=== PATIENT | female | born 1955 | race Caucasian/White ===

== ENCOUNTER 2018-01-08 16:45 | Inpatient (IN) | payer OTHER ==
[2018-01-08] MEDS ORDERED: DIGOXIN 0.25 MG/ML AMP ONE (17:22)
[2018-01-08] MEDS ORDERED: METHYLPREDNISOLONE 125 MG INJ ONE (17:22)
[2018-01-08] MEDS ORDERED: METOPROLOL TAR 50 MG TAB ONE (17:22)
[2018-01-08] MEDS ORDERED: AZITHROMYCIN 500 MG/250 ML BAG ONE (17:23)
[2018-01-08] MEDS ORDERED: TETANUS & DIPHTHERIA TOX,ADULT 0.5 ML VIAL ONE (17:23)
[2018-01-08] MEDS ORDERED: METOPROLOL TARTRATE 5 MG/5 ML INJ IV ONE (17:23)
[2018-01-08] MEDS ORDERED: NA CHLORIDE 0.9% 1,000 ML ONE ×2 (17:23→19:17)
[2018-01-08] MEDS ORDERED: CEFTRIAXONE/SWI 1gm 1 GM/10 ML SYR ONE (17:23)
[2018-01-08 17:28] LABS: Absolute Lymphocytes (CBC) 0.7 K/uL (0.7-4.9); Absolute Monocytes 0.8 K/uL (0.1-1.3); Absolute Neutrophil 5.7 K/uL (1.8-8.0); Basophils % 1.4 % (0-1.3); Eosinophils % 2.4 % (0-4.4); Hematocrit 42.6 % (36.0-45.0); Lymphocytes % 8.8 % (15.3-44.8); MCH 26.5 pg (27.0-35.0); MCV 80.1 fL (80-100); MPV 10.1 fL (7.6-11.3); Monocytes % 11.2 % (3.3-12.3); RBC Red Blood Cell Count 5.32 M/uL (3.86-4.86)
[2018-01-08 17:30] LABS: Protime INR 3.19
[2018-01-08 17:53] LABS: Albumin 3.6 g/dL (3.4-5.0); Bilirubin Direct 0.8 mg/dL (0-0.2); Bilirubin Total 1.9 mg/dL (0.2-1.0); CKMB Creatine Kinase MB 3.4 ng/mL (0.3-3.6); Magnesium 2.3 mg/dL (1.8-2.4); Potassium 4.1 mmol/L (3.5-5.1); Protein, Total 6.6 g/dL (6.4-8.2)
--- NOTE | 2018-01-08 18:06 | RAD REPORT ---
EXAM DESCRIPTION: CT - Head Brain Wo Cont - 01/08/2018 5:54 pm CLINICAL HISTORY: Dizziness. Head injury COMPARISON: 2016 TECHNIQUE: Computed axial tomography of the head was obtained. IV contrast was not requested. All CT scans are performed using dose optimization technique as appropriate and may include automated exposure control or mA/KV adjustment according to patient size. FINDINGS: An intracranial bleed is not seen . The ventricles are normal in caliber. No extra-axial fluid collection is noted. Bilateral low-density areas within the cerebral hemispheres are unchanged probably indicating old infarcts. Fluid within the sinuses/ mastoids is not seen. IMPRESSION: No acute intracranial abnormality is seen. If patient's symptoms persist MRI of the bra in would be recommended.
--- NOTE | 2018-01-08 18:11 | RAD REPORT ---
EXAM DESCRIPTION: [place] Single View01/08/2018 5:25 pm CLINICAL HISTORY: Chest pain COMPARISON: June 2017 FINDINGS: The lungs appear clear of acute infiltrate. The heart is markedly enlarged An old right rib fracture is present. IMPRESSION: No acute abnormalities displayed
[2018-01-08] MEDS ORDERED: LEVALBUTEROL 1.25 MG/3 ML NEB ONE (18:25)
[2018-01-08] MEDS ORDERED: IPRATROPIUM BROM 0.5MG/2.5ML ONE (18:25)
[2018-01-08 18:44] LABS: Urine Blood TRACE (NEG); Urine Glucose NEGATIVE (NEG); Urine Protein 1+ (NEG); Urine Specific Gravity 1.025 (1.005-1.030); Urine pH 5.5 (5.0-7.0)
--- NOTE | 2018-01-08 19:01 | EDPHYS ---
Physician Documentation [facility] Name: Richa Lozano Age: 62 yrs Sex: Female : 1955 Arrival Date: 01/08/2018 Time: 16:46 Bed 4 Private MD: Yared Chao R ED Physician Raul Wei HPI: 01/08 17:15 This 62 yrs old Female presents to ER via Wheelchair with complaints of zackery Slurred Speech, Dizziness, Fall Injury. Historical: - Allergies: 17:02 Levaquin; ss - Home Meds: 19:46 Klor-Con 10 10 mEq Oral TbER 1 tab once daily [Active]; Lasix 40 mg Oral tab 1 tab once ak1 daily [Active]; metoprolol tartrate 25 mg Oral tab 1 tab 2 times per day [Active]; sertraline 50 mg Oral tab 1 tab once daily [Active]; Xarelto 15 mg Oral tab daily [Active]; - PMHx: 17:02 AFIB; Aneurysm; COPD; CVA; Depression; Hypertensin; ss - PSHx: 17:02 aortic aneurysm; bilateral feet; ss - Immunization history:: Adult Immunizations up to date. - Social history:: Smoking status: Patient uses tobacco products, 2 cigarettes/ day. - Ebola Screening: : Patient denies exposure to infectious person Patient denies travel to an Ebola-affected area in the 21 days before illness onset. ROS: 17:16 Constitutional: Negative for fever, chills, and weight loss, Eyes: Negative for injury, zackery pain, redness, and discharge, ENT: Negative for injury, pain, and discharge, Neck: Negative for injury, pain, and swelling, Abdomen/GI: Negative for abdominal pain, nausea, vomiting, diarrhea, and constipation, Back: Negative for injury and pain, : Negative for injury, bleeding, discharge, and swelling, MS/Extremity: Negative for injury and deformity, Skin: Negative for injury, rash, and discoloration, Neuro: Negative for headache, weakness, numbness, tingling, and seizure, Psych: Negative for depression, anxiety, suicide ideation, homicidal ideation, and hallucinations, Allergy/Immunology: Negative for hives, rash, and allergies, Endocrine: Negative for neck swelling, polydipsia, polyuria, polyphagia, and marked weight changes. 17:16 Cardiovascular: Positive for chest pain, palpitations. 17:16 Respiratory: Positive for cough, shortness of breath, wheezing, inspiratory, expiratory. Exam: 17:16 Constitutional: This is a well developed, well nourished patient who is awake, alert, zackery and in no acute distress. Head/Face: Normocephalic, atraumatic. Eyes: Pupils equal round and reactive to light, extra-ocular motions intact. Lids and lashes normal. Conjunctiva and sclera are non-icteric and not injected. Cornea within normal limits. Periorbital areas with no swelling, redness, or edema. ENT: Nares patent. No nasal discharge, no septal abnormalities noted. Tympanic membranes are normal and external auditory canals are clear. Oropharynx with no redness, swelling, or masses, exudates, or evidence of obstruction, uvula midline. Mucous membranes moist. Neck: Trachea midline, no thyromegaly or masses palpated, and no cervical lymphadenopathy. Supple, full range of motion without nuchal rigidity, or vertebral point tenderness. No Meningismus. Chest/axilla: Normal chest wall appearance and motion. Nontender with no deformity. No lesions are appreciated. Abdomen/GI: Soft, non-tender, with normal bowel sounds. No distension or tympany. No guarding or rebound. No evidence of tenderness throughout. Back: No spinal tenderness. No costovertebral tenderness. Full range of motion. Female : Normal external genitalia. Skin: Warm, dry with normal turgor. Normal color with no rashes, no lesions, and no evidence of cellulitis. MS/ Extremity: Pulses equal, no cyanosis. Neurovascular intact. Full, normal range of motion. Neuro: Awake and alert, GCS 15, oriented to person, place, time, and situation. Cranial nerves II-XII grossly intact. Motor strength 5/5 in all extremities. Sensory grossly intact. Cerebellar exam normal. Normal gait. Psych: Awake, alert, with orientation to person, place and time. Behavior, mood, and affect are within normal limits. 17:16 Cardiovascular: Rate: tachycardic, Rhythm: regular, Pulses: Pulses are 4+ in bilateral radial, brachial, femoral, popliteal, posterior tibial and and dorsalis pedis arteries.. Heart sounds: Edema: 1+ edema to level of left ankle and right ankle, JVD: is not appreciated. Vital Signs: 17:02 BP 117 / 85; Pulse 123; Resp 22; Temp 98.2(O); Pulse Ox 86% on R/A; Weight 72.57 kg; ss Height 5 ft. 7 in. (170.18 cm); Pain 0/10; 17:38 BP 118 / 96; Pulse 106; Resp 22; Pulse Ox 95% on 2 lpm NC; sv 18:04 BP 119 / 88; Pulse 94; Resp 20; Pulse Ox 95% on 2 lpm NC; sv 19:30 BP 106 / 86; Pulse 96; Resp 16; Pulse Ox 97% on R/A; Pain 0/10; ao 19:30 BP 115 / 99; Pulse 96; Resp 18; Pulse Ox 94% ; ao 17:02 Body Mass Index 25.06 (72.57 kg, 170.18 cm) ss MDM: 16:51 Patient medically screened. [facility] 17:18 Data reviewed: vital signs, nurses notes, lab test result(s), EKG, radiologic studies. zackery 01/08 17:05 Order name: Basic Metabolic Panel; Complete Time: 18:32 sv 01/08 17:05 Order name: CBC with Diff; Complete Time: 18:32 sv 01/08 17:05 Order name: Ckmb; Complete Time: 18:32 sv 01/08 17:05 Order name: CPK; Complete Time: 18:32 sv 01/08 17:05 Order name: LFT's; Complete Time: 18:32 sv 01/08 17:05 Order name: Magnesium; Complete Time: 18:32 sv 01/08 17:05 Order name: NT PRO-BNP; Complete Time: 18:32 sv 01/08 17:05 Order name: PT-INR; Complete Time: 18:32 sv 01/08 17:05 Order name: Ptt, Activated; Complete Time: 18:32 sv 01/08 17:05 Order name: Troponin (emerg Dept Use Only); Complete Time: 18:32 sv 01/08 17:06 Order name: Glucose, Ancillary Testing; Complete Time: 18:32 EDMS 01/08 17:15 Order name: Blood Culture Adult (2) [facility] 01/08 18:20 Order name: Digoxin; Complete Time: 18:56 zackery 01/08 18:40 Order name: Urine Dipstick--Ancillary (enter results); Complete Time: 18:56 eb 01/08 17:05 Order name: XRAY Chest (1 view); Complete Time: 18:32 sv 01/08 17:15 Order name: CT Head Brain wo Cont; Complete Time: 18:32 zackery 01/08 19:18 Order name: Basic Metabolic Panel EDMS 01/08 19:18 Order name: Basic Metabolic Panel EDMS 01/08 19:18 Order name: NT PRO-BNP EDMS 01/08 19:18 Order name: NT PRO-BNP EDMS 01/08 19:18 Order name: Troponin I EDMS 01/08 19:18 Order name: Troponin I EDMS 01/08 19:18 Order name: Troponin I EDMS 01/08 19:19 Order name: Echo with Doppler EDMS 01/08 19:19 Order name: CBC with Automated Diff EDMS 01/08 19:19 Order name: CBC with Automated Diff EDMS 01/08 17:05 Order name: EKG; Complete Time: 17:05 sv 01/08 17:05 Order name: Cardiac monitoring; Complete Time: 17:15 sv 01/08 17:05 Order name: EKG - Nurse/Tech; Complete Time: 17:14 sv 01/08 17:05 Order name: IV Saline Lock; Complete Time: 17:14 sv 01/08 17:05 Order name: Labs collected and sent; Complete Time: 17:14 sv 01/08 17:05 Order name: O2 Per Protocol; Complete Time: 17:15 sv 01/08 17:05 Order name: O2 Sat Monitoring; Complete Time: 17:15 sv 01/08 17:05 Order name: Urine Dipstick-Ancillary (obtain specimen); Complete Time: 19:16 sv 01/08 19:19 Order name: Low Sodium EDMS Administered Medications: Discontinued: NS 0.9% 1000 ml IV at 125 ml/hr continuous 17:27 Drug: NS 0.9% 1000 ml Route: IV; Rate: 125 ml/hr; Site: right forearm; sv 17:27 Drug: Lopressor 2.5 mg Route: IVP; Site: right forearm; sv 20:44 Follow up: Urine output 2.5 ml; Response: No adverse reaction ao 20:51 Follow up: only 2.5mg given IV on day shift. pt BP and Heartrate WNL no need per ERP ak1 for second 17:29 Drug: Digoxin 0.5 mg Route: IVP; Site: right forearm; sv 17:58 Follow up: Response: No adverse reaction sv 17:31 Drug: SOLU-Medrol 125 mg Route: IVP; Site: right forearm; sv 17:58 Follow up: Response: No adverse reaction sv 17:33 Drug: Rocephin - (cefTRIAXone) 1 grams Route: IVPB; Infused Over: 30 mins; Site: right sv forearm; 17:37 Follow up: Response: No adverse reaction; IV Status: Completed infusion; IV Intake: 10mlsv 17:38 Drug: Zithromax 500 mg Route: IVPB; Infused Over: 1 hrs; Site: right forearm; sv 19:18 Follow up: IV Status: Completed infusion ak1 17:44 Drug: Tetanus-Diphtheria Toxoid Adult 0.5 ml {Elastic Attacher Coverstitch: [employer]. Exp: sv 02/27/2020. Lot #: [id number]. } Route: IM; Site: left deltoid; 17:59 Follow up: Response: No adverse reaction sv 17:47 Drug: Lopressor (metoprolol TARTRATE) 50 mg Route: PO; sv 17:59 Follow up: Response: No adverse reaction sv 18:25 Drug: Xopenex 3.75 mg Route: Inhalation; sv 18:25 Drug: AtroVENT Aerosol 0.5 mg Route: Inhalation; sv 19:18 Drug: NS 0.9% 1000 ml Route: IV; Rate: 75 ml/hr; Site: right hand; ak1 19:20 Follow up: IV Status: Infusion continued upon admission ak1 19:18 Drug: Lasix 20 mg Route: IVP; Site: right hand; ak1 19:19 Follow up: Response: No adverse reaction ak1 20:41 Drug: Lasix 20 mg Route: IVP; Site: right forearm; ao 20:42 Drug: Potassium Effervescent Tablet 25 mEq Route: PO; ao 20:58 Drug: Lopressor 5 mg {Note: no medication administered.2.5mg given IV on day shift, the ak1 second 2.5mg was not warrented..} Route: IVP; Site: Other; 20:59 Follow up: Response: Blood pressure is lowered ak1 Point of Care Testing: Blood Glucose: 17:00 Blood Glucose: 111 mg/dL; sv Ranges: Critical Glucose Levels:Adult <50 mg/dl or >400 mg/dl <40 mg/dl or >180 mg/dl Disposition: 01/08/18 19:01 Hospitalization ordered by Yared Chao for Inpatient Admission. Preliminary diagnosis are Dyspnea, Cardiomegaly, Atrial fibrillation and flutter, Chronic obstructive pulmonary disease with (acute) exacerbation. - Bed requested for Telemetry/MedSurg (Inpatient). - Status is Inpatient Admission. ak1 - Condition is Fair. - Problem is new. - Symptoms have improved. UTI on Admission? No Signatures: Dispatcher [employer] EDHI Rashad Fabian rg2 Garima Ying, RN RN Raul Reed MD MD cha Smirch, Shelby, RN RN ss Krenek, Amber, RN RN ak1 Clovis Aguirre RN RN ao Corrections: (The following items were deleted from the chart) 19:29 19:18 CONS Physician Consult ordered. EDHI EDHI 20:30 19:01 Hospitalization Ordered by Yared Chao MD for Inpatient Admission. Preliminary rg2 diagnosis is Dyspnea; Cardiomegaly; Atrial fibrillation and flutter; Chronic obstructive pulmonary disease with (acute) exacerbation. Bed requested for Telemetry/MedSurg (Inpatient). Status is Inpatient Admission. Condition is Fair. Problem is new. Symptoms have improved. UTI on Admission? No. zackery 21:21 20:30 01/08/2018 19:01 Hospitalization Ordered by Yared Chao MD for Inpatient ak1 Admission. Preliminary diagnosis is Dyspnea; Cardiomegaly; Atrial fibrillation and flutter; Chronic obstructive pulmonary disease with (acute) exacerbation. Bed requested for Telemetry/MedSurg (Inpatient). Status is Inpatient Admission. Condition is Fair. Problem is new. Symptoms have improved. UTI on Admission? No. rg2
--- NOTE | 2018-01-08 19:01 | ER ---
Nurse's Notes [facility] Name: Richa Lozano Age: 62 yrs Sex: Female : 1955 Arrival Date: 01/08/2018 Time: 16:46 Bed 4 Private MD: Yared Chao R Diagnosis: Dyspnea;Cardiomegaly;Atrial fibrillation and flutter;Chronic obstructive pulmonary disease with (acute) exacerbation Presentation: 01/08 16:58 Presenting complaint: daughter reports that patient fell a few hours ago at unknown ss time, took her 2.5-3 hours to get to a phone. Daughter reports that patient's speech sounds a little more slurred than usual, and is complaining of dizziness. Transition of care: patient was not received from another setting of care. Onset of symptoms was January 08, 2018. Risk Assessment: Do you want to hurt yourself or someone else? Patient reports no desire to harm self or others. Initial Sepsis Screen: Does the patient meet any 2 criteria? RR > 20 per min. HR > 90 bpm. Does the patient have a suspected source of infection? No. Patient's initial sepsis screen is negative. Care prior to arrival: None. 16:58 Method Of Arrival: Wheelchair ss 16:58 Acuity: TINO 2 ss Historical: - Allergies: 17:02 Levaquin; ss - Home Meds: 19:46 Klor-Con 10 10 mEq Oral TbER 1 tab once daily [Active]; Lasix 40 mg Oral tab 1 tab once ak1 daily [Active]; metoprolol tartrate 25 mg Oral tab 1 tab 2 times per day [Active]; sertraline 50 mg Oral tab 1 tab once daily [Active]; Xarelto 15 mg Oral tab daily [Active]; - PMHx: 17:02 AFIB; Aneurysm; COPD; CVA; Depression; Hypertensin; ss - PSHx: 17:02 aortic aneurysm; bilateral feet; ss - Immunization history:: Adult Immunizations up to date. - Social history:: Smoking status: Patient uses tobacco products, 2 cigarettes/ day. - Ebola Screening: : Patient denies exposure to infectious person Patient denies travel to an Ebola-affected area in the 21 days before illness onset. Screenin:14 Abuse screen: Denies threats or abuse. Denies injuries from another. Nutritional sv screening: No deficits noted. Tuberculosis screening: No symptoms or risk factors identified. Fall Risk No fall in past 12 months (0 pts). No secondary diagnosis (0 pts). IV access (20 points). Ambulatory Aid- None/Bed Rest/Nurse Assist (0 pts). Gait- Weak (10 pts.). Mental Status- Oriented to own ability (0 pts). Total Calero Fall Scale indicates Low Risk Score (25-44 pts). Fall prevention measures have been instituted. Side Rails Up X 2 Placed close to Nursing Station Frequent Obs/Assesments occuring Family Present and informed to notify staff if they need to leave bedside As available Patient and Family Educated on Fall Prevention Program and strategies. Assessment: 17:00 General: Appears in no apparent distress. uncomfortable, Behavior is cooperative, sv restless. Pain: Complains of pain in left ankle Pain currently is 3 out of 10 on a pain scale. Pain began 4 hours ago. Is intermittent. Neuro: Level of Consciousness is awake, alert, obeys commands, Oriented to person, place, time, situation, Moves all extremities. Speech is slurred, Facial symmetry appears normal, Reports dizziness. Cardiovascular: Patient's skin is warm and dry. Pulses are 3+ in right radial artery and left radial artery. Respiratory: Respiratory pattern is symmetrical, tachypnea Breath sounds with wheezes bilaterally. Derm: Skin is normal. Musculoskeletal: Range of motion: intact in all extremities. Injury Description: Abrasion sustained to right knee and left knee is scabbed, was sustained 4-6 hours ago. 17:30 Reassessment: Patient appears in no apparent distress at this time. No changes from sv previously documented assessment. Patient and/or family updated on plan of care and expected duration. Pain level reassessed. Patient is alert, oriented x 3, equal unlabored respirations, skin warm/dry/pink. 18:25 Reassessment: Patient appears in no apparent distress at this time. No changes from sv previously documented assessment. Patient and/or family updated on plan of care and expected duration. Pain level reassessed. Patient is alert, oriented x 3, equal unlabored respirations, skin warm/dry/pink. 19:20 General: Appears in no apparent distress. comfortable, Behavior is calm, cooperative. ao Pain: Complains of pain in left leg. Neuro: Level of Consciousness is awake, alert, obeys commands, Oriented to person, place, time, situation, Moves all extremities. Speech is slurred, Facial symmetry appears normal, Reports dizziness. Cardiovascular: Capillary refill < 3 seconds Patient's skin is warm and dry. Pulses are all present. Respiratory: Airway is patent Respiratory effort is even, unlabored, Respiratory pattern is regular, symmetrical. GI: Abdomen is non-distended. : No signs and/or symptoms were reported regarding the genitourinary system. EENT: No signs and/or symptoms were reported regarding the EENT system. Derm: No signs and/or symptoms reported regarding the dermatologic system. Skin is pink, warm \T\ dry. normal. Musculoskeletal: Range of motion: intact in all extremities. 20:43 Reassessment: Patient appears in no apparent distress at this time. Patient and/or ao family updated on plan of care and expected duration. Pain level reassessed. Patient is alert, oriented x 3, equal unlabored respirations, skin warm/dry/pink. Report called to [facility] and nurse was not available. Nurse will call back to get report. Vital Signs: 17:02 BP 117 / 85; Pulse 123; Resp 22; Temp 98.2(O); Pulse Ox 86% on R/A; Weight 72.57 kg; ss Height 5 ft. 7 in. (170.18 cm); Pain 0/10; 17:38 BP 118 / 96; Pulse 106; Resp 22; Pulse Ox 95% on 2 lpm NC; sv 18:04 BP 119 / 88; Pulse 94; Resp 20; Pulse Ox 95% on 2 lpm NC; sv 19:30 BP 106 / 86; Pulse 96; Resp 16; Pulse Ox 97% on R/A; Pain 0/10; ao 19:30 BP 115 / 99; Pulse 96; Resp 18; Pulse Ox 94% ; ao 17:02 Body Mass Index 25.06 (72.57 kg, 170.18 cm) Vitals: 17:05 Cardiac Rhythm Assessment Atrial fibrillation W/PVC's. sv ED Course: 16:46 Patient arrived in ED. sb2 16:46 Yared Chao MD is Private Physician. sb2 16:50 Raul Wei MD is Attending Physician. zackery 17:00 Patient has correct armband on for positive identification. Placed in gown. Bed in low sv position. Side rails up X2. Adult w/ patient. quality assurance monitor final on. Pulse ox on. NIBP on. Door closed. Head of bed elevated. 17:02 Triage completed. ss 17:02 Arm band placed on right wrist. ss 17:04 Garima Ying, RN is Primary Nurse. sv 17:05 Initial lab(s) drawn, by me, sent to lab. Inserted saline lock: 20 gauge in right sv forearm, using aseptic technique. Blood collected. Flushed right forearm with 5 ml normal saline. 17:06 EKG done, by correctional maintenance technician. reviewed by Raul Wei MD. sm3 17:24 XRAY Chest (1 view) In Process Unspecified. EDMS 17:28 Radiology exam delayed due to PT unable to come down for CT, Nurse Garima will call nj when ready. 17:[address] via stretcher. sv 17:53 CT Head Brain wo Cont In Process Unspecified. EDMS 18:10 First set of blood cultures drawn by nc. em1 18:58 Yared Chao MD is Hospitalizing Provider. zackery 19:10 Report given to Inez CHOPRA and Clovis CHOPRA. sv 19:32 Primary Nurse role handed off by Garima Ying, RN sv 19:44 No provider procedures requiring assistance completed. Patient admitted, IV remains in ak1 place. Administered Medications: Discontinued: NS 0.9% 1000 ml IV at 125 ml/hr continuous 17:27 Drug: NS 0.9% 1000 ml Route: IV; Rate: 125 ml/hr; Site: right forearm; sv 17:27 Drug: Lopressor 2.5 mg Route: IVP; Site: right forearm; sv 20:44 Follow up: Urine output 2.5 ml; Response: No adverse reaction ao 20:51 Follow up: only 2.5mg given IV on day shift. pt BP and Heartrate WNL no need per ERP ak1 for second 17:29 Drug: Digoxin 0.5 mg Route: IVP; Site: right forearm; sv 17:58 Follow up: Response: No adverse reaction sv 17:31 Drug: SOLU-Medrol 125 mg Route: IVP; Site: right forearm; sv 17:58 Follow up: Response: No adverse reaction sv 17:33 Drug: Rocephin - (cefTRIAXone) 1 grams Route: IVPB; Infused Over: 30 mins; Site: right sv forearm; 17:37 Follow up: Response: No adverse reaction; IV Status: Completed infusion; IV Intake: 10mlsv 17:38 Drug: Zithromax 500 mg Route: IVPB; Infused Over: 1 hrs; Site: right forearm; sv 19:18 Follow up: IV Status: Completed infusion ak1 17:44 Drug: Tetanus-Diphtheria Toxoid Adult 0.5 ml {Crystal Lapper: [employer]. Exp: sv 02/27/2020. Lot #: [id number]. } Route: IM; Site: left deltoid; 17:59 Follow up: Response: No adverse reaction sv 17:47 Drug: Lopressor (metoprolol TARTRATE) 50 mg Route: PO; sv 17:59 Follow up: Response: No adverse reaction sv 18:25 Drug: Xopenex 3.75 mg Route: Inhalation; sv 18:25 Drug: AtroVENT Aerosol 0.5 mg Route: Inhalation; sv 19:18 Drug: NS 0.9% 1000 ml Route: IV; Rate: 75 ml/hr; Site: right hand; ak1 19:20 Follow up: IV Status: Infusion continued upon admission ak1 19:18 Drug: Lasix 20 mg Route: IVP; Site: right hand; ak1 19:19 Follow up: Response: No adverse reaction ak1 20:41 Drug: Lasix 20 mg Route: IVP; Site: right forearm; ao 20:42 Drug: Potassium Effervescent Tablet 25 mEq Route: PO; ao 20:58 Drug: Lopressor 5 mg {Note: no medication administered.2.5mg given IV on day shift, the ak1 second 2.5mg was not warrented..} Route: IVP; Site: Other; 20:59 Follow up: Response: Blood pressure is lowered ak1 Point of Care Testing: Blood Glucose: 17:00 Blood Glucose: 111 mg/dL; sv Ranges: Intake: 17:37 IV: 10ml; Total: 10ml. sv Output: 20:44 Urine: 3ml; Total: 3ml. ao Outcome: 19:01 Decision to Hospitalize by Provider. [facility] 19:44 Condition: stable ak1 19:44 Instructed on the need for admit. 21:21 Patient left the ED. ak1 Signatures: Dispatcher [employer] Garima Lopez RN RN sv Anderson, Corey, MD MD cha Martinez, Eric em1 Viviana Martinez RN RN ss Inez Martin RN RN ak1 Clovis Aguirre, RN RN Juan Rachel Sheri 2 Chanel Deal sm3 Corrections: (The following items were deleted from the chart) 17:46 17:17 Digoxin 0.5 mg IVP in right forearm sv sv
[2018-01-08] MEDS ORDERED: IPRATROPIUM BROM 0.5MG/2.5ML NEB PRN (19:07)
[2018-01-08] MEDS ORDERED: ALBUTEROL 2.5 MG/3 ML NEB SOL NEB PRN (19:07)
[2018-01-08] MEDS ORDERED: ACETAMINOPHEN 500 MG TAB PO PRN (19:07)
[2018-01-08] MEDS ORDERED: FUROSEMIDE 20 MG/ 2ML VIAL ONE ×2 (19:17→20:37)
[2018-01-08] MEDS: DIGOXIN 0.25 MG/ML AMP IV SCH (20:00)
[2018-01-08] MEDS: POTASSIUM 25 MEQ EFFERV TAB PO SCH (21:00)
[2018-01-08] MEDS: FUROSEMIDE 20 MG/ 2ML VIAL IV SCH (21:00)
--- NOTE | 2018-01-08 21:51 | EKG ---
Test Date: 2018-01-08 Test Time: 16:59:51 [employer] Product Fabricator: KOBI MEASUREMENT RESULTS: Intervals: Rate: 110 CA: QRSD: 86 QT: 352 QTc: 476 [place]: P: CA: QRS: 79 T: 243 INTERPRETIVE STATEMENTS: Atrial fibrillation with rapid ventricular response with frequent and consecutive premature ventricular complexes Low voltage QRS Septal infarct, age undetermined ST & T wave abnormality, consider inferolateral ischemia Abnormal ECG Compared to ECG 06/18/2017 01:42:44 Ventricular premature complex(es) now present Low QRS voltage now present Left-axis deviation no longer present Electronically Signed On 01-08-18 21:50:58 CDT by Bryce Nichols
[2018-01-08] MEDS: FAMOTIDINE 20 MG/2 ML VIAL IV SCH (22:15)
[2018-01-08 22:52] VITALS: BMI 25.0
[2018-01-08] MEDS: METHYLPREDNISOLONE 40 MG INJ IV SCH (23:07)
[2018-01-09] MEDS: DIGOXIN 0.25 MG/ML AMP IV SCH (01:03)
[2018-01-09 04:18] LABS: Absolute Lymphocytes (CBC) 0.3 K/uL (0.7-4.9); Absolute Monocytes 0.1 K/uL (0.1-1.3); Absolute Neutrophil 4.6 K/uL (1.8-8.0); Basophils % 0.4 % (0-1.3); Hematocrit 41.5 % (36.0-45.0); Lymphocytes % 6.2 % (15.3-44.8); MCH 25.9 pg (27.0-35.0); MPV 10.5 fL (7.6-11.3); Monocytes % 2.9 % (3.3-12.3); RBC Red Blood Cell Count 5.18 M/uL (3.86-4.86)
[2018-01-09 04:27] LABS: Potassium 3.7 mmol/L (3.5-5.1)
[2018-01-09 05:30] LABS: Anisocytosis 2+; Blood Morphology Comment NOTED (NOT SEEN); Ovalocytes 3+; Platelet Estimate ADEQ
[2018-01-09] MEDS: METOPROLOL TAR 25 MG TAB PO SCH ×2 (06:54→18:03)
[2018-01-09] MEDS: METHYLPREDNISOLONE 40 MG INJ IV SCH ×3 (06:54→18:04)
[2018-01-09] MEDS: POTASSIUM 25 MEQ EFFERV TAB PO SCH ×2 (08:43→20:05)
[2018-01-09] MEDS: FAMOTIDINE 20 MG/2 ML VIAL IV SCH ×2 (08:43→20:05)
[2018-01-09] MEDS: FUROSEMIDE 20 MG/ 2ML VIAL IV SCH ×3 (08:43→20:06)
[2018-01-09] MEDS ORDERED: AZITHROMYCIN IV 250 MG in NA CHLORIDE 0.9% 250 ML IVPB SCH (09:00)
[2018-01-09] MEDS ORDERED: CEFTRIAXONE 1 GM/NS 50 ML 1 GM/50 ML BAG IV SCH (09:00)
[2018-01-09] MEDS ORDERED: CEFTRIAXONE/SWI 1gm 1 GM/10 ML SYR IV SCH (09:00)
--- NOTE | 2018-01-09 10:50 | CON ---
History Of Present Illness: Mrs. Lozano is a woman who has had a few syncopal spells, a few spells wh ere she has been found more confused than usual, and a few spells where she has awakened on the floor , not known where she was. On telemetry, she has had some pauses up to 4 seconds long. Mrs. Lozano h as had atrial fibrillation for decades. She has not had any coronary intervention. She is normally a patient of Dr. Prieto Bella. She takes rivaroxaban, potassium, saline, metoprolol 25 b.i.d. She has underlying COPD and underlying severe bipolar disorder. She is getting azithromycin and ceftria xone for what Dr. Wei believe might have been a pneumonia. The radiologist's report on her ches t x-ray would not indicate that they thought there was pneumonia. One of her pauses was about 4 seco nds long on telemetry. When she first came in, her heart rate was in the 120s. She had been on digo antonella in the past, but stopped it. We are not sure if Dr. Bella had stopped it or if she stopped. Allergies: SHE REPORTS AN ALLERGY TO LEVOFLOXACIN. Physical Examination: Vital Signs: 5 feet 7, 160 pounds. She has a deep voice, sounds like chronic smoker. She coughs th roughout the exam. Lungs: Do not reveal crackles or wheezes. Heart: Irregularly irregular and presently it is going about 88 beats per minute, blood pressure 119 /80. Extremities: Diminished distal pulses, but palpable. Warm and well perfused. Impression: The patient probably needs a pacemaker. She received Xarelto last night, so we do not w ant to do it now. She is a patient of Dr. Bella. Dr. Chao will call Dr. Bella and see if he wishes to have her transferred into up there. In any event, we need to withhold rivaroxaban presently so s he can have a pacemaker tomorrow whether it is done here or elsewhere. Thank you very much for your kind referral of Mrs. Lozano. I will follow her with you. DAMON/MIMI Voice ID: [id number] Report ID: [id number]
--- NOTE | 2018-01-09 12:07 | HP ---
Date of Admission: 01/08/2018 Chief Complaint: Dizziness, unresponsive, wheezing. History Of Present Illness: A 62-year-old female, who is known to have chronic atrial fibrillation a s well as COPD, was brought to the emergency room with symptoms of dizziness, slurred speech, and dif ficulty to ambulate. She had extensive workup in the emergency room including CT scan of the head. She is admitted with a diagnosis of atrial fibrillation with rapid ventricular response and COPD exac erbation. The patient cannot give a reliable history on account of her mental status, which is relat ed to her chronic bipolar state. She continues to smoke. According to the chart, she is on Lasix, p otassium, metoprolol, Zoloft, Xarelto currently. Past Medical History: Positive for stroke, hypertension, aneurysm surgery, and COPD. Review of Systems: The patient denied any history of fever, chills, rigors. Physical Examination: General: Revealed a 62-year-old female with mild wheezing. HEENT: Otherwise negative. Neck: No JVD. Carotids, good upstroke. Chest: Scattered wheezes. Heart: Irregularity noted. Abdomen: Soft. Extremities: No edema. Laboratory Data: White count normal. Chem profile; BUN 25, otherwise negative. Troponin normal. B HOT [employer]ER 2247. EKG; atrial fibrillation with rapid ventricular response. Monitor strips; long pauses of a systole. Chest x-ray; COPD changes. Assessment: 1.Chronic obstructive pulmonary disease exacerbation. 2.Atrial fibrillation with rapid ventricular response with episodes of sinus pauses. 3.Status post aortic aneurysm surgery. 4.Congestive heart failure. 5.Bipolar disorder. Plan: The patient has seen by Cardiology Service; however, the patient has been following with Dr. Lucio vaughan. I will talk to Dr. Bella whether she would be a candidate for a pacemaker and giving large dos e of beta-rocky to control the ventricular rate. Meanwhile, the patient is already on steroids and breathing treatments and antibiotic, which will be continued for COPD exacerbation. NEIL/MIMI Voice ID: [id number]
--- NOTE | 2018-01-09 12:39 | ECHO ---
HEIGHT: 5 ft 7 in WEIGHT: 160 lb 0 oz DATE OF STUDY: 01/09/[address]: Raul Wei MD 2-DIMENSIONAL: YES M.MODE: YES DOPPLER: YES COLOR FLOW: YES TDS: NO PORTABLE: NO DEFINITY: NO BUBBLE STUDY: NO DIAGNOSIS: CONGESTIVE HEART FAILURE/ATRIAL FIBRILLATION CARDIAC HISTORY: CATHERIZATION: NO SURGERY: NO PROSTHETIC VALVE: NO PACEMAKER: NO MEASUREMENTS (cm) DIASTOLIC (NORMALS) SYSTOLIC (NORMALS) IVSd 1.1 (0.6-1.2) LA Diam 6.7 (1.9-4.0) LVEF 30-35% LVIDd 5.5 (3.5-5.7) LVIDs 4.6 (2.0-3.5) %FS 16% LVPWd 1.1 (0.6-1.2) Ao Diam 2.9 (2.0-3.7) 2 DIMENSIONAL ASSESSMENT: RIGHT ATRIUM: DILATED LEFT ATRIUM: MARKEDLY DILATED RIGHT VENTRICLE: DILATED LEFT VENTRICLE: NORMAL TRICUSPID VALVE: NORMAL MITRAL VALVE: MITRAL ANNULAR CALCIFICATION PULMONIC VALVE: NORMAL AORTIC VALVE: SCLEROSIS PERICARDIAL EFFUSION: SMALL AORTIC ROOT: NORMAL LEFT VENTRICULAR WALL MOTION: GLOBAL HYPOKINESIS. DOPPLER/COLOR FLOW: MODERATE MITRAL REGURGITATION, MILD TRICUSPID REGURGITATION. MODERATE PULMONARY HYPERTENSION, ESTIMATED RIGHT VENTRICULAR SYSTOLIC PRESSURE 55mmHg. NO AORTIC STENOSIS. MILD AORTIC REGURGITATION. COMMENTS: DEPRESSED LEFT VENTRICULAR EJECTION FRACTION. DILATED RIGHT VENTRICULAR, RIGHT ATRIUM, LEFT ATRIUM. MITRAL ANNULAR CALCIFICATION. AORTIC SCLEROSIS WITH NO AORTIC STENOSIS. MODERATE MITRAL REGURGITATION. MILD AORTIC AND TRICUSPID REGURGITATION. MODERATE PULMONARY HYPERTENSION. ATRIAL FIBRILLATION 63 BEATS PER MINUTE. TECHNOLOGIST: ED COELHO
[2018-01-09] MEDS ORDERED: RIVAROXABAN 15 MG TABLET PO SCH (17:00)
[2018-01-09 20:07] VITALS: BP 101/61
[2018-01-09 20:14] VITALS: TEMP 97.6
[2018-01-09 22:05] VITALS: O2SAT 97
== END 2018-01-09 21:00 | disposition short-term general hospital (02) | DRG 191 ==
LOC: ER 16:45 → ERHOLD 19:34 → 4TH 20:33
PROVIDERS: ADMIT Internal Medicine; ATTEND Internal Medicine
DX: J44.1 Chronic obstructive pulmonary disease with (acute) exacerbation (principal); I48.92 Unspecified atrial flutter; I48.2 Chronic atrial fibrillation; I49.5 Sick sinus syndrome; I11.0 Hypertensive heart disease with heart failure; I50.9 Heart failure, unspecified; F31.9 Bipolar disorder, unspecified; Z23 Encounter for immunization; F17.210 Nicotine dependence, cigarettes, uncomplicated; Z79.01 Long term (current) use of anticoagulants; Z88.1 Allergy status to other antibiotic agents; Z79.02 Long term (current) use of antithrombotics/antiplatelets
CPT/HCPCS: 36415; 70450; 71045; 80048; 80076; 80162; 81003; 82550; 82553; 82962; 83735; 83880; 84484; 85025; 85610; 85730; 87040; 90714; 93005; 93306; 99285; J0456; J0696; J1160; J1940; J2920; J2930; J7030

== ENCOUNTER 2018-01-21 18:16 | Emergency (ER) | payer OTHER ==
--- OUTSIDE RECORDS SUMMARY | 2018-01-21 18:18 | XMS REPORT | Clinical Summary ---
:1955 Author Organization [facility] Address [address] [place] [address] Care Team Providers Name Role Phone Yared Castillo MD Primary Care Provider Allergies Active Allergy Reactions Severity Noted Date Comments Levofloxacin Itching 01/10/2018 Current Medications Prescription Sig. Disp. Refills Start Date End Date Status potassium chloride Take 10 mEq by Active (K-DUR,KLOR-CON) mouth daily. 10 MEQ CR tablet sertraline Take 50 mg by Active (ZOLOFT) 50 MG mouth daily. tablet metoprolol Take 50 mg by Active tartrate mouth 2 (two) (LOPRESSOR) 50 mg times a day. tablet predniSONE Take 10 mg by Active (DELTASONE) 10 mg mouth 2 (two) tablet times a day. lisinopril Take 5 mg by Active (PRINIVIL,ZESTRIL) mouth daily. 5 mg tablet ipratropium Take 2.5 mL (0.5 300 mL 0 01/16/2018 02/16/20 Active (ATROVENT) 0.02 % mg total) by 18 nebulizer solution nebulization every 6 (six) hours for 30 days. digOXIN (LANOXIN) Take 1 tablet 30 tablet 0 01/17/2018 02/17/20 Active 125 mcg tablet (125 mcg total) 18 by mouth daily for 30 days. rivaroxaban Take 1 tablet (15 30 tablet 0 01/16/2018 02/16/20 Active (XARELTO) 15 mg mg total) by 18 tablet mouth daily for 30 days. docusate sodium Take 1 capsule 60 capsule 0 01/16/2018 02/16/20 Active (COLACE) 100 MG (100 mg total) by 18 capsule mouth 2 (two) times a day for 30 days. polyethylene Take 17 g by 30 packet 0 01/17/2018 02/17/20 Active glycol (MIRALAX) mouth daily for 18 17 gram packet 30 days. furosemide (LASIX) Infuse 4 mL (40 240 mL 0 01/16/2018 02/16/20 Active 10 mg/mL injection mg total) into a 18 venous catheter 2 (two) times a day for 30 days. nicotine (NICODERM Place 1 patch on 30 patch 0 01/17/2018 02/17/20 Active CQ) 21 mg/24 hr the skin daily 18 for 30 days. chlorhexidine Apply topically 01/16/2018 02/16/20 Active (HIBICLENS) 4 % daily as needed 18 external liquid for wound care for up to 30 days. furosemide (LASIX) Take 40 mg by 01/17/20 Discontinued 40 mg tablet mouth daily. 18 rivaroxaban Take 10 mg by 01/17/20 Discontinued (XARELTO) 10 mg mouth daily. 18 tablet Active Problems Problem Noted Date Essential hypertension 01/13/2018 CVA (cerebral vascular accident) 01/13/2018 Depression 01/13/2018 Confusion 01/10/2018 Encounters Date Type Specialty Care Team Description 01/11/2018 Telephone Cardiology Leonila Palomo 01/11/2018 Anesthesia Event Procedural Amilcar Rosado Cardiology ANITA Ortiz 01/11/2018 Procedure Pass Procedural Cardiology 01/11/2018 Procedure Pass Procedural Cardiology 01/11/2018 Surgery Procedural Jovani Pagan Ep aicd implant Cardiology MD aKrma dual bi vent [86920 (CPT)] 01/10/2018 Procedure Pass Procedural Cardiology 01/10/2018 Surgery Procedural Attar, Pacemaker insertion Cardiology MD Prieto new or replacement [79973 (CPT)] 01/09/2018 - Hospital Encounter Cardiology Rhina Lee Sick sinus syndrome (Primary Dx); 01/16/2018 MD Umer Confusion; Rogerio, Essential hypertension; Markus O. Sr., Mild single current episode of major depressive disorder 01/09/2018 Intake Access N/A after 01/20/2017 Social History Tobacco Use Types Packs/Day Years Used Date Never Assessed Sex Assigned at Date Recorded Not on file Last Filed Vital Signs Vital Sign Reading Time Taken Blood Pressure 106/60 01/16/2018 3:51 PM CDT Pulse 62 01/16/2018 3:51 PM CDT Temperature 36.1 C (96.9 F) 01/16/2018 3:51 PM CDT Respiratory Rate 16 01/16/2018 3:51 PM CDT Oxygen Saturation 100% 01/16/2018 3:51 PM CDT Inhaled Oxygen Concentration - - Weight 85.7 kg (189 lb) 01/16/2018 6:01 AM CDT Height 170.2 cm (5' 7") 01/11/2018 2:10 PM CDT Body Mass Index 29.6 01/16/2018 6:01 AM CDT Plan of Treatment Health Maintenance Due Date Last Done Comments CERVICAL CANCER SCREENING 1977 BREAST CANCER SCREENING 2006 COLON CANCER SCREENING 2006 SHINGRIX VACCINE (#1) 2006 ZOSTER VACCINE 2016 INFLUENZA VACCINE 01/08/2018 Implants Implanted Type Area Layer Out Plate Glass Device Expiration Model / Identifier Date Serial / Lot Geraldine Df4 - Active Tbp Single Shock, Icd Leads, Model 7120q-58 - [id number] - [id number] Cardiac Pacing N/A: 11/07/2018 [id number] 58 / Implanted: Qty: 1 on 01/11/2018 by Jovani Pagan Jr., MD Leads or N/A [id number] / Electrodes or [id number] Accessories Quartet, Lv Leads, Model 1458q-86 - [id number] - [id number] Cardiac Pacing N/ A: 08/08/2019 [id number] 86 / Implanted: Qty: 1 on 01/11/2018 by Jovani Pagan Jr., MD Leads or N/A [id number] / Electrodes or [id number] Accessories Defibrillator Quadra Assura Mp - [id number] - [id number] Defibrillator N/A: [facility] 12/08/2019 [id number] / Implanted: Qty: 1 on 01/11/2018 by Jovani Pagan Jr., MD ICD Devices N/A MEDICAL CRM [id number] / [id number] Procedures Procedure Name Priority Date/Time Associated Comments Diagnosis DIGOXIN LEVEL Routine 01/15/2018 4:00 Results for this AM CDT procedure are in the results section. ESTIMATED GFR Routine 01/14/2018 10:20 Results for this AM CDT procedure are in the results section. BASIC METABOLIC PANEL Routine 01/14/2018 10:20 Results for this AM CDT procedure are in the results section. HC COMPLETE BLD COUNT Routine 01/14/2018 10:20 Results for this W/AUTO DIFF AM CDT procedure are in the results section. POC GLUCOSE Routine 01/13/2018 9:01 Results for this PM CDT procedure are in the results section. POC GLUCOSE Routine 01/13/2018 4:37 Results for this PM CDT procedure are in the results section. POC GLUCOSE Routine 01/13/2018 1:22 Results for this PM CDT procedure are in the results section. XR CHEST 1 VW PORTABLE STAT 01/13/2018 10:21 Results for this AM CDT procedure are in the results section. ESTIMATED GFR Routine 01/13/2018 2:00 Results for this AM CDT procedure are in the results section. PHOSPHORUS LEVEL Routine 01/13/2018 2:00 Results for this AM CDT procedure are in the results section. IONIZED CALCIUM Routine 01/13/2018 2:00 Results for this AM CDT procedure are in the results section. MAGNESIUM LEVEL Routine 01/13/2018 2:00 Results for this AM CDT procedure are in the results section. BASIC METABOLIC PANEL Routine 01/13/2018 2:00 Results for this AM CDT procedure are in the results section. HC COMPLETE BLD COUNT Routine 01/13/2018 2:00 Results for this W/AUTO DIFF AM CDT procedure are in the results section. DIGOXIN LEVEL Routine 01/13/2018 2:00 Results for this AM CDT procedure are in the results section. DIGOXIN LEVEL Routine 01/12/2018 10:58 Results for this AM CDT procedure are in the results section. ECG PRE/POST OP Routine 01/12/2018 10:57 Results for this AM CDT procedure are in the results section. CBC WITH PLATELET AND Routine 01/12/2018 4:10 Results for this DIFFERENTIAL AM CDT procedure are in the results section. B NATRIURETIC PEPTIDE Routine 01/12/2018 4:10 Results for this AM CDT procedure are in the results section. IONIZED CALCIUM Routine 01/12/2018 4:00 Results for this AM CDT procedure are in the results section. PHOSPHORUS LEVEL Routine 01/12/2018 4:00 Results for this AM CDT procedure are in the results section. ESTIMATED GFR Routine 01/12/2018 4:00 Results for this AM CDT procedure are in the results section. MAGNESIUM LEVEL Routine 01/12/2018 4:00 Results for this AM CDT procedure are in the results section. BASIC METABOLIC PANEL Routine 01/12/2018 4:00 Results for this AM CDT procedure are in the results section. AMMONIA LEVEL Routine 01/11/2018 4:55 Results for this PM CDT procedure are in the results section. BLOOD CULTURE, AEROBIC Routine 01/11/2018 4:55 Results for this & ANAEROBIC PM CDT procedure are in the results section. BLOOD CULTURE, AEROBIC Routine 01/11/2018 4:55 Results for this & ANAEROBIC PM CDT procedure are in the results section. ESTIMATED GFR STAT 01/11/2018 2:45 Results for this PM CDT procedure are in the results section. ESTIMATED GFR STAT 01/11/2018 2:45 Results for this PM CDT procedure are in the results section. COMPREHENSIVE METABOLIC STAT 01/11/2018 2:45 Results for this PANEL PM CDT procedure are in the results section. MAGNESIUM LEVEL STAT 01/11/2018 2:45 Results for this PM CDT procedure are in the results section. BASIC METABOLIC PANEL STAT 01/11/2018 2:45 Results for this PM CDT procedure are in the results section. HC COMPLETE BLD COUNT STAT 01/11/2018 2:45 Results for this W/AUTO DIFF PM CDT procedure are in the results section. ECG PRE/POST OP Routine 01/11/2018 2:13 Results for this PM CDT procedure are in the results section. POC GLUCOSE Routine 01/11/2018 2:12 Results for this PM CDT procedure are in the results section. XR CHEST 1 VW PORTABLE Routine 01/11/2018 1:08 Results for this PM CDT procedure are in the results section. EP AICD IMPLANT SINGLE Routine 01/11/2018 10:36 Results for this DUAL BI VENT AM CDT procedure are in the results section. TYPE AND SCREEN STAT 01/11/2018 8:50 Results for this AM CDT procedure are in the results section. ESTIMATED GFR Routine 01/11/2018 3:43 Results for this AM CDT procedure are in the results section. MAGNESIUM LEVEL Routine 01/11/2018 3:43 Results for this AM CDT procedure are in the results section. BASIC METABOLIC PANEL Routine 01/11/2018 3:43 Results for this AM CDT procedure are in the results section. URINALYSIS SCREEN AND Routine 01/10/2018 11:00 Results for this MICROSCOPY, WITH REFLEX PM CDT procedure are in TO CULTURE the results section. URINE CULTURE Routine 01/10/2018 11:00 Results for this PM CDT procedure are in the results section. EP PACEMAKER INSERTION Routine 01/10/2018 5:00 Results for this NEW OR REPLACEMENT PM CDT procedure are in the results section. ECHOCARDIOGRAM 2D Routine 01/10/2018 7:30 Results for this COMPLETE W MMODE AM CDT procedure are in SPECTRAL COLOR DOPPLER the results (57484) section. XR CHEST 1 VW PORTABLE Routine 01/10/2018 6:49 Results for this AM CDT procedure are in the results section. URINALYSIS SCREEN AND Routine 01/10/2018 1:20 Results for this MICROSCOPY, WITH REFLEX AM CDT procedure are in TO CULTURE the results section. URINE CULTURE Routine 01/10/2018 1:20 Results for this AM CDT procedure are in the results section. PARTIAL THROMBOPLASTIN Routine 01/09/2018 11:40 Results for this TIME (PTT) PM CDT procedure are in the results section. PROTHROMBIN TIME WITH Routine 01/09/2018 11:40 Results for this INR PM CDT procedure are in the results section. HC COMPLETE BLD COUNT Routine 01/09/2018 11:40 Results for this W/AUTO DIFF PM CDT procedure are in the results section. ESTIMATED GFR Routine 01/09/2018 11:05 Results for this PM CDT procedure are in the results section. COMPREHENSIVE METABOLIC Routine 01/09/2018 11:05 Results for this PANEL PM CDT procedure are in the results section. THYROID STIMULATING Routine 01/09/2018 11:05 Results for this HORMONE PM CDT procedure are in the results section. T4, FREE Routine 01/09/2018 11:05 Results for this PM CDT procedure are in the results section. ECG 12-LEAD STAT 01/09/2018 10:52 Results for this PM CDT procedure are in the results section. after 01/20/2017 Results Digoxin level (01/15/2018 4:00 AM)Only the most recent of3 resultswithin the time period is included. Digoxin 1.2 0.8 - 2.0 ng/mL [facility] DEPARTMENT OF PATHOLOGY Comment: AND GENOMIC MEDICINE For valid Digoxin results, at least 6 hours should elapse between time of last dose and collection of blood. Otherwise, result may be false high. Therapeutic Range: 0.8 - 2.0 ng/mL Specimen Plasma specimen Performing Organization Address City/[facility]ode Phone Number [facility] DEPARTMENT OF PATHOLOGY AND [address] [place] [phone] [employer] [facility] Estimated GFR (01/14/2018 10:20 AM)Only the most recent of7 resultswithin the time period is included. GFR Non Af Amer 73 mL/min/1.73 m2 [facility] DEPARTMENT OF PATHOLOGY AND GENOMIC MEDICINE GFR Af Amer 88 mL/min/1.73 m2 [facility] DEPARTMENT OF Comment: PATHOLOGY AND GENOMIC Chronic kidney disease: <60 mL/min/1.73m2 MEDICINE Kidney failure: <15 mL/min/1.73m2 The estimated GFR is calculated from the IDMS-traceable Modification of Diet in Renal Disease Equation. The accuracy of the calculation is poor when the creatinine is normal. Calculated values >90 mL/min/1.73m2 are not reported. This equation has not been validated in children (<18 years), women, the elderly (>70 years), or ethnic groups other than Caucasians and Americans. Specimen Plasma specimen Performing Organization Address City/[facility] Cent[facility]ode Phone Number [facility] DEPARTMENT OF PATHOLOGY AND [address] [place] [phone] [facility] CBC with platelet and differential (01/14/2018 10:20 AM)Only the most recent of5 resultswithin the time period is included. WBC 12.91 (H) 4.50 - 11.00 k/uL [facility] DEPARTMENT OF PATHOLOGY AND GENOMIC MEDICINE RBC 5.24 4.20 - 5.50 m/uL [facility] DEPARTMENT OF PATHOLOGY AND GENOMIC MEDICINE HGB 13.3 12.0 - 16.0 g/dL [facility] DEPARTMENT OF PATHOLOGY AND GENOMIC MEDICINE HCT 43.7 37.0 - 47.0 % [facility] DEPARTMENT OF PATHOLOGY AND GENOMIC MEDICINE MCV 83.4 82.0 - 100.0 fL [facility] DEPARTMENT OF PATHOLOGY AND GENOMIC MEDICINE MCH 25.4 (L) 27.0 - 34.0 pg [facility] DEPARTMENT OF PATHOLOGY AND GENOMIC MEDICINE MCHC 30.4 (L) 31.0 - 37.0 g/dL [facility] DEPARTMENT OF PATHOLOGY AND GENOMIC MEDICINE RDW - SD 52.6 37.0 - 55.0 fL [facility] DEPARTMENT OF PATHOLOGY AND GENOMIC MEDICINE MPV SEE COMMENTComment: 8.8 - 13.2 fL [facility] DEPARTMENT OF No report PATHOLOGY AND GENOMIC MEDICINE Platelet count 95 (L) 150 - 400 k/uL [facility] DEPARTMENT OF PATHOLOGY AND GENOMIC MEDICINE Nucleated RBC 0.00 /100 WBC [facility] DEPARTMENT OF PATHOLOGY AND GENOMIC MEDICINE Neutrophils 79.6 (H) 39.0 - 69.0 % [facility] DEPARTMENT OF PATHOLOGY AND GENOMIC MEDICINE Lymphocytes 8.8 (L) 25.0 - 45.0 % [facility] DEPARTMENT OF PATHOLOGY AND GENOMIC MEDICINE Monocytes 9.1 0.0 - 10.0 % [facility] DEPARTMENT OF PATHOLOGY AND GENOMIC MEDICINE Eosinophils 1.8 0.0 - 5.0 % [facility] DEPARTMENT OF PATHOLOGY AND GENOMIC MEDICINE Basophils 0.2 0.0 - 1.0 % [facility] DEPARTMENT OF PATHOLOGY AND GENOMIC MEDICINE Immature granulocytes 0.5Comment: "Immature 0.0 - 1.0 % [facility] DEPARTMENT OF granulocytes" PATHOLOGY AND GENOMIC (promyelocytes, MEDICINE myelocytes, metamyelocytes) Specimen Blood Performing Organization Address City/[facility]ercodc Phone Number [facility] DEPARTMENT OF PATHOLOGY AND [address] [place] [phone] [facility] MEDICINE Basic metabolic panel (01/14/2018 10:20 AM)Only the most recent of5 resultswithin the time period is included. Sodium 140 135 - 148 mEq/L [facility] DEPARTMENT OF PATHOLOGY AND GENOMIC MEDICINE Potassium 4.8 3.5 - 5.0 mEq/L [facility] DEPARTMENT OF PATHOLOGY AND GENOMIC MEDICINE Chloride 89 (L) 98 - 112 mEq/L [facility] DEPARTMENT OF PATHOLOGY AND GENOMIC MEDICINE CO2 41 (HH) 24 - 31 mEq/L [facility] DEPARTMENT OF PATHOLOGY AND GENOMIC MEDICINE Anion gap 10@ANIO 7 - 15 mEq/L [facility] DEPARTMENT OF PATHOLOGY AND GENOMIC MEDICINE BUN 29 (H) 8 - 23 mg/dL [facility] DEPARTMENT OF PATHOLOGY AND GENOMIC MEDICINE Creatinine 0.8 0.5 - 0.9 mg/dL [facility] DEPARTMENT OF PATHOLOGY AND GENOMIC MEDICINE Glucose 167 (H) 65 - 99 mg/dL [facility] DEPARTMENT OF PATHOLOGY AND GENOMIC MEDICINE Calcium 9.3 8.8 - 10.2 mg/dL [facility] DEPARTMENT OF PATHOLOGY AND GENOMIC MEDICINE Specimen Plasma specimen Performing Organization Address City/[facility]ercode Phone Number [facility] DEPARTMENT OF PATHOLOGY AND [address] [place] [phone] [employer] MEDICINE POC glucose (01/13/2018 9:01 PM)Only the most recent of4 resultswithin the time period is included. POC glucose 226 (H) 65 - 99 mg/dL [facility] DEPARTMENT OF PATHOLOGY AND Comment: GENOMIC MEDICINE [facility] Notified RN Meter ID: [id number] [employer] Machine Operator: Ozzie Burgos Performing Organization Address City/[facility]/Zipcode Phone Number [facility] DEPARTMENT OF PATHOLOGY AND [address] [place] [address] GENOMIC MEDICINE XR Chest 1 Vw Portable (01/13/2018 10:21 AM)Only the most recent of3 resultswithin the time period is included. Narrative Performed At EXAMINATION:XR CHEST 1 VW PORTABLE [facility] CLINICAL HISTORY:ICU ptunstable or clinical worsening COMPARISON:January 11, 2018 IMPRESSION: Cardiomegaly persists similar to the preceding exam.Pulmonary vascular congestion and early infiltrate is somewhat receded.There is still opacification at the left lung base due to pleural effusion. [facility]-[id number] Procedure Note Hm Interface, Radiology Results Incoming - 01/13/2018 10:27 AM CDT EXAMINATION: XR CHEST 1 VW PORTABLE CLINICAL HISTORY: ICU pt unstable or clinical worsening COMPARISON: January 11, 2018 IMPRESSION: Cardiomegaly persists similar to the preceding exam. Pulmonary vascular congestion and early infiltrate is somewhat receded. There is still opacification at the left lung base due to pleural effusion. [facility]-[id number] Performing Organization Address [facility]/Zipcode Phone Number [facility] [address] [place] [phone] Phosphorus level (01/13/2018 2:00 AM)Only the most recent of2 resultswithin the time period is included. Phosphorus 2.9 2.4 - 4.5 mg/dL [facility] DEPARTMENT OF PATHOLOGY AND GENOMIC MEDICINE Specimen Plasma specimen Performing Organization Address [facility]/Zipcode Phone Number [facility] DEPARTMENT OF PATHOLOGY AND [address] [place] [phone] GENOMIC MEDICINE Magnesium level (01/13/2018 2:00 AM)Only the most recent of4 resultswithin the time period is included. Magnesium 2.3 1.6 - 2.4 mg/dL [facility] DEPARTMENT OF PATHOLOGY AND GENOMIC MEDICINE Specimen Plasma specimen Performing Organization Address City/[facility]/Zipcode Phone Number [facility] DEPARTMENT OF PATHOLOGY AND [address] [place] [address] Ionized calcium (01/13/2018 2:00 AM)Only the most recent of2 resultswithin the time period is included. pH 7.73 [facility] DEPARTMENT OF PATHOLOGY AND GENOMIC MEDICINE Ionized calcium 0.93 (L) 1.11 - 1.32 mmol/L [facility] DEPARTMENT OF PATHOLOGY AND GENOMIC MEDICINE Specimen Plasma specimen Performing Organization Address City/[facility] Centercode Phone Number [facility] DEPARTMENT OF PATHOLOGY AND [address] [place] [address] [facility] ECG Pre/Post Op-Tomorrow (01/12/2018 10:57 AM)Only the most recent of2 resultswithin the time period is included. Ventricular rate 99 [facility] MUSE Atrial rate 163 [facility] QRSD interval 142 [facility] QT interval 340 [facility] QTC interval 436 [facility] QRS axis 1 268 [facility] M[facility] T wave axis 38 [facility] EKG impression Demand pacemaker, interpretation is based on intrinsic rhythm- Atrial fibrillation with premature ventricular or aberrantly conducted complexes ventricular-paced complexes-Right bundle branch block-Possible Lateral infarct , age undetermined-Inferior [facility] MUSE infarct , age undetermined-Abnormal ECG-In automated comparison with ECG of 11-JAN-2018 14:13,-Atrial fibrillation has replaced Junctional rhythm-Right bundle branch block is now present-Borderline crit eria for Lateral infarct are now present-Inferior infarct is now present-Electronically Signed By Sergio Robison MD ([id number]) on 2017 11:40:56 PM Performing Organization Address [facility]ercodc Phone Number [facility] [address] [place] [address] B natriuretic peptide (01/12/2018 4:10 AM) BNP 847 (H) 0 - 100 pg/mL [facility] DEPARTMENT OF PATHOLOGY AND GENOMIC MEDICINE Specimen Blood Performing Organization Address City/[facility]ode Phone Number [facility] DEPARTMENT OF PATHOLOGY AND [address] [place] [address] [facility] Blood culture, aerobic & anaerobic (01/11/2018 4:55 PM)Only the most recent of2 resultswithin the time period is included. Blood culture isolate No growth after 5 days of incubation. [facility] DEPARTMENT OF Comment: PATHOLOGY AND GENOMIC Specimen Information MEDICINE Specimen Source: Blood Specimen Site: Hand, left Specimen Blood - Hand, left Performing Organization Address City/[facility] Centercode Phone Number [facility] DEPARTMENT OF PATHOLOGY AND [address] [place] [address] [facility] Ammonia level (01/11/2018 4:55 PM) Ammonia 70 (H) 11 - 51 umol/L [facility] DEPARTMENT OF PATHOLOGY AND GENOMIC MEDICINE Specimen Blood Performing Organization Address City/State/Zipcode Phone Number [facility] DEPARTMENT OF PATHOLOGY AND [address] [place] [address] [facility] Comprehensive metabolic panel (01/11/2018 2:45 PM)Only the most recent of2 resultswithin the time period is included. Sodium 142 135 - 148 mEq/L [facility] DEPARTMENT OF PATHOLOGY AND GENOMIC MEDICINE Potassium 4.3 3.5 - 5.0 mEq/L [facility] DEPARTMENT OF PATHOLOGY AND GENOMIC MEDICINE Chloride 97 (L) 98 - 112 mEq/L [facility] DEPARTMENT OF PATHOLOGY AND GENOMIC MEDICINE CO2 33 (H) 24 - 31 mEq/L [facility] DEPARTMENT OF PATHOLOGY AND GENOMIC MEDICINE Anion gap 12@ANIO 7 - 15 mEq/L [facility] DEPARTMENT OF PATHOLOGY AND GENOMIC MEDICINE BUN 28 (H) 8 - 23 mg/dL [facility] DEPARTMENT OF PATHOLOGY AND GENOMIC MEDICINE Creatinine 0.8 0.5 - 0.9 mg/dL [facility] DEPARTMENT OF PATHOLOGY AND GENOMIC MEDICINE Glucose 166 (H) 65 - 99 mg/dL [facility] DEPARTMENT OF PATHOLOGY AND GENOMIC MEDICINE Calcium 8.7 (L) 8.8 - 10.2 mg/dL [facility] DEPARTMENT OF PATHOLOGY AND GENOMIC MEDICINE Protein 6.2 (L) 6.3 - 8.3 g/dL [facility] DEPARTMENT OF Comment: PATHOLOGY AND GENOMIC [place] 4.6-7.0 g/dL MEDICINE 1 week 4.4-7.6 g/dL 7 months-1year5.1-7.3 g/dL 1-2 years5.6-7.5 g/dL >3 years6.0-8.0 g/dL 18-150 6.3-8.3 g/dL Albumin 3.7 3.5 - 5.0 g/dL [facility] DEPARTMENT OF PATHOLOGY AND GENOMIC MEDICINE A/G ratio 1.5 0.7 - 3.8 [facility] DEPARTMENT OF PATHOLOGY AND GENOMIC MEDICINE Alkaline phosphatase 59 35 - 104 U/L [facility] DEPARTMENT OF PATHOLOGY AND GENOMIC MEDICINE AST 15 10 - 35 U/L [facility] DEPARTMENT OF PATHOLOGY AND GENOMIC MEDICINE ALT 15 5 - 50 U/L [facility] DEPARTMENT OF PATHOLOGY AND GENOMIC MEDICINE Total bilirubin 1.2 0.0 - 1.2 mg/dL [facility] DEPARTMENT OF PATHOLOGY AND GENOMIC MEDICINE Specimen Plasma specimen Performing Organization Address City/State/Zipcode Phone Number [facility] DEPARTMENT OF PATHOLOGY AND [address] [place] [address] GENOMIC MEDICINE Cv electrophysiology procedure (01/11/2018 10:36 AM) Narrative Performed At TITLE OF PROCEDURE: CUPID Biventricular ICD. PREOPERATIVE DIAGNOSES: 1.Dilated cardiomyopathy. 2.Atrial fibrillation with rapid ventricular response. 3.Left bundle branch block. 4.Syncope due to >5-second pause. 5.Mitral regurgitation. 6.Mitral stenosis. BRIEF HISTORY AND CLINICAL BACKGROUND: This is a 62-year-old woman with the aforementioned medical problems.She had episode of syncope associated with 5- or 6-second pause.Dr. Luque had planned the pacemaker, but echocardiography revealed a severely depressed ejection fraction.Consequently, he asked me to place a defibrillator in her.She has a left bundle-branch block and elevated rates and she may come to require AV node ablation, so I will place a biventricular defibrillator in the event her atrial fibrillation requires electrical modification. PROCEDURE IN DETAIL: The patient was taken to the EP laboratory in the fasting, nonsedated, drug-free state.Informed consent was obtained and reconfirmed.Moderate anesthesia care was provided.She was prepped and draped in the usual sterile fashion. During the left upper extremity venogram, access to the left subclavian vein was achieved x2 and utilizing standard [id number]-ertm sheath technique, the RVA defibrillation lead was placed, deployed, tested, and secured. The coronary sinus was cannulated.It was quite large.There were no identifiable lateral branch despite extensive evaluation with venography and sub-selective catheter venography.Hence the LV lead was placed down the anterior cardiac vein.It was tested, deployed, and secured. The pocket was washed with copious amounts of antibiotic-impregnated saline, and the defibrillator was connected to the RV and LV leads and a plug was placed in the atrial port.Defibrillation safety threshold testing was deferred. COMPLICATIONS: None. FINDINGS: 1.Estimated blood loss 50 mL. 2.The RV lead is a [employer] model 7120Q, 58 cm, serial #[id number], measured R-wave 7.5 mV, pacing threshold 0.5 volt, impedance 630 ohms. The LV lead is a [employer] model 1458Q-86, serial #[id number], measured R-wave 21 mV, pacing threshold 0.75 volt, Lv1 to Lv2 configuration, impedance 940 ohms. 3.The defibrillator is a [employer] model IL1159-95U, serial #[id number]. 4.Final program parameters, VVI 60.Nominal outputs. RECOMMENDATIONS: The patient has elevated venous pressures.We will place a Tang catheter and administer IV diuretics over the next 24 hours. Performing Organization Address City/[facility]/Zipcode Phone Number [facility] [address] [place] [address] Type and screen (01/11/2018 8:50 AM) ABO grouping A [facility] DEPARTMENT OF PATHOLOGY AND GENOMIC MEDICINE Rh type POS [facility] DEPARTMENT OF PATHOLOGY AND GENOMIC MEDICINE Antibody screen (gel) NEG [facility] DEPARTMENT OF PATHOLOGY AND GENOMIC MEDICINE Specimen Blood Performing Organization Address [facility] Phone Number [facility] DEPARTMENT OF PATHOLOGY AND [address] [place] [phone] GEN[facility]IC MEDICINE Urinalysis screen and microscopy, with reflex to culture (01/10/2018 11:00 PM) Only the most recent of2 resultswithin the time period is included. Specimen site Clean catch [facility] DEPARTMENT OF PATHOLOGY AND GENOMIC MEDICINE Color, UA Yellow [facility] DEPARTMENT OF PATHOLOGY AND GENOMIC MEDICINE Appearance, UA Clear [facility] DEPARTMENT OF PATHOLOGY AND GENOMIC MEDICINE Specific gravity, UA 1.020 1.001 - 1.035 [facility] DEPARTMENT OF PATHOLOGY AND GENOMIC MEDICINE pH, UA 6.0 5.0 - 8.5 [facility] DEPARTMENT OF PATHOLOGY AND GENOMIC MEDICINE Protein, UA Negative Negative [facility] DEPARTMENT OF PATHOLOGY AND GENOMIC MEDICINE Glucose, UA Negative Negative [facility] DEPARTMENT OF PATHOLOGY AND GENOMIC MEDICINE Ketones, UA Negative Negative [facility] DEPARTMENT OF PATHOLOGY AND GENOMIC MEDICINE Bilirubin, UA Negative Negative [facility] DEPARTMENT OF PATHOLOGY AND GENOMIC MEDICINE Blood, UA Large (A) Negative [facility] DEPARTMENT OF PATHOLOGY AND GENOMIC MEDICINE Nitrite, UA Negative Negative [facility] DEPARTMENT OF PATHOLOGY AND GENOMIC MEDICINE Urobilinogen, UA <2.0 <2.0 [facility] DEPARTMENT OF PATHOLOGY AND GENOMIC MEDICINE Leukocyte esterase, UA Negative Negative [facility] DEPARTMENT OF PATHOLOGY AND GENOMIC MEDICINE Epithelial cells, UA 1 /HPF [facility] DEPARTMENT OF PATHOLOGY AND GENOMIC MEDICINE WBC, UA <1 0 - 4 /HPF [facility] DEPARTMENT OF PATHOLOGY AND GENOMIC MEDICINE RBC, UA 1 0 - 5 /HPF [facility] DEPARTMENT OF PATHOLOGY AND GENOMIC MEDICINE Bacteria, UA None seen None seen [facility] DEPARTMENT OF PATHOLOGY AND GENOMIC MEDICINE Yeast, UA None seen [facility] DEPARTMENT OF PATHOLOGY AND GENOMIC MEDICINE Yeast with pseudohyphae, UA None seen [facility] DEPARTMENT OF PATHOLOGY AND GENOMIC MEDICINE Hyaline casts, UA 3 /LPF [facility] DEPARTMENT OF PATHOLOGY AND GENOMIC MEDICINE Specimen Urine Performing Organization Address City/[facility] Phone Number [facility] DEPARTMENT OF PATHOLOGY AND [address] [place] [address] Urine culture (01/10/2018 11:00 PM)Only the most recent of2 resultswithin the time period is included. Urine culture SEE COMMENTComment: Bacteriuria [facility] DEPARTMENT OF PATHOLOGY screen negative. AND GENOMIC MEDICINE Performing Organization Address [facility] Phone Number [facility] DEPARTMENT OF PATHOLOGY AND [address] [place] [address] Cv electrophysiology procedure (01/10/2018 5:00 PM) Narrative Performed At Pacemaker insertion procedure was cancelled as patient required more CUPID sedation than anticipated and also new findings of echocardiogram with LV EF 20s. To have AICD implanted. Performing Organization Address [facility] Phone Number [facility] [address] [place] [address] Echocardiogram complete w contrast and 3D if needed (01/10/2018 7:30 AM) Narrative Performed At [facility] Echocardiography Report [address] [place] [address] Pat.Name:RICHA LOZANO.ID:[id number] .Date: 01/10/2018Refer.MD:PRIETO LUQUE MD Exam Time: 7:46:00 AMStudy Type:Routine Echo Height:67.99in Weight:173.8lb BSA: 1.93 m2 DOBAge:1955,62Y Sex: FEMALEBP:140/70 HR:52 bpmSonogrphr: LAQUITA Mcgill Pat. Stat.:Inpatient Room:[facility] Study Status:Final Echo Event ID:[id number] Order ID:[id number] Reason for Study:Arrhythmias History / Clinical:Atrial Fibrillation, Congestive Heart Failure, Coronary Artery Disease, Diabetes, Hyperlipidemia, Shortness of Breath Procedures:2D Echo, Colorflow Doppler Race:C SUMMARY: Severe LV and RV dysfunction. Severe biatrial enlargement Severe mitral stenosis. Estimated mean mitral valve gradient 11 mmHg at a heart rate of 91 b/min ([id number]-rl-[id number] variability in gradient noted in A.fib). Mitral regurgitation present but unable to assess severity. If clinically indicated, JASEN imaging may be helpful. Estimated PA systolic pressure is 71 mmHg, assuming a mean RAP of 20 mmHg. Small posterior pericardial effusion. FINDINGS: LV: LV size is normal. There is severe concentric LV hypertrophy.LV EF is severely depressed. Unable to assess regionalwall motion. Estimated EF is 20-24%. RV: RV size is enlarged. RV systolic function is severely depressed. LA: LA volume is severely enlarged. RA: RA volume is severely enlarged. AO: Aortic root diameter is normal. TAMMY: Small posterior pericardial effusion. AV: No structural AV abnormalities noted. MV: Severe thickening and calcification of mitral leaflets. Etiologyof MR is primary leaflet degeneration. Mitral regurgitationpresent but unable to assess severity. If clinicallyindicated, JASEN imaging may be helpful. Severe mitralstenosis. Estimated mean mitral valve gradient 11 mmHgat a heart rate of 91 b/min. PV: Pulmonic valve not well seen. Mild pulmonic regurgitation. TV: No structural TV abnormalities noted. Mild tricuspid regurgitation Craig: Unable to assess diastolic function. Other:Estimated PA systolic pressure is 71 mmHg, assuming a mean RAPof 20 mmHg. MEASUREMENTS: 2D Parasternal [place] LVIDd4.8 cmIndex2.5 cm/m Ao An1.9 cm LVIDs3.9 cmAo Rtd 3.2 cm Index1.7 cm/m LV%fs 18.9 % LV Voeg338.6 g(87-129) IVSd 1.4 cmLVM Bfcew444.5 g/m2 LVPWd1.3 cmRWT0.5 LA Ds5.5 cmLVOT 2.1 cm LA Sng Plane LA Area 49.9 cm2(8.8-23.4) LA Vol 221.8 ml Ehrgz623.9 ml/m LA LngAx 9.1 cm RA Sng Plane RA Area 35.6 cm2(8.3-19.5) RA Vol 142.6 ml Index73.9 ml/m RA LngAx 7.4 cm DOPPLER MV For Flow/Valve Assess MV pkVel 250.8 cm/sMV Mean G 10.5 mmHg MV pkPG 25.2 mmHgMV TVI37.9 cm Signed 01/10/2018 07:51 AM Prieto Sherman MD Procedure Note Interface, Radiology Results In - 01/10/2018 1:37 PM CDT Echocardiography Report [address] [place] [address] Pat.Name: RICHA LOZANO Pat.ID: [id number] .Date: 01/10/2018 Refer.MD: PRIETO LUQUE MD Exam Time: 7:46:00 AM Study Type:Routine Echo Height: 67.99in Weight: 173.8lb BSA: 1.93 m2 Age: 6 1955,62Y Sex: FEMALE BP: 140/70 HR: 52 bpm Sonogrphr: LAQUITA Mcgill Pat. Stat.:Inpatient Room: [facility] Study Status:Final Echo Event ID:[id number] Order ID: [id number] Reason for Study:Arrhythmias History / Clinical:Atrial Fibrillation, Congestive Heart Failure, Coronary Artery Disease, Diabetes, Hyperlipidemia, Shortness of Breath Procedures:2D Echo, Colorflow Doppler Race: C SUMMARY: Severe LV and RV dysfunction. Severe biatrial enlargement Severe mitral stenosis. Estimated mean mitral valve gradient 11 mmHg at a heart rate of 91 b/min (lqbk-qm-[id number] variability in gradient noted in María Elena). Mitral regurgitation present but unable to assess severity. If clinically indicated, JASEN imaging may be helpful. Estimated PA systolic pressure is 71 mmHg, assuming a mean RAP of 20 mmHg. Small posterior pericardial effusion. FINDINGS: LV: LV size is normal. There is severe concentric LV hypertrophy. LV EF is severely depressed. Unable to assess regional wall motion. Estimated EF is 20-24%. RV: RV size is enlarged. RV systolic function is severely depressed. LA: LA volume is severely enlarged. RA: RA volume is severely enlarged. AO: Aortic root diameter is normal. TAMMY: Small posterior pericardial effusion. AV: No structural AV abnormalities noted. MV: Severe thickening and calcification of mitral leaflets. Etiology of MR is primary leaflet degeneration. Mitral regurgitation present but unable to assess severity. If clinically indicated, JASEN imaging may be helpful. Severe mitral stenosis. Estimated mean mitral valve gradient 11 mmHg at a heart rate of 91 b/min. PV: Pulmonic valve not well seen. Mild pulmonic regurgitation. TV: No structural TV abnormalities noted. Mild tricuspid regurgitation Craig: Unable to assess diastolic function. Other: Estimated PA systolic pressure is 71 mmHg, assuming a mean RAP of 20 mmHg. MEASUREMENTS: 2D Parasternal [place] LVIDd 4.8 cm Index 2.5 cm/m Ao An 1.9 cm LVIDs 3.9 cm Ao Rtd 3.2 cm Index 1.7 cm/m LV%fs 18.9 % LV Mass 259.6 g (87-129) IVSd 1.4 cm LVM Index 134.5 g/m2 LVPWd 1.3 cm RWT 0.5 LA Ds 5.5 cm LVOT 2.1 cm LA Sng Plane LA Area 49.9 cm2 (8.8-23.4) LA Vol 221.8 ml Index 114.9 ml/m LA LngAx 9.1 cm RA Sng Plane RA Area 35.6 cm2 (8.3-19.5) RA Vol 142.6 ml Index 73.9 ml/m RA LngAx 7.4 cm DOPPLER MV For Flow/Valve Assess MV pkVel 250.8 cm/s MV Mean G 10.5 mmHg MV pkPG 25.2 mmHg MV TVI 37.9 cm Signed 01/10/2018 07:51 AM Prieto Sherman MD Performing Organization Address [facility] Phone Number [facility] [address] [place] [address] Partial thromboplastin time, activated (01/09/2018 11:40 PM) PTT 30.8 23.0 - 36.0 sec [facility] DEPARTMENT OF PATHOLOGY Comment: AND GENOMIC MEDICINE PTT therapeutic range for unfractionated heparin is 61.0-112.0 seconds which corresponds to Anti-Xa 0.3-0.7 U/ml. Specimen Blood Performing Organization Address [facility] Phone Number [facility] DEPARTMENT OF PATHOLOGY AND [address] [place] [address] [employer] [facility] Prothrombin time with INR (01/09/2018 11:40 PM) Prothrombin time 19.6 (H) 12.0 - 15.0 sec [facility] DEPARTMENT OF PATHOLOGY AND GENOMIC MEDICINE INR 1.6 [facility] DEPARTMENT OF Comment: PATHOLOGY AND GENOMIC The International Normalized Ratio (INR) is a therapeutic MEDICINE monitoring tool for patients who are stable on oral anticoagulant therapy. An INR of 2.0-3.0 is suggested for deep vein thrombosis/pulmonary embolism. Specimen Blood Performing Organization Address [facility]/State/Zipcode Phone Number [facility] DEPARTMENT OF PATHOLOGY AND [address] [place] [address] [facility] Thyroid stimulating hormone (01/09/2018 11:05 PM) TSH 1.34 0.27 - 4.20 uIU/mL [facility] DEPARTMENT OF PATHOLOGY AND GENOMIC [facility] Specimen Plasma specimen Performing Organization Address [facility] Phone Number [facility] DEPARTMENT OF PATHOLOGY AND [address] [place] [phone] [facility] T4, free (01/09/2018 11:05 PM) T4, free 1.0 0.9 - 1.7 ng/dL [facility] DEPARTMENT OF PATHOLOGY AND [facility] Specimen Plasma specimen Performing Organization Address [facility] Phone Number [facility] DEPARTMENT OF PATHOLOGY AND [address] [place] [phone] [facility] ECG 12 lead (01/09/2018 10:52 PM) Ventricular rate 80 [facility] MUSE Atrial rate 47 [facility] MUSE QRSD interval 88 [facility] MUSE QT interval 392 [facility] MUSE QTC interval 452 [facility] MUSE QRS axis 1 76 [facility] MUSE T wave axis 241 [facility] MUSE EKG impression Atrial fibrillation with premature ventricular or aberrantly conducted complexes-Low voltage QRS-Septal infarct , age undetermined-ST & T wave abnormality, consider inferolateral ischemia or digital [facility] MUSE is effect-Abnormal ECG-In automated comparison with ECG of 15-OCT-2011 04:30,-Septal infarct is now present-T wave inversion more evident in Inferior leads-T wave inversion more evident in Lateral leads- Performing Organization Address [facility] Phone Number [facility] [address] [place] [address] after 01/20/2017 Insurance Payer Benefit Plan / Group Subscriber ID Type Phone Address MEDICARE RAILROAD MEDICARE RAILROAD xxxxxxxxxxx Medicare Home: [id number] [phone] [place], [place] [phone]
[2018-01-21 19:04] LABS: Protime INR 1.01
[2018-01-21 19:06] LABS: Absolute Lymphocytes (CBC) 0.5 K/uL (0.7-4.9); Absolute Monocytes 0.8 K/uL (0.1-1.3); Absolute Neutrophil 12.1 K/uL (1.8-8.0); Basophils % 0.7 % (0-1.3); Eosinophils % 1.9 % (0-4.4); Hematocrit 38.9 % (36.0-45.0); Lymphocytes % 3.7 % (15.3-44.8); MCH 25.9 pg (27.0-35.0); MCV 80.4 fL (80-100); MPV 10.2 fL (7.6-11.3); Monocytes % 5.8 % (3.3-12.3); RBC Red Blood Cell Count 4.84 M/uL (3.86-4.86)
[2018-01-21 19:22] LABS: Albumin 3.3 g/dL (3.4-5.0); Bilirubin Direct 0.5 mg/dL (0-0.2); Bilirubin Total 1.2 mg/dL (0.2-1.0); CKMB Creatine Kinase MB 3.3 ng/mL (0.3-3.6); Magnesium 2.1 mg/dL (1.8-2.4); Potassium 4.5 mmol/L (3.5-5.1); Protein, Total 6.3 g/dL (6.4-8.2)
--- NOTE | 2018-01-21 20:05 | RAD REPORT ---
EXAM DESCRIPTION: CT - Thorax W/ Con - 01/21/2018 7:48 pm CLINICAL HISTORY: Chest pain COMPARISON: November 2017 TECHNIQUE: Computed axial tomography of the chest was obtained. 100 cc Isovue 300 was administered i ntravenously. All CT scans are performed using dose optimization technique as appropriate and may include automated exposure control or mA/KV adjustment according to patient size. FINDINGS: Pacemaker leads have been inserted. Within the subcutaneous tissues superior to the batter y within the left upper anterior chest is a 4 x 2 centimeter hematoma. A saccular aneurysm arises off of the left lateral aspect of the aortic arch measuring 3.7 centimeter s. It is unchanged from the prior exam. The heart is markedly enlarged. Inferior vena cava and hepatic veins are distended. The most inferior slice demonstrates an aneurysm of the upper abdominal aorta with an AP diameter 3.5 centimeters. It is incompletely evaluated on this exam A minimal left pleural effusion is present. A pericardial effusion is not noted The lungs are clear . IMPRESSION: Placement of a pacemaker. 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
--- NOTE | 2018-01-21 20:06 | RAD REPORT ---
EXAM DESCRIPTION: [place] Single View01/21/2018 7:02 pm CLINICAL HISTORY: Chest pain COMPARISON: January 08, 2018 FINDINGS: The lungs appear clear of acute infiltrate. The heart is markedly enlarged. Pacemaker lj ds are in place. IMPRESSION: No acute abnormalities displayed
[2018-01-21 20:30] LABS: Blood Morphology Comment NOT SEEN (NOT SEEN); Platelet Estimate DECR; Urine White Blood Cell Casts OK
--- NOTE | 2018-01-21 20:42 | ER ---
Nurse's Notes [facility] Name: Richa Lozano Age: 62 yrs Sex: Female : 1955 Arrival Date: 01/21/2018 Time: 18:15 Bed 19 Private MD: Diagnosis: Hematoma of chest wall Presentation: 01/21 18:16 Presenting complaint: EMS states: pt had a pace maker placed in hoahaoism 5 days ago, ch pt now has dark brusing/ blood under skin around pace maker, arm, L arm, and abdomen. pt is from [facility]. bleeding started today. Transition of care: patient was not received from another setting of care. Onset of symptoms was January 21, 2018. Risk Assessment: Do you want to hurt yourself or someone else? Patient reports no desire to harm self or others. Initial Sepsis Screen: Does the patient meet any 2 criteria? No. Patient's initial sepsis screen is negative. Does the patient have a suspected source of infection? No. Patient's initial sepsis screen is negative. Care prior to arrival: None. 18:16 Method Of Arrival: EMS: [facility] 18:16 Acuity: TINO 2 Triage Assessment: 18:23 General: Appears in no apparent distress. comfortable, Behavior is calm, cooperative, ch appropriate for age. Pain: Denies pain. Historical: - Allergies: 18:23 Levaquin; ch - Home Meds: 18:23 rivaroxaban oral 15 mg oral 1 tab once daily [Active]; nicotine 21 mg/24 hr TD pt24 1 ch patch once daily [Active]; Klor-Con 10 10 mEq Oral TbER 1 tab once daily [Active]; Lasix 40 mg Oral tab 1 tab once daily [Active]; glycolax powder [Active]; prednisone 10 mg Oral tab 1 tab 2 times per day [Active]; digoxin 125 mcg Oral tab 1 tab once daily [Active]; metoprolol tartrate 50 mg Oral tab 1 tab 2 times per day [Active]; sertraline 50 mg oral tab 1 tab once daily [Active]; lisinopril 5 mg Oral tab 1 tab once daily [Active]; ipratropium bromide 0.02 % inhalation soln 2.5 mL every 6-8 hours [Active]; tylenol prn pain [Active]; - PMHx: 18:23 AFIB; Aneurysm; COPD; Depression; Hypertensin; CVA; pace maker; atelectasis; ch cardiomegaly; CHF; edema; Hypertension; pleural effusion; rheumatic mitral stenosis; - PSHx: 18:23 pace maker; ch - Immunization history:: Adult Immunizations up to date. - Social history:: Smoking status: Patient/guardian denies using tobacco. - Ebola Screening: : Patient negative for fever greater than or equal to 101.5 degrees Fahrenheit, and additional compatible Ebola Virus Disease symptoms Patient denies exposure to infectious person Patient denies travel to an Ebola-affected area in the 21 days before illness onset No symptoms or risks identified at this time. Screenin:29 Abuse screen: Denies threats or abuse. Denies injuries from another. Nutritional ch screening: No deficits noted. Tuberculosis screening: No symptoms or risk factors identified. Fall Risk None identified. Assessment: 18:31 General: Appears in no apparent distress. comfortable, Behavior is calm, cooperative, ch appropriate for age. Neuro: Level of Consciousness is awake, alert, obeys commands, Oriented to person, place. 18:31 Cardiovascular: Denies chest pain, Heart tones S1 S2 present. Respiratory: Airway is ch patent Respiratory effort is even, unlabored, Breath sounds are coarse Breath sounds with wheezes bilaterally. Denies shortness of breath. GI: No signs and/or symptoms were reported involving the gastrointestinal system. Abdomen is round Bowel sounds present X 4 quads. Abd is soft and non tender X 4 quads. Derm: Skin is pink, warm \T\ dry. Skin temperature is warm Bruising that is bright red, dark purple, brown, green, yellow, on left clavicle, anterior aspect of left upper chest, left breast, posterior aspect of left lateral abdomen, anterior aspect of left lateral abdomen and left arm pt has swelling to area where pace maker was inserted. Musculoskeletal: Circulation, motion, and sensation intact. Capillary refill < 3 seconds, in bilateral fingers. toes. 19:15 General: Appears in no apparent distress. comfortable, Behavior is calm, cooperative, ea appropriate for age. Pain: Denies pain. Neuro: Level of Consciousness is awake, alert, obeys commands, Oriented to person, place, situation. Cardiovascular: Denies chest pain, Heart tones S1 S2 present. Respiratory: Airway is patent Respiratory effort is even, unlabored, Respiratory pattern is regular, symmetrical, Breath sounds are coarse bilaterally. Denies shortness of breath. GI: Abdomen is round Bowel sounds present X 4 quads. Abd is soft and non tender. Derm: Bruising that is bright red, dark purple, on left arm and anterior aspect of left lateral abdomen and posterior aspect of left lateral abdomen and left breast and anterior aspect of left upper chest and left clavicle. Musculoskeletal: Circulation, motion, and sensation intact. 20:31 Reassessment: Patient and/or family updated on plan of care and expected duration. Pain ea level reassessed. Patient is alert, oriented x 3, equal unlabored respirations, skin warm/dry/pink. 20:48 Reassessment: Report called to nurse Mic at [facility] , Mic reported he ea would call [facility] [place] for transport. 21:37 Reassessment: Patient and/or family updated on plan of care and expected duration. Pain ea level reassessed. Patient is alert, oriented x 3, equal unlabored respirations, skin warm/dry/pink. awaiting on transportation. 22:33 Reassessment: Patient and/or family updated on plan of care and expected duration. Pain ea level reassessed. Patient is alert, oriented x 3, equal unlabored respirations, skin warm/dry/pink. Awaiting for transportation. 22:59 Reassessment: Patient and/or family updated on plan of care and expected duration. Pain ea level reassessed. Patient is alert, oriented x 3, equal unlabored respirations, skin warm/dry/pink. [facility] at facility for transport to [facility]. Vital Signs: 18:23 BP 129 / 71; Pulse 72; Resp 18; Temp 98.2; Pulse Ox 92% on R/A; Weight 72.57 kg; Height ch 5 ft. 7 in. (170.18 cm); Pain 0/10; 19:17 BP 137 / 79; Pulse 83; Resp 18; Pulse Ox 91% on R/A; mt 20:50 BP 128 / 70; Pulse 78; Resp 18; Pulse Ox 96% ; Pain 0/10; ea 21:38 BP 130 / 68; Pulse 76; Resp 18; Pulse Ox 98% on R/A; ea 22:45 BP 128 / 60; Pulse 72; Resp 18; Temp 97.6; Pulse Ox 96% ; Pain 0/10; ea 18:23 Body Mass Index 25.06 (72.57 kg, 170.18 cm) ED Course: 18:15 Patient arrived in ED. ch 18:18 Triage completed. ch 18:23 Arm band placed on left wrist. Patient placed in an exam room, on a stretcher, on nurse technician, on pulse oximetry. 18:34 Jennifer Jacob, RN is Primary Nurse. ch 18:40 No provider procedures requiring assistance completed. Inserted saline lock: 20 gauge in left forearm, using aseptic technique. Blood collected. 18:47 Radiology exam delayed due to lab results not completed at this time. (BUN/Creatinine). vr 18:58 X-ray completed. Portable x-ray completed in exam room. Patient tolerated procedure bb2 well. 19:02 XRAY Chest (1 view) In Process Unspecified. EDMS 19:04 EKG done, by ED staff, reviewed by Raul Wei MD. 5 19:05 Patient has correct armband on for positive identification. Bed in low position. Call mh5 light in reach. Side rails up X2. Warm blanket given. shucker on. Pulse ox on. NIBP on. 19:07 Tyler Zazueta MD is Attending Physician. tw4 19:09 Radiology exam delayed due to lab results not completed at this time. (BUN/Creatinine). vr 19:[address] vr 19:47 CT completed. Patient tolerated procedure well. Patient moved back from CT. nj 19:48 CT Chest W/ Con In Process Unspecified. EDMS 20:12 Chary Ray, NAV is Primary Nurse. ea 20:40 Yared Chao MD is Referral Physician. tw4 22:59 IV discontinued, intact, bleeding controlled, No redness/swelling at site. Pressure ea dressing applied. Administered Medications: No medications were administered Outcome: 20:41 Discharge ordered by . tw4 20:50 Discharge instructions given to patient, detention, Instructed on discharge ea instructions, follow up and referral plans. Demonstrated understanding of instructions, follow-up care. 22:58 Discharged to detention. Report called to Mic CHOPRA at [facility] pt ea transferred via [facility]'s EMS 22:58 Condition: improved 23:02 Patient left the ED. ea Signatures: Dispatcher [employer] EDNM Jennifer Jacob, RN Staci Brennan ch, Shanta Russell [address] [place], [place] [address] RN RN ea [place], Aleksandra 2 Tyler Zazueta MD MD tw4 Corrections: (The following items were deleted from the chart) 22:47 22:46 Discharge instructions given to patient, detention, Instructed on discharge ea instructions, follow up and referral plans. Demonstrated understanding of instructions, follow-up care, ea
--- NOTE | 2018-01-21 20:42 | EDPHYS ---
Physician Documentation [facility] Name: Richa Lozano Age: 62 yrs Sex: Female : 1955 Arrival Date: 01/21/2018 Time: 18:15 Bed 19 Private MD: ED Physician Tyler Zazueta HPI: 01/21 20:24 This 62 yrs old Female presents to ER via EMS with complaints of Skin Problem.tw4 20:24 PT sent to the ED from care home because of bleeding from pacemaker site. [place] staff tw4 also reports that pt has bruising that extends down left arm. Pt states she has no complaints at this time.. Onset: The symptoms/episode began/occurred today. Severity of symptoms: At their worst the symptoms were moderate in the emergency department the symptoms are unchanged. The patient has not experienced similar symptoms in the past. Historical: - Allergies: 18:23 Levaquin; ch - Home Meds: 18:23 rivaroxaban oral 15 mg oral 1 tab once daily [Active]; nicotine 21 mg/24 hr TD pt24 1 ch patch once daily [Active]; Klor-Con 10 10 mEq Oral TbER 1 tab once daily [Active]; Lasix 40 mg Oral tab 1 tab once daily [Active]; glycolax powder [Active]; prednisone 10 mg Oral tab 1 tab 2 times per day [Active]; digoxin 125 mcg Oral tab 1 tab once daily [Active]; metoprolol tartrate 50 mg Oral tab 1 tab 2 times per day [Active]; sertraline 50 mg oral tab 1 tab once daily [Active]; lisinopril 5 mg Oral tab 1 tab once daily [Active]; ipratropium bromide 0.02 % inhalation soln 2.5 mL every 6-8 hours [Active]; tylenol prn pain [Active]; - PMHx: 18:23 AFIB; Aneurysm; COPD; Depression; Hypertensin; CVA; pace maker; atelectasis; ch cardiomegaly; CHF; edema; Hypertension; pleural effusion; rheumatic mitral stenosis; - PSHx: 18:23 pace maker; ch - Immunization history:: Adult Immunizations up to date. - Social history:: Smoking status: Patient/guardian denies using tobacco. - Ebola Screening: : Patient negative for fever greater than or equal to 101.5 degrees Fahrenheit, and additional compatible Ebola Virus Disease symptoms Patient denies exposure to infectious person Patient denies travel to an Ebola-affected area in the 21 days before illness onset No symptoms or risks identified at this time. ROS: 20:24 Constitutional: Negative for fever, chills, and weight loss, Cardiovascular: Negative tw4 for chest pain, palpitations, and edema, Respiratory: Negative for shortness of breath, cough, wheezing, and pleuritic chest pain, Abdomen/GI: Negative for abdominal pain, nausea, vomiting, diarrhea, and constipation, MS/Extremity: Negative for injury and deformity. 20:24 Skin: Positive for ecchymosis, hematoma. Exam: 20:24 Constitutional: This is a well developed, well nourished patient who is awake, alert, tw4 and in no acute distress. Cardiovascular: Regular rate and rhythm with a normal S1 and S2. No gallops, murmurs, or rubs. Normal PMI, no JVD. No pulse deficits. Respiratory: Lungs have equal breath sounds bilaterally, clear to auscultation and percussion. No rales, rhonchi or wheezes noted. No increased work of breathing, no retractions or nasal flaring. 20:24 Abdomen/GI: Soft, non-tender, with normal bowel sounds. No distension or tympany. No guarding or rebound. No evidence of tenderness throughout. MS/ Extremity: Pulses equal, no cyanosis. Neurovascular intact. Full, normal range of motion. Neuro: Awake and alert, GCS 15, oriented to person, place, time, and situation. Cranial nerves II-XII grossly intact. Motor strength 5/5 in all extremities. Sensory grossly intact. Cerebellar exam normal. Normal gait. 20:24 Chest/axilla: Inspection: ecchymosis, that is moderate, of the left clavicle and anterior aspect of left upper chest Palpation: is normal, no crepitus, no tenderness. 20:24 Skin: Appearance: ecchymosis, noted on the, left clavicle and anterior aspect of left upper chest, that are moderate, of the . Vital Signs: 18:23 BP 129 / 71; Pulse 72; Resp 18; Temp 98.2; Pulse Ox 92% on R/A; Weight 72.57 kg; Height ch 5 ft. 7 in. (170.18 cm); Pain 0/10; 19:17 BP 137 / 79; Pulse 83; Resp 18; Pulse Ox 91% on R/A; mt 20:50 BP 128 / 70; Pulse 78; Resp 18; Pulse Ox 96% ; Pain 0/10; ea 21:38 BP 130 / 68; Pulse 76; Resp 18; Pulse Ox 98% on R/A; ea 22:45 BP 128 / 60; Pulse 72; Resp 18; Temp 97.6; Pulse Ox 96% ; Pain 0/10; ea 18:23 Body Mass Index 25.06 (72.57 kg, 170.18 cm) MDM: 19:07 Patient medically screened. [facility] 20:24 Data reviewed: vital signs, nurses notes. Counseling: I had a detailed discussion with [facility] the patient and/or guardian regarding: the historical points, exam findings, and any diagnostic results supporting the discharge/admit diagnosis. Special discussion: I discussed with the patient/guardian in detail that at this point there is no indication for admission to the hospital. It is understood, however, that if the symptoms persist or worsen the patient needs to return immediately for re-evaluation. 01/21 18:43 Order name: Basic Metabolic Panel; Complete Time: 20:21 01/21 20:21 Interpretation: Normal except: NA 133; CL 94; GLUC 277; BUN 28; GFR 50. [facility] 01/21 18:43 Order name: CBC with Diff 01/21 20:22 Interpretation: WBC 13.8; MCH 25.9; PLT 124; RDW 18.6; LYM% 3.7; HOSEA% 87.9; NEUT A tw4 12.1; LYMA 0.5. 01/21 18:43 Order name: Ckmb; Complete Time: 20:21 01/21 20:22 Interpretation: Within normal limits: CKMB 3.3. [facility] 01/21 18:43 Order name: CPK; Complete Time: 20:21 01/21 20:23 Interpretation: Within normal limits: CPK 33. [facility] 01/21 18:43 Order name: LFT's; Complete Time: 20:21 01/21 20:22 Interpretation: Normal except: BILIT 1.2; BILID 0.5; TP 6.3; ALB 3.3. [facility] 01/21 18:43 Order name: Magnesium; Complete Time: 20:21 01/21 20:23 Interpretation: Within normal limits: MG 2.1. [facility] 01/21 18:43 Order name: CT Chest W/ Con; Complete Time: 20:21 01/21 20:22 Interpretation: No acute disease except. [facility] 01/21 18:43 Order name: NT PRO-BNP; Complete Time: 20:21 01/21 18:43 Order name: PT-INR; Complete Time: 20:21 01/21 20:23 Interpretation: Within normal limits: PT 11.9. [facility] 01/21 18:43 Order name: Ptt, Activated; Complete Time: 20:21 01/21 20:23 Interpretation: Within normal limits: PTT 25.9. [facility] 01/21 18:43 Order name: Troponin (emerg Dept Use Only); Complete Time: 20:21 01/21 18:43 Order name: XRAY Chest (1 view); Complete Time: 20:21 01/21 20:24 Order name: Urine Dipstick--Ancillary (enter results) [facility] 01/21 20:30 Order name: CBC Smear Scan EDMS 01/21 18:43 Order name: EKG; Complete Time: 18:43 01/21 18:43 Order name: Cardiac monitoring; Complete Time: 19:00 01/21 18:43 Order name: EKG - Nurse/Tech; Complete Time: 19:00 01/21 18:43 Order name: IV Saline Lock; Complete Time: 19:00 01/21 18:43 Order name: Labs collected and sent; Complete Time: 19:00 01/21 18:43 Order name: O2 Per Protocol; Complete Time: 19:00 01/21 18:43 Order name: O2 Sat Monitoring; Complete Time: 19:00 01/21 18:43 Order name: Urine Dipstick-Ancillary (obtain specimen); Complete Time: 20:42 ch Administered Medications: No medications were administered Disposition: 01/21/18 20:41 Discharged to Home. Impression: Hematoma of chest wall. - Condition is Stable. - Discharge Instructions: Hematoma. - SBAR form, Medication Reconciliation Form, Thank You Letter, Antibiotic Education, Prescription Opioid Use form. - Follow up: Private Physician; When: As needed; Reason: Further diagnostic work-up, Recheck today's complaints, Re-evaluation by your physician. Follow up: Yared Chao MD; When: As needed; Reason: Further diagnostic work-up, Recheck today's complaints, Re-evaluation by your physician. - Problem is new. - Symptoms have improved. Signatures: Dispatcher [employer] EDMS Jennifer Jacob, RN RN Chary Ragsdale RN Tyler Andersen ea, MD MD tw4 Corrections: (The following items were deleted from the chart) 23:02 20:41 01/21/2018 20:41 Discharged to Home. Impression: Hematoma of chest wall. ea Condition is Stable. Forms are SBAR form, Medication Reconciliation Form, Thank You Letter, Antibiotic Education, Prescription Opioid Use. Follow up: Private Physician; When: As needed; Reason: Further diagnostic work-up, Recheck today's complaints, Re-evaluation by your physician. Follow up: Yared Chao; When: As needed; Reason: Further diagnostic work-up, Recheck today's complaints, Re-evaluation by your physician. Problem is new. Symptoms have improved. tw4
--- NOTE | 2018-01-21 21:10 | EKG ---
Test Date: 2018-01-21 Test Time: 18:49:05 Electric Meter Inspector: RANJEET MEASUREMENT RESULTS: Intervals: Rate: 70 ND: QRSD: 88 QT: 366 QTc: 395 [place]: P: ND: QRS: 74 T: 169 INTERPRETIVE STATEMENTS: Atrial fibrillation with frequent ventricular-paced complexes ST & T wave abnormality, consider lateral ischemia Abnormal ECG Compared to ECG 01/08/2018 16:59:51 Ventricular premature complex(es) no longer present ST (T wave) deviation still present Electronically Signed On 01-21-18 21:09:43 CDT by Bryce Nichols
[2018-01-21 21:26] LABS: Urine Blood TRACE (NEG); Urine Glucose NEGATIVE (NEG); Urine Protein NEGATIVE (NEG)
[2018-01-21 23:11] VITALS: BP 128/60; TEMP 97.6; O2SAT 96
== END 2018-01-21 23:02 | disposition home or self-care (01) ==
LOC: ER 18:16
DX: S20.212A Contusion of left front wall of thorax, initial encounter (principal); I10 Essential (primary) hypertension; I48.91 Unspecified atrial fibrillation; I50.9 Heart failure, unspecified; F32.9 Major depressive disorder, single episode, unspecified; Z95.0 Presence of cardiac pacemaker; Z88.1 Allergy status to other antibiotic agents; Z86.73 Personal history of transient ischemic attack (TIA), and cerebral infarction without residual deficits
CPT/HCPCS: 36415; 71045; 71260; 80048; 80076; 81003; 82550; 82553; 83735; 83880; 84484; 85025; 85610; 85730; 93005; Q9967; 99285

== ENCOUNTER 2018-04-03 15:37 | Inpatient (IN) | payer OTHER ==
--- OUTSIDE RECORDS SUMMARY | 2018-04-03 15:40 | XMS REPORT | Clinical Summary ---
:1955 Author Organization [facility] Address [address] [place] [address] Care Team Providers Name Role Phone Yared [...] Active (PRINIVIL,ZESTRIL) mouth daily. 5 mg tablet furosemide (LASIX) Take 40 mg by 01/17/20 Discontinued 40 mg tablet mouth daily. 18 rivaroxaban Take 10 mg by 01/17/20 Discontinued (XARELTO) 10 mg mouth daily. 18 tablet ipratropium Take 2.5 mL (0.5 300 mL 0 01/16/2018 02/16/20 (ATROVENT) 0.02 % mg total) by 18 nebulizer solution nebulization every 6 (six) hours for 30 days. digOXIN (LANOXIN) Take 1 tablet 30 tablet 0 01/17/2018 02/17/20 125 mcg tablet (125 mcg total) 18 by mouth daily for 30 days. rivaroxaban Take 1 tablet (15 30 tablet 0 01/16/2018 02/16/20 (XARELTO) 15 mg mg total) by 18 tablet mouth daily for 30 days. docusate sodium Take 1 capsule 60 capsule 0 01/16/2018 02/16/20 (COLACE) 100 MG (100 mg total) by 18 capsule mouth 2 (two) times a day for 30 days. polyethylene Take 17 g by 30 packet 0 01/17/2018 02/17/20 glycol (MIRALAX) mouth daily for 18 17 gram packet 30 days. furosemide (LASIX) Infuse 4 mL (40 240 mL 0 01/16/2018 02/16/20 10 mg/mL injection mg total) into a 18 venous catheter 2 (two) times a day for 30 days. nicotine (NICODERM Place 1 patch on 30 patch 0 01/17/2018 02/17/20 CQ) 21 mg/24 hr the skin daily 18 for 30 days. chlorhexidine Apply topically 01/16/2018 02/16/20 (HIBICLENS) 4 % daily as needed 18 external liquid for wound care for up to 30 days. Active Problems Problem Noted Date Essential hypertension 01/13/2018 CVA (cerebral vascular accident) (HCC) 01/13/2018 Depression 01/13/2018 Confusion 01/10/2018 Encounters Date Type Specialty Care Team Description 01/11/2018 Telephone Cardiology Leonila Palomo 01/11/2018 Anesthesia Event Procedural Amilcar Rosado Cardiology ANITA Ortiz 01/11/2018 Procedure Pass Procedural Cardiology 01/11/2018 Procedure Pass Procedural Cardiology 01/11/2018 Surgery Procedural Jovani Pagan aicd implant Cardiology MD Karma dual bi vent [48281 (CPT)] 01/10/2018 Procedure Pass Procedural Cardiology 01/10/2018 Surgery Procedural Attar, Pacemaker insertion Cardiology MD Pireto new or replacement [43990 (CPT)] 01/09/2018 - Hospital Encounter Cardiology Rhina Lee Sick sinus syndrome (Primary Dx); 01/16/2018 MD Umer Confusion; Rogerio, Essential hypertension; Markus O. Sr., Mild single current episode of major depressive disorder 01/09/2018 Intake Access N/A after 04/02/2017 Social History Tobacco Use Types Packs/Day Years [...] INFLUENZA VACCINE 01/08/2018 Implants Implanted Type Area [employer] Assistant Device Expiration Model / Identifier Date Serial / Lot Durata Df4 - Active Tbp Single Shock, Icd Leads, Model 7120q-58 - [id number] - [id number] Cardiac Pacing N/A: 11/07/2018 [id number] 58 / Implanted: Qty: 1 on 01/11/2018 by Jovani Pagan Jr., MD Leads or N/A [id number] / Electrodes or [id number] Accessories Quartet, Lv Leads, Model 1458q-86 - [id number] - [id number] Cardiac Pacing N/ A: 08/08/2019 [id number] 86 / Implanted: Qty: 1 on 01/11/2018 by Jovani Pagan Jr., MD Leads or N/A [id number] / Electrodes or [id number] Accessories Defibrillator Quadra Assura Mp - [id number] - [id number] Defibrillator N/A: [facility] 12/08/2019 [id number] / Implanted: Qty: 1 on 01/11/2018 by Jovani Pagan Jr., MD ICD Devices N/A MEDICAL CRM [id number] / [id number] Procedures Procedure Name Priority Date/Time Associated Comments Diagnosis DIGOXIN LEVEL Routine 01/15/2018 4:00 Results for this AM CDT procedure are in the results section. ZZESTIMATED GFR Routine 01/14/2018 10:20 Results for this [...] CDT procedure are in the results section. ZZESTIMATED GFR Routine 01/13/2018 2:00 Results for this [...] CDT procedure are in the results section. ZZESTIMATED GFR Routine 01/12/2018 4:00 Results for this [...] CDT procedure are in the results section. ZZESTIMATED GFR STAT 01/11/2018 2:45 Results for this PM CDT procedure are in the results section. ZZESTIMATED GFR STAT 01/11/2018 2:45 Results for this [...] CDT procedure are in the results section. ZZESTIMATED GFR Routine 01/11/2018 3:43 Results for this [...] are in SPECTRAL COLOR DOPPLER the results (33222) section. XR CHEST 1 VW PORTABLE Routine [...] CDT procedure are in the results section. ZZESTIMATED GFR Routine 01/09/2018 11:05 Results for this [...] procedure are in the results section. after 04/02/2017 Results Digoxin level (01/15/2018 4:00 AM)Only the most recent of3 resultswithin the time period is included. Digoxin 1.2 0.8 - 2.0 ng/mL [facility] DEPARTMENT OF PATHOLOGY Comment: AND GENOMIC MEDICINE For valid Digoxin results, at least 6 hours should elapse between time of last dose and collection of blood. Otherwise, result may be false high. Therapeutic Range: 0.8 - 2.0 ng/mL Specimen Plasma specimen Performing Organization Address City/[facility] Phone Number [facility] DEPARTMENT OF PATHOLOGY AND [address] [place] [address] [facility] Estimated GFR (01/14/2018 10:20 AM)Only the most recent of7 resultswithin the time period is included. GFR Non Af Amer 73 mL/min/1.73 m2 [facility] DEPARTMENT OF PATHOLOGY AND GENOMIC MEDICINE GFR Af Amer 88 mL/min/1.73 m2 [facility] DEPARTMENT OF Comment: PATHOLOGY AND GENOMIC [...] Americans. Specimen Plasma specimen Performing Organization Address [facility] Cent[facility]ode Phone Number [facility] DEPARTMENT OF PATHOLOGY AND [address] [place] [address] CBC with platelet and differential (01/14/2018 10:20 AM)Only the most recent of5 resultswithin the time period is included. WBC 12.91 (H) 4.50 - 11.00 k/uL [facility] DEPARTMENT OF PATHOLOGY AND GENOMIC MEDICINE RBC 5.24 4.20 - 5.50 m/uL [facility] DEPARTMENT OF PATHOLOGY AND GENOMIC MEDICINE HGB 13.3 12.0 - 16.0 g/dL [facility] DEPARTMENT OF PATHOLOGY AND GENOMIC MEDICINE HCT 43.7 37.0 - 47.0 % [facility] DEPARTMENT OF PATHOLOGY AND GENOMIC MEDICINE MCV 83.4 82.0 - 100.0 fL [facility] DEPARTMENT OF PATHOLOGY AND GENOMIC MEDICINE MCH 25.4 (L) 27.0 - 34.0 pg [facility] DEPARTMENT OF PATHOLOGY AND GENOMIC MEDICINE MCHC 30.4 (L) 31.0 - 37.0 g/dL [facility] DEPARTMENT OF PATHOLOGY AND GENOMIC MEDICINE RDW - SD 52.6 37.0 - 55.0 fL [facility] DEPARTMENT OF PATHOLOGY AND GENOMIC MEDICINE MPV SEE COMMENTComment: 8.8 - 13.2 fL [facility] DEPARTMENT OF No report PATHOLOGY AND GENOMIC MEDICINE Platelet count 95 (L) 150 - 400 k/uL [facility] DEPARTMENT OF PATHOLOGY AND GENOMIC MEDICINE Nucleated RBC 0.00 /100 WBC [facility] DEPARTMENT OF PATHOLOGY AND GENOMIC MEDICINE Neutrophils 79.6 (H) 39.0 - 69.0 % [facility] DEPARTMENT OF PATHOLOGY AND GENOMIC MEDICINE Lymphocytes 8.8 (L) 25.0 - 45.0 % [facility] DEPARTMENT OF PATHOLOGY AND GENOMIC MEDICINE Monocytes 9.1 0.0 - 10.0 % [facility] DEPARTMENT OF PATHOLOGY AND GENOMIC MEDICINE Eosinophils 1.8 0.0 - 5.0 % [facility] DEPARTMENT OF PATHOLOGY AND GENOMIC MEDICINE Basophils 0.2 0.0 - 1.0 % [facility] DEPARTMENT OF PATHOLOGY AND GENOMIC MEDICINE Immature granulocytes 0.5Comment: "Immature 0.0 - 1.0 % [facility] DEPARTMENT OF granulocytes" PATHOLOGY AND GENOMIC (promyelocytes, MEDICINE myelocytes, metamyelocytes) Specimen Blood Performing Organization Address City/[facility] Centercode Phone Number [facility] DEPARTMENT OF PATHOLOGY AND [address] [place] [phone] [facility]ICINE Basic metabolic panel (01/14/2018 10:20 AM)Only the most recent of5 resultswithin the time period is included. Sodium 140 135 - 148 mEq/L [facility] DEPARTMENT OF PATHOLOGY AND GENOMIC MEDICINE Potassium 4.8 3.5 - 5.0 mEq/L [facility] DEPARTMENT OF PATHOLOGY AND GENOMIC MEDICINE Chloride 89 (L) 98 - 112 mEq/L [facility] DEPARTMENT OF PATHOLOGY AND GENOMIC MEDICINE CO2 41 (HH) 24 - 31 mEq/L [facility] DEPARTMENT OF PATHOLOGY AND GENOMIC MEDICINE Anion gap 10@ANIO 7 - 15 mEq/L [facility] DEPARTMENT OF PATHOLOGY AND GENOMIC MEDICINE BUN 29 (H) 8 - 23 mg/dL [facility] DEPARTMENT OF PATHOLOGY AND GENOMIC MEDICINE Creatinine 0.8 0.5 - 0.9 mg/dL [facility] DEPARTMENT OF PATHOLOGY AND GENOMIC MEDICINE Glucose 167 (H) 65 - 99 mg/dL [facility] DEPARTMENT OF PATHOLOGY AND GENOMIC MEDICINE Calcium 9.3 8.8 - 10.2 mg/dL [facility] DEPARTMENT OF PATHOLOGY AND GENOMIC MEDICINE Specimen Plasma specimen Performing Organization Address City/[facility] Centercode Phone Number [facility] DEPARTMENT OF PATHOLOGY AND [facility] [address] GENOMIC MEDICINE POC glucose (01/13/2018 9:01 PM)Only the most recent of4 resultswithin the time period is included. POC glucose 226 (H) 65 - 99 mg/dL [facility] DEPARTMENT OF PATHOLOGY AND Comment: GENOMIC MEDICINE [facility] Notified RN Meter ID: [id number] [employer] Teacher: Ozzie Burgos Performing Organization Address City/[facility] Centercode Phone Number [facility] DEPARTMENT OF PATHOLOGY AND [address] [place] [address] GENOMIC MEDICINE XR Chest 1 Vw Portable [...] left lung base due to pleural effusion. [facility]-[id number] Procedure Note Hm Interface, Radiology Results Incoming - 01/13/2018 10:27 AM CDT EXAMINATION: XR CHEST 1 VW PORTABLE CLINICAL HISTORY: ICU pt unstable or clinical worsening COMPARISON: January 11, 2018 IMPRESSION: Cardiomegaly persists similar to the preceding exam. Pulmonary vascular congestion and early infiltrate is somewhat receded. There is still opacification at the left lung base due to pleural effusion. [facility]-[id number] Performing Organization Address [facility] Centercode Phone Number [facility] [address] [place] [phone] Phosphorus level (01/13/2018 2:00 AM)Only the most recent of2 resultswithin the time period is included. Phosphorus 2.9 2.4 - 4.5 mg/dL [facility] DEPARTMENT OF PATHOLOGY AND GENOMIC MEDICINE Specimen Plasma specimen Performing Organization Address City/[facility]/Zipcode Phone Number [facility] DEPARTMENT OF PATHOLOGY AND [address] [place] [address] MEDICINE Magnesium level (01/13/2018 2:00 AM)Only the most recent of4 resultswithin the time period is included. Magnesium 2.3 1.6 - 2.4 mg/dL [facility] DEPARTMENT OF PATHOLOGY AND GENOMIC MEDICINE Specimen Plasma specimen Performing Organization Address City/[facility]/Zipcode Phone Number [facility] DEPARTMENT OF PATHOLOGY AND [address] [place] [address] [facility] Ionized calcium (01/13/2018 2:00 AM)Only the most recent of2 resultswithin the time period is included. pH 7.73 [facility] DEPARTMENT OF PATHOLOGY AND GENOMIC MEDICINE Ionized calcium 0.93 (L) 1.11 - 1.32 mmol/L [facility] DEPARTMENT OF PATHOLOGY AND GENOMIC MEDICINE Specimen Plasma specimen Performing Organization Address City/[facility]ercode Phone Number [facility] DEPARTMENT OF PATHOLOGY AND [address] [place] [address] [facility] MED[facility] ECG Pre/Post Op-Tomorrow (01/12/2018 10:57 AM)Only the most recent of2 resultswithin the time period is included. Ventricular rate 99 [facility] Atrial rate 163 [facility] QRSD interval 142 [facility] QT interval 340 [facility] QTC interval 436 [facility] QRS axis 1 268 [facility] T wave axis 38 [facility] EKG impression Demand pacemaker, interpretation is based on intrinsic rhythm- Atrial fibrillation with premature ventricular or aberrantly conducted complexes ventricular-paced complexes-Right bundle branch block-Possible Lateral infarct , age undetermined-Inferior [facility] infarct , age undetermined-Abnormal ECG-In automated comparison with ECG of 11-JAN-2018 14:13,-Atrial fibrillation has replaced Junctional rhythm-Right bundle branch block is now present-Borderline crit eria for Lateral infarct are now present-Inferior infarct is now present-Electronically Signed By Sergio Robison MD ([id number]) on 2017 11:40:56 PM Performing Organization Address City/[facility] Centercode Phone Number [facility] [address] [place] [address] B natriuretic peptide (01/12/2018 4:10 AM) BNP 847 (H) 0 - 100 pg/mL [facility] DEPARTMENT OF PATHOLOGY AND GENOMIC MEDICINE Specimen Blood Performing Organization Address City/[facility] Centercode Phone Number [facility] DEPARTMENT OF PATHOLOGY AND [address] [place] [address] [facility] Blood culture, aerobic & anaerobic (01/11/2018 4:55 PM)Only the most recent of2 resultswithin the time period is included. Blood culture isolate No growth after 5 days of incubation. [facility] DEPARTMENT OF Comment: PATHOLOGY AND GENOMIC Specimen Information MEDICINE Specimen Source: Blood Specimen Site: Hand, left Specimen Blood - Hand, left Performing Organization Address [facility]/Zipcode Phone Number [facility] DEPARTMENT OF PATHOLOGY AND [address] [place] [phone] [facility] Ammonia level (01/11/2018 4:55 PM) Ammonia 70 (H) 11 - 51 umol/L [facility] DEPARTMENT OF PATHOLOGY AND GENOMIC MEDICINE Specimen Blood Performing Organization Address City/[facility]ercode Phone Number [facility] DEPARTMENT OF PATHOLOGY AND [address] [place] [phone] [facility] Comprehensive metabolic panel (01/11/2018 2:45 PM)Only the most recent of2 resultswithin the time period is included. Sodium 142 135 - 148 mEq/L [facility] DEPARTMENT OF PATHOLOGY AND GENOMIC MEDICINE Potassium 4.3 3.5 - 5.0 mEq/L [facility] DEPARTMENT OF PATHOLOGY AND GENOMIC MEDICINE Chloride 97 (L) 98 - 112 mEq/L [facility] DEPARTMENT OF PATHOLOGY AND GENOMIC MEDICINE CO2 33 (H) 24 - 31 mEq/L [facility] DEPARTMENT OF PATHOLOGY AND GENOMIC MEDICINE Anion gap 12@ANIO 7 - 15 mEq/L [facility] DEPARTMENT OF PATHOLOGY AND GENOMIC MEDICINE BUN 28 (H) 8 - 23 mg/dL [facility] DEPARTMENT OF PATHOLOGY AND GENOMIC MEDICINE Creatinine 0.8 0.5 - 0.9 mg/dL [facility] DEPARTMENT OF PATHOLOGY AND GENOMIC MEDICINE Glucose 166 (H) 65 - 99 mg/dL [facility] DEPARTMENT OF PATHOLOGY AND GENOMIC MEDICINE Calcium 8.7 (L) 8.8 - 10.2 mg/dL [facility] DEPARTMENT OF PATHOLOGY AND GENOMIC MEDICINE Protein 6.2 (L) 6.3 - 8.3 g/dL [facility] DEPARTMENT OF Comment: PATHOLOGY AND GENOMIC 4.6-7.0 g/dL MEDICINE 1 week 4.4-7.6 g/dL 7 months-1year5.1-7.3 g/dL 1-2 years5.6-7.5 g/dL >3 years6.0-8.0 g/dL 18-150 6.3-8.3 g/dL Albumin 3.7 3.5 - 5.0 g/dL [facility] DEPARTMENT OF PATHOLOGY AND GENOMIC MEDICINE A/G ratio 1.5 0.7 - 3.8 [facility] DEPARTMENT OF PATHOLOGY AND GENOMIC MEDICINE Alkaline phosphatase 59 35 - 104 U/L [facility] DEPARTMENT OF PATHOLOGY AND GENOMIC MEDICINE AST 15 10 - 35 U/L [facility] DEPARTMENT OF PATHOLOGY AND GENOMIC MEDICINE ALT 15 5 - 50 U/L [facility] DEPARTMENT OF PATHOLOGY AND GENOMIC MEDICINE Total bilirubin 1.2 0.0 - 1.2 mg/dL [facility] DEPARTMENT OF PATHOLOGY AND GENOMIC MEDICINE Specimen Plasma specimen Performing Organization Address City/State/Zipcode Phone Number [facility] DEPARTMENT OF PATHOLOGY AND [address] [place] [address] [facility] Cv electrophysiology procedure (01/11/2018 10:36 AM) Narrative [...] vein was achieved x2 and utilizing standard dbdk-xdb-owdi sheath technique, the RVA defibrillation lead was [...] Joseph medical model 7120Q, 58 cm, serial #[id number], measured R-wave 7.5 mV, pacing threshold 0.5 volt, impedance 630 ohms. The LV lead is a [employer] model 1458Q-86, serial #[id number], measured R-wave 21 mV, pacing threshold 0.75 volt, Lv1 to Lv2 configuration, impedance 940 ohms. 3.The defibrillator is a [employer] model [id number], serial #[id number]. 4.Final program parameters, VVI 60.Nominal outputs. RECOMMENDATIONS: The patient has elevated venous pressures.We will place a Tang catheter and administer IV diuretics over the next 24 hours. Performing Organization Address City/[facility]/Zipcode Phone Number [facility] [address] [place] [address] Type and screen (01/11/2018 8:50 AM) ABO grouping A [facility] DEPARTMENT OF PATHOLOGY AND GENOMIC MEDICINE Rh type POS [facility] DEPARTMENT OF PATHOLOGY AND GENOMIC MEDICINE Antibody screen (gel) NEG [facility] DEPARTMENT OF PATHOLOGY AND GENOMIC MEDICINE Specimen Blood Performing Organization Address City/[facility] Centercode Phone Number [facility] DEPARTMENT OF PATHOLOGY AND [address] [place] [phone] GENOMIC MEDICINE Urinalysis screen and microscopy, with reflex to culture (01/10/2018 11:00 PM) Only the most recent of2 resultswithin the time period is included. Specimen site Clean catch [facility] DEPARTMENT OF PATHOLOGY AND GENOMIC MEDICINE Color, UA Yellow [facility] DEPARTMENT OF PATHOLOGY AND GENOMIC MEDICINE Appearance, UA Clear [facility] DEPARTMENT OF PATHOLOGY AND GENOMIC MEDICINE Specific gravity, UA 1.020 1.001 - 1.035 [facility] DEPARTMENT OF PATHOLOGY AND GENOMIC MEDICINE pH, UA 6.0 5.0 - 8.5 [facility] DEPARTMENT OF PATHOLOGY AND GENOMIC MEDICINE Protein, UA Negative Negative [facility] DEPARTMENT OF PATHOLOGY AND GENOMIC MEDICINE Glucose, UA Negative Negative [facility] DEPARTMENT OF PATHOLOGY AND GENOMIC MEDICINE Ketones, UA Negative Negative [facility] DEPARTMENT OF PATHOLOGY AND GENOMIC MEDICINE Bilirubin, UA Negative Negative [facility] DEPARTMENT OF PATHOLOGY AND GENOMIC MEDICINE Blood, UA Large (A) Negative [facility] DEPARTMENT OF PATHOLOGY AND GENOMIC MEDICINE Nitrite, UA Negative Negative [facility] DEPARTMENT OF PATHOLOGY AND GENOMIC MEDICINE Urobilinogen, UA <2.0 <2.0 [facility] DEPARTMENT OF PATHOLOGY AND GENOMIC MEDICINE Leukocyte esterase, UA Negative Negative [facility] DEPARTMENT OF PATHOLOGY AND GENOMIC MEDICINE Epithelial cells, UA 1 /HPF [facility] DEPARTMENT OF PATHOLOGY AND GENOMIC MEDICINE WBC, UA <1 0 - 4 /HPF [facility] DEPARTMENT OF PATHOLOGY AND GENOMIC MEDICINE RBC, UA 1 0 - 5 /HPF [facility] DEPARTMENT OF PATHOLOGY AND GENOMIC MEDICINE Bacteria, UA None seen None seen [facility] DEPARTMENT OF PATHOLOGY AND GENOMIC MEDICINE Yeast, UA None seen [facility] DEPARTMENT OF PATHOLOGY AND GENOMIC MEDICINE Yeast with pseudohyphae, UA None seen [facility] DEPARTMENT OF PATHOLOGY AND GENOMIC MEDICINE Hyaline casts, UA 3 /LPF [facility] DEPARTMENT OF PATHOLOGY AND GENOMIC MEDICINE Specimen Urine Performing Organization Address [facility] Phone Number [facility] DEPARTMENT OF PATHOLOGY AND [address] [place] [address] Urine culture (01/10/2018 11:00 PM)Only the most recent of2 resultswithin the time period is included. Urine culture SEE COMMENTComment: Bacteriuria [facility] DEPARTMENT OF PATHOLOGY screen negative. AND GENOMIC MEDICINE Performing Organization Address [facility] Phone Number [facility] DEPARTMENT OF PATHOLOGY AND [address] [place] [address] Cv electrophysiology procedure (01/10/2018 5:00 PM) Narrative Performed At Pacemaker insertion procedure was cancelled as patient required more [facility] sedation than anticipated and also new findings of echocardiogram with LV EF 20s. To have AICD implanted. Performing Organization Address [facility] [place] [facility] Phone Number [facility] [address] [place] [address] Echocardiogram complete w contrast and 3D if needed (01/10/2018 7:30 AM) Narrative Performed At [facility] Echocardiography Report [address] [place] [address] Pat.Name:RICHA LOZANO.ID:[id number] .Date: 01/10/2018Refer.MD:PRIETO LUQUE MD Exam Time: 7:46:00 AMStudy Type:Routine Echo Height:67.99in Weight:173.8lb BSA: 1.93 m2 DOBAge:1955,62Y Sex: FEMALEBP:140/70 HR:52 bpmSonogrphr: LAQUITA Mcgill Pat. Stat.:Inpatient Room:A 746 Study Status:Final Echo Event ID:[id number] Order ID:[id number] Reason for Study:Arrhythmias History / Clinical:Atrial Fibrillation, Congestive Heart Failure, Coronary Artery Disease, Diabetes, Hyperlipidemia, Shortness of Breath Procedures:2D Echo, Colorflow Doppler Race:C SUMMARY: Severe LV and RV dysfunction. Severe biatrial enlargement Severe mitral stenosis. Estimated mean mitral valve gradient 11 mmHg at a heart rate of 91 b/min (ilix-kk-gquc variability in gradient noted in Lucio.fib). Mitral regurgitation present but unable to assess [...] RAPof 20 mmHg. MEASUREMENTS: 2D Parasternal [place] LVIDd4.8 cmIndex2.5 cm/m Ao An1.9 cm LVIDs3.9 cmAo Rtd 3.2 cm Index1.7 cm/m LV%fs 18.9 % LV Ykqm147.6 g(87-129) IVSd 1.4 cmLVM Oedfs810.5 g/m2 LVPWd1.3 cmRWT0.5 LA Ds5.5 cmLVOT 2.1 cm LA Sng Plane LA Area 49.9 cm2(8.8-23.4) LA Vol 221.8 ml Jylhx798.9 ml/m LA LngAx 9.1 cm RA Sng Plane RA Area 35.6 cm2(8.3-19.5) RA Vol 142.6 ml Index73.9 ml/m RA LngAx 7.4 cm DOPPLER MV For Flow/Valve Assess MV pkVel 250.8 cm/sMV Mean G 10.5 mmHg MV pkPG 25.2 mmHgMV TVI37.9 cm Signed 01/10/2018 07:51 AM Prieto Sherman MD Procedure Note Interface, Radiology Results In - 01/10/2018 1:37 PM CDT Echocardiography Report [address] [place] [address] Pat.Name: RICHA LOZANO Pat.ID: [id number] .Date: 01/10/2018 Refer.MD: PRIETO LUQUE MD Exam Time: 7:46:00 AM Study Type:Routine Echo Height: 67.99in Weight: 173.8lb BSA: 1.93 m2 Age: 6 1955,62Y Sex: FEMALE BP: 140/70 HR: 52 bpm Sonogrphr: LAQUITA Mcgill Pat. Stat.:Inpatient Room: [facility] Study Status:Final Echo Event ID:[id number] Order ID: [id number] Reason for Study:Arrhythmias History / Clinical:Atrial Fibrillation, Congestive Heart Failure, Coronary Artery Disease, Diabetes, Hyperlipidemia, Shortness of Breath Procedures:2D Echo, Colorflow Doppler Race: C SUMMARY: Severe LV and RV dysfunction. Severe biatrial enlargement Severe mitral stenosis. Estimated mean mitral valve gradient 11 mmHg at a heart rate of 91 b/min (rydf-wy-mqht variability in gradient noted in A.fib). Mitral [...] of 20 mmHg. MEASUREMENTS: 2D Parasternal [place] LVIDd 4.8 cm Index 2.5 cm/m Ao [...] AM Prieto Sherman MD Performing Organization Address [facility] Cent[facility]ode Phone Number [facility] [address] [place] [address] Partial thromboplastin time, activated (01/09/2018 11:40 PM) PTT 30.8 23.0 - 36.0 sec [facility] DEPARTMENT OF PATHOLOGY Comment: AND [employer] MEDICINE PTT therapeutic range for unfractionated heparin is 61.0-112.0 seconds which corresponds to Anti-Xa 0.3-0.7 U/ml. Specimen Blood Performing Organization Address [facility]/Zipcode Phone Number [facility] DEPARTMENT OF PATHOLOGY AND [address] [place] [address] [facility] Prothrombin time with INR (01/09/2018 11:40 PM) Prothrombin time 19.6 (H) 12.0 - 15.0 sec [facility] DEPARTMENT OF PATHOLOGY AND GENOMIC MEDICINE INR 1.6 [facility] DEPARTMENT OF Comment: PATHOLOGY AND GENOMIC The International Normalized Ratio (INR) is a therapeutic MEDICINE monitoring tool for patients who are stable on oral anticoagulant therapy. An INR of 2.0-3.0 is suggested for deep vein thrombosis/pulmonary embolism. Specimen Blood Performing Organization Address City/[facility] Cent[facility]ode Phone Number [facility] DEPARTMENT OF PATHOLOGY AND [address] [place] [phone] [facility] Thyroid stimulating hormone (01/09/2018 11:05 PM) TSH 1.34 0.27 - 4.20 uIU/mL [facility] DEPARTMENT OF PATHOLOGY AND [facility] Specimen Plasma specimen Performing Organization Address [facility] Centercode Phone Number [facility] DEPARTMENT OF PATHOLOGY AND [address] [place] [phone] [facility] T4, free (01/09/2018 11:05 PM) T4, free 1.0 0.9 - 1.7 ng/dL [facility] DEPARTMENT OF PATHOLOGY AND [facility] Specimen Plasma specimen Performing Organization Address [facility] Centerconm Phone Number [facility] DEPARTMENT OF PATHOLOGY AND [address] [place] [phone] [facility] ECG 12 lead (01/09/2018 10:52 PM) Ventricular rate 80 [facility] Atrial rate 47 [facility] QRSD interval 88 [facility] QT interval 392 [facility] QTC interval 452 [facility] QRS axis 1 76 [facility] T wave axis 241 [facility] EKG impression Atrial fibrillation with premature ventricular or aberrantly conducted complexes-Low voltage QRS-Septal infarct , age undetermined-ST & T wave abnormality, consider inferolateral ischemia or digital [facility] is effect-Abnormal ECG-In automated comparison with ECG of 15-OCT-2011 04:30,-Septal infarct is now present-T wave inversion more evident in Inferior leads-T wave inversion more evident in Lateral leads- Performing Organization Address [facility]m Phone Number [facility] [address] [place] [address] after 04/02/2017 Insurance Payer Benefit Plan / Group Subscriber ID Type Phone Address MEDICARE [employer] [facility] xxxxxxxxxxx Medicare Home: [address] [place], [place] [phone] [place], [place] [id number]
[2018-04-03] MEDS ORDERED: ALBUTEROL 2.5 MG/3 ML NEB SOL ONE ×2 (15:48→17:11)
[2018-04-03] MEDS ORDERED: IPRATROPIUM BROM 0.5MG/2.5ML ONE (15:48)
[2018-04-03] MEDS ORDERED: predniSONE 20 MG TAB ONE (16:04)
[2018-04-03 16:13] LABS: Absolute Lymphocytes (CBC) 0.7 K/uL (0.7-4.9); Absolute Monocytes 0.9 K/uL (0.1-1.3); Absolute Neutrophil 8.5 K/uL (1.8-8.0); Basophils % 0.7 % (0-1.3); Eosinophils % 0.6 % (0-4.4); Hematocrit 44.8 % (36.0-45.0); Lymphocytes % 6.6 % (15.3-44.8); MCH 28.6 pg (27.0-35.0); MCV 86.3 fL (80-100); MPV 9.8 fL (7.6-11.3); RBC Red Blood Cell Count 5.19 M/uL (3.86-4.86)
[2018-04-03 16:17] LABS: Protime INR 1.78
--- NOTE | 2018-04-03 16:23 | RAD REPORT ---
EXAM DESCRIPTION: RAD - Chest Single View - 04/03/2018 4:17 pm CLINICAL HISTORY: DYSPNEA Chest pain. COMPARISON: Chest Single View dated 01/21/2018; Chest Single View dated 01/08/2018; Chest Single View d ated 06/17/2017; Chest Pa And Lat (2 Views) dated 06/14/2017; Thorax W/ Con dated 01/21/2018 FINDINGS: Portable technique limits examination quality. The lungs are grossly clear. Pacer pack obscures a portion of the left inferior lung parenchyma. Tort uous thoracic aorta is again noted, unchanged. The heart is mildly enlarged with a pacer/ defibrillat or device present. No displaced fractures. IMPRESSION: No acute intrathoracic process suspected.
[2018-04-03 16:25] LABS: Albumin 3.7 g/dL (3.4-5.0); Bilirubin Direct 0.8 mg/dL (0-0.2); Bilirubin Total 1.8 mg/dL (0.2-1.0); Magnesium 2.2 mg/dL (1.8-2.4); Potassium 4.2 mmol/L (3.5-5.1); Protein, Total 7.1 g/dL (6.4-8.2); Troponin (Emerg Dept Use Only) 0.03 ng/mL (0.0-0.045)
--- NOTE | 2018-04-03 16:44 | ER ---
Nurse's Notes [facility] Name: Richa Lozano Age: 62 yrs Sex: Female : 1955 Arrival Date: 04/03/2018 Time: 15:42 Bed 7 Private MD: Yared Chao R Diagnosis: Acute systolic (congestive) heart failure;Chronic obstructive pulmonary disease with (acute) exacerbation;Acute respiratory failure with hypoxia Presentation: 04/03 15:34 Presenting complaint: Presenting complaint: EMS states: SOB and CP x 3 days. Pt was 69% sv RA with labored breathing, Pt placed on 100% NRB and O2 sat up to 90% and then took it off. EMS attempted to placed on CPAP and she refused to keep it on. 15:34 Transition of care: patient was not received from another setting of care. Onset of sv symptoms was March 31, 2018. Risk Assessment: Do you want to hurt yourself or someone else? Patient reports no desire to harm self or others. Initial Sepsis Screen: Does the patient meet any 2 criteria? RR > 20 per min. No. Patient's initial sepsis screen is negative. Does the patient have a suspected source of infection? No. Patient's initial sepsis screen is negative. Care prior to arrival: Oxygen administered. via nasal cannula. 15:34 Method Of Arrival: EMS: [facility] sv 15:34 Acuity: TINO 2 sv Triage Assessment: 15:34 General: Appears distressed, uncomfortable, Behavior is calm, cooperative, appropriate sv for age. Pain: Denies pain. EENT: No signs and/or symptoms were reported regarding the EENT system. Neuro: Level of Consciousness is awake, alert, obeys commands, Oriented to person, place, time, situation, Moves all extremities. Full function. Cardiovascular: Patient's skin is warm and dry. Rhythm is atrial fibrillation. Respiratory: Reports shortness of breath at rest on exertion labored breathing Respiratory effort is labored, Respiratory pattern is tachypnea Breath sounds with rales bilaterally. Breath sounds with wheezes bilaterally. Onset: The symptoms/episode began/occurred 3 days ago, the patient has severe shortness of breath. Derm: Skin is normal. Musculoskeletal: Range of motion: intact in all extremities. Historical: - Allergies: 15:44 Levaquin; sv - PMHx: 15:44 AFIB; Aneurysm; atelectasis; cardiomegaly; CHF; COPD; CVA; Depression; EDEMA; sv Hypertensin; Pace maker; pleural effusion; rheumatic mitral stenosis; - PSHx: 15:44 pace maker; sv - Immunization history:: Adult Immunizations unknown. - Social history:: Smoking status: Patient uses tobacco products, unknown amount. - Ebola Screening: : Patient negative for fever greater than or equal to 101.5 degrees Fahrenheit, and additional compatible Ebola Virus Disease symptoms Patient denies exposure to infectious person Patient denies travel to an Ebola-affected area in the 21 days before illness onset No symptoms or risks identified at this time. Screenin:02 Abuse screen: Denies threats or abuse. Denies injuries from another. Nutritional sv screening: No deficits noted. Tuberculosis screening: No symptoms or risk factors identified. Fall Risk None identified. Assessment: 16:09 Reassessment: Patient appears in no apparent distress at this time. Patient and/or sv family updated on plan of care and expected duration. Pain level reassessed. Patient is alert, oriented x 3, equal unlabored respirations, skin warm/dry/pink. Cardiovascular: Heart tones S1 S2 present Rhythm is atrial fibrillation With PVC's. Respiratory: Airway is patent Respiratory effort is even, labored, Respiratory pattern is tachypnea Breath sounds with rales bilaterally. the patient has moderate shortness of breath. 16:09 Derm: Skin is normal. sv 17:09 Reassessment: Patient appears in no apparent distress at this time. Patient and/or sv family updated on plan of care and expected duration. Pain level reassessed. Patient is alert, oriented x 3, equal unlabored respirations, skin warm/dry/pink. Patient states symptoms have improved. Respiratory: Respiratory effort is even, unlabored, Respiratory pattern is tachypnea. 17:50 Reassessment: Patient appears in no apparent distress at this time. Patient and/or sv family updated on plan of care and expected duration. Pain level reassessed. Patient is alert, oriented x 3, equal unlabored respirations, skin warm/dry/pink. Pt given a food tray. Patient states symptoms have improved. Vital Signs: 15:34 BP 104 / 70; Pulse 86 MON; Resp 32; Pulse Ox 85% on R/A; sv 16:05 BP 112 / 68; Pulse 105; Resp 28; Temp 98.7(O); Pulse Ox 100% on 3 lpm NC; sv 17:48 BP 122 / 76; Pulse 100; Resp 26; Pulse Ox 100% on 3 lpm NC; sv 15:34 Paced sv ED Course: 15:34 monitor and storage bin tender on. Pulse ox on. NIBP on. Head of bed elevated. sv 15:42 Patient arrived in ED. sv 15:42 Yared Chao MD is Private Physician. sv 15:45 Arm band placed on. sv 15:45 Initial lab(s) drawn, by ms, sent to lab. Inserted saline lock: 20 gauge in right sv forearm, using aseptic technique. Blood collected. Flushed right forearm with 5 ml normal saline. 15:46 Joshua Wise PA is PHCP. jr8 15:46 Jamey Lindsay MD is Attending Physician. jr8 15:55 Garima Ying RN is Primary Nurse. sv 15:56 EKG done, by echocardiograph tech. reviewed by Joshua KURTZ. sm3 16:01 Triage completed. sv 16:02 Patient has correct armband on for positive identification. Bed in low position. Side sv rails up X2. 16:11 X-ray(s) taken. sv 16:16 X-ray completed. Portable x-ray completed in exam room. Patient tolerated procedure ls3 well. 16:17 XRAY Chest (1 view) In Process Unspecified. EDMS 16:26 Awaiting lab results, Awaiting radiology results. Awaiting re-evaluation by ER provider.sv 16:44 Yared Chao MD is Hospitalizing Provider. jr8 17:58 No provider procedures requiring assistance completed. Patient admitted, IV remains in sv place. intact. Administered Medications: 15:53 Drug: Albuterol - atroVENT (3:1) (2.5 mg - 0.5 mg) 3 ml Route: Nebulizer; sv 16:11 Follow up: Response: No adverse reaction sv 16:10 Drug: predniSONE 60 mg Route: PO; sv 16:25 Follow up: Response: No adverse reaction sv 17:09 Drug: Albuterol 2.5 mg Route: Inhalation; sv 17:52 Drug: Lasix 40 mg Route: IVP; Site: right forearm; sv 18:15 Follow up: Response: No adverse reaction sv Outcome: 16:44 Decision to Hospitalize by Provider. saulo 17:58 Admitted to Tele accompanied by tech, via wheelchair, room 428, with oxygen, with sv chart, Report called to Joslyn Mota RN 17:58 Condition: stable 17:58 Instructed on the need for admit. 18:10 Patient left the ED. sg Signatures: Dispatcher [employer] Garima Lopez RN RN sv Gay, Steven, RN RN sg Joshua Wise, TESSIE PA jr8 Chanel Deal 3 Radha Ball ls3 Corrections: (The following items were deleted from the chart) 15:53 15:44 BP 104 / 70; Pulse 86bpm; Monitor: PacedResp 24bpm; Spontaneous; Pulse Ox 89% RA; sv sv 16:01 15:45 Presenting complaint: sv sv 16:05 15:44 BP 104 / 70; Pulse 86bpm; Monitor: PacedResp 32bpm; Pulse Ox 85% RA; sv sv 16:10 16:09 Cardiovascular: Heart tones S1 S2 present Rhythm is atrial fibrillation sv sv 16:25 16:05 BP 112 / 68; Pulse 105bpm; Resp 28bpm; Pulse Ox 100% 3 lpm Nasal Cannula; sv sv 17:59 15:34 Respiratory: Reports shortness of breath at rest on exertion labored breathing sv Respiratory effort is labored, Respiratory pattern is tachypnea Breath sounds with wheezes bilaterally. Onset: The symptoms/episode began/occurred 3 days ago, the patient has severe shortness of breath sv 17:59 16:09 Respiratory: Airway is patent Respiratory effort is even, labored, Respiratory sv pattern is tachypnea the patient has moderate shortness of breath sv 18:00 17:59 Derm: Skin is normal, sv sv
--- NOTE | 2018-04-03 16:44 | EDPHYS ---
Physician Documentation [facility] Name: Richa Lozano Age: 62 yrs Sex: Female : 1955 Arrival Date: 04/03/2018 Time: 15:42 Bed 7 Private MD: Yared Chao R ED Physician Jamey Lindsay HPI: 04/03 16:03 This 62 yrs old Female presents to ER via EMS with complaints of Shortness Of jr8 Breath. 16:03 The patient has shortness of breath at rest. Onset: The symptoms/episode began/occurred jr8 gradually, 3 day(s) ago, and became worse and became persistent. Duration: The symptoms are continuous. The patient's shortness of breath has no apparent modifying factors. Associated signs and symptoms: Pertinent positives: chest pain. Severity of symptoms: At their worst the symptoms were moderate in the emergency department the symptoms are unchanged. It is unknown whether or not the patient has had similar symptoms in the past. The patient has not recently seen a physician. Historical: - Allergies: 15:44 Levaquin; sv - PMHx: 15:44 AFIB; Aneurysm; atelectasis; cardiomegaly; CHF; COPD; CVA; Depression; EDEMA; sv Hypertensin; Pace maker; pleural effusion; rheumatic mitral stenosis; - PSHx: 15:44 pace maker; sv - Immunization history:: Adult Immunizations unknown. - Social history:: Smoking status: Patient uses tobacco products, unknown amount. - Ebola Screening: : Patient negative for fever greater than or equal to 101.5 degrees Fahrenheit, and additional compatible Ebola Virus Disease symptoms Patient denies exposure to infectious person Patient denies travel to an Ebola-affected area in the 21 days before illness onset No symptoms or risks identified at this time. ROS: 16:03 Eyes: Negative for injury, pain, redness, and discharge, ENT: Negative for injury, jr8 pain, and discharge, Neck: Negative for injury, pain, and swelling, Abdomen/GI: Negative for abdominal pain, nausea, vomiting, diarrhea, and constipation, Back: Negative for injury and pain, MS/Extremity: Negative for injury and deformity, Skin: Negative for injury, rash, and discoloration, Neuro: Negative for headache, weakness, numbness, tingling, and seizure. 16:03 Cardiovascular: Positive for chest pain, Negative for edema, orthopnea, palpitations, paroxysmal nocturnal dyspnea. 16:03 Respiratory: Positive for cough, dyspnea on exertion, shortness of breath, wheezing. Exam: 16:03 Eyes: Pupils equal round and reactive to light, extra-ocular motions intact. Lids and jr8 lashes normal. Conjunctiva and sclera are non-icteric and not injected. Cornea within normal limits. Periorbital areas with no swelling, redness, or edema. ENT: Nares patent. No nasal discharge, no septal abnormalities noted. Tympanic membranes are normal and external auditory canals are clear. Oropharynx with no redness, swelling, or masses, exudates, or evidence of obstruction, uvula midline. Mucous membranes moist. Neck: Trachea midline, no thyromegaly or masses palpated, and no cervical lymphadenopathy. Supple, full range of motion without nuchal rigidity, or vertebral point tenderness. No Meningismus. Cardiovascular: Regular rate and rhythm with a normal S1 and S2. No gallops, murmurs, or rubs. Normal PMI, no JVD. No pulse deficits. Abdomen/GI: Soft, non-tender, with normal bowel sounds. No distension or tympany. No guarding or rebound. No evidence of tenderness throughout. Back: No spinal tenderness. No costovertebral tenderness. Full range of motion. Skin: Warm, dry with normal turgor. Normal color with no rashes, no lesions, and no evidence of cellulitis. MS/ Extremity: Pulses equal, no cyanosis. Neurovascular intact. Full, normal range of motion. Neuro: Awake and alert, GCS 15, oriented to person, place, time, and situation. Cranial nerves II-XII grossly intact. Motor strength 5/5 in all extremities. Sensory grossly intact. Cerebellar exam normal. Normal gait. 16:03 Respiratory: moderate respiratory distress is noted, Respirations: labored breathing, tachypnea, Breath sounds: wheezing: expiratory that is moderate, is heard diffusely. Vital Signs: 15:34 BP 104 / 70; Pulse 86 MON; Resp 32; Pulse Ox 85% on R/A; sv 16:05 BP 112 / 68; Pulse 105; Resp 28; Temp 98.7(O); Pulse Ox 100% on 3 lpm NC; sv 17:48 BP 122 / 76; Pulse 100; Resp 26; Pulse Ox 100% on 3 lpm NC; sv 15:34 Paced sv MDM: 15:46 Patient medically screened. jr8 16:40 Data reviewed: vital signs, nurses notes, lab test result(s), EKG, radiologic studies, jr8 plain films, and as a result, I will admit patient. Data interpreted: Pulse oximetry: on room air is 85 %. Interpretation: hypoxia. Counseling: I had a detailed discussion with the patient and/or guardian regarding: the historical points, exam findings, and any diagnostic results supporting the discharge/admit diagnosis, lab results, radiology results, the need for further work-up and treatment in the hospital. 04/03 15:47 Order name: Basic Metabolic Panel; Complete Time: 16:28 04/03 15:47 Order name: CBC with Diff 04/03 15:47 Order name: LFT's; Complete Time: 16:28 04/03 15:47 Order name: Magnesium; Complete Time: 16:28 [facility] 04/03 15:47 Order name: NT PRO-BNP; Complete Time: 16:28 [facility] 04/03 15:47 Order name: PT-INR; Complete Time: 16:23 [facility] 04/03 15:47 Order name: Troponin (emerg Dept Use Only); Complete Time: 16:28 [facility] 04/03 15:47 Order name: XRAY Chest (1 view); Complete Time: 16:28 8 04/03 15:47 Order name: EKG; Complete Time: 15:48 04/03 17:34 Order name: Diet Heart Healthy; Complete Time: 17:34 sv 04/03 15:47 Order name: Cardiac monitoring; Complete Time: 15:53 jr8 04/03 15:47 Order name: EKG - Nurse/Tech; Complete Time: 15:53 8 04/03 15:47 Order name: IV Saline Lock; Complete Time: 15:53 8 04/03 15:47 Order name: Labs collected and sent; Complete Time: 15:53 jr8 04/03 15:47 Order name: O2 Per Protocol; Complete Time: 15:53 jr8 04/03 15:47 Order name: O2 Sat Monitoring; Complete Time: 15:53 jr Administered Medications: 15:53 Drug: Albuterol - atroVENT (3:1) (2.5 mg - 0.5 mg) 3 ml Route: Nebulizer; sv 16:11 Follow up: Response: No adverse reaction sv 16:10 Drug: predniSONE 60 mg Route: PO; sv 16:25 Follow up: Response: No adverse reaction sv 17:09 Drug: Albuterol 2.5 mg Route: Inhalation; sv 17:52 Drug: Lasix 40 mg Route: IVP; Site: right forearm; sv 18:15 Follow up: Response: No adverse reaction sv Disposition: 04/04 06:05 Co-signature as Attending Physician, Jamey Lindsay MD. rn Disposition: 04/03/18 16:44 Hospitalization ordered by Yared Chao for Inpatient Admission. Preliminary diagnosis are Acute systolic (congestive) heart failure, Chronic obstructive pulmonary disease with (acute) exacerbation, Acute respiratory failure with hypoxia. - Bed requested for Telemetry/MedSurg (Inpatient). - Status is Inpatient Admission. sg - Condition is Fair. - Problem is new. - Symptoms have improved. UTI on Admission? No Signatures: Dispatcher [employer] EDGarima Trammell RN RN Bella Ramos RN RN dw Gay, Steven, RN RN Jamey Lindsay MD MD rn Roszak, Josh, PA PA jr8 Corrections: (The following items were deleted from the chart) 04/03 17:41 16:44 Hospitalization Ordered by Yared Chao MD for Inpatient Admission. Preliminary dw diagnosis is Acute systolic (congestive) heart failure; Chronic obstructive pulmonary disease with (acute) exacerbation; Acute respiratory failure with hypoxia. Bed requested for Telemetry/MedSurg (Inpatient). Status is Inpatient Admission. Condition is Fair. Problem is new. Symptoms have improved. UTI on Admission? No. jr8 18:10 17:41 04/03/2018 16:44 Hospitalization Ordered by Yared Chao MD for Inpatient sg Admission. Preliminary diagnosis is Acute systolic (congestive) heart failure; Chronic obstructive pulmonary disease with (acute) exacerbation; Acute respiratory failure with hypoxia. Bed requested for Telemetry/MedSurg (Inpatient). Status is Inpatient Admission. Condition is Fair. Problem is new. Symptoms have improved. UTI on Admission? No. dw
[2018-04-03] MEDS ORDERED: FUROSEMIDE 40 MG/4 ML VIAL ONE (17:11)
[2018-04-03 18:21] LABS: Platelet Estimate DECR; Urine White Blood Cell Casts OK
[2018-04-03 18:22] LABS: Anisocytosis 1+; Blood Morphology Comment NOTED (NOT SEEN); Ovalocytes 1+
[2018-04-03] MEDS ORDERED: ONDANSETRON 4 MG/2 ML VIAL IV PRN (18:23)
[2018-04-03] MEDS ORDERED: ACETAMINOPHEN 500 MG TAB PO PRN (18:23)
[2018-04-03] MEDS: FUROSEMIDE 20 MG/ 2ML VIAL IV SCH (18:51)
[2018-04-03 23:45] LABS: Urine Appearance CLEAR; Urine Bilirubin NEGATIVE (NEG); Urine Blood 2+ (NEG); Urine Color YELLOW; Urine Glucose 3+ (NEG); Urine Protein NEGATIVE (NEG); Urine pH 5.5 (5.0-7.0)
[2018-04-03 23:50] LABS: Urine Microscopic Reflex ORDER UMIC
[2018-04-04 00:21] LABS: Urine Bacteria <20 /HPF (<20); Urine Culture Reflex Order NOT NEEDED
[2018-04-04] MEDS: ALBUTEROL 2.5 MG/3 ML NEB SOL NEB PRN (01:01)
[2018-04-04] MEDS: IPRATROPIUM BROM 0.5MG/2.5ML NEB PRN ×2 (01:02→20:20)
[2018-04-04 06:39] LABS: Absolute Lymphocytes (CBC) 0.5 K/uL (0.7-4.9); Absolute Monocytes 0.7 K/uL (0.1-1.3); Absolute Neutrophil 6.4 K/uL (1.8-8.0); Basophils % 0.3 % (0-1.3); Eosinophils % 0.1 % (0-4.4); Hematocrit 41.2 % (36.0-45.0); Lymphocytes % 6.1 % (15.3-44.8); MCH 28.2 pg (27.0-35.0); MCV 85.1 fL (80-100); MPV 9.9 fL (7.6-11.3); Monocytes % 9.2 % (3.3-12.3); RBC Red Blood Cell Count 4.84 M/uL (3.86-4.86)
[2018-04-04 06:52] LABS: Potassium 3.6 mmol/L (3.5-5.1)
--- NOTE | 2018-04-04 07:30 | EKG ---
Test Date: 2018-04-03 Test Time: 15:53:04 Negotiations Director: KOBI MEASUREMENT RESULTS: Intervals: Rate: 86 AK: QRSD: 84 QT: 358 QTc: 428 [place]: P: AK: QRS: 81 T: 236 INTERPRETIVE STATEMENTS: Atrial fibrillation with premature ventricular or aberrantly conducted complexes ST & T wave abnormality, consider inferolateral ischemia or digitalis effect Abnormal ECG Compared to ECG 01/21/2018 18:49:05 Ventricular premature complex(es) now present Ventricular-paced complex(es) or rhythm no longer present ST (T wave) deviation still present Possible ischemia still present Electronically Signed On 04-04-18 07:27:47 CDT by Gilmer Rodas
[2018-04-04] MEDS: predniSONE 20 MG TAB PO SCH (09:15)
[2018-04-04] MEDS: ASPIRIN EC 81 MG TAB PO SCH (09:16)
[2018-04-04] MEDS: SERTRALINE HCL 50 MG TAB PO SCH (09:16)
[2018-04-04] MEDS: LISINOPRIL 5 MG TAB PO SCH (09:16)
[2018-04-04] MEDS: POTASSIUM CL SA 10 MEQ TAB PO SCH (09:16)
[2018-04-04] MEDS: FUROSEMIDE 20 MG/ 2ML VIAL IV SCH ×2 (09:17→16:37)
[2018-04-04] MEDS: RIVAROXABAN 15 MG TABLET PO SCH (16:38)
[2018-04-04] MEDS: AMOX/K CLAV 875 MG TAB PO SCH (21:05)
[2018-04-04] MEDS: METOPROLOL TAR 50 MG TAB PO SCH (21:05)
--- NOTE | 2018-04-05 02:44 | HP ---
Date of Admission: 04/03/2018 Chief Complaint: Wheezing and coughing. History Of Present Illness: A 62-year-old female who is known to have COPD and congestive heart fail ure, was brought to the emergency room because of shortness of breath and wheezing as well as chest p ain. The patient was evaluated. She was found to have an exacerbation of COPD and the patient is ad mitted. The patient denies any chest pain at the time of examination today. No history of fever, ch ills, or rigors. Past Medical History: Positive for COPD, congestive heart failure, depression, bipolar disorder, atrial fibrillation, permanent pacemaker, history of rheumatic heart disease. Past Surgical History: Positive for aneurysm surgery, permanent pacemaker. Family History: Noncontributory. Personal History: The patient has allergy to Levaquin. Review of Systems: The patient denied any fever, chills, rigors. Physical Examination: General: Revealed a 62-year-old female with audible wheezing. HEENT: Congested throat. Neck: Supple. JVD negative. Chest: Bilateral wheezes. Heart: Irregularity noted. Abdomen: Soft. Extremities: Mild pedal edema. Laboratory Data: White count at admission, normal. Chem profile; BNP 2754. Chest x-ray, negative f or infiltrate. Assessment: 1.Chronic obstructive pulmonary disease exacerbation. 2.Chronic obstructive pulmonary disease. 3.Known congestive heart failure. 4.Known bipolar disorder. 5.Status post aneurysm surgery and permanent pacemaker. Plan: The patient is doing better today. She will be continued on steroids and breathing treatments . There is no evidence of pneumonia. NEIL/MIMI Voice ID: [id number]
[2018-04-05] MEDS: ASPIRIN EC 81 MG TAB PO SCH (08:46)
[2018-04-05] MEDS: POTASSIUM CL SA 10 MEQ TAB PO SCH (08:47)
[2018-04-05] MEDS: LISINOPRIL 5 MG TAB PO SCH (08:48)
[2018-04-05] MEDS: predniSONE 20 MG TAB PO SCH (08:48)
[2018-04-05] MEDS: AMOX/K CLAV 875 MG TAB PO SCH ×2 (08:49→21:13)
[2018-04-05] MEDS: METOPROLOL TAR 50 MG TAB PO SCH ×2 (08:49→21:13)
[2018-04-05] MEDS: FUROSEMIDE 20 MG/ 2ML VIAL IV SCH ×2 (08:49→16:36)
[2018-04-05] MEDS: SERTRALINE HCL 50 MG TAB PO SCH (08:50)
[2018-04-05] MEDS: RIVAROXABAN 15 MG TABLET PO SCH (16:37)
--- NOTE | 2018-04-05 18:48 | PN ---
The patient's wheezing is much better today. She is ambulating in the room. The patient is afebrile . The patient will be rechecked tomorrow and possibly be discharged with oral steroids. NEIL/MIMI Voice ID: [id number] Report ID: [id number]
[2018-04-06 05:58] VITALS: BMI 24.6
[2018-04-06] MEDS: FUROSEMIDE 20 MG/ 2ML VIAL IV SCH ×2 (08:51→16:42)
[2018-04-06] MEDS: AMOX/K CLAV 875 MG TAB PO SCH ×2 (08:52→21:00)
[2018-04-06] MEDS: ASPIRIN EC 81 MG TAB PO SCH (08:52)
[2018-04-06] MEDS: predniSONE 20 MG TAB PO SCH (08:52)
[2018-04-06] MEDS: METOPROLOL TAR 50 MG TAB PO SCH ×2 (08:53→21:00)
[2018-04-06] MEDS: SERTRALINE HCL 50 MG TAB PO SCH (08:53)
[2018-04-06] MEDS: LISINOPRIL 5 MG TAB PO SCH (08:53)
[2018-04-06] MEDS: POTASSIUM CL SA 10 MEQ TAB PO SCH (08:53)
[2018-04-06] MEDS: ALBUTEROL 2.5 MG/3 ML NEB SOL NEB PRN ×2 (15:15→19:41)
[2018-04-06] MEDS: IPRATROPIUM BROM 0.5MG/2.5ML NEB PRN ×2 (15:15→19:41)
[2018-04-06] MEDS: RIVAROXABAN 15 MG TABLET PO SCH (16:42)
--- NOTE | 2018-04-06 21:16 | PN ---
The patient is wheezing more today for unknown reason. She is afebrile, however. In view of worseni ng of wheezing, the patient will not be discharged today. She is on oral antibiotic, Xarelto and pre dnisone and breathing treatments. I am not sure whether that she would need any additional measures. She will be rechecked tomorrow. NEIL/MIMI Voice ID: [id number] Report ID: [id number]
[2018-04-07] MEDS: AMOX/K CLAV 875 MG TAB PO SCH ×2 (09:22→21:36)
[2018-04-07] MEDS: ASPIRIN EC 81 MG TAB PO SCH (09:22)
[2018-04-07] MEDS: LISINOPRIL 5 MG TAB PO SCH (09:22)
[2018-04-07] MEDS: METOPROLOL TAR 50 MG TAB PO SCH ×2 (09:23→21:36)
[2018-04-07] MEDS: POTASSIUM CL SA 10 MEQ TAB PO SCH (09:23)
[2018-04-07] MEDS: predniSONE 20 MG TAB PO SCH (09:23)
[2018-04-07] MEDS: SERTRALINE HCL 50 MG TAB PO SCH (09:24)
[2018-04-07] MEDS: FUROSEMIDE 20 MG/ 2ML VIAL IV SCH ×2 (09:25→16:44)
[2018-04-07] MEDS: RIVAROXABAN 15 MG TABLET PO SCH (16:44)
--- NOTE | 2018-04-08 03:18 | PN ---
The patient's wheezing is better. She is getting [id number] breathing treatments and oral stero ids. The patient will be rechecked tomorrow. Very likely she will be discharged unless there are ad ditional issues. NEIL/MIMI Voice ID: [id number] Report ID: [id number]
[2018-04-08] MEDS: FUROSEMIDE 20 MG/ 2ML VIAL IV SCH ×2 (08:54→16:32)
[2018-04-08] MEDS: METOPROLOL TAR 50 MG TAB PO SCH ×2 (08:54→20:39)
[2018-04-08] MEDS: POTASSIUM CL SA 10 MEQ TAB PO SCH (08:54)
[2018-04-08] MEDS: SERTRALINE HCL 50 MG TAB PO SCH (08:54)
[2018-04-08] MEDS: LISINOPRIL 5 MG TAB PO SCH (08:55)
[2018-04-08] MEDS: predniSONE 20 MG TAB PO SCH (08:55)
[2018-04-08] MEDS: AMOX/K CLAV 875 MG TAB PO SCH ×2 (08:55→20:39)
[2018-04-08] MEDS: ASPIRIN EC 81 MG TAB PO SCH (08:55)
[2018-04-08] MEDS: RIVAROXABAN 15 MG TABLET PO SCH (16:32)
[2018-04-09] MEDS: predniSONE 20 MG TAB PO SCH (09:39)
[2018-04-09] MEDS: SERTRALINE HCL 50 MG TAB PO SCH (09:39)
[2018-04-09] MEDS: AMOX/K CLAV 875 MG TAB PO SCH ×2 (09:39→21:38)
[2018-04-09] MEDS: METOPROLOL TAR 50 MG TAB PO SCH ×2 (09:40→21:38)
[2018-04-09] MEDS: POTASSIUM CL SA 10 MEQ TAB PO SCH (09:40)
[2018-04-09] MEDS: LISINOPRIL 5 MG TAB PO SCH (09:40)
[2018-04-09] MEDS: FUROSEMIDE 20 MG/ 2ML VIAL IV SCH ×2 (09:41→17:15)
[2018-04-09] MEDS: ASPIRIN EC 81 MG TAB PO SCH (09:41)
[2018-04-09] MEDS: RIVAROXABAN 15 MG TABLET PO SCH (17:15)
--- NOTE | 2018-04-09 17:58 | PN ---
The patient still has mild wheezing, however, as mentioned in the progress notes yesterday she needs home oxygen. This is in the process of being observed. As soon as this is done, she will be dischar ge. Prescriptions for Medrol Dosepak, Symbicort, and Ventolin were given. The patient's congestive heart failure was documented in previous echocardiograms with systolic heart failure with low ejecti on fraction. RRK/MODL Voice ID: [id number] Report ID: [id number]
[2018-04-10 05:27] VITALS: O2SAT 93
[2018-04-10 08:36] VITALS: BP 132/70; TEMP 97
[2018-04-10] MEDS: METOPROLOL TAR 50 MG TAB PO SCH (09:42)
[2018-04-10] MEDS: AMOX/K CLAV 875 MG TAB PO SCH (09:42)
[2018-04-10] MEDS: predniSONE 20 MG TAB PO SCH (09:42)
[2018-04-10] MEDS: SERTRALINE HCL 50 MG TAB PO SCH (09:42)
[2018-04-10] MEDS: POTASSIUM CL SA 10 MEQ TAB PO SCH (09:42)
[2018-04-10] MEDS: FUROSEMIDE 20 MG/ 2ML VIAL IV SCH (09:44)
[2018-04-10] MEDS: LISINOPRIL 5 MG TAB PO SCH (09:44)
[2018-04-10] MEDS: ASPIRIN EC 81 MG TAB PO SCH (09:44)
--- NOTE | 2018-04-10 14:19 | PN ---
The patient has minimal wheezing. She is ambulating. The patient after providing the oxygen, now odilon vee does not want any oxygen or nebulizers. I told her that with her COPD, she is better off using, bu t I am not convinced that she is going to use the oxygen. The prescription for the nebulizer was not given to patient. I asked her to at least use inhalers I prescribed. NEIL/MIMI Voice ID: [id number] Report ID: [id number]
== END 2018-04-10 10:51 | disposition home or self-care (01) | DRG 191 ==
LOC: ER 15:37 → ERHOLD 16:47 → 4TH 17:53
PROVIDERS: ADMIT Internal Medicine; ATTEND Internal Medicine
DX: J44.1 Chronic obstructive pulmonary disease with (acute) exacerbation (principal); I50.22 Chronic systolic (congestive) heart failure; F32.9 Major depressive disorder, single episode, unspecified; I48.91 Unspecified atrial fibrillation; Z95.0 Presence of cardiac pacemaker
CPT/HCPCS: 36415; 71045; 80048; 80076; 81003; 81015; 83735; 83880; 84484; 85025; 85610; 93005; 94640; 94760; 96374; 99285; J1940; J7512

== ENCOUNTER 2018-05-01 13:50 | Emergency (ER) | payer OTHER ==
--- OUTSIDE RECORDS SUMMARY | 2018-05-01 13:53 | XMS REPORT | Clinical Summary ---
:1955 Author Organization [facility] Address [address] [place] [address] Care Team Providers Name Role Phone Yared Castillo MD Primary Care Provider Allergies Active Allergy Reactions Severity Noted Date Comments Levofloxacin Itching 01/10/2018 Medications Medication Sig Dispensed Refills Start Date End Date Status potassium chloride Take 10 mEq by 0 Active (K-DUR,KLOR-CON) mouth daily. 10 MEQ CR tablet sertraline Take 50 mg by 0 Active (ZOLOFT) 50 MG mouth daily. tablet metoprolol Take 50 mg by 0 Active tartrate mouth 2 (two) (LOPRESSOR) 50 mg times a day. tablet predniSONE Take 10 mg by 0 Active (DELTASONE) 10 mg mouth 2 (two) tablet times a day. lisinopril Take 5 mg by 0 Active (PRINIVIL,ZESTRIL) mouth daily. 5 mg tablet furosemide (LASIX) Take 40 mg by 0 01/17/20 Discontinued 40 mg tablet mouth daily. 18 rivaroxaban Take 10 mg by 0 01/17/20 Discontinued (XARELTO) 10 mg mouth daily. [...] 18 for 30 days. chlorhexidine Apply topically 0 01/16/2018 02/16/20 (HIBICLENS) 4 % daily as needed 18 external liquid for wound care for up to 30 days. Active Problems Problem Noted Date Essential hypertension 01/13/2018 CVA (cerebral vascular accident) 01/13/2018 Depression 01/13/2018 Confusion 01/10/2018 Encounters Date Type Specialty Care Team Description 01/11/2018 Anesthesia Event Procedural Amilcar Rosado Cardiology Angel, ANITA 01/11/2018 Surgery Procedural Jovani Pagan aicd implant Cardiology MD Karma dual bi vent [84321 (CPT)] 01/11/2018 Telephone Cardiology Leonila Palomo 01/10/2018 Surgery Procedural Attar, Pacemaker insertion Cardiology MD Prieto new or replacement [65077 (CPT)] 01/09/2018 - Hospital Encounter Cardiology Rhina Lee Sick sinus syndrome (Primary Dx); 01/16/2018 MD Umer Confusion; Rogerio, Essential hypertension; Markus O. Sr., Mild single current episode of major depressive disorder 01/09/2018 Intake Access N/A after 04/30/2017 Social History Tobacco Use Types Packs/Day Years Used Date Never Assessed Sex Assigned at Date Recorded Not on file Job Start Date Occupation Industry Not on file Not on file Not on file Travel History Travel Start Travel End No recent travel history available. Last Filed Vital Signs Vital Sign Reading [...] 2006 COLON CANCER SCREENING 2006 SHINGRIX VACCINE (1 of 2) 2006 ZOSTER VACCINE 2016 INFLUENZA VACCINE 01/08/2018 Implants Implanted Type Area Neurological Surgeon Device Shelf Model / Identifier Expiration Serial / Date Lot Lorettata Df4 - Active Tbp Single Shock, Icd Leads, Model 7120q-58 - [id number] - [id number] Cardiac Pacing N/A: 11/07/2018 7120Q 58 / Implanted: Qty: 1 on 01/11/2018 by Jovani Pagan Jr., MD Leads or N/A [id number] / Electrodes or [id number] Accessories Quartet, Lv Leads, Model 1458q-86 - [id number] - [id number] Cardiac Pacing N/ A: 08/08/2019 [id number] 86 / Implanted: Qty: 1 on 01/11/2018 by Jovani Pagan Jr., MD Leads or N/A [id number] / Electrodes or [id number] Accessories Defibrillator Quadra Assura Mp - [id number] - [id number] Defibrillator N/A: [facility] 12/08/2019 [id number] / Implanted: Qty: 1 on 01/11/2018 by Jovani Pagan Jr., MD ICD Devices N/A MEDICAL CRM [id number] / [id number] Procedures Procedure Name Priority Date/Time Associated Comments [...] are in SPECTRAL COLOR DOPPLER the results (29038) section. XR CHEST 1 VW PORTABLE Routine [...] procedure are in the results section. after 04/30/2017 Results Digoxin level (01/15/2018 4:00 AM CDT)Only the most recent of3 resultswithin the time period is included. Digoxin 1.2 0.8 - 2.0 ng/mL [facility] DEPARTMENT OF PATHOLOGY Comment: AND [employer] MEDICINE For valid Digoxin results, at least 6 hours should elapse between time of last dose and collection of blood. Otherwise, result may be false high. Therapeutic Range: 0.8 - 2.0 ng/mL Specimen Plasma specimen Performing Organization Address [facility] Phone Number [facility] DEPARTMENT OF PATHOLOGY AND [address] [place] [address] [employer] [facility] Estimated GFR (01/14/2018 10:20 AM CDT)Only the most recent of7 resultswithin the time period is included. GFR Non Af Amer 73 mL/min/1.73 m2 [facility] DEPARTMENT OF PATHOLOGY AND GENOMIC MEDICINE GFR Af Amer 88 mL/min/1.73 m2 [facility] DEPARTMENT OF Comment: PATHOLOGY AND GENOMIC Chronic [...] Americans. Specimen Plasma specimen Performing Organization Address City/[facility] Phone Number [facility] DEPARTMENT OF PATHOLOGY AND [address] [place] [address] CBC with platelet and differential (01/14/2018 10:20 AM CDT)Only the most recent of5 resultswithin the time period is included. WBC 12.91 (H) 4.50 - 11.00 k/uL [facility] DEPARTMENT OF PATHOLOGY AND GENOMIC MEDICINE RBC 5.24 4.20 - 5.50 m/uL [facility] DEPARTMENT OF PATHOLOGY AND GENOMIC MEDICINE HGB 13.3 12.0 - 16.0 g/dL [facility] DEPARTMENT OF PATHOLOGY AND GENOMIC MEDICINE HCT 43.7 37.0 - 47.0 % [facility] DEPARTMENT OF PATHOLOGY AND GENOMIC MEDICINE MCV 83.4 82.0 - 100.0 fL [facility] DEPARTMENT OF PATHOLOGY AND GENOMIC MEDICINE MCH 25.4 (L) 27.0 - 34.0 pg [facility] DEPARTMENT OF PATHOLOGY AND GENOMIC MEDICINE MCHC 30.4 (L) 31.0 - 37.0 g/dL [facility] DEPARTMENT OF PATHOLOGY AND GENOMIC MEDICINE RDW - SD 52.6 37.0 - 55.0 fL [facility] DEPARTMENT OF PATHOLOGY AND GENOMIC MEDICINE MPV SEE COMMENTComment: 8.8 - 13.2 fL [facility] DEPARTMENT OF No report PATHOLOGY AND GENOMIC MEDICINE Platelet count 95 (L) 150 - 400 k/uL [facility] DEPARTMENT OF PATHOLOGY AND GENOMIC MEDICINE Nucleated RBC 0.00 /100 WBC [facility] DEPARTMENT OF PATHOLOGY AND GENOMIC MEDICINE Neutrophils 79.6 (H) 39.0 - 69.0 % [facility] DEPARTMENT OF PATHOLOGY AND GENOMIC MEDICINE Lymphocytes 8.8 (L) 25.0 - 45.0 % [facility] DEPARTMENT OF PATHOLOGY AND GENOMIC MEDICINE Monocytes 9.1 0.0 - 10.0 % [facility] DEPARTMENT OF PATHOLOGY AND GENOMIC MEDICINE Eosinophils 1.8 0.0 - 5.0 % [facility] DEPARTMENT OF PATHOLOGY AND GENOMIC MEDICINE Basophils 0.2 0.0 - 1.0 % [facility] DEPARTMENT OF PATHOLOGY AND GENOMIC MEDICINE Immature granulocytes 0.5Comment: "Immature 0.0 - 1.0 % [facility] DEPARTMENT OF granulocytes" PATHOLOGY AND GENOMIC (promyelocytes, MEDICINE myelocytes, metamyelocytes) Specimen Blood Performing Organization Address City/[facility] Phone Number [facility] DEPARTMENT OF PATHOLOGY AND [address] [place] [id number] GENOMIC MEDICINE Basic metabolic panel (01/14/2018 10:20 AM CDT)Only the most recent of5 resultswithin the time period is included. Sodium 140 135 - 148 mEq/L [facility] DEPARTMENT OF PATHOLOGY AND GENOMIC MEDICINE Potassium 4.8 3.5 - 5.0 mEq/L [facility] DEPARTMENT OF PATHOLOGY AND GENOMIC MEDICINE Chloride 89 (L) 98 - 112 mEq/L [facility] DEPARTMENT OF PATHOLOGY AND GENOMIC MEDICINE CO2 41 (HH) 24 - 31 mEq/L [facility] DEPARTMENT OF PATHOLOGY AND GENOMIC MEDICINE Anion gap 10@ANIO 7 - 15 mEq/L [facility] DEPARTMENT OF PATHOLOGY AND GENOMIC MEDICINE BUN 29 (H) 8 - 23 mg/dL [facility] DEPARTMENT OF PATHOLOGY AND GENOMIC MEDICINE Creatinine 0.8 0.5 - 0.9 mg/dL [facility] DEPARTMENT OF PATHOLOGY AND GENOMIC MEDICINE Glucose 167 (H) 65 - 99 mg/dL [facility] DEPARTMENT OF PATHOLOGY AND GENOMIC MEDICINE Calcium 9.3 8.8 - 10.2 mg/dL [facility] DEPARTMENT OF PATHOLOGY AND GENOMIC MEDICINE Specimen Plasma specimen Performing Organization Address City/[facility] Phone Number [facility] DEPARTMENT OF PATHOLOGY AND [address] [place] [address] GENOMIC MEDICINE POC glucose (01/13/2018 9:01 PM CDT)Only the most recent of4 resultswithin the time period is included. POC glucose 226 (H) 65 - 99 mg/dL [facility] DEPARTMENT OF PATHOLOGY AND Comment: GENOMIC MEDICINE [facility] Notified RN Meter ID: [id number] Cinder Block Mason: Ozzie Burgos Performing Organization Address City/[facility] Phone Number [facility] DEPARTMENT OF PATHOLOGY AND [address] [place] [address] GENOMIC MEDICINE XR Chest 1 Vw Portable (01/13/2018 10:21 AM CDT)Only the most recent of3 resultswithin the time period is included. Narrative Performed At EXAMINATION:XR CHEST 1 VW PORTABLE [facility] CLINICAL HISTORY:ICU ptunstable or clinical worsening COMPARISON:January 11, 2018 IMPRESSION: Cardiomegaly persists similar to the preceding exam.Pulmonary vascular congestion and early infiltrate is somewhat receded.There is still opacification at the left lung base due to pleural effusion. [facility]-[id number] Procedure Note Hm Interface, Radiology Results Incoming - 01/13/2018 10:27 AM CDT EXAMINATION: XR CHEST 1 VW PORTABLE CLINICAL HISTORY: ICU pt unstable or clinical worsening COMPARISON: January 11, 2018 IMPRESSION: Cardiomegaly persists similar to the preceding exam. Pulmonary vascular congestion and early infiltrate is somewhat receded. There is still opacification at the left lung base due to pleural effusion. [facility]-[id number] Performing Organization Address [facility] Phone Number [facility] [address] [place], [place] [phone] Phosphorus level (01/13/2018 2:00 AM CDT)Only the most recent of2 resultswithin the time period is included. Phosphorus 2.9 2.4 - 4.5 mg/dL [facility] DEPARTMENT OF PATHOLOGY AND GENOMIC MEDICINE Specimen Plasma specimen Performing Organization Address City/[facility]/Zipcode Phone Number [facility] DEPARTMENT OF PATHOLOGY AND [address] [place] [address] Magnesium level (01/13/2018 2:00 AM CDT)Only the most recent of4 resultswithin the time period is included. Magnesium 2.3 1.6 - 2.4 mg/dL [facility] DEPARTMENT OF PATHOLOGY AND GENOMIC MEDICINE Specimen Plasma specimen Performing Organization Address City/[facility] Phone Number [facility] DEPARTMENT OF PATHOLOGY AND [address] [place] [address] [facility] Ionized calcium (01/13/2018 2:00 AM CDT)Only the most recent of2 resultswithin the time period is included. pH 7.73 [facility] DEPARTMENT OF PATHOLOGY AND GENOMIC MEDICINE Ionized calcium 0.93 (L) 1.11 - 1.32 mmol/L [facility] DEPARTMENT OF PATHOLOGY AND GENOMIC MEDICINE Specimen Plasma specimen Performing Organization Address City/[facility] Phone Number [facility] DEPARTMENT OF PATHOLOGY AND [address] [place] [address] [facility] ECG Pre/Post Op-Tomorrow (01/12/2018 10:57 AM CDT)Only the most recent of2 resultswithin the time period is included. Ventricular rate 99 [facility] MUSE Atrial rate 163 [facility] QRSD interval 142 [facility] QT interval 340 [facility] QTC interval 436 [facility] QRS axis 1 268 [facility] T wave axis 38 [facility] EKG impression Demand pacemaker, interpretation is based on intrinsic rhythm- Atrial fibrillation with premature ventricular or aberrantly conducted complexes ventricular-paced complexes-Right bundle branch block-Possible Lateral infarct , age undetermined-Inferior [facility] infarct , age undetermined-Abnormal ECG-In automated comparison with ECG of 11-JAN-2018 14:13,-Atrial fibrillation has replaced Junctional rhythm-Right bundle branch block is now present-Borderline crit eria for Lateral infarct are now present-Inferior infarct is now present-Electronically Signed By Sergio Robison MD ([id number]) on 2017 11:40:56 PM Performing Organization Address City/[facility] Phone Number [facility] MUSE [address] [place] [address] B natriuretic peptide (01/12/2018 4:10 AM CDT) BNP 847 (H) 0 - 100 pg/mL [facility] DEPARTMENT OF PATHOLOGY AND GENOMIC MEDICINE Specimen Blood Performing Organization Address City/[facility] Phone Number [facility] DEPARTMENT OF PATHOLOGY AND [address] [place] [address] [facility] Blood culture, aerobic & anaerobic (01/11/2018 4:55 PM CDT)Only the most recent of2 resultswithin the time period is included. Blood culture isolate No growth after 5 days of incubation. [facility] DEPARTMENT OF Comment: PATHOLOGY AND GENOMIC Specimen Information MEDICINE Specimen Source: Blood Specimen Site: Hand, left Specimen Blood - Hand, left Performing Organization Address City/[facility] Phone Number [facility] DEPARTMENT OF PATHOLOGY AND [address] [place] [phone] [place] [address] MEDICINE Ammonia level (01/11/2018 4:55 PM CDT) Ammonia 70 (H) 11 - 51 umol/L [facility] DEPARTMENT OF PATHOLOGY AND GENOMIC MEDICINE Specimen Blood Performing Organization Address [facility] Phone Number [facility] DEPARTMENT OF PATHOLOGY AND [address] [place] [phone] [place] [address] Comprehensive metabolic panel (01/11/2018 2:45 PM CDT)Only the most recent of2 resultswithin the time period is included. Sodium 142 135 - 148 mEq/L [facility] DEPARTMENT OF PATHOLOGY AND GENOMIC MEDICINE Potassium 4.3 3.5 - 5.0 mEq/L [facility] DEPARTMENT OF PATHOLOGY AND GENOMIC MEDICINE Chloride 97 (L) 98 - 112 mEq/L [facility] DEPARTMENT OF PATHOLOGY AND GENOMIC MEDICINE CO2 33 (H) 24 - 31 mEq/L [facility] DEPARTMENT OF PATHOLOGY AND GENOMIC MEDICINE Anion gap 12@ANIO 7 - 15 mEq/L [facility] DEPARTMENT OF PATHOLOGY AND GENOMIC MEDICINE BUN 28 (H) 8 - 23 mg/dL [facility] DEPARTMENT OF PATHOLOGY AND GENOMIC MEDICINE Creatinine 0.8 0.5 - 0.9 mg/dL [facility] DEPARTMENT OF PATHOLOGY AND GENOMIC MEDICINE Glucose 166 (H) 65 - 99 mg/dL [facility] DEPARTMENT OF PATHOLOGY AND GENOMIC MEDICINE Calcium 8.7 (L) 8.8 - 10.2 mg/dL [facility] DEPARTMENT OF PATHOLOGY AND GENOMIC MEDICINE Protein 6.2 (L) 6.3 - 8.3 g/dL [facility] DEPARTMENT OF Comment: PATHOLOGY AND GENOMIC 4.6-7.0 g/dL MEDICINE 1 week 4.4-7.6 g/dL 7 months-1year5.1-7.3 g/dL 1-2 years5.6-7.5 g/dL >3 years6.0-8.0 g/dL 18-150 6.3-8.3 g/dL Albumin 3.7 3.5 - 5.0 g/dL [facility] DEPARTMENT OF PATHOLOGY AND GENOMIC MEDICINE A/G ratio 1.5 0.7 - 3.8 [facility] DEPARTMENT OF PATHOLOGY AND GENOMIC MEDICINE Alkaline phosphatase 59 35 - 104 U/L [facility] DEPARTMENT OF PATHOLOGY AND GENOMIC MEDICINE AST 15 10 - 35 U/L [facility] DEPARTMENT OF PATHOLOGY AND GENOMIC MEDICINE ALT 15 5 - 50 U/L [facility] DEPARTMENT OF PATHOLOGY AND GENOMIC MEDICINE Total bilirubin 1.2 0.0 - 1.2 mg/dL [facility] DEPARTMENT OF PATHOLOGY AND GENOMIC MEDICINE Specimen Plasma specimen Performing Organization Address City/State/Zipcode Phone Number [facility] DEPARTMENT OF PATHOLOGY AND [address] [place] [address] [facility] Cv electrophysiology procedure (01/11/2018 10:36 AM CDT) Narrative Performed At TITLE OF PROCEDURE: CUPID [...] vein was achieved x2 and utilizing standard tuel-jvu-owcp sheath technique, the RVA defibrillation lead was [...] Joseph medical model 7120Q, 58 cm, serial #[id number], measured R-wave 7.5 mV, pacing threshold 0.5 volt, impedance 630 ohms. The LV lead is a [employer] model 1458Q-86, serial #[id number], measured R-wave 21 mV, pacing threshold 0.75 volt, Lv1 to Lv2 configuration, impedance 940 ohms. 3.The defibrillator is a [employer] model PG9127-43J, serial #[id number]. 4.Final program parameters, VVI 60.Nominal outputs. RECOMMENDATIONS: The patient has elevated venous pressures.We will place a Tang catheter and administer IV diuretics over the next 24 hours. Performing Organization Address City/[facility] Phone Number [facility] [address] [place] [address] Type and screen (01/11/2018 8:50 AM CDT) ABO grouping A [facility] DEPARTMENT OF PATHOLOGY AND GENOMIC MEDICINE Rh type POS [facility] DEPARTMENT OF PATHOLOGY AND GENOMIC MEDICINE Antibody screen (gel) NEG [facility] DEPARTMENT OF PATHOLOGY AND GENOMIC MEDICINE Specimen Blood Performing Organization Address [facility] Phone Number [facility] DEPARTMENT OF PATHOLOGY AND [address] [place] [phone] GENOMIC MEDICINE Urinalysis screen and microscopy, with reflex to culture (01/10/2018 11:00 PM CDT)Only the most recent of2 resultswithin the time period is included. Specimen site Clean catch [facility] DEPARTMENT OF PATHOLOGY AND GENOMIC MEDICINE Color, UA Yellow [facility] DEPARTMENT OF PATHOLOGY AND GENOMIC MEDICINE Appearance, UA Clear [facility] DEPARTMENT OF PATHOLOGY AND GENOMIC MEDICINE Specific gravity, UA 1.020 1.001 - 1.035 [facility] DEPARTMENT OF PATHOLOGY AND GENOMIC MEDICINE pH, UA 6.0 5.0 - 8.5 [facility] DEPARTMENT OF PATHOLOGY AND GENOMIC MEDICINE Protein, UA Negative Negative [facility] DEPARTMENT OF PATHOLOGY AND GENOMIC MEDICINE Glucose, UA Negative Negative [facility] DEPARTMENT OF PATHOLOGY AND GENOMIC MEDICINE Ketones, UA Negative Negative [facility] DEPARTMENT OF PATHOLOGY AND GENOMIC MEDICINE Bilirubin, UA Negative Negative [facility] DEPARTMENT OF PATHOLOGY AND GENOMIC MEDICINE Blood, UA Large (A) Negative [facility] DEPARTMENT OF PATHOLOGY AND GENOMIC MEDICINE Nitrite, UA Negative Negative [facility] DEPARTMENT OF PATHOLOGY AND GENOMIC MEDICINE Urobilinogen, UA <2.0 <2.0 [facility] DEPARTMENT OF PATHOLOGY AND GENOMIC MEDICINE Leukocyte esterase, UA Negative Negative [facility] DEPARTMENT OF PATHOLOGY AND GENOMIC MEDICINE Epithelial cells, UA 1 /HPF [facility] DEPARTMENT OF PATHOLOGY AND GENOMIC MEDICINE WBC, UA <1 0 - 4 /HPF [facility] DEPARTMENT OF PATHOLOGY AND GENOMIC MEDICINE RBC, UA 1 0 - 5 /HPF [facility] DEPARTMENT OF PATHOLOGY AND GENOMIC MEDICINE Bacteria, UA None seen None seen [facility] DEPARTMENT OF PATHOLOGY AND GENOMIC MEDICINE Yeast, UA None seen [facility] DEPARTMENT OF PATHOLOGY AND GENOMIC MEDICINE Yeast with pseudohyphae, UA None seen [facility] DEPARTMENT OF PATHOLOGY AND GENOMIC MEDICINE Hyaline casts, UA 3 /LPF [facility] DEPARTMENT OF PATHOLOGY AND GENOMIC MEDICINE Specimen Urine Performing Organization Address City/[facility] Phone Number [facility] DEPARTMENT OF PATHOLOGY AND [address] [place] [address] Urine culture (01/10/2018 11:00 PM CDT)Only the most recent of2 resultswithin the time period is included. Urine culture SEE COMMENTComment: Bacteriuria [facility] DEPARTMENT OF PATHOLOGY screen negative. AND GENOMIC MEDICINE Performing Organization Address [facility] Phone Number [facility] DEPARTMENT OF PATHOLOGY AND [address] [place] [address] Cv electrophysiology procedure (01/10/2018 5:00 PM CDT) Narrative Performed At Pacemaker insertion procedure was cancelled as patient required more CUPID sedation than anticipated and also new findings of echocardiogram with LV EF 20s. To have AICD implanted. Performing Organization Address [facility] Phone Number [facility] [address] [place] [address] Echocardiogram complete w contrast and 3D if needed (01/10/2018 7:30 AM CDT) Narrative Performed At [facility] Echocardiography Report [address] [facility] [address]Name:RICHA LOZANO.ID:[id number] .Date: 01/10/2018Refer.MD:PRIETO LUQUE MD Exam Time: 7:46:00 AMStudy Type:Routine Echo Height:67.99in Weight:173.8lb BSA: 1.93 m2 DOBAge:1955,62Y Sex: FEMALEBP:140/70 HR:52 bpmSonogrphr: Sil Montoya [facility] Pat. Stat.:Inpatient Room:[facility] Study Status:Final Echo Event ID:[id number] Order ID:[id number] Reason for Study:Arrhythmias History / Clinical:Atrial Fibrillation, Congestive Heart Failure, Coronary Artery Disease, Diabetes, Hyperlipidemia, Shortness of Breath Procedures:2D Echo, Colorflow Doppler Race:C SUMMARY: Severe LV and RV dysfunction. Severe biatrial enlargement Severe mitral stenosis. Estimated mean mitral valve gradient 11 mmHg at a heart rate of 91 b/min (wlin-cj-tltp variability in gradient noted in A.fib). Mitral [...] RAPof 20 mmHg. MEASUREMENTS: 2D Parasternal Long [place] LVIDd4.8 cmIndex2.5 cm/m Ao An1.9 cm LVIDs3.9 cmAo Rtd 3.2 cm Index1.7 cm/m LV%fs 18.9 % LV Awky080.6 g(87-129) IVSd 1.4 cmLVM Owsex545.5 g/m2 LVPWd1.3 cmRWT0.5 LA Ds5.5 cmLVOT 2.1 cm LA Sng Plane LA Area 49.9 cm2(8.8-23.4) LA Vol 221.8 ml Bjdui543.9 ml/m LA LngAx 9.1 cm RA Sng Plane RA Area 35.6 cm2(8.3-19.5) RA Vol 142.6 ml Index73.9 ml/m RA LngAx 7.4 cm DOPPLER MV For Flow/Valve Assess MV pkVel 250.8 cm/sMV Mean G 10.5 mmHg MV pkPG 25.2 mmHgMV TVI37.9 cm Signed 01/10/2018 07:51 AM Prieto Sherman MD Procedure Note Interface, Radiology Results In - 01/10/2018 1:37 PM CDT Echocardiography Report [address] [place] [address] Pat.Name: RICHA LOZANO Pat.ID: [id number] .Date: 01/10/2018 Refer.MD: PRIETO LUQUE MD Exam Time: 7:46:00 AM Study Type:Routine Echo Height: 67.99in Weight: 173.8lb BSA: 1.93 m2 Age: 6 1955,62Y Sex: FEMALE BP: 140/70 HR: 52 bpm Sonogrphr: LAQUITA Mcgill Pat. Stat.:Inpatient Room: A 746 Study Status:Final Echo Event ID:[id number] Order ID: [id number] Reason for Study:Arrhythmias History / Clinical:Atrial Fibrillation, Congestive Heart Failure, Coronary Artery Disease, Diabetes, Hyperlipidemia, Shortness of Breath Procedures:2D Echo, Colorflow Doppler Race: C SUMMARY: Severe LV and RV dysfunction. Severe biatrial enlargement Severe mitral stenosis. Estimated mean mitral valve gradient 11 mmHg at a heart rate of 91 b/min (cbyc-gq-zoca variability in gradient noted in A.fib). Mitral [...] of 20 mmHg. MEASUREMENTS: 2D Parasternal Long [place] LVIDd 4.8 cm Index 2.5 cm/m Ao [...] AM Prieto Sherman MD Performing Organization Address [facility] Phone Number [facility] [address] [place] [address] Partial thromboplastin time, activated (01/09/2018 11:40 PM CDT) PTT 30.8 23.0 - 36.0 sec [facility] DEPARTMENT OF PATHOLOGY Comment: AND GENOMIC MEDICINE PTT therapeutic range for unfractionated heparin is 61.0-112.0 seconds which corresponds to Anti-Xa 0.3-0.7 U/ml. Specimen Blood Performing Organization Address [facility]/Zipcode Phone Number [facility] DEPARTMENT OF PATHOLOGY AND [address] [place] [address] [facility] Prothrombin time with INR (01/09/2018 11:40 PM CDT) Prothrombin time 19.6 (H) 12.0 - 15.0 sec [facility] DEPARTMENT OF PATHOLOGY AND GENOMIC MEDICINE INR 1.6 [facility] DEPARTMENT OF Comment: PATHOLOGY AND GENOMIC The International Normalized Ratio (INR) is a therapeutic MEDICINE monitoring tool for patients who are stable on oral anticoagulant therapy. An INR of 2.0-3.0 is suggested for deep vein thrombosis/pulmonary embolism. Specimen Blood Performing Organization Address City/[facility]/Zipcode Phone Number [facility] DEPARTMENT OF PATHOLOGY AND [address] [place] [phone] [place] [address] Thyroid stimulating hormone (01/09/2018 11:05 PM CDT) TSH 1.34 0.27 - 4.20 uIU/mL [facility] DEPARTMENT OF PATHOLOGY AND GENOMIC MEDICINE Specimen Plasma specimen Performing Organization Address City/[facility] Phone Number [facility] DEPART[facility] OF PATHOLOGY AND [address] [place] [address] T4, free (01/09/2018 11:05 PM CDT) T4, free 1.0 0.9 - 1.7 ng/dL [facility] DEPARTMENT OF PATHOLOGY AND GENOMIC MEDICINE Specimen Plasma specimen Performing Organization Address City/[facility] Phone Number [facility] DEPARTMENT OF PATHOLOGY AND [address] [place], [place] [phone] [facility] ECG 12 lead (01/09/2018 10:52 PM CDT) Ventricular rate 80 [facility] Atrial rate 47 [facility] QRSD interval 88 [facility] QT interval 392 [facility] QTC interval 452 [facility] QRS axis 1 76 [facility] T wave axis 241 [facility] EKG impression Atrial fibrillation with premature ventricular or aberrantly conducted complexes-Low voltage QRS-Septal infarct , age undetermined-ST & T wave abnormality, consider inferolateral ischemia or digital [facility] is effect-Abnormal ECG-In automated comparison with ECG of 15-OCT-2011 04:30,-Septal infarct is now present-T wave inversion more evident in Inferior leads-T wave inversion more evident in Lateral leads- Performing Organization Address City/State/[facility] Phone Number [facility] [address] [place] [phone] after 04/30/2017 Insurance Payer Benefit Plan / Group Subscriber ID Type Phone Address MEDICARE RAILROAD MEDICARE RAILROAD xxxxxxxxxxx Medicare Advance Directives Patient has advance care planning documents on file. For more information, please contact:Dayo Waldron[address] [place] [address]
[2018-05-01 14:51] LABS: Absolute Lymphocytes (CBC) 0.9 K/uL (0.7-4.9); Absolute Monocytes 0.4 K/uL (0.1-1.3); Absolute Neutrophil 5.4 K/uL (1.8-8.0); Basophils % 0.8 % (0-1.3); Eosinophils % 5.6 % (0-4.4); Hematocrit 43.9 % (36.0-45.0); MCH 29.7 pg (27.0-35.0); MCV 87.6 fL (80-100); MPV 9.2 fL (7.6-11.3); RBC Red Blood Cell Count 5.01 M/uL (3.86-4.86)
--- NOTE | 2018-05-01 14:51 | RAD REPORT ---
EXAM DESCRIPTION: RAD - Chest Single View - 05/01/2018 2:44 pm CLINICAL HISTORY: CHEST PAIN Chest pain. COMPARISON: Chest Single View dated 04/03/2018; Chest Single View dated 01/21/2018; Chest Single View dated 01/08/2018; Chest Single View dated 06/17/2017 FINDINGS: Portable technique limits examination quality. The lungs are grossly clear. Heart is moderately enlarged in size with multilead pacer/defibrillator device present. No displaced fractures. IMPRESSION: Moderate cardiomegaly.
[2018-05-01 14:54] LABS: Protime INR 1.26
[2018-05-01 15:31] LABS: Albumin 3.4 g/dL (3.4-5.0); Bilirubin Direct 0.3 mg/dL (0-0.2); Magnesium 2.1 mg/dL (1.8-2.4); Potassium 3.7 mmol/L (3.5-5.1); Protein, Total 6.9 g/dL (6.4-8.2); Troponin (Emerg Dept Use Only) 0.04 ng/mL (0.0-0.045)
--- NOTE | 2018-05-01 16:02 | EDPHYS ---
Physician Documentation [facility] Name: Richa Lozano Age: 62 yrs Sex: Female : 1955 Arrival Date: 05/01/2018 Time: 13:51 Bed 2 Private MD: Yared Chao R ED Physician Marina Fan HPI: 05/01 14:31 This 62 yrs old Female presents to ER via Wheelchair with complaints of ma2 Shortness Of Breath. 14:31 Duration: The symptoms are intermittent. Associated signs and symptoms: Pertinent ma2 positives: chest pain, Pertinent negatives: non-productive cough, productive cough, hemoptysis, numbness in extremities. The patient has not experienced similar symptoms in the past. chf s/p icd pm placed 3 months ago here because her ICD delivered a shock 1 hour ago.. and started to have chest pain while in er mild . Historical: - Allergies: 14:05 Levaquin; aj1 - Home Meds: 14:05 Klor-Con 10 10 mEq Oral TbER 1 tab once daily [Active]; Lasix 40 mg Oral tab 1 tab once aj1 daily [Active]; metoprolol tartrate 50 mg Oral tab 1 tab 2 times per day [Active]; nicotine 21 mg/24 hr TD pt24 1 patch once daily [Active]; prednisone 10 mg Oral tab 1 tab 2 times per day [Active]; rivaroxaban 15 mg Oral 1 tab once daily [Active]; sertraline 50 mg Oral tab 1 tab once daily [Active]; - PMHx: 14:05 AFIB; Aneurysm; atelectasis; cardiomegaly; CHF; COPD; CVA; Depression; EDEMA; aj1 Hypertension; Pace maker; pleural effusion; rheumatic mitral stenosis; - Immunization history:: Flu vaccine is not up to date. - Social history:: Smoking status: Patient uses tobacco products, 3 cigarettes per day, Patient/guardian denies using alcohol, street drugs, The patient lives with family. - Ebola Screening: : Patient denies travel to an Ebola-affected area in the 21 days before illness onset. - Family history:: not pertinent. - Hospitalizations: : No recent hospitalization is reported. ROS: 14:31 Constitutional: Negative for fever, chills, and weight loss. ma2 14:31 Cardiovascular: Positive for chest pain, icd shock , Negative for edema, palpitations, acute changes. 14:31 All other systems are negative. Exam: 14:31 Constitutional: This is a well developed, well nourished patient who is awake, alert, ma2 and in no acute distress. Chest/axilla: Normal chest wall appearance and motion. Nontender with no deformity. No lesions are appreciated. Cardiovascular: Regular rate and rhythm with a normal S1 and S2. No gallops, murmurs, or rubs. Normal PMI, no JVD. No pulse deficits. Respiratory: Lungs have equal breath sounds bilaterally, clear to auscultation and percussion. No rales, rhonchi or wheezes noted. No increased work of breathing, no retractions or nasal flaring. Abdomen/GI: Soft, non-tender, with normal bowel sounds. No distension or tympany. No guarding or rebound. No evidence of tenderness throughout. MS/ Extremity: Pulses equal, no cyanosis. Neurovascular intact. Full, normal range of motion. Neuro: Awake and alert, GCS 15, oriented to person, place, time, and situation. Cranial nerves II-XII grossly intact. Motor strength 5/5 in all extremities. Sensory grossly intact. Cerebellar exam normal. Normal gait. Vital Signs: 14:05 BP 110 / 41; Pulse 85; Resp 24; Temp 97.4; Pulse Ox 99% on R/A; Weight 70.31 kg (R); aj1 Height 5 ft. 7 in. (170.18 cm) (R); Pain 0/10; 14:40 BP 93 / 57; Pulse 73; Resp 27; Pulse Ox 97% on 2 lpm NC; bp 15:41 BP 110 / 59; Pulse 79; Resp 25; Pulse Ox 100% ; bp 14:05 Body Mass Index 24.28 (70.31 kg, 170.18 cm) aj1 MDM: 14:28 Patient medically screened. ma2 14:31 Differential diagnosis: Anemia Anxiety Reaction CHF exacerbation, Chronic Obstructive ma2 Pulmonary Disease pneumonia, Pneumothorax Unstable Angina she has chronic COPD and states that her respiratory condition now is unchanged from her baseline. Antibiotic administration: Not indicated. 14:58 Data reviewed: vital signs, nurses notes, attempted to call [facility] for interrogation, ma2 they are closed for Thanksgiving.. will need to be called tomorrow . 15:59 Counseling: I had a detailed discussion with the patient and/or guardian regarding: the [facility] historical points, exam findings, and any diagnostic results supporting the discharge/admit diagnosis, the presence of at least one elevated blood pressure reading (>120/80) during this emergency department visit, lab results, radiology results. 16:02 ED course: patient has no symptoms now.. Patient want to go home and return to er de2 tomorrow to get interrogation. she does not want to be admitted to the hospital . 05/01 14:27 Order name: Basic Metabolic Panel; Complete Time: 15:55 ma2 05/01 14:27 Order name: CBC with Diff; Complete Time: 14:58 ma2 05/01 14:27 Order name: LFT's; Complete Time: 15:55 ma2 05/01 14:27 Order name: Magnesium; Complete Time: 15:55 ma2 05/01 14:27 Order name: NT PRO-BNP; Complete Time: 15:55 ma2 05/01 14:27 Order name: PT-INR; Complete Time: 14:58 ma2 05/01 14:27 Order name: Troponin (emerg Dept Use Only); Complete Time: 15:55 ma2 05/01 14:27 Order name: XRAY Chest (1 view); Complete Time: 14:58 ma2 05/01 14:27 Order name: EKG; Complete Time: 14:28 ma2 05/01 14:27 Order name: Cardiac monitoring; Complete Time: 14:41 ma2 05/01 14:27 Order name: EKG - Nurse/Tech; Complete Time: 14:41 ma2 05/01 14:27 Order name: IV Saline Lock; Complete Time: 14:41 ma2 05/01 14:28 Order name: Labs collected and sent; Complete Time: 14:41 ma2 05/01 14:28 Order name: O2 Per Protocol; Complete Time: 14:41 ma2 05/01 14:28 Order name: O2 Sat Monitoring; Complete Time: 14:41 ma2 Administered Medications: No medications were administered Disposition: 05/01/18 16:01 Discharged to Home. Impression: Presence of cardiac pacemaker. - Condition is Stable. - Medication Reconciliation Form, Thank You Letter, Antibiotic Education, Prescription Opioid Use form. - Follow up: Private Physician; When: Tomorrow; Reason: Continuance of care. Signatures: Dispatcher [employer] Venecia Barragan RN RN aj1 Carlos Melgar RN RN bp Marina Fan MD MD ma2 Corrections: (The following items were deleted from the chart) 16:29 16:01 05/01/2018 16:01 Discharged to Home. Impression: Presence of cardiac pacemaker. bp Condition is Stable. Forms are Medication Reconciliation Form, Thank You Letter, Antibiotic Education, Prescription Opioid Use. Follow up: Private Physician; When: Tomorrow; Reason: Continuance of care. ma2
--- NOTE | 2018-05-01 16:02 | ER ---
Nurse's Notes [facility] Name: Richa Lozano Age: 62 yrs Sex: Female : 1955 Arrival Date: 05/01/2018 Time: 13:51 Bed 2 Private MD: Yared Chao R Diagnosis: Presence of cardiac pacemaker Presentation: 05/01 14:01 Presenting complaint: Patient states: Her defibrillator shocked her about an hour ago. aj1 Reports dizziness, shortness of breath. Denies CP, palpitations. Transition of care: patient was not received from another setting of care. Onset of symptoms was May 01, 2018 at 13:00. Risk Assessment: Do you want to hurt yourself or someone else? Patient reports no desire to harm self or others. Initial Sepsis Screen: Does the patient meet any 2 criteria? No. Patient's initial sepsis screen is negative. Does the patient have a suspected source of infection? No. Patient's initial sepsis screen is negative. Care prior to arrival: None. 14:01 Method Of Arrival: Wheelchair aj1 14:01 Acuity: TINO 2 aj1 Triage Assessment: 14:05 General: Appears in no apparent distress. uncomfortable, Behavior is calm, cooperative, aj1 appropriate for age. Pain: Denies pain. Neuro: Level of Consciousness is awake, alert, obeys commands. Cardiovascular: Patient's skin is warm and dry. Respiratory: Airway is patent Respiratory effort is even, unlabored, Respiratory pattern is regular, symmetrical. Historical: - Allergies: 14:05 Levaquin; aj1 - Home Meds: 14:05 Klor-Con 10 10 mEq Oral TbER 1 tab once daily [Active]; Lasix 40 mg Oral tab 1 tab once aj1 daily [Active]; metoprolol tartrate 50 mg Oral tab 1 tab 2 times per day [Active]; nicotine 21 mg/24 hr TD pt24 1 patch once daily [Active]; prednisone 10 mg Oral tab 1 tab 2 times per day [Active]; rivaroxaban 15 mg Oral 1 tab once daily [Active]; sertraline 50 mg Oral tab 1 tab once daily [Active]; - PMHx: 14:05 AFIB; Aneurysm; atelectasis; cardiomegaly; CHF; COPD; CVA; Depression; EDEMA; aj1 Hypertension; Pace maker; pleural effusion; rheumatic mitral stenosis; - Immunization history:: Flu vaccine is not up to date. - Social history:: Smoking status: Patient uses tobacco products, 3 cigarettes per day, Patient/guardian denies using alcohol, street drugs, The patient lives with family. - Ebola Screening: : Patient denies travel to an Ebola-affected area in the 21 days before illness onset. - Family history:: not pertinent. - Hospitalizations: : No recent hospitalization is reported. Screenin:11 Abuse screen: Denies threats or abuse. Denies injuries from another. Nutritional bp screening: No deficits noted. Tuberculosis screening: No symptoms or risk factors identified. Fall Risk No fall in past 12 months (0 pts). Secondary diagnosis (15 points) CVA, No IV (0 pts). Ambulatory Aid- None/Bed Rest/Nurse Assist (0 pts). Gait- Normal/Bed Rest/Wheelchair (0 pts) Mental Status- Oriented to own ability (0 pts). Total Calero Fall Scale indicates No Risk (0-24 pts). Assessment: 14:15 General: Appears in no apparent distress. comfortable, Behavior is cooperative, bp appropriate for age, anxious. Pain: Denies pain. Neuro: Level of Consciousness is awake, alert, obeys commands, Oriented to person, place, time, situation, Appropriate for age. Cardiovascular: Rhythm is sinus rhythm. Respiratory: Airway is patent Respiratory effort is even, shallow, Respiratory pattern is regular, symmetrical. GI: No signs and/or symptoms were reported involving the gastrointestinal system. : No signs and/or symptoms were reported regarding the genitourinary system. EENT: No deficits noted. Derm: Skin is healthy with good turgor, Skin is dry, Skin is pink, warm \T\ dry. Musculoskeletal: Circulation, motion, and sensation intact. Range of motion: intact in all extremities. 14:37 Reassessment: PER PT, AICD IMPLANTED BY DR LUQUE AT [facility]. DR LUQUE'S SERVICE bp CONTACTED AND PAGED FOR RECORDS. 15:41 Reassessment: NO HEAVY EQUIPMENT PLUMBING SUPERVISOR AVAILABLE TO INTERROGATE [facility] AICD. VS bp STABLE ON MONITOR, RESULTS PENDING. 16:28 Reassessment: PT D/C HOME WITH FAMILY, DX WITH PACEMAKER. bp Vital Signs: 14:05 BP 110 / 41; Pulse 85; Resp 24; Temp 97.4; Pulse Ox 99% on R/A; Weight 70.31 kg (R); aj1 Height 5 ft. 7 in. (170.18 cm) (R); Pain 0/10; 14:40 BP 93 / 57; Pulse 73; Resp 27; Pulse Ox 97% on 2 lpm NC; bp 15:41 BP 110 / 59; Pulse 79; Resp 25; Pulse Ox 100% ; bp 14:05 Body Mass Index 24.28 (70.31 kg, 170.18 cm) aj1 ED Course: 13:51 Patient arrived in ED. sb2 13:52 Yared Chao MD is Private Physician. sb2 14:03 Triage completed. aj1 14:05 Arm band placed on Patient placed in an exam room. aj1 14:10 Carlos Melgar, RN is Primary Nurse. bp 14:11 Patient has correct armband on for positive identification. Placed in gown. Bed in low bp position. Call light in reach. Side rails up X2. Adult w/ patient. 14:19 EKG done, by ED staff, reviewed by Marina Fan MD. jb1 14:27 Marina Fan MD is Attending Physician. ma2 14:42 Inserted saline lock: 22 gauge in right forearm, using aseptic technique. Blood bp collected. 14:44 XRAY Chest (1 view) In Process Unspecified. EDMS 14:45 X-ray completed. Portable x-ray completed in exam room. kp1 16:29 No provider procedures requiring assistance completed. IV discontinued, intact, bp bleeding controlled, No redness/swelling at site. Pressure dressing applied. Administered Medications: No medications were administered Outcome: 16:01 Discharge ordered by . ma2 16:29 Discharged to home via wheelchair, with family. bp 16:29 Condition: stable 16:29 Discharge instructions given to patient, Instructed on discharge instructions, follow up and referral plans. Demonstrated understanding of instructions, follow-up care. 16:29 Patient left the ED. bp Signatures: Dispatcher [employer] EDMS Kofi Zamarripa jb1 Venecia Houston, NAV RN aj1 Andria Alvarez kp1 Carlos Melgar, NAV RN bp Marina Fan MD MD ma2 Diana Issa 2
[2018-05-01 16:49] VITALS: TEMP 97.4
[2018-05-01 16:50] VITALS: BP 110/59; O2SAT 100
--- NOTE | 2018-05-02 06:19 | EKG ---
Test Date: 2018-05-01 Test Time: 14:14:31 Cash Register Balancer: MAURICE MEASUREMENT RESULTS: Intervals: Rate: 75 [place]: QRSD: 90 QT: 390 QTc: 435 [place]: P: [place]: QRS: 61 T: 248 INTERPRETIVE STATEMENTS: Rhythm consistent with VVI pacing Atrial fibrillation ST & T wave abnormality, consider inferolateral ischemia Abnormal ECG Compared to ECG 04/03/2018 15:53:04 Ventricular premature complex(es) no longer present ST (T wave) deviation still present VVI pacing is now present Electronically Signed On 05-02-18 06:18:29 YOUTH PROGRAM DIRECTOR by Bryce Nichols
== END 2018-05-01 16:29 | disposition home or self-care (01) ==
LOC: ER 13:50
DX: R07.9 Chest pain, unspecified (principal); Z95.0 Presence of cardiac pacemaker; I10 Essential (primary) hypertension; I48.91 Unspecified atrial fibrillation; I50.9 Heart failure, unspecified; Z72.0 Tobacco use; Z88.1 Allergy status to other antibiotic agents
CPT/HCPCS: 36415; 71045; 80048; 80076; 83735; 83880; 84484; 85025; 85610; 93005; 99284

== ENCOUNTER 2021-09-19 15:45 | Inpatient (IN) | payer OTHER ==
--- NOTE | 2021-09-20 10:28 | R.PREADM ---
PRE-ADMISSION SCREENING FORM SCREENING DATE AND TIME 09/18/2021 15:59 (CDT) ANTICIPATED REHAB ADMISSION DATE 09/20/2021 REFERRING FACILITY N/A REFERRAL DATE AND TIME 09/15/2021 16:03 (CDT) Previous Rehabilitation(s): No. REFERRING PHYSICIAN DR[facility] RE[facility]AB FACILITY [facility] CLINICAL LIAISON [place] PHYSICIAN REVIEWER Dr. Ajit Shrestha M.D. MR# [id number] NAME GUIDO OHARA ADDRESS [address] [place] [address] PHONE [facility] [id number] DATE OF 1955 AGE 65 SSN# [id number] GENDER female MARITAL STATUS PREF. LANGUAGE (IF NON-AMERICAN) Uzbek ADMIT FROM 01 - Home (private home/apt. board/care, assisted living, senior care, transitional living) PRE-HOSPITAL LIVING SETTING 01 - Home (private home/apt. board/care, assisted living, senior care, transitional living) HOME TYPE AND DETAILS Type of home: apartment # of steps within the residence: 0 # of levels in the residence: 1 # of steps to enter the residence: 0 PRE-HOSPITAL LIVING WITH Alone FAMILY SUPPORT No PRIMARY FAMILY CONTACT NAME Garima Oconnor PRIMARY FAMILY CONTACT PHONE PRIMARY FAMILY CONTACT RELATIONSHIP DAUGHTER PHONE PRIMARY FAMILY CONTACT ON ADM.? no IS PRIMARY FAMILY CONTACT AUTH. REP.? no 1ST EMERGENCY CONTACT Garima Oconnor 1ST CONTACT PHONE 1ST CONTACT RELATIONSHIP DAUGHTER PHONE 1ST CONTACT ON ADM. no IS 1ST CONTACT AUTH. REP.? no PHONE 2ND CONTACT ON ADM.? 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 No ANOTHER GREEN PARTY RESPONSIBLE? No PRIMARY REHAB/ACUTE DIAGNOSIS: WEAKNESS, FALLS ONSET DATE 08/23/2021 REHAB IMPAIRMENT CATEGORY (VIRGIL): 20 Miscellaneous (Misc) does NOT meet 60% rule PRIMARY DIAGNOSIS-RELATED SURGERIES: N/A INTERVENTIONS: - CHF monitoring of patient symptoms and medication management by physician Daily weights will be obtained - A-Fib Vitals will be monitored regularly and medications administered as indicated by Physician - HTN Blood pressure will be regularly assessed and medications administered as per physician recommendatio ns. - Depression Monitor patient for depression and treat as neccesary Provide regular exercise, which is a proponent to fight depression RISK FOR COMPLICATIONS: - WEAKNESS Nursing and therapy will help to get patient stronger - SKIN BREAKDOWN Nursing will assess skin daily using assessment tool and will place on Skin Breakdown Precautions as Indicated per protocol - CARDIC monitoring heart rate/signs and symptoms for cardiac distress - CVA pt's blood pressures have been inconsistent and require monitoring and medication management as inidi cated by physician. pt has history of CVA. Will monitor blood pressure and manage with medication. - RESPIRATORY acute respiratory failure - Falls Patient will be evaluated for Fall Precautions and will be placed on Fall Precautions as indicated pe r protocol. Educated pt on fall prevention strategies to reduce/eliminate fall risk - Pain Clinical staff will assess patient's pain level every shift per protocol to monitor for pain manageme nt effectiveness Educate patient on pain management strategies - DVT Administer anti-coagulants as indicated by physician and monitor for effectiveness. Mobility training and regular exercise Patient is a smoker with elevated risk for DVT SUMMARY OF ACUTE HOSPITALIZATION: Pt. is a 65 yo Right-handed white female. On 08/23/2021 she was admitted to N/A with diagnosis WEAKNESS, FALLS. Her impairment category is Debility 16 - Debility (16). Pre-morbidly, Pt. was independent/mod-I in Self-Care; and she had good Endurance, Transfers Control, Safety Awareness, and Locomotion. Currently, she has deficits of Self-Care, Transfers Control, Endurance, Balance, Locomotion, and Safe ty Awareness Pt. is now referred to [facility] for acute in-patient rehabilitation in order to maximize patient's functional independence in activities of daily living, strength, ROM, and mobi lity. Patient has realistic goal of being discharged at assistance level 7-Ind to reside at Home with Pt s elf. PAST MEDICAL HISTORY CVA Hemiparesis Cognitive deficits following unspecified cerebrovascular disease (I69.91) atrial fibrillation Cardiomyopathy, unspecified (I42.9) Congestive heart failure depression Essential (primary) hypertension (I10) Presence of prosthetic heart valve (Z95.2) Presence of automatic (implantable) cardiac defibrillator (Z95.810) COVID-19 (U07.1) PAST SURGICAL HISTORY: cholecystectomy mitral valve replacement MEDICATION ALLERGIES: No Known Drug Allergies (NKDA) ENVIRONMENTAL ALLERGIES: - Substance Allergies None Known - Other Allergies None Known CODE STATUS: Full code WEIGHT/HEIGHT/BMI: WEIGHT 125 lbs HEIGHT 5' 7" BMI 19.6 DIET: - Diet Type Regular - Diet - Solid Texture Regular - Diet - Liquid Texture Regular - Tube Feed N/A Skin Intact REVIEW OF SYSTEMS: - Gen Alert and awake Lying in bed No apparent distress Oriented to: person, time, and place - Vital Signs Temperature: 97.4 F SBP/DBP: 118/65 Pulse: 97 Resp: 20 Vital signs stable, afebrile - CVS RRR VITAL SIGNS Temperature: 97.4 F SBP/DBP: 118/65 Pulse: 97 Resp: 20 Vital signs stable, afebrile MEDICATIONS/TREATMENT: Other- See attached MAR (Medication Administration Record). CURRENT SPHINCTER CONTROL: Pre-hospital bladder status: unspecified # of bladder accidents in the last 7 days prior to screenin Pre-hospital bowel status: unspecified # of bowel accidents in the last 7 days prior to screenin Last Bowel Movement Date: 09/18/2021 CURRENT LOCOMOTION STATUS: distance walked 45 feet DETAILED CURRENT FUNCTIONAL STATUS: - Bladder accident frequency: 7-Ind - No accidents in the past 7 days - Bowel accident frequency: 7-Ind - No accidents in the past 7 days - Walking score based on distance walked: 0(N/A) score based on distance walked: 1(<=50ft) - Wheelchair score based on distance traveled: 0(N/A) QI SCORES: - Self-Care A. Eating 06-Independent C. Toileting hygiene 03-Partial/moderate assistance B. Oral hygiene 06-Independent E. Shower/bathe self 07-Patient refused F. Upper body dressing 05-Setup or clean-up assistance G. Lower body dressing 03-Partial/moderate assistance H. Putting on/taking off footwear 05-Setup or clean-up assistance - Mobility A. Roll left and right 04-Supervision or touching assistance B. Sit to lying 03-Partial/moderate assistance C. Lying to sitting on side of bed 03-Partial/moderate assistance D. Sit to stand 04-Supervision or touching assistance E. Chair/nuk-gj-xnxri transfer 03-Partial/moderate assistance F. Toilet transfer 03-Partial/moderate assistance G. Car transfer 03-Partial/moderate assistance I. Walk 10 feet 03-Partial/moderate assistance J. Walk 50 feet with two turns 88-Not attempted due to medical condition or safety concerns K. Walk 150 feet 88-Not attempted due to medical condition or safety concerns L. Walking 10 feet on uneven surfaces 88-Not attempted due to medical condition or safety concerns M. 1 step (curb) 88-Not attempted due to medical condition or safety concerns N. 4 steps 88-Not attempted due to medical condition or safety concerns O. 12 steps 88-Not attempted due to medical condition or safety concerns P. Picking up object 03-Partial/moderate assistance R. Wheel 50 feet with two turns 09-Not applicable S. Wheel 150 feet 09-Not applicable - Bladder and Bowel Bladder continence 2-Incontinent less than daily Bowel continence 0-Always continent - Endurance Good - Balance Good - Safety Awareness Good CURRENT FUNC. DEFICITS: Mobility and Self-Care CURRENT / PREVIOUS ASSISTIVE DEVICES: Rolling Walker HISTORY OF FALLS. HAS THE PATIENT HAD TWO OR MORE FALLS IN THE PAST YEAR OR ANY FALL WITH INJURY IN T HE PAST YEAR?: Yes PRIOR SURGERY. DID THE PATIENT HAVE MAJOR SURGERY DURING THE 100 DAYS PRIOR TO ADMISSION?: No THERAPY NOTES FROM ACUTE CARE: Attached. SPECIAL NEEDS: - Safety Concerns Skin breakdown precautions needed due to skin breakdown risk PATIENT NEEDS ACTIVE AND ONGOING THERAPEUTIC INTERVENTION OF MULTIPLE THERAPY DISCIPLINES, INCLUDING: - Dietary and Nutrition Adequate Nutrition. Nutritional Education. Nutritional Supplements. Evaluate and Treat. - Occupational Therapy Cognitive Retraining. Patient needs Occupational Therapy for a daily minimum of 1.5 hours at least 5 out of 7 days, to improve Activities of Daily Living, including: Eating, Grooming, Bathing, Dressing, Toileting, Toilet Transfers, Community Reintegration, Higher functional activities, Adaptive Equipme nt, Splinting, Household Tasks, and Other activities as determined. Visual Perceptual Training. Evalu ate and Treat. ADL Training. Transfer Training. Safety Awareness. Patient needs Occupational Therapy for a daily minimum of 1.5 hours at least 5 out of 7 days, to improve Activities of Daily Living, inc luding: Dressing, Toilet Transfers, Adaptive Equipment, Household Tasks, and Other activities as dete rmined. - Speech Therapy Cognitive Training. Expressive Language Skills. Patient needs Speech Therapy for a daily minimum of 1 .5 hours at least 5 out of 7 days, to improve: Swallowing, Cognition, Language Skills, and Compensato ry Strategies. Receptive Language Skills. Speech Intelligibility Training. Evaluate and Treat. Patien t needs Speech Therapy for a daily minimum of 1 hours at least 5 out of 7 days, to improve: Swallowi ng, Cognition, Language Skills, and Compensatory Strategies. Memory Strategies. - Physical Therapy Patient needs Physical Therapy for a daily minimum of 1.5 hours at least 5 out of 7 days, to improve: Mobility, Strengthening, Transfers, Stretching, ROM, Endurance, Ability to manage stairs, Gait, and Balance. Gait Training. Transfer Training. Balance Training. Mobility Training. LE Strengthening. Saf ety Awareness. LE ROM. Patient needs Physical Therapy for a daily minimum of 1.5 hours at least 5 out of 7 days, to improve: Transfers, Balance, Endurance, Gait, Mobility, ROM, and Strengthening. Patien t/Family Education. PATIENT NEEDS CLOSE MEDICAL SUPERVISION BY A REHABILITATION PHYSICIAN FOR: Coordination of Treatment Team Medical and Co-Morbidity Management Pain Management DVT Management PATIENT REQUIRES 24X7 REHAB NURSING FOR MEDICAL AND FUNCTIONAL MGT. OF THE FOLLOWING DEFICITS: Disease Management Medication Management Patient requires 24x7 Rehabilitation Nursing for: Pain Issues, Identifying and preventing risk factor s, Monitoring and reporting current medical conditions, Assisting with ambulation and transfer, Moris ting with all ADL-s, Teaching patients about disease process and medications, Family teaching, Provid ing safe environment, Bowel and Bladder Issues, Skin Integrity, and Medication Management Patient/Family Education Providing Safe Environment Skin Integrity Pain Management Bowel and Bladder Management PATIENT REQUIRES INTENSIVE, COORDINATED INTERDISCIPLINARY APPROACH TO REHAB: Arranging Home Equipment/Services Discharge Planning Family Intervention/Training Patient needs Dietary and Nutrition Services for: Adequate Nutrition, Nutritional Supplements, and Nu tritional Education Patient needs Library Information Technician and/or Case Management for: Discharge Planning, Arranging Home Equipmen t or Services, and Family Interventions Library Information Technician/Case Management PATIENT REHAB POTENTIAL: RoderickMadeleine OHARA is able and expected to receive 3 hours of individualized therapy daily on at least 5 of david ry 7 days Romelia OHARA's prognosis for significant practical improvement within a reasonable period of time appears Good Expected level of measurable improvement will be of a practical value to Romelia OHARA's functional capaci ty or adaptations to impairments Has a viable Discharge Plan Medically appropriate; condition is sufficiently stable to participate in intensive rehab program DISCHARGE PLAN: - Estimated Length of Stay (days) 13. - Consensus on plan Discharge plan has been discussed with primary caregiver. Patient/Family is in agreement with the jermain n. Primary caregiver is in agreement with the plan. - Patient/Family Goals Return home independently. - Planned Living Setting Upon Discharge Home, to live alone. Transitional Living. Primary caregiver: Pt self. RECOMMENDED CARE LEVEL: IRF RECOMMENDATION DETAILS: Recommended Admission to Comprehensive Rehabilitation Program to Increase Functional Lorimor SCREENER'S COMPLETENESS CONFIRMATION: - Screening Confirmation The patient data collection on this preadmission screening form is finished PHYSICIANS REVIEW AND ADMISSION DETERMINATION Admit - Based on my review of the Pre-Admission Screening results, in my medical judgment and experie nce, I concur with the findings and recommend admission to [facility], as this patient requires an IRF level of care. SIGNATURE PANEL: Emergency Medicine Specialist - [electronically] signed by Sky Campo PT on 09/20/2021 at 10:18 (CDT) Physician Reviewer - [electronically] signed by Dr. Ajit Shrestha M.D. on 09/20/2021 at 10:28 (CDT )
--- OUTSIDE RECORDS SUMMARY | 2021-09-20 12:09 | XMS REPORT | Continuity of Care Document ---
:[address] [facility] t Address [address] [place] [address] Care Team Providers Name Role Phone Anna DEL VALLE Primary Care Physician [id number] Attending Clinician Unavailable FAYE AGARWAL Attending Clinician Unavailable Ricardo Attending Clinician Unavailable Janelle Gomez RN Attending Clinician Unavailable Marcio DEL VALLE, O. Attending Clinician Oriana Attending Clinician Unavailable Shayne DEL VALLE Attending Clinician Satinder DEL VALLE S Attending Clinician [id number] Admitting Clinician Unavailable FAYE AGARWAL Admitting Clinician Unavailable MARCIO Admitting Clinician Unavailable Payers Payer Name Policy Type Policy Number Effective Date Expiration Date S lila [facility] [id number] MEDICARE B [id number] 1999 RAILROAD 00:00:00 Problems Condition Condition Condition Status Onset Resolution Last Treating Co mments Source Name Details Category Date Date Treatment Clinician Date Coronary Coronary Disease Active Metho di artery artery 8-03 st disease disease 00:00: Hospita (CAD) (CAD) 00 l excluded excluded Syncope Syncope Disease Active Methodi and and 7 st collapse collapse 00:00: Hospit a 00 l A-fib A-fib Disease Active 2018-06 Methodi 2- st 00:00: Hospita 00 l Status Status Disease Active 2018-06 Method[facility] post post 2-26 st laparoscop laparoscop 00:00: Ho spita ic ic 00 l cholecyste cholecyste ctomy ctomy Calculus Calculus Disease Active 2018-06 Metho di of of 07-27 gallbladde gallbladde 00:00: Ho spita r without r without 00 l cholecysti cholecysti tis tis without without obstructio obstructio n n Biliary Biliary Disease Active 2018-06 Method[facility] colic colic 07-27 00:00: Hospita 00 l Cardiomyop Cardiomyop Disease Active 2018-06 M ethodi athy athy 07-27 00:00: Hospita 00 l Status Status Disease Active 2018-06 Methodi post post 07-27 implantati implantati 00:00: Ho spita on of on of 00 l automatic automatic cardiovert cardiovert er/defibri er/defibri llator llator (AICD) (AICD) Status Status Disease Active 2018-06 [facility] post AAA post AAA 07-27 (abdominal (abdominal 00:00: Ho spita aortic aortic 00 l aneurysm) aneurysm) repair repair Chronic Chronic Disease Active 2018-06 [facility]i obstructiv obstructiv 07-27 e e 00:00: Hospita pulmonary pulmonary 00 l disease disease (COPD) (COPD) Tobacco Tobacco Disease Active 2018-06 [facility] abuse abuse 07-27 00:00: Hospita 00 l S/P MVR S/P MVR Disease Active [facility] (mitral (mitral 08-15 valve valve 00:00: Hospita repair) repair) 00 l S/P MVR S/P MVR Disease Active [facility] (mitral (mitral 08-08 st valve valve 00:00: Hospita replacemen replacemen 00 l t) t) Thrombocyt Thrombocyt Disease Active M ethodi openia openia 08-08 st 00:00: Hospita 00 l Paroxysmal Paroxysmal Disease Active M ethodi atrial atrial 3 st fibrillati fibrillati 00:00: Ho spita on on 00 l Shortness Shortness Disease Active Met hodi of breath of breath 07-25 st 00:00: Hospita 00 l 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 White matter lesions on MRI brain Subcorneal Subcorneal Disease Active Overview : Univers pustular pustular 11-25 Formattin ity of dermatosis dermatosis 00:00: g of this [place] 00 note Medical might be Branch different from the original. Sneddon syndrome Allergies, Adverse Reactions, Alerts Allergy Allergy Status Severity Reaction(s) Onset Inactive Treating Comm ents Source Name Type Date Date Clinician Levoflox Propensi Active Itching Metho di acin ty to 01-10 st adverse 00:00: Hospita reaction 00 l s to drug NO KNOWN Drug Active Univers ALLERGIE Class ity of S [facility] Family History Family Member Diagnosis Comments Start Date Stop Date Source Natural father Stroke [facility] Natural mother [facility] Social History Social Habit Start Date Stop Date Quantity Comments Source Exposure to Not sure University SARS-CoV-2 (event) [facility] [place] [facility] History of tobacco Cigarette Smoker [facility] use [facility] History [facility] Alcohol Std Drinks Hospit al History [facility] Alcohol Binge Hospital History [facility] Alcohol Comment Hospital Alcohol intake 2021-01-11 2021-01-11 Current [facility] 00:00:00 00:00:00 non-drinker of Hospital alcohol (finding) History SDOH 2019-06-04 2019-06-04 1 [facility] Alcohol Frequency 00:00:00 00:00:00 Hospita l Cigarettes smoked 2018-07-25 2018-07-[address] current (pack per 00:00:00 00:00:00 Hospita l day) - Reported Cigarette 2018-07-25 2018-07-25 [facility] pack-years 00:00:00 00:00:00 Hospital Tobacco use and 2018-07-25 2018-07-25 Smokeless [facility] exposure 00:00:00 00:00:00 tobacco non-user Hospital Sex Ass[birth year] At [birth year] [facility] 00:00:00 00:00:00 Hospital Smoking Status Start Date Stop Date Source Unknown if ever smoked [facility] Smokes tobacco daily 2018-07-25 00:00:00 [facility] Medications Ordered Filled Start Stop Current Ordering Indication Dosage Frequency Signature Comments Components Source Medication Medication Date Date Medication? Clinician (SIG) Name Name nicotine 2020- No [id number] 1{patch QD Place 1 Methodi (NICODERM 01-25 } patch on st CQ) 21 00:00: 04:59 the skin Hospit a mg/24 hr 00 :00 daily for l 30 days. enoxaparin 2020- No 60mg Inject 60 M ethodi (LOVENOX) 8- 08-[address] 60 mg/0.6 16:37: 00:00 the skin. Ho spita mL syringe 01 :00 l potassium Yes 10meq QD Take 10 Meth mazin chloride 8-[address] (K-DUR,KLOR 16:36: mouth Hospi ta -CON) 10 56 daily. l MEQ CR tablet sertraline Yes 50mg QD Take 50 mg M ethodi (ZOLOFT) 50 8-[address] MG tablet 16:36: daily. Hospit a 56 l ipratropium 2020- No [id number] .5mg Q6H Take 2.5 Methodi (ATROVENT) 8-17 09-17 mL (0.[address] 0.02 % 00:00: 04:59 total) by Hospi ta nebulizer 00 :00 nebulizati l solution on every 6 (six) hours as needed for wheezing or shortness of breath for up to 30 days. ondansetron 2020- No [id number] 4mg Q4H Take 1 Methodi (ZOFRAN) 4 -24 02-17 tablet (4 st MG tablet 00:00: 04:59 mg total) Ho spita 00 :00 by mouth l every 4 (four) hours as needed for nausea or vomiting for up to 30 days. ranolazine 2020- No [id number] 500mg Q.5D Take 1 Method[facility] (RANEXA) 01-[address] 500 MG 12 00:00: 04:59 (500 mg Hosp debora hr ER 00 :00 total) by l tablet mouth 2 (two) times a day for 30 days. rosuvastati 2020- No [id number] 20mg QD Take 1 Methodi n (CRESTOR) 01-24 tablet (20 s t 20 mg 00:00: 04:59 mg total) Hospit a tablet 00 :00 by mouth l nightly for 30 days. HYDROcodone 2020- No [id number] 1{tbl} Q4H Take 1 Methodi -acetaminop 01-[address] hen (NORCO) 00:00: 04:59 mouth Hosp debora 5-325 mg 00 :00 every 4 l per tablet (four) hours as needed for moderate pain for up to 7 days .chronic pain. Max Daily Amount: 6 tablets sulfamethox 2020- No 1{tbl} Q.5D Take 1 M ethodi azole-trime 01-[address] thoprim 00:00: 04:59 mouth Hospita (BACTRIM 00 :00 every 12 l DS) 800-160 (twelve) mg per hours for tablet 4 days. lidocaine 2 Yes 2mg/min 2 mg/min Univers g/500 mL - (30 ity of D5W (Fixed 13:15: mL/hr), IV [place] Dose) 00 Infusion, Medical infusion CONTINUOUS Branc h RTU , Starting Sat12/26/20 at 0815 heparin Yes 12U/kg/ 12 Univers 25,000 7- h Units/kg/h ity of Units/250 13:12: r ?72.6 [place] mL 08 (8.712 Medical (Premixed mL/hr, Branch Bag) in rounded to 0.45 % NS 8.71 mL/hr), IV Infusion, TITRATE, Parameters in Admin. Instr., Starting Sat12/26/20 at 0812
CA UTION - If LMWH given in ER, AVOID bolus and start next dose/drip 12 hrs after ER dosage.&nb sp; M ust program rate using programmab le infusion pump.&nbsp ; Cathleen ck with the ordering provider first prior to any administra tion should the patient be on existing/a dditional anticoagul ant therapy.&n bsp; Range, Dosing and Testing&nb sp; - aPTT < 40: & nbsp;Bolus 3000 units, increase rate 100 units/hr.& nbsp;- aPTT 40-49:&nbs p; In crease rate 50 units/hr. - aPTT 50-70:&nbs p; NO CHANGE.&nb sp;- aPTT 71-85:&nbs p; De crease rate 50 units/hr.& nbsp;- aPTT 86-100:&nb sp; H old 30 minutes, decrease rate 100 units/hr.& nbsp;- aPTT 101-150:&n bsp; Hold 60 minutes, decrease rate 150 units/hr.& nbsp;- aPTT > 150: Hold 60 minutes, decrease rate 300 units/hr.& nbsp;&nbsp ;Check aPTT 6 hours after initiation , then Q6H after every change, aPTT Q12H once therapeuti c levels are reached.&a mp;nbsp;&n bsp;DO NOT ADJUST INITIAL BOLUS OR INITIAL INFUSION RATE.
ipratropium Yes 3mL 3 mL, Unive rs -albuteroL 12-26 Inhalation ity of (DUONEB) 13:00: , QID, [place] 0.5 mg-3 00 First dose Medic al mg(2.5 mg on Sat Branch base)/3 mL 12/26/20 at nebulizer 0800, solution 3 Until mL Discontinu ed, Routine metoprolol Yes 50mg Take 50 mg U nivers succinate 12-26 by mouth ity of XL 50 mg 24 12:27: daily. [place] hr tablet 20 Medical Branch potassium 2021-0 Yes 10meq Take 10 Univ ers chloride 7- mEq by ity of (KLOR-CON 12:27: mouth [place] 10) 10 mEq 20 daily. Medical CR tablet Branch lisinopriL Yes 5mg Take 5 mg Un jeff 5 mg tablet 12-26 by mouth ity of 12:27: daily. [address] furosemide Yes 40mg Take 40 mg U nivers 40 mg 12-26 by mouth ity of tablet 12:27: daily. [address] SERTraline Yes 50mg Take 50 mg U nivers 50 mg 12-26 by mouth ity of tablet 12:27: daily. [address] warfarin 3 Yes 3mg Take 3 mg Un jeff mg tablet 12-26 by mouth. ity o f 12:27: 3mg one [place] day and Medical then 4mg Branch the next HEPARIN 2020- No 4000U 4,000 Univers SODIUM 12-26 Units, IV ity of (PORCINE) 12:15: 12:15 Push, [place] 1,000 00 :00 ONCE, 1 Medical UNIT/ML dose, [facility] BOLUS ACS 12/26/20 at ORDER SET 0715, BIENVENIDO heparin Yes 3000U FOR Univers (1,000 12-26 REBOLUSING ity of unit/mL, 10 12:12: , Starting [place] mL vial) 08 [facility] Medical for 12/26/20 at [place] Rebolusing 0712, Until Discontinu ed, Routine
Dosing based on aPTT testing parameters (refer to continuous heparin drip order).
metoprolol 2020- No 50mg 50 mg, [facility] ers tartrate 12-26 Oral, ity of (LOPRESSOR) 10:15: 09:08 ONCE, 1 [place] tablet 50 00 :00 dose, Mon Medic al mg 12/26/20 at Branch 0515, Routine methylpredn 2020- No 125mg 125 mg, IV Univers isolone sod 12-26 Piggyback, i ty of succ 09:30: 08:34 ONCE, 1 [place] (SOLU-MEDRO 00 :00 dose, [facility] Med ical L) 12/26/20 at [place] injection 0430, STAT 125 mg naloxone 2018-06 Yes .2mg Infuse 0.5 Met hodi (NARCAN) 2-31 mL (0.[address] 0.4 mg/mL 00:00: total) Hospit a injection 00 into a l venous catheter once as needed for opioid reversal or respirator y depression (as needed for respirator y rate 8 per minute or less OR patient sommnolent and difficult to arouse (POSS GREATER than 3).). furosemide 2018-06 40mg QD Take 40 mg Methodi (LASIX) 40 01-[address] mg tablet 00:00: 00:00 daily. Hospi ta 00 :00 l lisinopril Yes 5mg QD Take 5 mg Me thodi (PRINIVIL) 02-[address] 5 mg tablet 00:00: daily. Hosp debora 00 l metoprolol Yes 50mg QD Take 50 mg M ethodi succinate 02-[address] XL 00:00: daily. Hospita (TOPROL-XL) 00 l 50 mg 24 hr tablet Immunizations Ordered Immunization Filled Immunization Date Status Commen ts Source Name Name PFIZER COVID-19 MRNA 2021-01-24 Completed Meth odist VACCINATION 00:00:00 Hospital PFIZER COVID-19 MRNA 2021-01-05 Completed Meth odist VACCINATION 00:00:00 Hospital Vital Signs Vital Name Observation Time Observation Value Comments Source Systolic blood 2020-12-26 14:00:00 109 mm[facility]Hg[facility] 2020-12-26 14:00:00 72 mm[Hg] [facility] Heart rate 2020-12-26 14:00:00 102 /min [facility] Respiratory rate 2020-12-26 14:00:00 14 /min [facility] Oxygen saturation in 2020-12-26 14:00:00 96 /min [facility] Arterial blood by [facility] [place] [place] Pulse oximetry Branch Body temperature 2020-12-26 08:10:00 36.83 Noris [facility] weight 2020-12-26 08:10:00 72.576 kg [facility] Systolic blood 2021-01-24 20:52:38 119 mm[Hg] Method is Hospital pressure Diastolic blood 2021-01-24 20:52:38 78 mm[Hg] [facility] pressure Heart rate 2021-01-24 20:52:38 132 /min [facility] Body temperature 2021-01-24 20:52:38 36.28 Noris [facility] Respiratory rate 2021-01-24 20:52:38 19 /min [facility] Oxygen saturation in 2021-01-24 20:52:38 96 /min [facility] Arterial blood by Pulse oximetry Body weight 2021-01-18 22:00:00 66.877 kg [facility] BMI 2021-01-18 22:00:00 23.09 kg/m2 [facility] Body height 2020-12-26 17:12:00 170.2 cm [facility] Procedures Procedure Date / Time Performing Clinician Source Performed POC GLUCOSE 2021-01-24 12:45:00 [facility] PROTHROMBIN TIME WITH INR 2021-01-24 11:22:00 [facility] PROTHROMBIN TIME WITH INR 2021-01-22 11:04:00 [facility] URINE CULTURE 2021-01-20 23:52:00 [facility] spital URINALYSIS SCREEN AND 2021-01-20 23:12:00 [facility] MICROSCOPY, WITH REFLEX TO CULTURE PROTHROMBIN TIME WITH INR 2021-01-20 11:26:00 [facility] PROTHROMBIN TIME WITH INR 2021-01-18 11:12:00 [facility] PROTHROMBIN TIME WITH INR 2021-01-16 10:59:00 [facility] PROTHROMBIN TIME WITH INR 2021-01-15 10:11:00 [facility] PROTHROMBIN TIME WITH INR 2021-01-13 10:47:00 [facility] PROTHROMBIN TIME WITH INR 2021-01-12 10:16:00 [facility] BASIC METABOLIC PANEL 2021-01-11 09:48:00 [facility] HC COMPLETE BLD COUNT 2021-01-11 09:48:00 [facility] W/AUTO DIFF PROTHROMBIN TIME WITH INR 2021-01-11 09:48:00 [facility] VANCOMYCIN LEVEL, TROUGH 2021-01-11 09:48:00 [facility] C-REACTIVE PROTEIN 2021-01-11 09:48:00 [facility] PROCALCITONIN 2021-01-11 09:48:00 [facility] SEDIMENTATION RATE 2021-01-11 09:48:00 [facility] ESTIMATED GFR 2021-01-11 09:48:00 [facility] BASIC METABOLIC PANEL 2021-01-09 12:29:00 [facility] ESTIMATED GFR 2021-01-09 12:29:00 [facility] HC COMPLETE BLD COUNT 2021-01-09 11:20:00 [facility] W/AUTO DIFF PROTHROMBIN TIME WITH INR 2021-01-09 10:57:00 [facility] VANCOMYCIN LEVEL, TROUGH 2021-01-08 09:32:00 [facility] PROTHROMBIN TIME WITH INR 2021-01-08 09:32:00 [facility] BASIC METABOLIC PANEL 2021-01-08 09:32:00 [facility] ESTIMATED GFR 2021-01-08 09:32:[address] [facility] HC COMPLETE BLD COUNT 2021-01-08 09:20:00 [facility] W/AUTO DIFF ECG 12-LEAD 2021-01-07 01:21:25 [facility] BASIC METABOLIC PANEL 2021-01-06 10:33:00 [facility] ESTIMATED GFR 2021-01-06 10:33:00 [facility] CBC HEMOGRAM 2021-01-06 10:29:00 [facility] PROTHROMBIN TIME WITH INR 2021-01-06 10:28:00 [facility] PROTHROMBIN TIME WITH INR 2021-01-05 08:50:00 [facility] BASIC METABOLIC PANEL 2021-01-05 08:50:00 [facility] ESTIMATED GFR 2021-01-05 08:50:00 [facility] HC COMPLETE BLD COUNT 2021-01-05 08:50:00 [facility] W/AUTO DIFF COVID-19 QUALITATIVE 2021-01-04 23:30:00 [facility] RT-PCR PROTHROMBIN TIME WITH INR 2021-01-04 09:38:00 [facility] PROTHROMBIN TIME WITH INR 2021-01-03 10:46:00 [facility] PARTIAL THROMBOPLASTIN 2021-01-03 10:46:00 [facility] TIME (PTT) BASIC METABOLIC PANEL 2021-01-03 07:10:00 [facility] ESTIMATED GFR 2021-01-03 07:10:00 [facility] CBC HEMOGRAM 2021-01-03 07:10:00 [facility] PARTIAL THROMBOPLASTIN 2021-01-03 04:26:00 [facility] TIME (PTT) SEDIMENTATION RATE 2021-01-02 19:40:00 [facility] C-REACTIVE PROTEIN 2021-01-02 19:40:00 [facility] PROCALCITONIN 2021-01-02 19:40:00 [facility] spital BLOOD CULTURE, AEROBIC & 2021-01-02 18:40:00 Alexandrateresa [facility] ANAEROBIC PARTIAL THROMBOPLASTIN 2021-01-02 18:40:00 [facility] TIME (PTT) PROTHROMBIN TIME WITH INR 2021-01-02 09:06:00 [facility] PARTIAL THROMBOPLASTIN 2021-01-02 09:06:00 [facility] TIME (PTT) VANCOMYCIN LEVEL, TROUGH 2021-01-01 16:38:00 [facility] PROTHROMBIN TIME WITH INR 2021-01-01 10:45:00 [facility] PARTIAL THROMBOPLASTIN 2021-01-01 10:45:00 [facility] TIME (PTT) PROTHROMBIN TIME WITH INR 2021-01-01 08:52:00 Shayne [facility] PARTIAL THROMBOPLASTIN 2021-01-01 08:52:00 [facility] TIME (PTT) PARTIAL THROMBOPLASTIN 2021-01-01 02:49:00 [facility] TIME (PTT) PARTIAL THROMBOPLASTIN 2020-12-31 20:31:00 [facility] TIME (PTT) PARTIAL THROMBOPLASTIN 2020-12-31 10:20:00 [facility] TIME (PTT) PROTHROMBIN TIME WITH INR 2020-12-31 10:20:00 [facility] CV LEFT HEART CATH LV 2020-12-30 20:42:27 Shayne [facility] GRAM WITH CORS CV SELECTIVE CORONARY 2020-12-30 20:42:27 [facility] ANGIOGRAPHY VANCOMYCIN LEVEL, TROUGH 2020-12-30 18:18:00 [facility] [place] [facility] COVID-19 QUALITATIVE 2020-12-30 14:52:00 [facility] RT-PCR BASIC METABOLIC PANEL 2020-12-30 12:13:00 [facility] ESTIMATED GFR 2020-12-30 12:13:00 [facility] PROTHROMBIN TIME WITH INR 2020-12-30 10:41:00 Shayne [facility] PARTIAL THROMBOPLASTIN 2020-12-30 10:41:00 [facility] TIME (PTT) CBC HEMOGRAM 2020-12-30 10:40:00 [facility] PARTIAL THROMBOPLASTIN 2020-12-29 21:05:00 [facility] TIME (PTT) ANTI XA, UNFRACTIONATED 2020-12-29 14:39:00 [facility] PARTIAL THROMBOPLASTIN 2020-12-29 14:39:00 [facility] TIME (PTT) CT CARDIAC OVERREAD 2020-12-29 12:36:40 Shayne [facility] CV CTA CORONARY ARTERIES 2020-12-29 12:15:26 Shayne [facility] W CONTRAST HC COMPLETE BLD COUNT 2020-12-29 06:13:00 [facility] BASIC METABOLIC PANEL 2020-12-29 06:13:00 [facility] ANTI XA, UNFRACTIONATED 2020-12-29 06:13:00 Shayne [facility] ESTIMATED GFR 2020-12-29 06:13:00 [facility] ANTI XA, UNFRACTIONATED 2020-12-28 23:32:00 [facility] [place] [facility] US CAROTID DUPLEX 2020-12-28 20:25:00 [facility] BILATERAL ANTI XA, UNFRACTIONATED 2020-12-28 15:49:00 [facility] URINE CULTURE 2020-12-28 09:09:00 Shayne [facility] spital URINALYSIS SCREEN AND 2020-12-28 08:37:00 Shayne [facility] MICROSCOPY, WITH REFLEX TO CULTURE HC COMPLETE BLD COUNT 2020-12-28 07:23:00 [facility] W/AUTO DIFF BASIC METABOLIC PANEL 2020-12-28 07:23:00 [facility] ANTI XA, UNFRACTIONATED 2020-12-28 07:23:00 [facility] ESTIMATED GFR 2020-12-28 07:23:00 [facility] PROTHROMBIN TIME WITH INR 2020-12-28 07:23:00 [facility] BLOOD CULTURE, AEROBIC & 2020-12-28 02:52:00 Shayne [facility] ANAEROBIC XR CHEST 1 VW PORTABLE 2020-12-28 00:32:07 Shayne [facility] ANTI XA, UNFRACTIONATED 2020-12-27 23:22:00 [facility] ANTI XA, UNFRACTIONATED 2020-12-27 21:24:00 [facility] ANTI XA, UNFRACTIONATED 2020-12-27 14:52:00 [facility] HC COMPLETE BLD COUNT 2020-12-27 09:16:00 [facility] W/AUTO DIFF BASIC METABOLIC PANEL 2020-12-27 09:00:00 [facility] TROPONIN 2020-12-27 09:00:00 [facility] ESTIM[facility] GFR 2020-12-27 09:00:00 [facility] LIPID PANEL 2020-12-27 05:00:00 [facility] ECG 12-LEAD 2020-12-27 04:13:48 [facility] ANTI XA, UNFRACTIONATED 2020-12-27 02:50:00 [facility] CT HEAD WO CONTRAST 2020-12-27 00:55:16 [facility] TROPONIN 2020-12-26 23:39:00 [facility] TTE COMPLETE, WO 2020-12-26 22:08:00 [facility] CONTRAST, W DOPPLER ([id number]) ECG 12-LEAD 2020-12-26 17:45:46 [facility] TROPONIN 2020-12-26 17:36:00 [facility] THYROID STIMULATING 2020-12-26 17:36:00 [facility] HORMONE T4, FREE 2020-12-26 17:36:00 [facility] HEMOGLOBIN A1C 2020-12-26 17:36:00 [facility] PARTIAL THROMBOPLASTIN 2020-12-26 17:36:00 [facility] TIME (PTT) PROTHROMBIN TIME WITH INR 2020-12-26 17:36:00 [facility] ANTI XA, UNFRACTIONATED 2020-12-26 17:36:00 [facility] MAGNESIUM 2020-12-26 12:04:00 Lizzy Rajan [facility] ACUTE CARE ARTERIAL BLOOD 2020-12-26 11:43:00 [facility] EKG-12 LEAD 2020-12-26 10:48:57 Lizzy Rajan [facility] XR CHEST 1 VW 2020-12-26 08:50:43 Lizzy Rajan [facility] LIPASE 2020-12-26 08:44:00 Lizzy Rajan [facility] TROPONIN I 2020-12-26 08:44:00 Lizzy Rajan [facility] COMP. METABOLIC PANEL 2020-12-26 08:44:00 Lizzy Rajan [facility] ([id number]) [facility] CBC WITH DIFF 2020-12-26 08:44:00 Lizzy Rajan [facility] PROTHROMBIN TIME / INR 2020-12-26 08:44:00 Lizzy Rajan [facility] ACTIVATED PARTIAL 2020-12-26 08:44:00 Lizzy Rajan [facility] THRLAS [facility] N-TERMINAL PRO-BNP 2020-12-26 08:44:00 Lizzy Rajan [facility] COVID-19 (ID NOW RAPID 2020-12-26 08:43:00 Lizzy Rajan [facility] TESTING) [facility] Plan of Care Planned Activity Planned Date Details Comments Source Future Scheduled 2021-07-11 Hepatitis C screening [facility] Test 13:49:53 (procedure) [code = 512398457] Future Scheduled 2021-07-11 Screening for [facility] Test 13:49:53 malignant neoplasm of cervix (procedure) [code = 478951665] Future Scheduled 2021-07-11 BREAST CANCER [facility] Test 13:49:53 SCREENING [code = BREAST CANCER SCREENING] Future Scheduled 2021-07-11 COLONOSCOPY SCREENING [facility] Test 13:49:53 [code = COLONOSCOPY SCREENING] Future Scheduled 2021-07-11 [facility] 13:49:53 (#1) [code = SHINGLES VACCINES (#1)] Future Scheduled 2021-07-11 Screening for [facility] Test 13:49:53 malignant neoplasm of lung (procedure) [code = 069614775] Future Scheduled 2021-07-11 INFLUENZA VACCINE [facility] Test 13:49:53 [code = INFLUENZA VACCINE] Future Scheduled 2021-07-11 COVID-19 VACCINE (3 - [facility] Test 13:49:53 Booster for Pfizer series) [code = COVID-19 VACCINE (3 - Booster for Pfizer series)] Encounters Start End Encounter Admission Attending Care Care Encounter Source Date/Time Date/Time Type Type Clinicians Facility Department ID 2021-08-01 Outpatient 3 [id number] ENCPL REF ENCPL 16:18:08 2212021-07-06 Outpatient 3 STEFANO, ENCPL CVA ENCPL 12:57:07 FAYE 092021-07-06 Outpatient 3 [id number] ENCPL REF [id number] ENCPL 12:56:49 22 2021-04-10 Emergency [facility] [id number] Univers 08:58:17 [facility] 2021-08-02 2021-08-15 Inpatient 3 STEFANO, ENCPL CVA [id number] ENCPL 19:04:00 11:45:00 FAYE 0223 2021-06-21 2021-07-02 Inpatient 3 STEFANO, ENCPL CVA [id number] ENCPL 16:15:00 12:24:00 FAYE 0112 2021-03-10 2021-03-10 Patient Ricardo, 1.2.840.1 [id number] Methodi 00:00:00 00:00:00 Outreach Rita 02856.1.[address] 3.430.2.7 Hospit a .3.105350 l .8 2021-03-10 2021-03-10 Patient Ricardo, 1.2.840.1 [id number] Methodi 00:00:00 00:00:00 Outreach Rita 26997.1.[address] 3.430.2.7 Hospit a .3.017566 l .8 2021-03-09 2021-03-09 Nurse Janelle 1.2.840.1 [id number] Methodi 00:00:00 00:00:00 Triage Consuelo Gomez 54866.1.[address] 3.430.2.7 Hospit a .3.876538 l .8 2021-01-10 2021-01-24 Hospital Marcio, 1.2.840.1 [id number] Methodi 18:41:00 16:36:00 Encounter Markus Mota 60586.1.[address] 3.430.2.7 Hospit a .3.022287 l .8 2021-01-12 2021-01-12 Patient Steemer, 1.2.840.1 [id number] Methodi 00:00:00 00:00:00 Outreach Todd [address]34.1.[address] 3.430.2.7 Hospit a .3.799812 l .8 2020-12-26 2021-01-10 [facility] 1.2.840.1 [id number] Methodi 10:59:00 18:41:00 Encounter Markus Pepe. 86790.1.[address] 3.430.2.7 Hospit a .3.103145 l .8 2020-12-30 2020-12-30 Surgery Attar, 1.2.840.1 [id number] Methodi 14:20:00 15:35:[address] 3.430.2.7 Hospit a .3.878750 l .8 2020-12-26 2020-12-26 Emergency [facility] 1.2.256.152 [id number] Univers 03:03:00 09:34:00 Lizzy Martin 350.1.13.10 Christie 4.2.7.2.686 [facility] [id number] [facility] [address] 2020-12-26 2020-12-26 Travel 1.2.840.1 1.2.989.073 [id number] [id number] Methodi 00:00:00 00:00:[address] 3.430.2.7 0.2.7.3.698 [facility] .3.040901 084.8 l .8 Results Test Description Test Time Test Comments Results Result Comments Source POC glucose 2021-01-24 12:47:32 Test Item Value Reference Range Interpretation Comme nts POC glucose (test code = 103 mg/dL 65-99 H Ope rator Name: Sean Huffman [id number] ID: [id number] hartable: [facility] 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 Interpretation (test code = Abnormal 91168-8) [facility] 12 [id number] 03:37:08 Test Item Value Reference Range Interpretation Comments Ventricular rate (test code = 253) Atrial rate (test code = 255) QRSD interval (test code = 260) QT interval (test code = 264) QTC interval (test code = 265) QRS axis 1 (test code = 268) T wave axis (test code = 270) EKG impression (test Atrial fibrillation code = 273) with rapid ventricular response-Right superior axis deviation-Pulmonary disease pattern-Septal infarct , age undetermined-ST & T wave abnormality, consider inferolateral ischemia or digitalis effect-Abnormal ECG-In automated comparison with ECG of 26-DEC-2020 23:13,-Vent. rate has increased BY 48 BPM-QRS axis shifted left-Septal infarct is now present-ST now depressed in Anterior leads- [facility] [id number] 20:42:53 Test Item Value Reference Range Interpretation Comments Cath EF Estimated 35 % (test code = 9999963905) JULIAN (test code = Left main normal.LAD with JULIAN) 25% proximal stenosis.LCX with proximal 25% stenosis mid 25% stenosis.RCA dominant with 95% calcified proximal stenosis followed by proximal 75% calcified stenosis. LVEF 35% with hypokinesis anterior and aneurysmal inferiorly. Discussed case with other wool washer. PCI to the RCA with be high risk. She is to first be treated medically. Coronary Findings Diagnostic Dominance: RightLeft Anterior Descending: Ost LAD to Prox LAD lesion is 25% stenosed. Left Circumflex: Ost Cx to Prox Cx lesion is 25% stenosed. Mid Cx lesion is 25% stenosed. Right Coronary Artery: Ost RCA to Prox RCA lesion is 95% stenosed. Mid RCA lesion is 75% stenosed. InterventionNo interventions have been documented.Left VentricleThe LV size is normal. There is moderate LV systolic dysfunction. LV systolic pressure is normal. LV end diastolic pressure is elevated. The ejection fraction is 30-40% by visual estimate.Mitral ValveThe patient has a mechanical prosthetic mitral valve.Aortic ValveThere is normal aortic valve motion. There is no aortic valve stenosis.Wall MotionThe basilar anterior and apical inferior segments are normal. The mid anterior and apical anterior segments are hypokinetic. 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 [facility]2021-07-19 12:57:30 Test Item Value Reference Range Interpretation Comments MAGNESIUM (test code = 2180797713) 2.0 mg/dL 1.7-2.4 Lab Interpretation (test code = Normal 97412-4) [facility] Arterial Blood Gas.2020-12-26 11:46:41 Test Item Value Reference Range Interpretation Comments PH (test code = 2) 7.35-7.45 PCO2 (test code = See_Comment L [Automat ed message] 5902155371) The system [employer] generated this result transmitted ref erence range: 35 - 45 mmHg. The reference r lebron was not used to interpret this result as normal/abnor mal. PO2 (test code = See_Comment L [Automated message] 2412820633) The system [employer] generated this result transmitted ref erence range: 80 - 100 mmHg. The reference r lebron was not used to interpret this result as normal/abnor mal. HCO3 (test code = See_Comment [Automate d message] 5272780823) The system [employer] generated this result transmitted ref erence range: 22 - 26 mEq/L. The reference r lebron was not used to interpret this result as normal/abnor mal. BE (test code = See_Comment [Automated message] 1453531379) The system [employer] generated this result transmitted ref erence range: -3.0 - 3 .0 mEq/L. The refe rence range was not u sed to interpret this result as normal/abnor mal. Lab Interpretation (test Abnormal code = 33178-9) [facility] acute hospital WITH [id number] 09:30:54 Test Item Value Reference Range Interpretation Comments WBC (test code = See_Comment H [Automated 6690-2) message] The sy stem which generated this result transmitted reference range : 4.30 - 11.10 10*3/?L. The reference range was not used to interpret this result as normal/abnormal . RBC (test code = See_Comment [Automated 789-8) message] The sy stem which generated this result transmitted reference range : 3.93 - 5.25 10*6/?L. The reference range was not used to interpret this result as normal/abnormal . HGB (test code = 13.3 g/dL 11.6-15.0 718-7) HCT (test code = 42.7 % 35.7-45.2 4544-3) MCV (test code = 91.0 fL 80.6-95.5 787-2) MCH (test code = 28.4 pg 25.9-32.8 785-6) MCHC (test code = 31.1 g/dL 31.6-35.1 L 786-4) RDW-SD (test code = 48.7 fL 39.0-49.9 31194-8) RDW-CV (test code = 14.7 % 12.0-15.5 788-0) PLT (test code = See_Comment L [Automated 777-3) message] The sy stem which generated this result transmitted reference range : 166 - 358 10*3/ ?L. The reference r lebron was not used to interpret this result as normal/abnormal . MPV (test code = 11.9 fL 9.5-12.9 56966-0) IPF % (test code = 5.7 % 1.3-7.7 Platelet count 3937270435) measured by fluorescence method. NRBC/100 WBC (test See_Comment [Automat ed code = 4588574730) message] The system which generated this result transmitted reference range : 0.0 - 10.0 /100 WBCs. The refer ence range was not u sed to interpret th is result as normal/abnormal . NRBC x10^3 (test code <0.01 See_Comment [Auto mated = 4227775676) message] The s ystem which generated this result transmitted reference range : 10*3/?L. The reference range was not used to interpret this result as normal/abnormal . GRAN MAT (NEUT) % 88.0 % (test code = 770-8) IMM GRAN % (test code 1.10 % = 5265419500) LYMPH % (test code = 3.8 % 736-9) MONO % (test code = 6.5 % 5905-5) EOS % (test code = 0.2 % 713-8) BASO % (test code = 0.4 % 706-2) GRAN MAT x10^3(ANC) 12.35 10*3/uL 1.88-7.09 H (test code = 4470867265) IMM GRAN x10^3 (test 0.16 10*3/uL 0.00-0.06 H code = 9096982043) LYMPH x10^3 (test 0.54 10*3/uL 1.32-3.29 L code = 731-0) MONO x10^3 (test code 0.92 10*3/uL 0.33-0.92 = 742-7) EOS x10^3 (test code 0.03 10*3/uL 0.03-0.39 = 711-2) BASO x10^3 (test code 0.06 10*3/uL 0.01-0.07 = 704-7) Lab Interpretation Abnormal (test code = 68851-9) [facility]CH[facility]ITALALVAROTanya [id number] 09:22:28 Test Item Value Reference Interpretation Comments Range TROPONIN I (test 0.572 ng/mL See_Comment H [Automated code = 6179921224) message] The system which generated this result transmitted reference range : <=0.034. The reference range was not used to interpret this result as normal/abnormal . JULIAN (test code = Reference (Normal) JULIAN) Range (defined by the 99th percentile reference limit): <= 0.034 ng/mL Note: Cardiac troponin begins to rise 3-4 hours after the onset of ischemia. Repeat in 4-6 hours if the sample was drawn within 3-4 hours of the onset of the symptom and found normal. Diagnosis of myocardial injury is made with acute changes in cTn concentrations with at least one serial sample above the 99th percentile upper reference limit (URL), taken together with the patient's clinical presentation. Biotin has been reported to cause a negative bias, interpret results relative to patient's use of biotin. Lab Interpretation Abnormal (test code = 15913-7) [facility] [id number] 09:19:11 Test Item Value Reference Range Interpretation Comments NT-proBNP (test code 1590 pg/mL See_Comment H [Autom ated = 0932254145) message] The system which generated this result transmitted reference range : <=125. The reference range was not used to interpret this result as normal/abnormal . JULIAN (test code = JULIAN) Biotin has been reported to cause a negative bias, interpret results relative to patient's use of biotin. Lab Interpretation Abnormal (test code = 46867-3) [facility]eraPTT2021-07-19 09:11:52 Test Item Value Reference Range Interpretation Comments APTT Patient (test See_Comment [Automat ed code = 3173-2) message] The system which generated this result transmitted reference range : 23 - 38 Seconds . The reference range was not used to interpr et this result as normal/abnormal . JULIAN (test code = JULIAN) The [facility] patient population mean normal value for aPTT is 30 seconds. Lab Interpretation Normal (test code = 00845-6) [facility]. METABOLIC PANEL (16564)2020-12-26 09:10:52 Test Item Value Reference Range Interpretation Comments NA (test code = 137 mmol/L 135-145 3230176443) K (test code = 4.0 mmol/L 3.5-5.0 4334383991) CL (test code = 105 mmol/L 98-108 9283332750) CO2 TOTAL (test code = 22 mmol/L 23-31 L 8152137889) AGAP (test code = 2-16 6512073299) BUN (test code = 30 mg/dL 7-23 H 8413423326) GLUCOSE (test code = 197 mg/dL 70-110 H 6644895982) CREATININE (test code = 1.21 mg/dL 0.50-1.04 H 6977767229) TOTAL BILI (test code = 1.1 mg/dL 0.1-1.2 9579587369) CALCIUM (test code = 9.4 mg/dL 8.6-10.6 3633286364) T PROTEIN (test code = 6.7 g/dL 6.3-8.2 7268161308) ALBUMIN (test code = 4.0 g/dL 3.5-5.0 8412272999) ALK PHOS (test code = 82 U/L 34-122 5490783513) ALTv (test code = 26 U/L 5-35 1742-6) AST(SGOT) (test code = 52 U/L 13-40 H 1472565654) eGFR (test code = mL/min/1.73m2 1570269686) JULIAN (test code = JULIAN) Association of Glomerular Filtration Rate (GFR) and Staging of Kidney Disease* + --+ --+ ------+| GFR (mL/min/1.73 m2) ?| With Kidney Damage ?| ?Without Kidney Damage+ --------+ --------+ +| ?>90 ?| ?Stage one ?| ? Normal ?+ ---+ ---+ -------+| ?60-89 ?| ?Stage two ?| ? Decreased GFR ? + --+ --+ ------+| ?30-59 ?| ?Stage three ?| ? Stage three ? + --+ --+ ------+| ?15-29 ?| ?Stage four ? | ? Stage four ?+ ---+ ---+ -------+| ?<15 (or dialysis) ? ?| ?Stage five ? | ? Stage five ?+ ---+ ---+ -------+ *Each stage assumes the associated GFR level has been in effect for at least three months. ?Stages 1 to 5, with or without kidney disease, indicate chronic kidney disease. Notes: Determination of stages one and two (with eGFR >59mL/min/1.73 m2) requires estimation of kidney damage for at least three months as defined by structural or functional abnormalities of the kidney, manifested by either:Pathological abnormalities or Markers of kidney damage (including abnormalities in the composition of the blood or urine or abnormalities in imaging tests). Lab Interpretation Abnormal (test code = 50297-2) [facility] CenterLIPASE, [id number] 09:10:31 Test Item Value Reference Range Interpretation Comments LIPASE (test code = 6103405630) 51 U/L 0-220 Lab Interpretation (test code = Normal 39281-0) [facility] CenterPROTHROMBIN TIME / [id number] 09:09:51 Test Item Value Reference Range Interpretation Comments PROTIME PATIENT (test See_Comment H [Auto mated message] code = 5964-2) The system [employer] generated this result transmitted ref erence range: 12.0 - 1 4.7 Seconds. The reference range was not used to int erpret this result as normal/abnormal . INR (test code = 6301-6) Nor mal INR <1.1; Warfarin Therap eutic range 2.0 to 3. 0 or 2.5 to 3.5, dep ending upon the indica tions. Lab Interpretation (test Abnormal code = 30771-4) [facility] CenterCOVID-[facility] (ID NOW RAPID TESTING)2020-12-26 09:09:31 Test Item Value Reference Range Interpretation Comments SARS-CoV-2 Rapid ID NOW Not Detected Not Detected (test code = 79727-9) JULIAN (test code = JULIAN) ID NOW COVID-19 Assay is an isothermal nucleic acid amplification test intended for the qualitative detection of nucleic acid from SARS-CoV-2 viral RNA in nasopharyngeal (SAFETY ENGINEER) specimens. It is used under Emergency Use Authorization (EUA) by FDA. The limit of detection (LOD) of the assay is 125 Genome Equivalents/mL. A positive result is indicative of the presence of SARS-CoV-2 RNA. ?Clinical correlation with patient history and other diagnostic information is necessary to determine patient infection status. A negative (Not Detected) result does not preclude SARS-CoV-2 infection. In patients with clinical symptoms and other tests that are consistent with SARS-CoV-2 infection, negative results should be treated as presumptive negative and a new specimen should be tested with alternative PCR molecular test. Invalid: Please collect a new specimen for repeat patient testing if clinically indicated. Lab Interpretation Normal (test code = 96278-0) [facility]"
[2021-09-20 13:24] LABS: Potassium 4.1 mmol/L (3.5-5.1)
[2021-09-20] MEDS ORDERED: ALBUTEROL INHALER 60 PUFF/8 GM IH PRN (14:07)
[2021-09-20] MEDS ORDERED: ACETAMINOPHEN 500 MG TAB PO PRN (14:39)
[2021-09-20 15:30] LABS: Protime INR 2.48
[2021-09-20] MEDS: WARFARIN SODIUM 2 MG TAB PO SCH (17:00)
--- NOTE | 2021-09-20 17:48 | R.HP ---
HISTORY AND PHYSICAL FACILITY: [facility] ENCOUNTER DATE AND TIME: 09/20/2021 17:43 (CDT) MR#: [id number] NAME GUIDO OHARA ADDRESS: [address] [place] [address] CITY: [place]IP [id number] PHONE: DATE OF : 1955 AGE: 65 SSN# [id number] GENDER: Female MARITAL STATUS PRE-HOSPITAL LIVING SETTING 01 - Home (private home/apt. board/care, assisted living, fdc, transitional living) PRE-HOSPITAL LIVING WITH Alone ENCOUNTER PHYSICIAN: Dr. Ajit Shrestha M.D. REFERRING DOCTOR: DR. LUQUE DATE OF ADMISSION: 09/20/2021 12:05 (CDT) REFERRING FACILITY N/A HOME TYPE AND DETAILS: Type of home: apartment # of steps within the residence: 0 # of levels in the residence: 1 # of steps to enter the residence: 0 ONSET DATE: 08/23/2021 PRIMARY DIAGNOSIS-RELATED SURGERIES: N/A HISTORY OF PRESENT ILLNESS (HPI): Pt. is a 65 yo Right-handed white female. On 08/23/2021 she was admitted to N/A with diagnosis WEAKNESS, FALLS. Her impairment category is Debility 16 - Debility (16). Pre-morbidly, Pt. was independent/mod-I in Self-Care; and she had good Endurance, Transfers Control, Safety Awareness, and Locomotion. Currently, she has deficits of Self-Care, Transfers Control, Endurance, Balance, Locomotion, and Safe ty Awareness Pt. is now referred to [facility] for acute in-patient rehabilitation in order to maximize patient's functional independence in activities of daily living, strength, ROM, and mobi lity. Patient has realistic goal of being discharged at assistance level 7-Ind to reside at Home with Pt s elf. 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) Presence of automatic (implantable) cardiac defibrillator (Z95.810) COVID-19 (U07.1) PAST SURGICAL HISTORY: cholecystectomy mitral valve replacement SOCIAL HISTORY: - Home Living Alone REVIEW OF SYSTEMS: - Gen No Chills No Fatigue No Fever - Eyes No Double Vision No itchiness - ENMT Difficulty Swallowing - CVS Chest Discomfort No Chest Pain No Fatigue No Weight Gain - Resp No Cough No Shortness of Breath - GI Continent No Abdominal Pain No Constipation No Diarrhea - Continent No Kidney Pain No Painful Urination No Urinary Urgency - MSK No Joint Pain Muscle Cramps Stiffness - Skin No Itching No Rash No Suspicious Lesions - Neuro Coordination Difficulty No Difficulty with Concentration No Memory Loss No Seizures Weakness - Psych No Anxiety No Depression No HIV Exposure No Persistent Infections No Seasonal Allergies - Endo No Cold/Heat Intolerance No Excessive Hunger No Excessive Thirst No Excessive Urination PHYSICAL EXAM - Gen Alert and awake Lying in bed No apparent distress Oriented to: person, time, and place - Skin No breakdown No abnormalities - Eyes No abnormalities - ENMT No abnormalities - Neck No abnormalities - CVS RRR - Chest No abnormalities - Resp Clear to auscultation - Abd Soft - GI Non distended Deferred - No abnormalities - Ext Mild bilateral lower extremity edema. - MSK 4+/5 weakness in both lower extremities. - Neuro No focal deficits - Psych No abnormalities VITAL SIGNS Temperature: 97.0 F SBP/DBP: 99/54 Pulse: 82 Resp: 16 NURSING: - Shower allowing shower ACTIVITIES OOB only with supervision QI SCORES: - Self-Care A. Eating 06-Independent C. Toileting hygiene 03-Partial/moderate assistance B. Oral hygiene 06-Independent E. Shower/bathe self 07-Patient refused F. Upper body dressing 05-Setup or clean-up assistance G. Lower body dressing 03-Partial/moderate assistance H. Putting on/taking off footwear 05-Setup or clean-up assistance - Mobility A. Roll left and right 04-Supervision or touching assistance B. Sit to lying 03-Partial/moderate assistance C. Lying to sitting on side of bed 03-Partial/moderate assistance D. Sit to stand 04-Supervision or touching assistance E. Chair/ljq-cm-jutbw transfer 03-Partial/moderate assistance F. Toilet transfer 03-Partial/moderate assistance G. Car transfer 03-Partial/moderate assistance I. Walk 10 feet 03-Partial/moderate assistance J. Walk 50 feet with two turns 88-Not attempted due to medical condition or safety concerns K. Walk 150 feet 88-Not attempted due to medical condition or safety concerns L. Walking 10 feet on uneven surfaces 88-Not attempted due to medical condition or safety concerns M. 1 step (curb) 88-Not attempted due to medical condition or safety concerns N. 4 steps 88-Not attempted due to medical condition or safety concerns O. 12 steps 88-Not attempted due to medical condition or safety concerns P. Picking up object 03-Partial/moderate assistance R. Wheel 50 feet with two turns 09-Not applicable S. Wheel 150 feet 09-Not applicable - Bladder and Bowel Bladder continence 2-Incontinent less than daily Bowel continence 0-Always continent - Endurance Good - Balance Good - Safety Awareness Good CURRENT FUNC. DEFICITS: Mobility and Self-Care MEDICATIONS: - Other See attached MAR (Medication Administration Record) ASSESSMENT: Pt. is a 65 yo Right-handed white female.On 08/23/2021 she was admitted to N/A with diagnosis WEAKNES S, FALLS.Her impairment category is Debility 16 - Debility (16).Pre-morbidly, Pt. was independent/mo d-I in Self-Care; and she had good Endurance, Transfers Control, Safety Awareness, and Locomotion.Cur rently, she has deficits of Self-Care, Transfers Control, Endurance, Balance, Locomotion, and Safety AwarenessPt. is now referred to [facility] for acute in-patient rehabilitation in order to maximize patient's functional independence in activities of daily living, strength, ROM, and mobility.- Rehab Goal Patient has realistic goal of being discharged at assistance level 7-Ind to reside at Home with Pt s elf. - Physical Therapy Inability to transfer - to improve, our physical therapists will perform initial evaluation of pt's s tatus upon admission and devise an individualized program for Bed mobility Need for home safety evaluation - to improve, our physical therapists will perform initial evaluation of pt's status upon admission and devise an individualized program for Home Evaluation Need in caregiver upon discharge - to improve, our physical therapists will perform initial evaluatio n of pt's status upon admission and devise an individualized program for Caregiver Training New precaution - to improve, our physical therapists will perform initial evaluation of pt's status u [place] admission and devise an individualized program for Patient precaution education Edema - to improve, our physical therapists will perform initial evaluation of pt's status upon admi ssion and devise an individualized program for Elevation Training, and Lymphedema Therapy Poor balance - to improve, our physical therapists will perform initial evaluation of pt's status upo n admission and devise an individualized program for Balance Training Poor endurance - to improve, our physical therapists will perform initial evaluation of pt's status u [place] admission and devise an individualized program for Endurance Training Achieving independence - to improve, our physical therapists will perform initial evaluation of pt's status upon admission and devise an individualized program for Community Reintegration Activities - Occupational Therapy ADL deficits - to improve, our occupation therapists will perform initial evaluation of pt's status u [place] admission and devise an individualized program for Bathing, Bed mobility, Community Reintegration , Cooking, Dressing, Eating, Fine Motor Skills, Grooming, Homemaking, Kitchen Mobility, Laundry, Bianca ent Education, Safety Awareness, Splinting - Positioning, Transfers(Toilet, Tub, Shower), and Wheel C hair Management Need for child care centre manager - to improve, our occupation therapists will perform initial evaluation of pt's s tatus upon admission and devise an individualized program for Caregiver Training MEDICAL PLAN: - Diet Type Start Regular - Diet - Liquid Texture Start Regular - Tube Feed Start N/A - Other See attached MAR (Medication Administration Record) - Diet - Solid Texture Regular - Shower shower DISCHARGE PLAN: - Estimated Length of Stay (days) 13. - Consensus on plan Discharge plan has been discussed with primary caregiver. Patient/Family is in agreement with the jermain n. Primary caregiver is in agreement with the plan. - Patient/Family Goals Return home independently. - Planned Living Setting Upon Discharge Home, to live alone. Transitional Living. Primary caregiver: Pt self. SIGNATURE PANEL: (CDT)
--- NOTE | 2021-09-20 17:49 | PAPE ---
POST ADMISSION PHYSICIAN EVALUATION PATIENT: [facility] MR# [id number] REFERRING DOCTOR DR. LUQUE EVALUATION DATE AND TIME 09/20/2021 17:47 (CDT) NAME GUIDO OHARA DATE OF 1955 AGE 65 PHONE N# [id number] GENDER female EVALUATING PHYSICIAN Dr. Ajit Shrestha M.D. ADMISSION DIAGNOSIS: WEAKNESS, FALLS ONSET DATE 08/23/2021 POST-ADMISSION FUNCTIONAL/MEDICAL STATUS: - Bladder Same accident frequency: 7-Ind - No accidents in the past 7 days - Bowel Same accident frequency: 7-Ind - No accidents in the past 7 days - Walking Same score based on distance walked: 0(N/A) Same score based on distance walked: 1(<=50ft) - Wheelchair Same score based on distance traveled: 0(N/A) STATUS CHANGE EVALUATION: No change in Functional or Medical Status is identified compared with Pre-Admission screening. PATIENT NEEDS CLOSE MEDICAL SUPERVISION BY A REHABILITATION PHYSICIAN FOR: Coordination of Treatment Team Medical and Co-Morbidity Management Pain Management DVT Management PATIENT REQUIRES 24X7 REHAB NURSING FOR MEDICAL AND FUNCTIONAL MGT. OF THE FOLLOWING DEFICITS: Disease Management Medication Management Patient requires 24x7 Rehabilitation Nursing for: Pain Issues, Identifying and preventing risk factor s, Monitoring and reporting current medical conditions, Assisting with ambulation and transfer, Moris ting with all ADL-s, Teaching patients about disease process and medications, Family teaching, Provid ing safe environment, Bowel and Bladder Issues, Skin Integrity, and Medication Management Patient/Family Education Providing Safe Environment Skin Integrity Pain Management Bowel and Bladder Management PATIENT REQUIRES INTENSIVE, COORDINATED INTERDISCIPLINARY APPROACH TO REHAB: Arranging Home Equipment/Services Discharge Planning Family Intervention/Training Patient needs Dietary and Nutrition Services for: Adequate Nutrition, Nutritional Supplements, and Nu tritional Education Patient needs Dental Laboratory Worker and/or Case Management for: Discharge Planning, Arranging Home Equipmen t or Services, and Family Interventions Dental Laboratory Worker/Case Management LIST OF IDENTIFIED AND POTENTIAL PROBLEMS: Alteration in leisure activities Bladder, Incontinence Bowel, Incontinence Infection, Actual or Potential Mobility Impaired Pain, Alteration in Comfort Self Care Deficit Skin Integrity, Actual or Potential Urinary Tract Infection (UTI), Actual or Potential RISK FOR COMPLICATIONS - WEAKNESS Nursing and therapy will help to get patient stronger. - SKIN BREAKDOWN Nursing will assess skin daily using assessment tool and will place on Skin Breakdown Precautions as Indicated per protocol. - CARDIC monitoring heart rate/signs and symptoms for cardiac distress. - CVA pt's blood pressures have been inconsistent and require monitoring and medication management as inidi cated by physician. pt has history of CVA. Will monitor blood pressure and manage with medication. - RESPIRATORY acute respiratory failure. - Falls Patient will be evaluated for Fall Precautions and will be placed on Fall Precautions as indicated pe r protocol. Educated pt on fall prevention strategies to reduce/eliminate fall risk. - Pain Clinical staff will assess patient's pain level every shift per protocol to monitor for pain manageme nt effectiveness. Educate patient on pain management strategies. - DVT Administer anti-coagulants as indicated by physician and monitor for effectiveness. Mobility training and regular exercise. Patient is a smoker with elevated risk for DVT. INTERVENTIONS - CHF monitoring of patient symptoms and medication management by physician. Daily weights will be obtained . - A-Fib Vitals will be monitored regularly and medications administered as indicated by Physician. - HTN Blood pressure will be regularly assessed and medications administered as per physician recommendatio ns. - Depression Monitor patient for depression and treat as neccesary. Provide regular exercise, which is a proponent to fight depression. PATIENT COULD BE AT RISK FOR COMPLICATIONS FROM ADVERSE MEDICAL CONDITIONS DUE TO HIS/HER COMORBIDITI ES AND THE RIGORS OF THE INTENSIVE REHABILLITATION PROGRAM. METHODS OR INTERVENTIONS TO AVOID COMPLIC ATIONS INCLUDE: - Deep Vein Thrombosis (DVT) Prophylaxis therapy for prevention . Sequential Compression Device (SCD). ALYSHA Iqbal. - Infection Clinical staff to assess and manage the signs and symptoms of infection including fever, redness, war mth, etc. - Urinary Tract Infection - Falls Patient will be evaluated for Fall Precautions and will be placed on Fall Precautions as indicated pe r protocol. - Skin Breakdown Nursing will assess skin daily using assessment tool and will place on Skin Breakdown Precautions as indicated per protocol. - Pain Clinical staff may employ non-medication methods such as massage, distraction, decrease stimulus, etc . as needed. Clinical staff will assess patient's pain level every shift per protocol to assess and e nsure pain management effectiveness. Medications will be given and the pain level re-assessed. PRELIMINARY PLAN OF CARE: - Physical Therapy Patient needs Physical Therapy for a daily minimum of 1.5 hours at least 5 out of 7 days, to improve: Mobility, Strengthening, Transfers, Stretching, ROM, Endurance, Ability to manage stairs, Gait, and Balance. - Speech Therapy Patient needs Speech Therapy for a daily minimum of 0.5 hours at least 5 out of 7 days, to improve: S wallowing, Cognition, Language Skills, and Compensatory Strategies. - Rehabilitation Nursing Patient requires 24x7 Rehabilitation Nursing for: Pain Issues, Identifying and preventing risk factor s, Monitoring and reporting current medical conditions, Assisting with ambulation and transfer, Moris ting with all ADL-s, Teaching patients about disease process and medications, Family teaching, Provid ing safe environment, Bowel and Bladder Issues, Skin Integrity, and Medication Management. Patient needs Dental Laboratory Worker and/or Case Management for: Discharge Planning, Arranging Home Equipmen t or Services, and Family Interventions. - Dietary and Nutrition Services Patient needs Dietary and Nutrition Services for: Adequate Nutrition, Nutritional Supplements, and Nu tritional Education. - Occupational Therapy Patient needs Occupational Therapy for a daily minimum of 1.5 hours at least 5 out of 7 days, to impr ove Activities of Daily Living, including: Eating, Grooming, Bathing, Dressing, Toileting, Toilet Tra nsfers, Community Reintegration, Higher functional activities, Adaptive Equipment, Splinting, Househo ld Tasks, and Other activities as determined. QI SCORES: - Self-Care A. Eating 06-Independent C. Toileting hygiene 03-Partial/moderate assistance B. Oral hygiene 06-Independent E. Shower/bathe self 07-Patient refused F. Upper body dressing 05-Setup or clean-up assistance G. Lower body dressing 03-Partial/moderate assistance H. Putting on/taking off footwear 05-Setup or clean-up assistance - Mobility A. Roll left and right 04-Supervision or touching assistance B. Sit to lying 03-Partial/moderate assistance C. Lying to sitting on side of bed 03-Partial/moderate assistance D. Sit to stand 04-Supervision or touching assistance E. Chair/dmq-uz-uturl transfer 03-Partial/moderate assistance F. Toilet transfer 03-Partial/moderate assistance G. Car transfer 03-Partial/moderate assistance I. Walk 10 feet 03-Partial/moderate assistance J. Walk 50 feet with two turns 88-Not attempted due to medical condition or safety concerns K. Walk 150 feet 88-Not attempted due to medical condition or safety concerns L. Walking 10 feet on uneven surfaces 88-Not attempted due to medical condition or safety concerns M. 1 step (curb) 88-Not attempted due to medical condition or safety concerns N. 4 steps 88-Not attempted due to medical condition or safety concerns O. 12 steps 88-Not attempted due to medical condition or safety concerns P. Picking up object 03-Partial/moderate assistance R. Wheel 50 feet with two turns 09-Not applicable S. Wheel 150 feet 09-Not applicable - Bladder and Bowel Bladder continence 2-Incontinent less than daily Bowel continence 0-Always continent - Endurance Good - Balance Good - Safety Awareness Good POTENTIAL FUNCTIONAL GOALS FOR PATIENT TO ACHIEVE BY DISCHARGE: - Safety Precaution Patient will remain free from falls or injury at time of discharge. - Bed Mobility Patient will perform bed mobility at 4-Adeola level of assistance. - Transfers Patient will complete transfers from bed to chair at 4-Adeola level of assistance. - Mobility Patient will ambulate 150 ft with 4-Adeola level of assistance with RW. PATIENT REHAB POTENTIAL Romelia OHARA is able and expected to receive 3 hours of individualized therapy daily on at least 5 of david ry 7 days Romelia OHARA's prognosis for significant practical improvement within a reasonable period of time appears Good Expected level of measurable improvement will be of a practical value to Romelia OHARA's functional capaci ty or adaptations to impairments Has a viable Discharge Plan Medically appropriate; condition is sufficiently stable to participate in intensive rehab program DISCHARGE PLAN: - Estimated Length of Stay (days) 13. - Consensus on plan Discharge plan has been discussed with primary caregiver. Patient/Family is in agreement with the jermain n. Primary caregiver is in agreement with the plan. - Patient/Family Goals Return home independently. - Planned Living Setting Upon Discharge Home, to live alone. Transitional Living. Primary caregiver: Pt self. CONCLUSION ON REHABILITATION NECESSITY: I have evaluated patient's pre-admission functional status and, comparing it to the patient's post-ad mission functional status now, I conclude that the pre-admission assessment was accurate. Patient's c ondition on admission supports the medical necessity of admission to IR[facility]. It is safe to proceed with patient's therapy program. SIGNATURE PANEL: (CDT)
[2021-09-20] MEDS ORDERED: METOPROLOL TAR 25 MG TAB PO SCH (18:00)
[2021-09-20] MEDS: NICOTINE 14 MG/PAT TD SCH (19:04)
[2021-09-20] MEDS: ALBUTEROL INHALER 60 PUFF/8 GM IH PRN (19:11)
[2021-09-20] MEDS: ATORVASTATIN 40 MG TAB PO SCH (19:12)
[2021-09-20] MEDS: SERTRALINE HCL 100 MG TAB PO SCH (19:12)
[2021-09-20] MEDS: MELATONIN 3 MG TABLET PO PRN (19:14)
[2021-09-21 04:49] LABS: Protime INR 2.17
[2021-09-21 04:53] LABS: Absolute Lymphocytes (CBC) 0.8 K/uL (0.7-4.9); Hematocrit 36.3 % (36.0-45.0); Lymphocytes % 18.7 % (15.3-44.8); MPV 9.3 fL (7.6-11.3); RBC Red Blood Cell Count 4.17 M/uL (3.86-4.86)
[2021-09-21 05:05] LABS: BUN Blood Urea Nitrogen 17 mg/dL (7-18); Bicarbonate 29 mmol/L (21-32); Glucose Level 106 mg/dL (74-106); Potassium 4.1 mmol/L (3.5-5.1); Prealbumin 10.8 mg/dL (20-40); Sodium Level 140 mmol/L (136-145)
[2021-09-21] MEDS ORDERED: METOPROLOL TAR 25 MG TAB PO SCH (06:00)
[2021-09-21] MEDS: lisinopriL 5 MG TAB PO SCH (08:00)
[2021-09-21] MEDS: POTASSIUM CL SA 10 MEQ TAB PO SCH (08:30)
[2021-09-21] MEDS: FUROSEMIDE 20 MG TABLET PO SCH (08:30)
--- NOTE | 2021-09-21 09:52 | P.RH.PN ---
Estimated Length of Stay: 12 Expected Discharge Date: 10/02/21 Discharge Disposition Plan: Home Family Support: Yes Mcfp Goal: Mobility, Transfers, Self Care Vital Signs: Last Vital Signs Temp 97 F 09/21/21 07:37 Pulse 86 09/21/21 08:30 Resp 18 09/21/21 07:37 BP 91/55 L 09/21/21 08:30 Pulse Ox 97 09/21/21 07:37 Laboratory: Laboratory Last Values WBC 4.5 K/uL (4.3-10.9) 09/21/21 04:07 RBC 4.17 M/uL (3.86-4.86) 09/21/21 04:07 Hgb 11.9 g/dL (12.0-15.0) L 09/21/21 04:07 Hct 36.3 % (36.0-45.0) 09/21/21 04:07 MCV 87.0 fL (80-100) 09/21/21 04:07 MCH 28.6 pg (27.0-35.0) 09/21/21 04:07 MCHC 32.9 g/dL (32.0-36.0) 09/21/21 04:07 RDW 17.6 % (12.1-15.2) H 09/21/21 04:07 Plt Count 117 K/uL (152-406) L 09/21/21 04:07 MPV 9.3 fL (7.6-11.3) 09/21/21 04:07 Neutrophils % 66.3 % (41.7-73.7) 09/21/21 04:07 Lymphocytes % 18.7 % (15.3-44.8) 09/21/21 04:07 Monocytes % 9.2 % (3.3-12.3) 09/21/21 04:07 Eosinophils % 4.6 % (0-4.4) H 09/21/21 04:07 Basophils % 1.2 % (0-1.3) 09/21/21 04:07 Absolute Neutrophils 3.0 K/uL (1.8-8.0) 09/21/21 04:07 Absolute Lymphocytes 0.8 K/uL (0.7-4.9) 09/21/21 04:07 Absolute Monocytes 0.4 K/uL (0.1-1.3) 09/21/21 04:07 Absolute Eosinophils 0.2 K/uL (0-0.5) 09/21/21 04:07 Absolute Basophils 0.1 K/uL (0-0.5) 09/21/21 04:07 PT 24.3 SECONDS (9.5-12.5) H 09/21/21 04:07 INR 2.17 09/21/21 04:07 Sodium 140 mmol/L (136-145) 09/21/21 04:07 Potassium 4.1 mmol/L (3.5-5.1) 09/21/21 04:07 Chloride 108 mmol/L (98-107) H 09/21/21 04:07 Carbon Dioxide 29 mmol/L (21-32) 09/21/21 04:07 BUN 17 mg/dL (7-18) 09/21/21 04:07 Creatinine 0.64 mg/dL (0.55-1.3) 09/21/21 04:07 Estimated GFR > 90 mL/min (=/>90) 09/21/21 04:07 Glucose 106 mg/dL (74-106) 09/21/21 04:07 Calcium 8.7 mg/dL (8.5-10.1) 09/21/21 04:07 Magnesium 2.0 mg/dL (1.8-2.4) 09/21/21 04:07 Albumin 3.0 g/dL (3.4-5.0) L 09/21/21 04:07 Prealbumin 10.8 mg/dL (20-40) L 09/21/21 04:07 SARS-CoV-2 Rap RNA(RT-PCR) Negative (NEGATIVE) 09/20/21 15:05 Weight: 130 lb Wound Present: No Closed Surgical Incision Present: No Negative Pressure Wound Therapy Present: No Physician Update: Making fair overall progress with therapy. SBA with bed transfers. Very small steps and poor improvement. She has 14 mg nicotine patch. She has 3 pack os cigarettes with her. Comment: No skin breakdown. Summary: Patient's care plan and shelter goals have been reviewed and revised as necessary. Please see the Rehabilitation Signature page for all necessary signatures.
[2021-09-21] MEDS: NICOTINE 14 MG/PAT TD SCH (11:35)
[2021-09-21] MEDS: WARFARIN SODIUM 2 MG TAB PO SCH (17:28)
[2021-09-21] MEDS: ATORVASTATIN 40 MG TAB PO SCH (19:57)
[2021-09-21] MEDS: ALBUTEROL INHALER 60 PUFF/8 GM IH PRN (19:57)
[2021-09-21] MEDS: SERTRALINE HCL 100 MG TAB PO SCH (19:58)
[2021-09-21] MEDS: MELATONIN 3 MG TABLET PO PRN (19:58)
[2021-09-22 01:29] LABS: Urine Appearance TURBID (Clear); Urine Blood NEGATIVE (Negative); Urine Color Red (Yellow); Urine Glucose NEGATIVE (Negative); Urine Protein 2+ (Negative); Urine Specific Gravity 1.025 (1.005-1.030)
[2021-09-22 01:37] LABS: Urine Bilirubin NEGATIVE (Negative)
[2021-09-22 01:45] LABS: Urine Amorphous Sediment 4+ /HPF (NONE SEEN); Urine Bacteria LOADED /HPF (<20); Urine Mucus 3+ /HPF (NONE SEEN); Urine RBC <5 /HPF (NONE SEEN); Urine Triple Phosphate Crystal MODERATE (NONE SEEN); Urine Yeast MANY (NONE SEEN)
[2021-09-22 05:59] LABS: Protime INR 1.95
[2021-09-22] MEDS: METOPROLOL TAR 25 MG TAB PO SCH ×2 (07:55→19:45)
[2021-09-22] MEDS: POTASSIUM CL SA 10 MEQ TAB PO SCH (07:56)
[2021-09-22] MEDS: NICOTINE 14 MG/PAT TD SCH (07:56)
[2021-09-22] MEDS: FUROSEMIDE 20 MG TABLET PO SCH (07:56)
[2021-09-22] MEDS: CRANBERRY FRUIT EXTRACT 400 MG CAP PO SCH ×2 (07:56→19:44)
[2021-09-22] MEDS: lisinopriL 5 MG TAB PO SCH (07:57)
[2021-09-22] MEDS ORDERED: ENSURE ENLIVE 237 ML CAN PO PRN (12:30)
[2021-09-22] MEDS: WARFARIN SODIUM 2 MG TAB PO SCH (17:15)
[2021-09-22] MEDS: ALBUTEROL INHALER 60 PUFF/8 GM IH PRN (19:44)
[2021-09-22] MEDS: ATORVASTATIN 40 MG TAB PO SCH (19:46)
[2021-09-22] MEDS: SERTRALINE HCL 100 MG TAB PO SCH (19:46)
[2021-09-22] MEDS: MELATONIN 3 MG TABLET PO PRN (19:47)
[2021-09-22] MEDS: DOCUSATE NA/SENNA CONC 1 TAB PO PRN (19:47)
[2021-09-23] MEDS: ALBUTEROL INHALER 60 PUFF/8 GM IH PRN (05:11)
[2021-09-23 05:32] VITALS: BMI 21.4
[2021-09-23] MEDS: FUROSEMIDE 20 MG TABLET PO SCH (07:16)
[2021-09-23] MEDS: METOPROLOL TAR 25 MG TAB PO SCH ×2 (07:16→19:19)
[2021-09-23] MEDS: NICOTINE 14 MG/PAT TD SCH (07:17)
[2021-09-23] MEDS: POTASSIUM CL SA 10 MEQ TAB PO SCH (07:17)
[2021-09-23] MEDS: lisinopriL 5 MG TAB PO SCH (07:17)
[2021-09-23] MEDS: CRANBERRY FRUIT EXTRACT 400 MG CAP PO SCH ×2 (07:17→19:18)
[2021-09-23] MEDS: WARFARIN SODIUM 2 MG TAB PO SCH (14:16)
[2021-09-23] MEDS: SERTRALINE HCL 100 MG TAB PO SCH (19:19)
[2021-09-23] MEDS: ATORVASTATIN 40 MG TAB PO SCH (19:19)
[2021-09-24] MEDS: FUROSEMIDE 20 MG TABLET PO SCH (08:12)
[2021-09-24] MEDS: CRANBERRY FRUIT EXTRACT 400 MG CAP PO SCH ×2 (08:12→20:09)
[2021-09-24] MEDS: METOPROLOL TAR 25 MG TAB PO SCH ×2 (08:13→20:09)
[2021-09-24] MEDS: lisinopriL 5 MG TAB PO SCH (08:13)
[2021-09-24] MEDS: NICOTINE 14 MG/PAT TD SCH (08:14)
[2021-09-24] MEDS: POTASSIUM CL SA 10 MEQ TAB PO SCH (08:14)
[2021-09-24] MEDS: WARFARIN SODIUM 2 MG TAB PO SCH (17:00)
[2021-09-24] MEDS: ATORVASTATIN 40 MG TAB PO SCH (20:09)
[2021-09-24] MEDS: SERTRALINE HCL 100 MG TAB PO SCH (20:09)
[2021-09-24] MEDS: MELATONIN 3 MG TABLET PO PRN (20:10)
[2021-09-25] MEDS: lisinopriL 5 MG TAB PO SCH (07:33)
[2021-09-25] MEDS: CRANBERRY FRUIT EXTRACT 400 MG CAP PO SCH ×2 (07:33→19:56)
[2021-09-25] MEDS: METOPROLOL TAR 25 MG TAB PO SCH ×2 (07:34→19:56)
[2021-09-25] MEDS: FUROSEMIDE 20 MG TABLET PO SCH (07:34)
[2021-09-25] MEDS: POTASSIUM CL SA 10 MEQ TAB PO SCH (07:35)
[2021-09-25] MEDS: NICOTINE 21 MG/PAT TD SCH (07:46)
[2021-09-25] MEDS ORDERED: NICOTINE 14 MG/PAT TD SCH (08:00)
--- NOTE | 2021-09-25 17:28 | R.PN ---
PROGRESS NOTES ENCOUNTER DATE AND TIME: 09/25/2021 17:21 (CDT) NAME GUIDO OHARA DATE OF : 1955 DATE OF ADMISSION: 09/20/2021 12:05 (CDT) WEAKNESS, FALLSCHIEF COMPLAINT: Debility, diffuse weakness and multiple falls. SUBJECTIVE: Pt denied any depression. Pt denied any Shortness of Breath. CBC with didfferentrial is essentially normal. On Eliquis 5 mg bid and coumadin was D/Fernando per patient request. Nicotine patch increased to 21 mg marlene ly. Ambulated 190' with contact guard assistance using a rolling walker. VITAL SIGNS Temperature: 97.9 F SBP/DBP: 116/71 Pulse: 99 Resp: 16 MEDICATION ALLERGIES: No Known Drug Allergies (NKDA) ENVIRONMENTAL ALLERGIES: - Substance Allergies None Known - Other Allergies None Known NURSING: - Shower allowing shower ACTIVITIES OOB only with supervision THERAPIES: - Dietary and Nutrition Adequate Nutrition. Nutritional Education. Nutritional Supplements. Evaluate and Treat. - Occupational Therapy Cognitive Retraining. Patient needs Occupational Therapy for a daily minimum of 1.5 hours at least 5 out of 7 days, to improve Activities of Daily Living, including: Eating, Grooming, Bathing, Dressing, Toileting, Toilet Transfers, Community Reintegration, Higher functional activities, Adaptive Equipme nt, Splinting, Household Tasks, and Other activities as determined. Visual Perceptual Training. Evalu ate and Treat. ADL Training. Transfer Training. Safety Awareness. Patient needs Occupational Therapy for a daily minimum of 1.5 hours at least 5 out of 7 days, to improve Activities of Daily Living, inc luding: Dressing, Toilet Transfers, Adaptive Equipment, Household Tasks, and Other activities as dete rmined. - Speech Therapy Cognitive Training. Expressive Language Skills. Patient needs Speech Therapy for a daily minimum of 1 .5 hours at least 5 out of 7 days, to improve: Swallowing, Cognition, Language Skills, and Compensato ry Strategies. Receptive Language Skills. Speech Intelligibility Training. Evaluate and Treat. Patien t needs Speech Therapy for a daily minimum of 1 hours at least 5 out of 7 days, to improve: Swallowi ng, Cognition, Language Skills, and Compensatory Strategies. Memory Strategies. - Physical Therapy Patient needs Physical Therapy for a daily minimum of 1.5 hours at least 5 out of 7 days, to improve: Mobility, Strengthening, Transfers, Stretching, ROM, Endurance, Ability to manage stairs, Gait, and Balance. Gait Training. Transfer Training. Balance Training. Mobility Training. LE Strengthening. Saf ety Awareness. LE ROM. Patient needs Physical Therapy for a daily minimum of 1.5 hours at least 5 out of 7 days, to improve: Transfers, Balance, Endurance, Gait, Mobility, ROM, and Strengthening. Patien t/Family Education. PHYSICAL EXAM - Gen Alert and awake Lying in bed No apparent distress Oriented to: person, time, and place - Skin No breakdown No abnormalities - Eyes No abnormalities - ENMT No abnormalities - Neck No abnormalities - CVS RRR - Chest No abnormalities - Resp Clear to auscultation - Abd Soft - GI Non distended Deferred - No abnormalities - Ext Mild bilateral lower extremity edema. - MSK 4+/5 weakness in both lower extremities. - Neuro No focal deficits - Psych No abnormalities ASSESSMENT: Pt. is a 65 yo Right-handed white female.On 08/23/2021 she was admitted to [facility] with diagnosis WEAKNES S, FALLS.Her impairment category is Debility 16 - Debility (16).Pre-morbidly, Pt. was independent/mo d-I in Self-Care; and she had good Endurance, Transfers Control, Safety Awareness, and Locomotion.Cur rently, she has deficits of Self-Care, Transfers Control, Endurance, Balance, Locomotion, and Safety AwarenessPt. is now referred to [facility] for acute in-patient rehabilitation in order to maximize patient's functional independence in activities of daily living, strength, ROM, and mobility.- Rehab Goal Patient has realistic goal of being discharged at assistance level 7-Ind to reside at Home with Pt s elf. MDM/PLAN: - Physical Therapy Inability to transfer - to improve, our physical therapists will perform initial evaluation of pt's status upon admission and devise an individualized program for Bed mobility Need for home safety evaluation - to improve, our physical therapists will perform initial evaluatio n of pt's status upon admission and devise an individualized program for Home Evaluation Need in caregiver upon discharge - to improve, our physical therapists will perform initial evaluati on of pt's status upon admission and devise an individualized program for Caregiver Training New precaution - to improve, our physical therapists will perform initial evaluation of pt's status upon admission and devise an individualized program for Patient precaution education Edema - to improve, our physical therapists will perform initial evaluation of pt's status upon admis dieudonne and devise an individualized program for Elevation Training, and Lymphedema Therapy Poor balance - to improve, our physical therapists will perform initial evaluation of pt's status up on admission and devise an individualized program for Balance Training Poor endurance - to improve, our physical therapists will perform initial evaluation of pt's status upon admission and devise an individualized program for Endurance Training Achieving independence - to improve, our physical therapists will perform initial evaluation of pt's status upon admission and devise an individualized program for Community Reintegration Activities - Occupational Therapy ADL deficits - to improve, our occupation therapists will perform initial evaluation of pt's status upon admission and devise an individualized program for Bathing, Bed mobility, Community Reintegratio n, Cooking, Dressing, Eating, Fine Motor Skills, Grooming, Homemaking, Kitchen Mobility, Laundry, Pat ient Education, Safety Awareness, Splinting - Positioning, Transfers(Toilet, Tub, Shower), and Wheel Chair Management Need for rn care transition - to improve, our occupation therapists will perform initial evaluation of pt's status upon admission and devise an individualized program for Caregiver Training - Other See attached MAR (Medication Administration Record) - Diet Type Continue Regular - Diet - Liquid Texture Continue Regular - Tube Feed Continue N/A - Diet - Solid Texture Continue Regular - Shower allowing shower FUNCTIONAL STATUS: UPDATED AT WEEKLY TEAM CONFERENCE - Bladder Same accident frequency: 7-Ind - No accidents in the past 7 days - Bowel Same accident frequency: 7-Ind - No accidents in the past 7 days - Walking Same score based on distance walked: 0(N/A) Same score based on distance walked: 1(<=50ft) - Wheelchair Same score based on distance traveled: 0(N/A) FUNCTIONAL STATUS: - Self-Care A. Eating Ind B. Grooming sup C. Bathing Adeola D. Dressing - Upper sup E. Dressing - Lower Adeola F. Toileting sup - Sphincter Control G. Bladder control Chicho H. Bowel control Chicho - Transfers Control I. Bed/Chair/Wheelchair Adeola J. Toilet Adeola K. Tub/Shower modA - Locomotion L. Walk/Wheelchair (B) Adeola M. Stairs modA - Communication N. Comprehension (B) Chicho O. Expression (B) Chicho - Social Cognition P. Social Interaction Chicho Q. Problem Solving sup R. Memory sup - Endurance Fair - Balance Fair - Safety Awareness Fair QI SCORES: - Self-Care A. Eating 06-Independent C. Toileting hygiene 03-Partial/moderate assistance B. Oral hygiene 06-Independent E. Shower/bathe self 07-Patient refused F. Upper body dressing 05-Setup or clean-up assistance G. Lower body dressing 03-Partial/moderate assistance H. Putting on/taking off footwear 05-Setup or clean-up assistance - Mobility A. Roll left and right 04-Supervision or touching assistance B. Sit to lying 03-Partial/moderate assistance C. Lying to sitting on side of bed 03-Partial/moderate assistance D. Sit to stand 04-Supervision or touching assistance E. Chair/[id number] transfer 03-Partial/moderate assistance F. Toilet transfer 03-Partial/moderate assistance G. Car transfer 03-Partial/moderate assistance I. Walk 10 feet 03-Partial/moderate assistance J. Walk 50 feet with two turns 88-Not attempted due to medical condition or safety concerns K. Walk 150 feet 88-Not attempted due to medical condition or safety concerns L. Walking 10 feet on uneven surfaces 88-Not attempted due to medical condition or safety concerns M. 1 step (curb) 88-Not attempted due to medical condition or safety concerns N. 4 steps 88-Not attempted due to medical condition or safety concerns O. 12 steps 88-Not attempted due to medical condition or safety concerns P. Picking up object 03-Partial/moderate assistance R. Wheel 50 feet with two turns 09-Not applicable S. Wheel 150 feet 09-Not applicable - Bladder and Bowel Bladder continence 2-Incontinent less than daily Bowel continence 0-Always continent - Endurance Good - Balance Good - Safety Awareness Good CURRENT FUNC. DEFICITS: Mobility and Self-Care SIGNATURE PANEL: (CDT)
[2021-09-25] MEDS: APIXABAN 5 MG TABLET PO SCH (19:56)
[2021-09-25] MEDS: SERTRALINE HCL 100 MG TAB PO SCH (19:56)
[2021-09-25] MEDS: ATORVASTATIN 40 MG TAB PO SCH (19:56)
[2021-09-25] MEDS ORDERED: APIXABAN 5 MG TABLET PO SCH (20:00)
[2021-09-26] MEDS: CRANBERRY FRUIT EXTRACT 400 MG CAP PO SCH ×2 (08:00→20:03)
[2021-09-26] MEDS: POTASSIUM CL SA 10 MEQ TAB PO SCH (08:01)
[2021-09-26] MEDS: FUROSEMIDE 20 MG TABLET PO SCH (08:01)
[2021-09-26] MEDS: APIXABAN 5 MG TABLET PO SCH ×2 (08:01→20:03)
[2021-09-26] MEDS: METOPROLOL TAR 25 MG TAB PO SCH ×2 (08:01→20:03)
[2021-09-26] MEDS: NICOTINE 21 MG/PAT TD SCH (08:02)
[2021-09-26] MEDS: lisinopriL 5 MG TAB PO SCH (10:12)
--- NOTE | 2021-09-26 17:28 | R.PN ---
PROGRESS NOTES ENCOUNTER DATE AND TIME: 09/26/2021 17:22 (CDT) NAME GUIDO OHARA DATE OF : 1955 DATE OF ADMISSION: 09/20/2021 12:05 (CDT) WEAKNESS, FALLSCHIEF COMPLAINT: Debility, diffuse weakness and multiple falls. SUBJECTIVE: Pt denied any depression. Pt denied any Shortness of Breath. CBC with didfferentrial is essentially normal. On Eliquis 5 mg bid and coumadin was D/Fernando per patient request. Nicotine patch increased to 21 mg marlene ly. Ambulated 154' with contact guard assistance using a rolling walker. Self-propelled wheelchair 500' w ith standby assistance. VITAL SIGNS Temperature: 97.6 F SBP/DBP: 109/73 Pulse: 78 Resp: 16 MEDICATION ALLERGIES: No Known Drug Allergies (NKDA) ENVIRONMENTAL ALLERGIES: - Substance Allergies None Known - Other Allergies None Known NURSING: - Shower allowing shower ACTIVITIES OOB only with supervision THERAPIES: - Dietary and Nutrition Adequate Nutrition. Nutritional Education. Nutritional Supplements. Evaluate and Treat. - Occupational Therapy Cognitive Retraining. Patient needs Occupational Therapy for a daily minimum of 1.5 hours at least 5 out of 7 days, to improve Activities of Daily Living, including: Eating, Grooming, Bathing, Dressing, Toileting, Toilet Transfers, Community Reintegration, Higher functional activities, Adaptive Equipme nt, Splinting, Household Tasks, and Other activities as determined. Visual Perceptual Training. Evalu ate and Treat. ADL Training. Transfer Training. Safety Awareness. Patient needs Occupational Therapy for a daily minimum of 1.5 hours at least 5 out of 7 days, to improve Activities of Daily Living, inc luding: Dressing, Toilet Transfers, Adaptive Equipment, Household Tasks, and Other activities as dete rmined. - Speech Therapy Cognitive Training. Expressive Language Skills. Patient needs Speech Therapy for a daily minimum of 1 .5 hours at least 5 out of 7 days, to improve: Swallowing, Cognition, Language Skills, and Compensato ry Strategies. Receptive Language Skills. Speech Intelligibility Training. Evaluate and Treat. Patien t needs Speech Therapy for a daily minimum of 1 hours at least 5 out of 7 days, to improve: Swallowi ng, Cognition, Language Skills, and Compensatory Strategies. Memory Strategies. - Physical Therapy Patient needs Physical Therapy for a daily minimum of 1.5 hours at least 5 out of 7 days, to improve: Mobility, Strengthening, Transfers, Stretching, ROM, Endurance, Ability to manage stairs, Gait, and Balance. Gait Training. Transfer Training. Balance Training. Mobility Training. LE Strengthening. Saf ety Awareness. LE ROM. Patient needs Physical Therapy for a daily minimum of 1.5 hours at least 5 out of 7 days, to improve: Transfers, Balance, Endurance, Gait, Mobility, ROM, and Strengthening. Patien t/Family Education. PHYSICAL EXAM - Gen Alert and awake Lying in bed No apparent distress Oriented to: person, time, and place - Skin No breakdown No abnormalities - Eyes No abnormalities - ENMT No abnormalities - Neck No abnormalities - CVS RRR - Chest No abnormalities - Resp Clear to auscultation - Abd Soft - GI Non distended Deferred - No abnormalities - Ext Mild bilateral lower extremity edema. - MSK 4+/5 weakness in both lower extremities. - Neuro No focal deficits - Psych No abnormalities ASSESSMENT: Pt. is a 65 yo Right-handed white female.On 08/23/2021 she was admitted to [facility] with diagnosis WEAKNES S, FALLS.Her impairment category is Debility 16 - Debility (16).Pre-morbidly, Pt. was independent/mo d-I in Self-Care; and she had good Endurance, Transfers Control, Safety Awareness, and Locomotion.Cur rently, she has deficits of Self-Care, Transfers Control, Endurance, Balance, Locomotion, and Safety AwarenessPt. is now referred to [facility] for acute in-patient rehabilitation in order to maximize patient's functional independence in activities of daily living, strength, ROM, and mobility.- Rehab Goal Patient has realistic goal of being discharged at assistance level 7-Ind to reside at Home with Pt s elf. MDM/PLAN: - Physical Therapy Inability to transfer - to improve, our physical therapists will perform initial evaluation of pt's status upon admission and devise an individualized program for Bed mobility Need for home safety evaluation - to improve, our physical therapists will perform initial evaluatio n of pt's status upon admission and devise an individualized program for Home Evaluation Need in caregiver upon discharge - to improve, our physical therapists will perform initial evaluati on of pt's status upon admission and devise an individualized program for Caregiver Training New precaution - to improve, our physical therapists will perform initial evaluation of pt's status upon admission and devise an individualized program for Patient precaution education Edema - to improve, our physical therapists will perform initial evaluation of pt's status upon admi ssion and devise an individualized program for Elevation Training, and Lymphedema Therapy Poor balance - to improve, our physical therapists will perform initial evaluation of pt's status up on admission and devise an individualized program for Balance Training Poor endurance - to improve, our physical therapists will perform initial evaluation of pt's status upon admission and devise an individualized program for Endurance Training Achieving independence - to improve, our physical therapists will perform initial evaluation of pt's status upon admission and devise an individualized program for Community Reintegration Activities - Occupational Therapy ADL deficits - to improve, our occupation therapists will perform initial evaluation of pt's status upon admission and devise an individualized program for Bathing, Bed mobility, Community Reintegratio n, Cooking, Dressing, Eating, Fine Motor Skills, Grooming, Homemaking, Kitchen Mobility, Laundry, Pat ient Education, Safety Awareness, Splinting - Positioning, Transfers(Toilet, Tub, Shower), and Wheel Chair Management Need for care coordinator - to improve, our occupation therapists will perform initial evaluation of pt's status upon admission and devise an individualized program for Caregiver Training - Other See attached MAR (Medication Administration Record) - Diet Type Continue Regular - Diet - Liquid Texture Continue Regular - Tube Feed Continue N/A - Diet - Solid Texture Continue Regular - Shower allowing shower FUNCTIONAL STATUS: UPDATED AT WEEKLY TEAM CONFERENCE - Bladder Same accident frequency: 7-Ind - No accidents in the past 7 days - Bowel Same accident frequency: 7-Ind - No accidents in the past 7 days - Walking Same score based on distance walked: 0(N/A) Same score based on distance walked: 1(<=50ft) - Wheelchair Same score based on distance traveled: 0(N/A) FUNCTIONAL STATUS: - Self-Care A. Eating Ind B. Grooming sup C. Bathing Adeola D. Dressing - Upper sup E. Dressing - Lower Adeola F. Toileting sup - Sphincter Control G. Bladder control Chicho H. Bowel control Chicho - Transfers Control I. Bed/Chair/Wheelchair Adeola J. Toilet Adeola K. Tub/Shower modA - Locomotion L. Walk/Wheelchair (B) Adeola M. Stairs modA - Communication N. Comprehension (B) Chicho O. Expression (B) Chicho - Social Cognition P. Social Interaction Chicho Q. Problem Solving sup R. Memory sup - Endurance Fair - Balance Fair - Safety Awareness Fair QI SCORES: - Self-Care A. Eating 06-Independent C. Toileting hygiene 03-Partial/moderate assistance B. Oral hygiene 06-Independent E. Shower/bathe self 07-Patient refused F. Upper body dressing 05-Setup or clean-up assistance G. Lower body dressing 03-Partial/moderate assistance H. Putting on/taking off footwear 05-Setup or clean-up assistance - Mobility A. Roll left and right 04-Supervision or touching assistance B. Sit to lying 03-Partial/moderate assistance C. Lying to sitting on side of bed 03-Partial/moderate assistance D. Sit to stand 04-Supervision or touching assistance E. Chair/rxk-[id number] transfer 03-Partial/moderate assistance F. Toilet transfer 03-Partial/moderate assistance G. Car transfer 03-Partial/moderate assistance I. Walk 10 feet 03-Partial/moderate assistance J. Walk 50 feet with two turns 88-Not attempted due to medical condition or safety concerns K. Walk 150 feet 88-Not attempted due to medical condition or safety concerns L. Walking 10 feet on uneven surfaces 88-Not attempted due to medical condition or safety concerns M. 1 step (curb) 88-Not attempted due to medical condition or safety concerns N. 4 steps 88-Not attempted due to medical condition or safety concerns O. 12 steps 88-Not attempted due to medical condition or safety concerns P. Picking up object 03-Partial/moderate assistance R. Wheel 50 feet with two turns 09-Not applicable S. Wheel 150 feet 09-Not applicable - Bladder and Bowel Bladder continence 2-Incontinent less than daily Bowel continence 0-Always continent - Endurance Good - Balance Good - Safety Awareness Good CURRENT FUNC. DEFICITS: Mobility and Self-Care SIGNATURE PANEL: (CDT)
[2021-09-26] MEDS: DOCUSATE NA/SENNA CONC 1 TAB PO PRN (20:04)
[2021-09-26] MEDS: ATORVASTATIN 40 MG TAB PO SCH (20:04)
[2021-09-26] MEDS: SERTRALINE HCL 100 MG TAB PO SCH (20:04)
[2021-09-26] MEDS: MELATONIN 3 MG TABLET PO PRN (20:05)
[2021-09-27 05:59] LABS: Protime INR 1.59
[2021-09-27] MEDS: POTASSIUM CL SA 10 MEQ TAB PO SCH (08:00)
[2021-09-27] MEDS: METOPROLOL TAR 25 MG TAB PO SCH (08:00)
[2021-09-27] MEDS: lisinopriL 5 MG TAB PO SCH (08:00)
[2021-09-27] MEDS: FUROSEMIDE 20 MG TABLET PO SCH (08:00)
[2021-09-27] MEDS: CRANBERRY FRUIT EXTRACT 400 MG CAP PO SCH ×2 (09:06→19:42)
[2021-09-27] MEDS: APIXABAN 5 MG TABLET PO SCH ×2 (09:06→19:42)
[2021-09-27] MEDS: NICOTINE 21 MG/PAT TD SCH (09:12)
--- NOTE | 2021-09-27 14:24 | R.PN ---
PROGRESS NOTES ENCOUNTER DATE AND TIME: 09/27/2021 14:19 (CDT) NAME GUIDO OHARA DATE OF : 1955 DATE OF ADMISSION: 09/20/2021 12:05 (CDT) WEAKNESS, FALLSCHIEF COMPLAINT: Debility, diffuse weakness and multiple falls. SUBJECTIVE: Pt denied any depression. Pt denied any Shortness of Breath. CBC with didfferentrial is essentially normal. On Eliquis 5 mg bid and coumadin was D/Fernando per patient request. Nicotine patch increased to 21 mg marlene ly. Ambulated 150' with contact guard assistance using a rolling walker. Self-propelled wheelchair 250' w ith standby assistance. She is asking to smoke several times per day. She has a 21 mg nicotine patch. INR today is 1.56 off coumadin. Covid-19 test is negative. VITAL SIGNS Temperature: 97.4 F SBP/DBP: 99/55 Pulse: 71 Resp: 15 MEDICATION ALLERGIES: No Known Drug Allergies (NKDA) ENVIRONMENTAL ALLERGIES: - Substance Allergies None Known - Other Allergies None Known NURSING: - Shower allowing shower ACTIVITIES OOB only with supervision THERAPIES: - Dietary and Nutrition Adequate Nutrition. Nutritional Education. Nutritional Supplements. Evaluate and Treat. - Occupational Therapy Cognitive Retraining. Patient needs Occupational Therapy for a daily minimum of 1.5 hours at least 5 out of 7 days, to improve Activities of Daily Living, including: Eating, Grooming, Bathing, Dressing, Toileting, Toilet Transfers, Community Reintegration, Higher functional activities, Adaptive Equipme nt, Splinting, Household Tasks, and Other activities as determined. Visual Perceptual Training. Evalu ate and Treat. ADL Training. Transfer Training. Safety Awareness. Patient needs Occupational Therapy for a daily minimum of 1.5 hours at least 5 out of 7 days, to improve Activities of Daily Living, inc luding: Dressing, Toilet Transfers, Adaptive Equipment, Household Tasks, and Other activities as dete rmined. - Speech Therapy Cognitive Training. Expressive Language Skills. Patient needs Speech Therapy for a daily minimum of 1 .5 hours at least 5 out of 7 days, to improve: Swallowing, Cognition, Language Skills, and Compensato ry Strategies. Receptive Language Skills. Speech Intelligibility Training. Evaluate and Treat. Patien t needs Speech Therapy for a daily minimum of 1 hours at least 5 out of 7 days, to improve: Swallowi ng, Cognition, Language Skills, and Compensatory Strategies. Memory Strategies. - Physical Therapy Patient needs Physical Therapy for a daily minimum of 1.5 hours at least 5 out of 7 days, to improve: Mobility, Strengthening, Transfers, Stretching, ROM, Endurance, Ability to manage stairs, Gait, and Balance. Gait Training. Transfer Training. Balance Training. Mobility Training. LE Strengthening. Saf ety Awareness. LE ROM. Patient needs Physical Therapy for a daily minimum of 1.5 hours at least 5 out of 7 days, to improve: Transfers, Balance, Endurance, Gait, Mobility, ROM, and Strengthening. Patien t/Family Education. PHYSICAL EXAM - Gen Alert and awake Lying in bed No apparent distress Oriented to: person, time, and place - Skin No breakdown No abnormalities - Eyes No abnormalities - ENMT No abnormalities - Neck No abnormalities - CVS RRR - Chest No abnormalities - Resp Clear to auscultation - Abd Soft - GI Non distended Deferred - No abnormalities - Ext Mild bilateral lower extremity edema. - MSK 4+/5 weakness in both lower extremities. - Neuro No focal deficits - Psych No abnormalities ASSESSMENT: Pt. is a 65 yo Right-handed white female.On 08/23/2021 she was admitted to [facility] with diagnosis WEAKNES S, FALLS.Her impairment category is Debility 16 - Debility (16).Pre-morbidly, Pt. was independent/mo d-I in Self-Care; and she had good Endurance, Transfers Control, Safety Awareness, and Locomotion.Cur rently, she has deficits of Self-Care, Transfers Control, Endurance, Balance, Locomotion, and Safety AwarenessPt. is now referred to [facility] for acute in-patient rehabilitation in order to maximize patient's functional independence in activities of daily living, strength, ROM, and mobility.- Rehab Goal Patient has realistic goal of being discharged at assistance level 7-Ind to reside at Home with Pt s elf. MDM/PLAN: - Physical Therapy Inability to transfer - to improve, our physical therapists will perform initial evaluation of pt's status upon admission and devise an individualized program for Bed mobility Need for home safety evaluation - to improve, our physical therapists will perform initial evaluatio n of pt's status upon admission and devise an individualized program for Home Evaluation Need in caregiver upon discharge - to improve, our physical therapists will perform initial evaluati on of pt's status upon admission and devise an individualized program for Caregiver Training New precaution - to improve, our physical therapists will perform initial evaluation of pt's status upon admission and devise an individualized program for Patient precaution education Edema - to improve, our physical therapists will perform initial evaluation of pt's status upon admi ssion and devise an individualized program for Elevation Training, and Lymphedema Therapy Poor balance - to improve, our physical therapists will perform initial evaluation of pt's status up on admission and devise an individualized program for Balance Training Poor endurance - to improve, our physical therapists will perform initial evaluation of pt's status upon admission and devise an individualized program for Endurance Training Achieving independence - to improve, our physical therapists will perform initial evaluation of pt's status upon admission and devise an individualized program for Community Reintegration Activities - Occupational Therapy ADL deficits - to improve, our occupation therapists will perform initial evaluation of pt's status upon admission and devise an individualized program for Bathing, Bed mobility, Community Reintegratio n, Cooking, Dressing, Eating, Fine Motor Skills, Grooming, Homemaking, Kitchen Mobility, Laundry, Pat ient Education, Safety Awareness, Splinting - Positioning, Transfers(Toilet, Tub, Shower), and Wheel Chair Management Need for care management assistant - to improve, our occupation therapists will perform initial evaluation of pt's status upon admission and devise an individualized program for Caregiver Training - Other See attached MAR (Medication Administration Record) - Diet Type Continue Regular - Diet - Liquid Texture Continue Regular - Tube Feed Continue N/A - Diet - Solid Texture Continue Regular - Shower allowing shower FUNCTIONAL STATUS: UPDATED AT WEEKLY TEAM CONFERENCE - Bladder Same accident frequency: 7-Ind - No accidents in the past 7 days - Bowel Same accident frequency: 7-Ind - No accidents in the past 7 days - Walking Same score based on distance walked: 0(N/A) Same score based on distance walked: 1(<=50ft) - Wheelchair Same score based on distance traveled: 0(N/A) FUNCTIONAL STATUS: - Self-Care A. Eating Ind B. Grooming sup C. Bathing Adeola D. Dressing - Upper sup E. Dressing - Lower Adeola F. Toileting sup - Sphincter Control G. Bladder control Chicho H. Bowel control Chicho - Transfers Control I. Bed/Chair/Wheelchair Adeola J. Toilet Adeola K. Tub/Shower modA - Locomotion L. Walk/Wheelchair (B) Adeola M. Stairs modA - Communication N. Comprehension (B) Chicho O. Expression (B) Chicho - Social Cognition P. Social Interaction Chicho Q. Problem Solving sup R. Memory sup - Endurance Fair - Balance Fair - Safety Awareness Fair QI SCORES: - Self-Care A. Eating 06-Independent C. Toileting hygiene 03-Partial/moderate assistance B. Oral hygiene 06-Independent E. Shower/bathe self 07-Patient refused F. Upper body dressing 05-Setup or clean-up assistance G. Lower body dressing 03-Partial/moderate assistance H. Putting on/taking off footwear 05-Setup or clean-up assistance - Mobility A. Roll left and right 04-Supervision or touching assistance B. Sit to lying 03-Partial/moderate assistance C. Lying to sitting on side of bed 03-Partial/moderate assistance D. Sit to stand 04-Supervision or touching assistance E. Chair/[id number] transfer 03-Partial/moderate assistance F. Toilet transfer 03-Partial/moderate assistance G. Car transfer 03-Partial/moderate assistance I. Walk 10 feet 03-Partial/moderate assistance J. Walk 50 feet with two turns 88-Not attempted due to medical condition or safety concerns K. Walk 150 feet 88-Not attempted due to medical condition or safety concerns L. Walking 10 feet on uneven surfaces 88-Not attempted due to medical condition or safety concerns M. 1 step (curb) 88-Not attempted due to medical condition or safety concerns N. 4 steps 88-Not attempted due to medical condition or safety concerns O. 12 steps 88-Not attempted due to medical condition or safety concerns P. Picking up object 03-Partial/moderate assistance R. Wheel 50 feet with two turns 09-Not applicable S. Wheel 150 feet 09-Not applicable - Bladder and Bowel Bladder continence 2-Incontinent less than daily Bowel continence 0-Always continent - Endurance Good - Balance Good - Safety Awareness Good CURRENT FUNC. DEFICITS: Mobility and Self-Care SIGNATURE PANEL: (CDT)
[2021-09-27] MEDS ORDERED: METOPROLOL TAR 25 MG TAB PO SCH (18:00)
[2021-09-27] MEDS: SERTRALINE HCL 100 MG TAB PO SCH (19:42)
[2021-09-27] MEDS: ATORVASTATIN 40 MG TAB PO SCH (19:42)
[2021-09-28] MEDS: lisinopriL 5 MG TAB PO SCH (08:00)
[2021-09-28] MEDS: NICOTINE 21 MG/PAT TD SCH (09:02)
[2021-09-28] MEDS: METOPROLOL TAR 25 MG TAB PO SCH ×2 (09:02→19:48)
[2021-09-28] MEDS: CRANBERRY FRUIT EXTRACT 400 MG CAP PO SCH ×2 (09:02→19:47)
[2021-09-28] MEDS: APIXABAN 5 MG TABLET PO SCH ×2 (09:03→19:47)
[2021-09-28] MEDS: FUROSEMIDE 20 MG TABLET PO SCH (09:03)
[2021-09-28 10:35] LABS: Absolute Lymphocytes (CBC) 0.8 K/uL (0.7-4.9); Hematocrit 40.7 % (36.0-45.0); Lymphocytes % 14.5 % (15.3-44.8); MPV 8.6 fL (7.6-11.3); RBC Red Blood Cell Count 4.71 M/uL (3.86-4.86)
[2021-09-28 11:12] LABS: Albumin 3.5 g/dL (3.4-5.0); Magnesium 2.2 mg/dL (1.8-2.4); Potassium 4.1 mmol/L (3.5-5.1); Prealbumin 13.6 mg/dL (20-40)
--- NOTE | 2021-09-28 11:48 | R.PN ---
PROGRESS NOTES ENCOUNTER DATE AND TIME: 09/28/2021 11:40 (CDT) NAME GUIDO OHAAR DATE OF : 1955 DATE OF ADMISSION: 09/20/2021 12:05 (CDT) WEAKNESS, FALLSCHIEF COMPLAINT: Debility, diffuse weakness and multiple falls. SUBJECTIVE: Pt denied any depression. Pt denied any Shortness of Breath. CBC with differentrial is essentially normal except Plt is mildly low at 136. BMP is normal except gl ucose is 137 and prealbumin 13.6. Covid-19 test is negative. UA suggests a UTI one week ago. However, no clear symptoms. On cranberry 400 mg bid. On Eliquis 5 mg bid and coumadin was D/Fernando per patient request. Nicotine patch 21 mg daily. Ambulated 500' with standby assistance using a rolling walker. Self-propelled wheelchair 250' with st andby assistance. She is asking to smoke several times per day. She has a 21 mg nicotine patch. VITAL SIGNS Temperature: 97.6 F SBP/DBP: 160/68 Pulse: 100 Resp: 16 MEDICATION ALLERGIES: No Known Drug Allergies (NKDA) ENVIRONMENTAL ALLERGIES: - Substance Allergies None Known - Other Allergies None Known NURSING: - Shower allowing shower ACTIVITIES OOB only with supervision THERAPIES: - Dietary and Nutrition Adequate Nutrition. Nutritional Education. Nutritional Supplements. Evaluate and Treat. - Occupational Therapy Cognitive Retraining. Patient needs Occupational Therapy for a daily minimum of 1.5 hours at least 5 out of 7 days, to improve Activities of Daily Living, including: Eating, Grooming, Bathing, Dressing, Toileting, Toilet Transfers, Community Reintegration, Higher functional activities, Adaptive Equipme nt, Splinting, Household Tasks, and Other activities as determined. Visual Perceptual Training. Evalu ate and Treat. ADL Training. Transfer Training. Safety Awareness. Patient needs Occupational Therapy for a daily minimum of 1.5 hours at least 5 out of 7 days, to improve Activities of Daily Living, inc luding: Dressing, Toilet Transfers, Adaptive Equipment, Household Tasks, and Other activities as dete rmined. - Speech Therapy Cognitive Training. Expressive Language Skills. Patient needs Speech Therapy for a daily minimum of 1 .5 hours at least 5 out of 7 days, to improve: Swallowing, Cognition, Language Skills, and Compensato ry Strategies. Receptive Language Skills. Speech Intelligibility Training. Evaluate and Treat. Patien t needs Speech Therapy for a daily minimum of 1 hours at least 5 out of 7 days, to improve: Swallowi ng, Cognition, Language Skills, and Compensatory Strategies. Memory Strategies. - Physical Therapy Patient needs Physical Therapy for a daily minimum of 1.5 hours at least 5 out of 7 days, to improve: Mobility, Strengthening, Transfers, Stretching, ROM, Endurance, Ability to manage stairs, Gait, and Balance. Gait Training. Transfer Training. Balance Training. Mobility Training. LE Strengthening. Saf ety Awareness. LE ROM. Patient needs Physical Therapy for a daily minimum of 1.5 hours at least 5 out of 7 days, to improve: Transfers, Balance, Endurance, Gait, Mobility, ROM, and Strengthening. Patien t/Family Education. PHYSICAL EXAM - Gen Alert and awake Lying in bed No apparent distress Oriented to: person, time, and place - Skin No breakdown No abnormalities - Eyes No abnormalities - ENMT No abnormalities - Neck No abnormalities - CVS RRR - Chest No abnormalities - Resp Clear to auscultation - Abd Soft - GI Non distended Deferred - No abnormalities - Ext Mild bilateral lower extremity edema. - MSK 4+/5 weakness in both lower extremities. - Neuro No focal deficits - Psych No abnormalities ASSESSMENT: Pt. is a 65 yo Right-handed white female.On 08/23/2021 she was admitted to [facility] with diagnosis WEAKNES S, FALLS.Her impairment category is Debility 16 - Debility (16).Pre-morbidly, Pt. was independent/mo d-I in Self-Care; and she had good Endurance, Transfers Control, Safety Awareness, and Locomotion.Cur rently, she has deficits of Self-Care, Transfers Control, Endurance, Balance, Locomotion, and Safety AwarenessPt. is now referred to [facility] for acute in-patient rehabilitation in order to maximize patient's functional independence in activities of daily living, strength, ROM, and mobility.- Rehab Goal Patient has realistic goal of being discharged at assistance level 7-Ind to reside at Home with Pt s elf. MDM/PLAN: - Physical Therapy Inability to transfer - to improve, our physical therapists will perform initial evaluation of pt's status upon admission and devise an individualized program for Bed mobility Need for home safety evaluation - to improve, our physical therapists will perform initial evaluatio n of pt's status upon admission and devise an individualized program for Home Evaluation Need in caregiver upon discharge - to improve, our physical therapists will perform initial evaluati on of pt's status upon admission and devise an individualized program for Caregiver Training New precaution - to improve, our physical therapists will perform initial evaluation of pt's status upon admission and devise an individualized program for Patient precaution education Edema - to improve, our physical therapists will perform initial evaluation of pt's status upon admi ssion and devise an individualized program for Elevation Training, and Lymphedema Therapy Poor balance - to improve, our physical therapists will perform initial evaluation of pt's status up on admission and devise an individualized program for Balance Training Poor endurance - to improve, our physical therapists will perform initial evaluation of pt's status upon admission and devise an individualized program for Endurance Training Achieving independence - to improve, our physical therapists will perform initial evaluation of pt's status upon admission and devise an individualized program for Community Reintegration Activities - Occupational Therapy ADL deficits - to improve, our occupation therapists will perform initial evaluation of pt's status upon admission and devise an individualized program for Bathing, Bed mobility, Community Reintegratio n, Cooking, Dressing, Eating, Fine Motor Skills, Grooming, Homemaking, Kitchen Mobility, Laundry, Pat ient Education, Safety Awareness, Splinting - Positioning, Transfers(Toilet, Tub, Shower), and Wheel Chair Management Need for property caretaker - to improve, our occupation therapists will perform initial evaluation of pt's status upon admission and devise an individualized program for Caregiver Training - Other See attached MAR (Medication Administration Record) - Diet Type Continue Regular - Diet - Liquid Texture Continue Regular - Tube Feed Continue N/A - Diet - Solid Texture Continue Regular - Shower allowing shower FUNCTIONAL STATUS: UPDATED AT WEEKLY TEAM CONFERENCE - Bladder Same accident frequency: 7-Ind - No accidents in the past 7 days - Bowel Same accident frequency: 7-Ind - No accidents in the past 7 days - Walking Same score based on distance walked: 0(N/A) Same score based on distance walked: 1(<=50ft) - Wheelchair Same score based on distance traveled: 0(N/A) FUNCTIONAL STATUS: - Self-Care A. Eating Ind B. Grooming sup C. Bathing Adeola D. Dressing - Upper sup E. Dressing - Lower Adeola F. Toileting sup - Sphincter Control G. Bladder control Chicho H. Bowel control Chicho - Transfers Control I. Bed/Chair/Wheelchair Adeola J. Toilet Adeola K. Tub/Shower modA - Locomotion L. Walk/Wheelchair (B) Adeola M. Stairs modA - Communication N. Comprehension (B) Chicho O. Expression (B) Chicho - Social Cognition P. Social Interaction Chicho Q. Problem Solving sup R. Memory sup - Endurance Fair - Balance Fair - Safety Awareness Fair QI SCORES: - Self-Care A. Eating 06-Independent C. Toileting hygiene 03-Partial/moderate assistance B. Oral hygiene 06-Independent E. Shower/bathe self 07-Patient refused F. Upper body dressing 05-Setup or clean-up assistance G. Lower body dressing 03-Partial/moderate assistance H. Putting on/taking off footwear 05-Setup or clean-up assistance - Mobility A. Roll left and right 04-Supervision or touching assistance B. Sit to lying 03-Partial/moderate assistance C. Lying to sitting on side of bed 03-Partial/moderate assistance D. Sit to stand 04-Supervision or touching assistance E. Chair/[id number] transfer 03-Partial/moderate assistance F. Toilet transfer 03-Partial/moderate assistance G. Car transfer 03-Partial/moderate assistance I. Walk 10 feet 03-Partial/moderate assistance J. Walk 50 feet with two turns 88-Not attempted due to medical condition or safety concerns K. Walk 150 feet 88-Not attempted due to medical condition or safety concerns L. Walking 10 feet on uneven surfaces 88-Not attempted due to medical condition or safety concerns M. 1 step (curb) 88-Not attempted due to medical condition or safety concerns N. 4 steps 88-Not attempted due to medical condition or safety concerns O. 12 steps 88-Not attempted due to medical condition or safety concerns P. Picking up object 03-Partial/moderate assistance R. Wheel 50 feet with two turns 09-Not applicable S. Wheel 150 feet 09-Not applicable - Bladder and Bowel Bladder continence 2-Incontinent less than daily Bowel continence 0-Always continent - Endurance Good - Balance Good - Safety Awareness Good CURRENT FUNC. DEFICITS: Mobility and Self-Care SIGNATURE PANEL: (CDT)
[2021-09-28] MEDS: POTASSIUM CL SA 10 MEQ TAB PO SCH (12:51)
[2021-09-28] MEDS: ATORVASTATIN 40 MG TAB PO SCH (19:47)
[2021-09-28] MEDS: SERTRALINE HCL 100 MG TAB PO SCH (19:47)
[2021-09-28] MEDS: MELATONIN 3 MG TABLET PO PRN (19:48)
[2021-09-29] MEDS: lisinopriL 5 MG TAB PO SCH (08:00)
[2021-09-29] MEDS: FUROSEMIDE 20 MG TABLET PO SCH (08:30)
[2021-09-29] MEDS: NICOTINE 21 MG/PAT TD SCH (08:30)
[2021-09-29] MEDS: APIXABAN 5 MG TABLET PO SCH ×2 (08:31→20:32)
[2021-09-29] MEDS: METOPROLOL TAR 25 MG TAB PO SCH ×2 (08:31→20:33)
[2021-09-29] MEDS: POTASSIUM CL SA 10 MEQ TAB PO SCH (08:31)
[2021-09-29] MEDS: CRANBERRY FRUIT EXTRACT 400 MG CAP PO SCH ×2 (08:31→20:33)
--- NOTE | 2021-09-29 09:41 | P.RH.PN ---
Estimated Length of Stay: 13 Expected Discharge Date: 10/03/21 Discharge Disposition Plan: Home Family Support: Yes Prison Goal: Mobility, Transfers, Self Care Vital Signs: Last Vital Signs Temp 96.7 F L 09/29/21 06:58 Pulse 81 09/29/21 08:31 Resp 14 09/29/21 06:58 BP 101/58 L 09/29/21 08:31 Pulse Ox 94 09/29/21 06:58 Laboratory: Laboratory Last Values WBC 5.4 K/uL (4.3-10.9) D 09/28/21 10:25 RBC 4.71 M/uL (3.86-4.86) 09/28/21 10:25 Hgb 13.3 g/dL (12.0-15.0) 09/28/21 10:25 Hct 40.7 % (36.0-45.0) 09/28/21 10:25 MCV 86.5 fL (80-100) 09/28/21 10:25 MCH 28.2 pg (27.0-35.0) 09/28/21 10:25 MCHC 32.7 g/dL (32.0-36.0) 09/28/21 10:25 RDW 16.9 % (12.1-15.2) H 09/28/21 10:25 Plt Count 136 K/uL (152-406) L 09/28/21 10:25 MPV 8.6 fL (7.6-11.3) 09/28/21 10:25 Neutrophils % 71.1 % (41.7-73.7) 09/28/21 10:25 Lymphocytes % 14.5 % (15.3-44.8) L 09/28/21 10:25 Monocytes % 8.4 % (3.3-12.3) 09/28/21 10:25 Eosinophils % 4.8 % (0-4.4) H 09/28/21 10:25 Basophils % 1.2 % (0-1.3) 09/28/21 10:25 Absolute Neutrophils 3.8 K/uL (1.8-8.0) 09/28/21 10:25 Absolute Lymphocytes 0.8 K/uL (0.7-4.9) 09/28/21 10:25 Absolute Monocytes 0.5 K/uL (0.1-1.3) 09/28/21 10:25 Absolute Eosinophils 0.3 K/uL (0-0.5) 09/28/21 10:25 Absolute Basophils 0.1 K/uL (0-0.5) 09/28/21 10:25 PT 17.6 SECONDS (9.5-12.5) H 09/27/21 05:49 INR 1.59 09/27/21 05:49 Sodium 139 mmol/L (136-145) 09/28/21 10:25 Potassium 4.1 mmol/L (3.5-5.1) 09/28/21 10:25 Chloride 104 mmol/L (98-107) 09/28/21 10:25 Carbon Dioxide 30 mmol/L (21-32) 09/28/21 10:25 Anion Gap 9.1 mEq/L (5.0-15.0) 09/28/21 10:25 BUN 15 mg/dL (7-18) 09/28/21 10:25 Creatinine 0.74 mg/dL (0.55-1.3) 09/28/21 10:25 Estimated GFR 79 mL/min (=/>90) L 09/28/21 10:25 Glucose 137 mg/dL (74-106) H 09/28/21 10:25 Calcium 9.2 mg/dL (8.5-10.1) 09/28/21 10:25 Magnesium 2.2 mg/dL (1.8-2.4) 09/28/21 10:25 Albumin 3.5 g/dL (3.4-5.0) 09/28/21 10:25 Prealbumin 13.6 mg/dL (20-40) L 09/28/21 10:25 Urine Color Red (Yellow) 09/21/21 19:10 Urine Appearance Turbid (Clear) 09/21/21 19:10 Urine pH 8.0 (5.0-7.0) H 09/21/21 19:10 Ur Specific [place] 1.025 (1.005-1.030) 09/21/21 19:10 Glucose (UA)(Auto) Negative (Negative) 09/21/21 19:10 Urine Ketones Negative (Negative) 09/21/21 19:10 Urine Blood Negative (Negative) 09/21/21 19:10 Urine Nitrite Positive (Negative) H 09/21/21 19:10 Urine Bilirubin Negative (Negative) 09/21/21 19:10 Urine Urobilinogen 1.0 mg/dL (0.2-1.0) 09/21/21 19:10 Ur Leukocyte Esterase 3+ (Negative) H 09/21/21 19:10 Urine RBC <5 /HPF (NONE SEEN) 09/21/21 19:10 Urine WBC 5-10 /HPF (<5) H 09/21/21 19:10 Ur Squamous Epith Cells 5-10 /HPF (NONE SEEN) H 09/21/21 19:10 Triple Phos Crystals Moderate (NONE SEEN) H 09/21/21 19:10 Amorphous Sediment 4+ /HPF (NONE SEEN) H 09/21/21 19:10 Urine Bacteria Loaded /HPF (<20) H 09/21/21 19:10 Urine Mucus 3+ /HPF (NONE SEEN) H 09/21/21 19:10 Urine Yeast Many (NONE SEEN) 09/21/21 19:10 Urine Culture Reflexed Reflexed 09/21/21 19:10 Urine Total Protein 2+ (Negative) H 09/21/21 19:10 SARS-CoV-2 Rap RNA(RT-PCR) Negative (NEGATIVE) 09/27/21 05:00 Weight: 137 lb Wound Present: No Closed Surgical Incision Present: No Negative Pressure Wound Therapy Present: No Physician Update: SBA with bed mobility, supervision with sit to stand, CGA for transfers, 150' with rolling walker, 250' with wheelchair. SBA with grooming upper body dressing, Min assistance with lower body dressing. She has fear of falling poor awareness. Requires moderate assistance with cognition. She lives along and her daughter checks on her. May require assisted living. Comment: No skin breakdown. Functional Improvement: Patient presents w/ apprehension toward therapy, however once motivated through VC or TC, patient physically completes task well. Patient presents w/ cognition issues, however these have been ongoing for quite some time. Summary: Patient's care plan and usp goals have been reviewed and revised as necessary. Please see the Rehabilitation Signature page for all necessary signatures.
[2021-09-29] MEDS: SERTRALINE HCL 100 MG TAB PO SCH (20:32)
[2021-09-29] MEDS: ATORVASTATIN 40 MG TAB PO SCH (20:33)
[2021-09-29] MEDS: MELATONIN 3 MG TABLET PO PRN (20:34)
[2021-09-30] MEDS: lisinopriL 5 MG TAB PO SCH ×2 (08:00→11:06)
[2021-09-30] MEDS: NICOTINE 21 MG/PAT TD SCH (08:01)
[2021-09-30] MEDS: CRANBERRY FRUIT EXTRACT 400 MG CAP PO SCH ×2 (08:02→19:40)
[2021-09-30] MEDS: METOPROLOL TAR 25 MG TAB PO SCH ×2 (08:02→19:40)
[2021-09-30] MEDS: POTASSIUM CL SA 10 MEQ TAB PO SCH (08:02)
[2021-09-30] MEDS: FUROSEMIDE 20 MG TABLET PO SCH (08:03)
[2021-09-30] MEDS: APIXABAN 5 MG TABLET PO SCH ×2 (08:04→19:40)
[2021-09-30] MEDS: SERTRALINE HCL 100 MG TAB PO SCH (19:40)
[2021-09-30] MEDS: ATORVASTATIN 40 MG TAB PO SCH (19:40)
[2021-10-01] MEDS: lisinopriL 5 MG TAB PO SCH ×2 (08:00→11:51)
[2021-10-01] MEDS: NICOTINE 21 MG/PAT TD SCH (08:03)
[2021-10-01] MEDS: CRANBERRY FRUIT EXTRACT 400 MG CAP PO SCH ×2 (08:05→19:07)
[2021-10-01] MEDS: FUROSEMIDE 20 MG TABLET PO SCH (08:05)
[2021-10-01] MEDS: METOPROLOL TAR 25 MG TAB PO SCH ×2 (08:06→19:08)
[2021-10-01] MEDS: POTASSIUM CL SA 10 MEQ TAB PO SCH (08:06)
[2021-10-01] MEDS: APIXABAN 5 MG TABLET PO SCH ×2 (08:07→19:08)
[2021-10-01] MEDS: SERTRALINE HCL 100 MG TAB PO SCH (19:08)
[2021-10-01] MEDS: ATORVASTATIN 40 MG TAB PO SCH (19:08)
[2021-10-02] MEDS: APIXABAN 5 MG TABLET PO SCH ×2 (07:37→20:02)
[2021-10-02] MEDS: POTASSIUM CL SA 10 MEQ TAB PO SCH (07:37)
[2021-10-02] MEDS: CRANBERRY FRUIT EXTRACT 400 MG CAP PO SCH ×2 (07:37→20:02)
[2021-10-02] MEDS: lisinopriL 5 MG TAB PO SCH (07:58)
[2021-10-02] MEDS: METOPROLOL TAR 25 MG TAB PO SCH ×2 (07:59→20:02)
[2021-10-02] MEDS: FUROSEMIDE 20 MG TABLET PO SCH (07:59)
[2021-10-02] MEDS: NICOTINE 21 MG/PAT TD SCH (12:15)
[2021-10-02] MEDS: SERTRALINE HCL 100 MG TAB PO SCH (20:02)
[2021-10-02] MEDS: ATORVASTATIN 40 MG TAB PO SCH (20:02)
--- NOTE | 2021-10-02 22:04 | R.PN ---
PROGRESS NOTES ENCOUNTER DATE AND TIME: 10/02/2021 21:59 (CDT) NAME GUIDO OHARA DATE OF : 1955 DATE OF ADMISSION: 09/20/2021 12:05 (CDT) WEAKNESS, FALLSCHIEF COMPLAINT: Debility, diffuse weakness and multiple falls. SUBJECTIVE: Pt denied any depression. Pt denied any Shortness of Breath. CBC with differentrial is essentially normal except Plt is mildly low at 136. BMP is normal except gl ucose is 137 and prealbumin 13.6. Covid-19 test is negative. UA suggests a UTI one week ago. However, no clear symptoms. On cranberry 400 mg bid. On Eliquis 5 mg bid and coumadin was D/Fernando per patient request. Nicotine patch 21 mg daily. Ambulated 320' with standby assistance using a rolling walker. Self-propelled wheelchair 250' with vázquez pervision. She is asking to smoke several times per day. She has a 21 mg nicotine patch. VITAL SIGNS Temperature: 98.6 F SBP/DBP: 141/58 Pulse: 94 Resp: 15 MEDICATION ALLERGIES: No Known Drug Allergies (NKDA) ENVIRONMENTAL ALLERGIES: - Substance Allergies None Known - Other Allergies None Known NURSING: - Shower allowing shower ACTIVITIES OOB only with supervision THERAPIES: - Dietary and Nutrition Adequate Nutrition. Nutritional Education. Nutritional Supplements. Evaluate and Treat. - Occupational Therapy Cognitive Retraining. Patient needs Occupational Therapy for a daily minimum of 1.5 hours at least 5 out of 7 days, to improve Activities of Daily Living, including: Eating, Grooming, Bathing, Dressing, Toileting, Toilet Transfers, Community Reintegration, Higher functional activities, Adaptive Equipme nt, Splinting, Household Tasks, and Other activities as determined. Visual Perceptual Training. Evalu ate and Treat. ADL Training. Transfer Training. Safety Awareness. Patient needs Occupational Therapy for a daily minimum of 1.5 hours at least 5 out of 7 days, to improve Activities of Daily Living, inc luding: Dressing, Toilet Transfers, Adaptive Equipment, Household Tasks, and Other activities as dete rmined. - Speech Therapy Cognitive Training. Expressive Language Skills. Patient needs Speech Therapy for a daily minimum of 1 .5 hours at least 5 out of 7 days, to improve: Swallowing, Cognition, Language Skills, and Compensato ry Strategies. Receptive Language Skills. Speech Intelligibility Training. Evaluate and Treat. Patien t needs Speech Therapy for a daily minimum of 1 hours at least 5 out of 7 days, to improve: Swallowi ng, Cognition, Language Skills, and Compensatory Strategies. Memory Strategies. - Physical Therapy Patient needs Physical Therapy for a daily minimum of 1.5 hours at least 5 out of 7 days, to improve: Mobility, Strengthening, Transfers, Stretching, ROM, Endurance, Ability to manage stairs, Gait, and Balance. Gait Training. Transfer Training. Balance Training. Mobility Training. LE Strengthening. Saf ety Awareness. LE ROM. Patient needs Physical Therapy for a daily minimum of 1.5 hours at least 5 out of 7 days, to improve: Transfers, Balance, Endurance, Gait, Mobility, ROM, and Strengthening. Patien t/Family Education. PHYSICAL EXAM - Gen Alert and awake Lying in bed No apparent distress Oriented to: person, time, and place - Skin No breakdown No abnormalities - Eyes No abnormalities - ENMT No abnormalities - Neck No abnormalities - CVS RRR - Chest No abnormalities - Resp Clear to auscultation - Abd Soft - GI Non distended Deferred - No abnormalities - Ext Mild bilateral lower extremity edema. - MSK 4+/5 weakness in both lower extremities. - Neuro No focal deficits - Psych No abnormalities ASSESSMENT: Pt. is a 65 yo Right-handed white female.On 08/23/2021 she was admitted to [facility] with diagnosis WEAKNES S, FALLS.Her impairment category is Debility 16 - Debility (16).Pre-morbidly, Pt. was independent/mo d-I in Self-Care; and she had good Endurance, Transfers Control, Safety Awareness, and Locomotion.Cur rently, she has deficits of Self-Care, Transfers Control, Endurance, Balance, Locomotion, and Safety AwarenessPt. is now referred to [facility] for acute in-patient rehabilitation in order to maximize patient's functional independence in activities of daily living, strength, ROM, and mobility.- Rehab Goal Patient has realistic goal of being discharged at assistance level 7-Ind to reside at Home with Pt s elf. MDM/PLAN: - Physical Therapy Inability to transfer - to improve, our physical therapists will perform initial evaluation of pt's status upon admission and devise an individualized program for Bed mobility Need for home safety evaluation - to improve, our physical therapists will perform initial evaluatio n of pt's status upon admission and devise an individualized program for Home Evaluation Need in caregiver upon discharge - to improve, our physical therapists will perform initial evaluati on of pt's status upon admission and devise an individualized program for Caregiver Training New precaution - to improve, our physical therapists will perform initial evaluation of pt's status upon admission and devise an individualized program for Patient precaution education Edema - to improve, our physical therapists will perform initial evaluation of pt's status upon admi ssion and devise an individualized program for Elevation Training, and Lymphedema Therapy Poor balance - to improve, our physical therapists will perform initial evaluation of pt's status up on admission and devise an individualized program for Balance Training Poor endurance - to improve, our physical therapists will perform initial evaluation of pt's status upon admission and devise an individualized program for Endurance Training Achieving independence - to improve, our physical therapists will perform initial evaluation of pt's status upon admission and devise an individualized program for Community Reintegration Activities - Occupational Therapy ADL deficits - to improve, our occupation therapists will perform initial evaluation of pt's status upon admission and devise an individualized program for Bathing, Bed mobility, Community Reintegratio n, Cooking, Dressing, Eating, Fine Motor Skills, Grooming, Homemaking, Kitchen Mobility, Laundry, Pat ient Education, Safety Awareness, Splinting - Positioning, Transfers(Toilet, Tub, Shower), and Wheel Chair Management Need for career center director - to improve, our occupation therapists will perform initial evaluation of pt's status upon admission and devise an individualized program for Caregiver Training - Other See attached MAR (Medication Administration Record) - Diet Type Continue Regular - Diet - Liquid Texture Continue Regular - Tube Feed Continue N/A - Diet - Solid Texture Continue Regular - Shower allowing shower FUNCTIONAL STATUS: UPDATED AT WEEKLY TEAM CONFERENCE - Bladder Same accident frequency: 7-Ind - No accidents in the past 7 days - Bowel Same accident frequency: 7-Ind - No accidents in the past 7 days - Walking Same score based on distance walked: 0(N/A) Same score based on distance walked: 1(<=50ft) - Wheelchair Same score based on distance traveled: 0(N/A) FUNCTIONAL STATUS: - Self-Care A. Eating Ind B. Grooming sup C. Bathing Adeola D. Dressing - Upper sup E. Dressing - Lower Aedola F. Toileting sup - Sphincter Control G. Bladder control Chicho H. Bowel control Chicho - Transfers Control I. Bed/Chair/Wheelchair Adeola J. Toilet Adeola K. Tub/Shower modA - Locomotion L. Walk/Wheelchair (B) Adeola M. Stairs modA - Communication N. Comprehension (B) Chicho O. Expression (B) Chicho - Social Cognition P. Social Interaction Chicho Q. Problem Solving sup R. Memory sup - Endurance Fair - Balance Fair - Safety Awareness Fair QI SCORES: - Self-Care A. Eating 06-Independent C. Toileting hygiene 03-Partial/moderate assistance B. Oral hygiene 06-Independent E. Shower/bathe self 07-Patient refused F. Upper body dressing 05-Setup or clean-up assistance G. Lower body dressing 03-Partial/moderate assistance H. Putting on/taking off footwear 05-Setup or clean-up assistance - Mobility A. Roll left and right 04-Supervision or touching assistance B. Sit to lying 03-Partial/moderate assistance C. Lying to sitting on side of bed 03-Partial/moderate assistance D. Sit to stand 04-Supervision or touching assistance E. Chair/[id number] transfer 03-Partial/moderate assistance F. Toilet transfer 03-Partial/moderate assistance G. Car transfer 03-Partial/moderate assistance I. Walk 10 feet 03-Partial/moderate assistance J. Walk 50 feet with two turns 88-Not attempted due to medical condition or safety concerns K. Walk 150 feet 88-Not attempted due to medical condition or safety concerns L. Walking 10 feet on uneven surfaces 88-Not attempted due to medical condition or safety concerns M. 1 step (curb) 88-Not attempted due to medical condition or safety concerns N. 4 steps 88-Not attempted due to medical condition or safety concerns O. 12 steps 88-Not attempted due to medical condition or safety concerns P. Picking up object 03-Partial/moderate assistance R. Wheel 50 feet with two turns 09-Not applicable S. Wheel 150 feet 09-Not applicable - Bladder and Bowel Bladder continence 2-Incontinent less than daily Bowel continence 0-Always continent - Endurance Good - Balance Good - Safety Awareness Good CURRENT FUNC. DEFICITS: Mobility and Self-Care SIGNATURE PANEL: (CDT)
[2021-10-03 05:09] VITALS: O2SAT 96
[2021-10-03 07:48] VITALS: BP 111/58; TEMP 97.5
[2021-10-03] MEDS: lisinopriL 5 MG TAB PO SCH ×2 (08:00→09:01)
[2021-10-03] MEDS: CRANBERRY FRUIT EXTRACT 400 MG CAP PO SCH (08:33)
[2021-10-03] MEDS: FUROSEMIDE 20 MG TABLET PO SCH (08:33)
[2021-10-03] MEDS: NICOTINE 21 MG/PAT TD SCH (08:33)
[2021-10-03] MEDS: METOPROLOL TAR 25 MG TAB PO SCH (08:34)
[2021-10-03] MEDS: APIXABAN 5 MG TABLET PO SCH (08:34)
[2021-10-03] MEDS: POTASSIUM CL SA 10 MEQ TAB PO SCH (08:40)
--- NOTE | 2021-10-03 20:06 | R.PN ---
PROGRESS NOTES ENCOUNTER DATE AND TIME: 10/03/2021 20:03 (CDT) NAME GUIDO OHARA DATE OF : 1955 DATE OF ADMISSION: 09/20/2021 12:05 (CDT) WEAKNESS, FALLSCHIEF COMPLAINT: Debility, diffuse weakness and multiple falls. SUBJECTIVE: Pt denied any depression. Pt denied any Shortness of Breath. CBC with differentrial is essentially normal except Plt is mildly low at 136. BMP is normal except gl ucose is 137 and prealbumin 13.6. Covid-19 test is negative. UA suggests a UTI one week ago. However, no clear symptoms. On cranberry 400 mg bid. On Eliquis 5 mg bid and coumadin was D/Fernando per patient request. Nicotine patch 21 mg daily. Ambulated 60' with standby assistance using a rolling walker. Self-propelled wheelchair 250' with sup ervision. She is asking to smoke several times per day. She has a 21 mg nicotine patch. VITAL SIGNS Temperature: 97.5 F SBP/DBP: 111/58 Pulse: 81 Resp: 16 MEDICATION ALLERGIES: No Known Drug Allergies (NKDA) ENVIRONMENTAL ALLERGIES: - Substance Allergies None Known - Other Allergies None Known NURSING: - Shower allowing shower ACTIVITIES OOB only with supervision THERAPIES: - Dietary and Nutrition Adequate Nutrition. Nutritional Education. Nutritional Supplements. Evaluate and Treat. - Occupational Therapy Cognitive Retraining. Patient needs Occupational Therapy for a daily minimum of 1.5 hours at least 5 out of 7 days, to improve Activities of Daily Living, including: Eating, Grooming, Bathing, Dressing, Toileting, Toilet Transfers, Community Reintegration, Higher functional activities, Adaptive Equipme nt, Splinting, Household Tasks, and Other activities as determined. Visual Perceptual Training. Evalu ate and Treat. ADL Training. Transfer Training. Safety Awareness. Patient needs Occupational Therapy for a daily minimum of 1.5 hours at least 5 out of 7 days, to improve Activities of Daily Living, inc luding: Dressing, Toilet Transfers, Adaptive Equipment, Household Tasks, and Other activities as dete rmined. - Speech Therapy Cognitive Training. Expressive Language Skills. Patient needs Speech Therapy for a daily minimum of 1 .5 hours at least 5 out of 7 days, to improve: Swallowing, Cognition, Language Skills, and Compensato ry Strategies. Receptive Language Skills. Speech Intelligibility Training. Evaluate and Treat. Patien t needs Speech Therapy for a daily minimum of 1 hours at least 5 out of 7 days, to improve: Swallowi ng, Cognition, Language Skills, and Compensatory Strategies. Memory Strategies. - Physical Therapy Patient needs Physical Therapy for a daily minimum of 1.5 hours at least 5 out of 7 days, to improve: Mobility, Strengthening, Transfers, Stretching, ROM, Endurance, Ability to manage stairs, Gait, and Balance. Gait Training. Transfer Training. Balance Training. Mobility Training. LE Strengthening. Saf ety Awareness. LE ROM. Patient needs Physical Therapy for a daily minimum of 1.5 hours at least 5 out of 7 days, to improve: Transfers, Balance, Endurance, Gait, Mobility, ROM, and Strengthening. Patien t/Family Education. PHYSICAL EXAM - Gen Alert and awake Lying in bed No apparent distress Oriented to: person, time, and place - Skin No breakdown No abnormalities - Eyes No abnormalities - ENMT No abnormalities - Neck No abnormalities - CVS RRR - Chest No abnormalities - Resp Clear to auscultation - Abd Soft - GI Non distended Deferred - No abnormalities - Ext Mild bilateral lower extremity edema. - MSK 4+/5 weakness in both lower extremities. - Neuro No focal deficits - Psych No abnormalities ASSESSMENT: Pt. is a 65 yo Right-handed white female.On 08/23/2021 she was admitted to [facility] with diagnosis WEAKNES S, FALLS.Her impairment category is Debility 16 - Debility (16).Pre-morbidly, Pt. was independent/mo d-I in Self-Care; and she had good Endurance, Transfers Control, Safety Awareness, and Locomotion.Cur rently, she has deficits of Self-Care, Transfers Control, Endurance, Balance, Locomotion, and Safety AwarenessPt. is now referred to [facility] for acute in-patient rehabilitation in order to maximize patient's functional independence in activities of daily living, strength, ROM, and mobility.- Rehab Goal Patient has realistic goal of being discharged at assistance level 7-Ind to reside at Home with Pt s elf. MDM/PLAN: - Physical Therapy Inability to transfer - to improve, our physical therapists will perform initial evaluation of pt's status upon admission and devise an individualized program for Bed mobility Need for home safety evaluation - to improve, our physical therapists will perform initial evaluatio n of pt's status upon admission and devise an individualized program for Home Evaluation Need in caregiver upon discharge - to improve, our physical therapists will perform initial evaluati on of pt's status upon admission and devise an individualized program for Caregiver Training New precaution - to improve, our physical therapists will perform initial evaluation of pt's status upon admission and devise an individualized program for Patient precaution education Edema - to improve, our physical therapists will perform initial evaluation of pt's status upon admi ssion and devise an individualized program for Elevation Training, and Lymphedema Therapy Poor balance - to improve, our physical therapists will perform initial evaluation of pt's status up on admission and devise an individualized program for Balance Training Poor endurance - to improve, our physical therapists will perform initial evaluation of pt's status upon admission and devise an individualized program for Endurance Training Achieving independence - to improve, our physical therapists will perform initial evaluation of pt's status upon admission and devise an individualized program for Community Reintegration Activities - Occupational Therapy ADL deficits - to improve, our occupation therapists will perform initial evaluation of pt's status upon admission and devise an individualized program for Bathing, Bed mobility, Community Reintegratio n, Cooking, Dressing, Eating, Fine Motor Skills, Grooming, Homemaking, Kitchen Mobility, Laundry, Pat ient Education, Safety Awareness, Splinting - Positioning, Transfers(Toilet, Tub, Shower), and Wheel Chair Management Need for geriatric personal care aide - to improve, our occupation therapists will perform initial evaluation of pt's status upon admission and devise an individualized program for Caregiver Training - Other See attached MAR (Medication Administration Record) - Diet Type Continue Regular - Diet - Liquid Texture Continue Regular - Tube Feed Continue N/A - Diet - Solid Texture Continue Regular - Shower allowing shower FUNCTIONAL STATUS: UPDATED AT WEEKLY TEAM CONFERENCE - Bladder Same accident frequency: 7-Ind - No accidents in the past 7 days - Bowel Same accident frequency: 7-Ind - No accidents in the past 7 days - Walking Same score based on distance walked: 0(N/A) Same score based on distance walked: 1(<=50ft) - Wheelchair Same score based on distance traveled: 0(N/A) FUNCTIONAL STATUS: - Self-Care A. Eating Ind B. Grooming sup C. Bathing Adeola D. Dressing - Upper sup E. Dressing - Lower Adeola F. Toileting sup - Sphincter Control G. Bladder control Chicho H. Bowel control Chicho - Transfers Control I. Bed/Chair/Wheelchair Adeola J. Toilet Adeola K. Tub/Shower modA - Locomotion L. Walk/Wheelchair (B) Adeola M. Stairs modA - Communication N. Comprehension (B) Chicho O. Expression (B) Chicho - Social Cognition P. Social Interaction Chicho Q. Problem Solving sup R. Memory sup - Endurance Fair - Balance Fair - Safety Awareness Fair QI SCORES: - Self-Care A. Eating 06-Independent C. Toileting hygiene 03-Partial/moderate assistance B. Oral hygiene 06-Independent E. Shower/bathe self 07-Patient refused F. Upper body dressing 05-Setup or clean-up assistance G. Lower body dressing 03-Partial/moderate assistance H. Putting on/taking off footwear 05-Setup or clean-up assistance - Mobility A. Roll left and right 04-Supervision or touching assistance B. Sit to lying 03-Partial/moderate assistance C. Lying to sitting on side of bed 03-Partial/moderate assistance D. Sit to stand 04-Supervision or touching assistance E. Chair/[id number] transfer 03-Partial/moderate assistance F. Toilet transfer 03-Partial/moderate assistance G. Car transfer 03-Partial/moderate assistance I. Walk 10 feet 03-Partial/moderate assistance J. Walk 50 feet with two turns 88-Not attempted due to medical condition or safety concerns K. Walk 150 feet 88-Not attempted due to medical condition or safety concerns L. Walking 10 feet on uneven surfaces 88-Not attempted due to medical condition or safety concerns M. 1 step (curb) 88-Not attempted due to medical condition or safety concerns N. 4 steps 88-Not attempted due to medical condition or safety concerns O. 12 steps 88-Not attempted due to medical condition or safety concerns P. Picking up object 03-Partial/moderate assistance R. Wheel 50 feet with two turns 09-Not applicable S. Wheel 150 feet 09-Not applicable - Bladder and Bowel Bladder continence 2-Incontinent less than daily Bowel continence 0-Always continent - Endurance Good - Balance Good - Safety Awareness Good CURRENT FUNC. DEFICITS: Mobility and Self-Care SIGNATURE PANEL: (CDT)
== END 2021-10-03 16:10 | disposition home health service (06) | DRG 948 ==
LOC: 5TH 09-20 12:05
PROVIDERS: ADMIT Psychiatry & Neurology Neurology with Special Qualifications in Child Neurology; ATTEND Psychiatry & Neurology Neurology with Special Qualifications in Child Neurology
DX: R53.1 Weakness (principal); I69.351 Hemiplegia and hemiparesis following cerebral infarction affecting right dominant side; Z91.81 History of falling; R53.81 Other malaise; I11.0 Hypertensive heart disease with heart failure; I50.9 Heart failure, unspecified; F32.A Depression, unspecified; I48.91 Unspecified atrial fibrillation; F17.210 Nicotine dependence, cigarettes, uncomplicated; Z86.16 Personal history of COVID-19; Z95.2 Presence of prosthetic heart valve; Z95.810 Presence of automatic (implantable) cardiac defibrillator; Z20.822 Contact with and (suspected) exposure to COVID-19
CPT/HCPCS: 36415; 80048; 81001; 82040; 83735; 84134; 85025; 85610; 87077; 87086; 87088; 87186; 92507; 92523; 97110; 97116; 97129; 97130; 97161; 97530; 97542; U0003

== ENCOUNTER 2021-10-31 20:16 | Inpatient (IN) | payer OTHER ==
--- OUTSIDE RECORDS SUMMARY | 2021-10-31 20:20 | XMS REPORT | Continuity of Care Document ---
:1955 Author Organization [facility] t Address [address] [place] [address] Care Team Providers Name Role Phone Anna DEL VALLE Primary Care Physician [id number] Attending Clinician Unavailable FAYE AGARWAL Attending Clinician Unavailable Ricardo Attending Clinician Unavailable Janelle Gomez RN Attending Clinician Unavailable Marcio DEL VALLE, O. Attending Clinician Oriana Attending Clinician Unavailable Shayne DEL VALLE Attending Clinician Satinder DEL VALLE S Attending Clinician [id number] Admitting Clinician Unavailable FAYE AGARWAL Admitting Clinician Unavailable MARCIO Admitting Clinician Unavailable Payers Payer Name Policy Type Policy Number Effective Date Expiration Date S lila [facility] [id number] MEDICARE B [id number] 1999 RAILROAD 00:00:00 Problems Condition Condition Condition Status Onset Resolution Last Treating Co mments Source Name Details Category Date Date Treatment Clinician Date Coronary Coronary Disease Active Metho di artery artery 8-03 st disease disease 00:00: Hospita (CAD) (CAD) 00 l excluded excluded Syncope Syncope Disease Active Methodi and and 7-19 st collapse collapse 00:00: Hospit a 00 l A-fib A-fib Disease Active 2018-06 Methodi 2- st 00:00: Hospita 00 l Status Status Disease Active 2018-06 Methodi post post 2-26 st laparoscop laparoscop 00:00: Ho spita ic ic 00 l cholecyste cholecyste ctomy ctomy Calculus Calculus Disease Active 2018-06 Metho di of of 2-17 st gallbladde gallbladde 00:00: Ho spita r without [...] Paroxysmal Disease Active M ethodi atrial atrial 08-08 st fibrillati fibrillati 00:00: Ho spita on on 00 l Shortness Shortness Disease Active Met hodi of breath of breath 07-25 st 00:00: Hospita 00 l 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 Allergies, Adverse Reactions, Alerts Allergy Allergy Status Severity Reaction(s) Onset Inactive Treating Comm ents Source Name Type Date Date Clinician Levoflox Propensi Active Itching Metho di acin ty to 01-10 st adverse 00:00: Hospita reaction 00 l s to drug NO KNOWN Drug Active Univers ALLERGIE Class ity of S [facility] Family History Family Member Diagnosis Comments Start Date Stop Date Source Natural father Stroke [facility] Natural mother [facility] Social History Social Habit Start Date Stop Date Quantity Comments Source Exposure to Not sure University SARS-CoV-2 (event) [facility] History of tobacco Cigarette Smoker Nondenominational use Hospital History [facility] Nondenominational Alcohol Std Drinks Hospit al History [facility] Nondenominational Alcohol Binge Hospital History [facility] Nondenominational Alcohol Comment Hospital Alcohol intake 2021-01-11 2021-01-11 Current Nondenominational 00:00:00 00:00:00 non-drinker of Hospital alcohol (finding) History SDPR 2019-06-04 2019-06-04 1 Nondenominational Alcohol Frequency 00:00:00 00:00:00 Hospita l Cigarettes smoked 2018-07-25 2018-07-[address] current (pack per 00:00:00 00:00:00 Hospita l day) - Reported Cigarette 2018-07-25 2018-07-25 Nondenominational pack-years 00:00:00 00:00:00 Hospital Tobacco use and 2018-07-25 2018-07-25 Smokeless Nondenominational exposure 00:00:00 00:00:00 tobacco non-user Hospital Sex Ass[birth year] At [birth year] Nondenominational 00:00:00 00:00:00 Hospital Smoking Status Start Date Stop Date Source Unknown if ever smoked [facility] Smokes tobacco daily 2018-07-25 00:00:00 [facility] Hospital Medications Ordered Filled Start Stop Current Ordering Indication Dosage Frequency Signature Comments Components Source Medication Medication Date Date Medication? Clinician (SIG) Name Name nicotine 2020- No [id number] 1{patch QD Place 1 Methodi (NICODERM 18 09-18 } patch on st CQ) 21 00:00: 04:59 the skin Hospit a mg/24 hr 00 :00 daily for l 30 days. enoxaparin 2020- No 60mg Inject 60 M ethodi (LOVENOX) 8-17 08-[address] 60 mg/0.6 16:37: [...] Hospit a 56 l ipratropium 2020- No [id number] .5mg Q6H Take 2.5 Methodi (ATROVENT) 8-17 09-17 mL (0.[address] 0.02 % 00:00: 04:59 total) by Hospi ta nebulizer 00 :00 nebulizati l solution on every 6 (six) hours as needed for wheezing or shortness of breath for up to 30 days. ondansetron 2020- No [id number] 4mg Q4H Take 1 Methodi (ZOFRAN) 4 8-17 09-17 tablet (4 st MG tablet 00:00: 04:59 mg total) Ho spita 00 :00 by mouth l every 4 (four) hours as needed for nausea or vomiting for up to 30 days. ranolazine 2020- No [id number] 500mg Q.5D Take 1 Methodi (RANEXA) 01-[address] 500 MG 12 00:00: 04:59 (500 mg Hosp debora hr ER 00 :00 total) by l tablet mouth 2 (two) times a day for 30 days. rosuvastati 2020- No [id number] 20mg QD Take 1 Methodi n (CRESTOR) 01-24 tablet (20 s t 20 mg 00:00: 04:59 mg total) Hospit a tablet 00 :00 by mouth l nightly for 30 days. HYDROcodone 2020- No [id number] 1{tbl} Q4H Take 1 Methodi -acetaminop 01-24 [...] RTU , Starting Sat12/26/20 at 0815 heparin 2020-0 Yes 12U/kg/ 12 Univers 25,000 7-19 h Units/kg/h ity of Units/250 13:12: r [...] Yes 3mL 3 mL, Unive rs -albuteroL - Inhalation ity of (DUONEB) 13:00: , QID, [place] 0.5 mg-3 00 First dose Medic al mg(2.5 mg on Mon Branch base)/3 mL 12/26/20 at nebulizer 0800, solution 3 Until mL Discontinu ed, Routine metoprolol Yes 50mg Take 50 mg U nivers succinate 7-19 by mouth ity of XL 50 mg 24 12:27: [place]. [place] hr tablet 20 Medical Branch potassium Yes 10meq Take 10 Univ ers chloride 7-19 mEq by ity of (KLOR-CON 12:27: mouth [place] 10) 10 mEq 20 daily. Medical CR tablet Branch lisinopriL Yes 5mg Take 5 mg Un jeff 5 mg tablet 12-26 by mouth ity of 12:27: daily. [address] furosemide Yes 40mg Take 40 mg U nivers 40 mg 12-26 by mouth ity of tablet 12:27: daily. [address] SERTraline Yes 50mg Take 50 mg U nivers 50 mg 12-26 by mouth ity of tablet 12:27: daily. [address] warfarin 3 Yes 3mg Take 3 mg Un jeff mg tablet 12-26 by mouth. ity o f 12:27: 3mg one [place] day and Medical then 4mg Branch the next HEPARIN 2020- No 4000U 4,000 Univers SODIUM 12-26 Units, IV ity of (PORCINE) 12:15: 12:15 Push, [place] 1,000 00 :00 ONCE, 1 Medical UNIT/ML dose, [facility] BOLUS ACS 12/26/20 at ORDER SET 0715, BIENVENIDO heparin Yes 3000U FOR Univers (1,000 12-26 REBOLUSING ity of unit/mL, 10 12:12: , Starting [place] mL vial) 08 [facility] Medical for 12/26/20 at [place] Rebolusing 0712, Until Discontinu ed, Routine
Dosing based on aPTT testing parameters (refer to continuous heparin drip order).
metoprolol 2020- No 50mg 50 mg, Univ ers tartrate 12-26 Oral, ity of (LOPRESSOR) 10:15: 09:08 [place]CE[place] 1 [place] 50 00 :00 dose, [facility] Medic al mg 12/26/20 at [place] 0515, Routine methylpredn 2020- No 125mg 125 mg, IV Univers isolone sod 12-26 Piggyback, i ty of succ 09:30: 08:34 ONCE, 1 [place] (SOLU-MEDRO 00 :00 dose, [facility] Med ical L) 12/26/20 at [place] injection 0430, STAT 125 mg naloxone 2018-06 [...] Source Systolic blood 2020-12-26 14:00:00 109 mm[Hg] Univer [facility] Diastolic blood 2020-12-26 14:00:00 72 mm[Hg] [facility] Heart rate 2020-12-26 14:00:00 102 /min [facility] Respiratory rate 2020-12-26 14:00:00 14 /min [facility] Oxygen saturation in 2020-12-26 14:00:00 96 /min [facility] Arterial blood by [facility] Pulse oximetry Branch Body temperature 2020-12-26 08:10:00 36.83 Noris [facility] Body weight 2020-12-26 08:10:00 72.576 kg [facility] Systolic blood 2021-01-24 20:52:38 119 mm[Hg] Method ist Hospital pressure Diastolic blood 2021-01-24 20:52:38 78 mm[Hg] [facility] Hospital pressure Heart rate 2021-01-24 20:52:38 132 /min [facility] Body temperature 2021-01-24 20:52:38 36.28 Noris [facility] Respiratory rate 2021-01-24 20:52:38 19 /min [facility] Oxygen saturation in 2021-01-24 20:52:38 96 /min [facility] Arterial blood by Pulse oximetry Body weight 2021-01-18 22:00:00 66.877 kg [facility] BMI 2021-01-18 22:00:00 23.09 kg/m2 [facility] Body height 2020-12-26 17:12:00 170.2 cm [facility] Procedures Procedure Date / Time Performing Clinician Source Performed POC GLUCOSE 2021-01-24 12:45:00 [facility] PROTHROMBIN TIME WITH INR 2021-01-24 11:22:00 [facility] PROTHROMBIN TIME WITH INR 2021-01-22 11:04:00 [facility] URINE CULTURE 2021-01-20 23:52:00 [facility] spital URINALYSIS SCREEN AND 2021-01-20 23:12:00 [facility] MICROSCOPY, WITH REFLEX TO CULTURE PROTHROMBIN TIME WITH INR 2021-01-20 11:26:00 [facility] PROTHROMBIN TIME WITH INR 2021-01-18 11:12:00 [facility] PROTHROMBIN TIME WITH INR 2021-01-16 10:59:00 [facility] PROTHROMBIN TIME WITH INR 2021-01-15 10:11:00 [facility] PROTHROMBIN TIME WITH INR 2021-01-13 10:47:00 [facility] PROTHROMBIN TIME WITH INR 2021-01-12 10:16:00 [facility] BASIC METABOLIC PANEL 2021-01-11 09:48:00 [facility] HC COMPLETE BLD COUNT 2021-01-11 09:48:00 [facility] W/AUTO DIFF PROTHROMBIN TIME WITH INR 2021-01-11 09:48:00 [facility] VANCOMYCIN LEVEL, TROUGH 2021-01-11 09:48:00 [facility] C-REACTIVE PROTEIN 2021-01-11 09:48:00 [facility] PROCALCITONIN 2021-01-11 09:48:00 [facility] SEDIMENTATION RATE 2021-01-11 09:48:00 [facility] ESTIMATED GFR 2021-01-11 09:48:00 [facility] BASIC METABOLIC PANEL 2021-01-09 12:29:00 [facility] ESTIMATED GFR 2021-01-09 12:29:00 [facility] HC COMPLETE BLD COUNT 2021-01-09 11:20:00 [facility] W/AUTO DIFF PROTHROMBIN TIME WITH INR 2021-01-09 10:57:00 [facility] VANCOMYCIN LEVEL, TROUGH 2021-01-08 09:32:00 [facility] PROTHROMBIN TIME WITH INR 2021-01-08 09:32:00 [facility] BASIC METABOLIC PANEL 2021-01-08 09:32:00 [facility] ESTIMATED GFR 2021-01-08 09:32:00 [facility] HC COMPLETE BLD COUNT 2021-01-08 09:20:00 [facility] W/AUTO DIFF ECG 12-LEAD 2021-01-07 01:21:25 [facility] BASIC METABOLIC PANEL 2021-01-06 10:33:00 [facility] ESTIMATED GFR 2021-01-06 10:33:00 [facility] CBC HEMOGRAM 2021-01-06 10:29:00 [facility] PROTHROMBIN TIME WITH INR 2021-01-06 10:28:00 [facility] PROTHROMBIN TIME WITH INR 2021-01-05 08:50:00 [facility] BASIC METABOLIC PANEL 2021-01-05 08:50:00 [facility] ESTIMATED GFR 2021-01-05 08:50:00 [facility] HC COMPLETE BLD COUNT 2021-01-05 08:50:00 [facility] W/AUTO DIFF COVID-19 QUALITATIVE 2021-01-04 23:30:00 [facility] RT-PCR PROTHROMBIN TIME WITH INR 2021-01-04 09:38:00 [facility] PROTHROMBIN TIME WITH INR 2021-01-03 10:46:00 [facility] PARTIAL THROMBOPLASTIN 2021-01-03 10:46:00 [facility] TIME (PTT) BASIC METABOLIC PANEL 2021-01-03 07:10:00 [facility] ESTIMATED GFR 2021-01-03 07:10:00 [facility] CBC HEMOGRAM 2021-01-03 07:10:00 [facility] PARTIAL THROMBOPLASTIN 2021-01-03 04:26:00 [facility] TIME (PTT) SEDIMENTATION RATE 2021-01-02 19:40:00 [facility] C-REACTIVE PROTEIN 2021-01-02 19:40:00 [facility] PROCALCITONIN 2021-01-02 19:40:00 [facility] spital BLOOD CULTURE, AEROBIC & 2021-01-02 18:40:00 [facility] ANAEROBIC PARTIAL THROMBOPLASTIN 2021-01-02 18:40:00 [facility] TIME (PTT) PROTHROMBIN TIME WITH INR 2021-01-02 09:06:00 [facility] PARTIAL THROMBOPLASTIN 2021-01-02 09:06:00 [facility] TIME (PTT) VANCOMYCIN LEVEL, TROUGH 2021-01-01 16:38:00 [facility] PROTHROMBIN TIME WITH INR 2021-01-01 10:45:00 [facility] PARTIAL THROMBOPLASTIN 2021-01-01 10:45:00 [facility] TIME (PTT) PROTHROMBIN TIME WITH INR 2021-01-01 08:52:00 Shayne [facility] PARTIAL THROMBOPLASTIN 2021-01-01 08:52:00 [facility] TIME (PTT) PARTIAL THROMBOPLASTIN 2021-01-01 02:49:00 [facility] TIME (PTT) PARTIAL THROMBOPLASTIN 2020-12-31 20:31:00 [facility] TIME (PTT) PARTIAL THROMBOPLASTIN 2020-12-31 10:20:00 [facility] TIME (PTT) PROTHROMBIN TIME WITH INR 2020-12-31 10:20:00 [facility] CV LEFT HEART CATH LV 2020-12-30 20:42:27 [facility] GRAM WITH CORS CV SELECTIVE CORONARY 2020-12-30 20:42:27 [facility] ANGIOGRAPHY VANCOMYCIN LEVEL, TROUGH 2020-12-30 18:18:00 [facility] COVID-19 QUALITATIVE 2020-12-30 14:52:00 Cass Nava [facility] RT-PCR BASIC METABOLIC PANEL 2020-12-30 12:13:00 [facility] ESTIMATED GFR 2020-12-30 12:13:00 [facility] PROTHROMBIN TIME WITH INR 2020-12-30 10:41:00 Shayne [facility] PARTIAL THROMBOPLASTIN 2020-12-30 10:41:00 [facility] TIME (PTT) CBC HEMOGRAM 2020-12-30 10:40:00 [facility] PARTIAL THROMBOPLASTIN 2020-12-29 21:05:00 [facility] TIME (PTT) ANTI XA, UNFRACTIONATED 2020-12-29 14:39:00 [facility] PARTIAL THROMBOPLASTIN 2020-12-29 14:39:00 [facility] TIME (PTT) CT CARDIAC OVERREAD 2020-12-29 12:36:40 Shayne [facility] CV CTA CORONARY ARTERIES 2020-12-29 12:15:26 Shayne [facility] W CONTRAST HC COMPLETE BLD COUNT 2020-12-29 06:13:00 [facility]FF BASIC METABOLIC PANEL 2020-12-29 06:13:00 [facility] ANTI XA, UNFRACTIONATED 2020-12-29 06:13:00 Shayne [facility] ESTIMATED GFR 2020-12-29 06:13:00 [facility] ANTI XA, UNFRACTIONATED 2020-12-28 23:32:00 [facility] US CAROTID DUPLEX 2020-12-28 20:25:00 [facility] BILATERAL ANTI XA, UNFRACTIONATED 2020-12-28 15:49:00 [facility] URINE CULTURE 2020-12-28 09:09:00 Shayne [facility] spital URINALYSIS SCREEN AND 2020-12-28 08:37:00 Shayne [facility] MICROSCOPY, WITH REFLEX TO CULTURE HC COMPLETE BLD COUNT 2020-12-28 07:23:00 [facility] W/AUTO DIFF BASIC METABOLIC PANEL 2020-12-28 07:23:00 [facility] ANTI XA, UNFRACTIONATED 2020-12-28 07:23:00 [facility] ESTIMATED GFR 2020-12-28 07:23:00 [facility] PROTHROMBIN TIME WITH INR 2020-12-28 07:23:00 [facility] BLOOD CULTURE, AEROBIC & 2020-12-28 02:52:00 Shayne [facility] ANAEROBIC XR CHEST 1 VW PORTABLE 2020-12-28 00:32:07 Shayne [facility] ANTI XA, UNFRACTIONATED 2020-12-27 23:22:00 [facility] ANTI XA, UNFRACTIONATED 2020-12-27 21:24:00 [facility] ANTI XA, UNFRACTIONATED 2020-12-27 14:52:00 [facility] HC COMPLETE BLD COUNT 2020-12-27 09:16:00 [facility] W/AUTO DIFF BASIC METABOLIC PANEL 2020-12-27 09:00:00 [facility] TROPONIN 2020-12-27 09:00:00 Prieto Bella [facility] spital ESTIMATED GFR 2020-12-27 09:00:00 [facility] LIPID PANEL 2020-12-27 05:00:00 [facility] ECG 12-LEAD 2020-12-27 04:13:48 [facility] ANTI XA, UNFRACTIONATED 2020-12-27 02:50:00 [facility] CT HEAD WO CONTRAST 2020-12-27 00:55:16 [facility] TROPONIN 2020-12-26 23:39:00 Prieto Bella [facility] spital TTE COMPLETE, WO 2020-12-26 22:08:00 [facility] CONTRAST, W DOPPLER ([id number]) ECG 12-LEAD 2020-12-26 17:45:46 [facility] TROPONIN 2020-12-26 17:36:00 [facility] THYROID STIMULATING 2020-12-26 17:36:00 [facility] HORMONE T4, FREE 2020-12-26 17:36:00 [facility] HEMOGLOBIN A1C 2020-12-26 17:36:00 [facility] PARTIAL THROMBOPLASTIN 2020-12-26 17:36:00 [facility] TIME (PTT) PROTHROMBIN TIME WITH INR 2020-12-26 17:36:00 [facility] ANTI XA, UNFRACTIONATED 2020-12-26 17:36:00 [facility] MAGNESIUM 2020-12-26 12:04:[address] [facility] ACUTE CARE ARTERIAL BLOOD 2020-12-26 11:43:00 [facility] EKG-12 LEAD 2020-12-26 10:48:[address] [facility] XR CHEST 1 VW 2020-12-26 08:50:[address] [facility] LIPASE 2020-12-26 08:44:[address] [facility] TROPONIN I 2020-12-26 08:44:[address] [facility] COMP. METABOLIC PANEL 2020-12-26 08:44:00 Lizzy [facility]an [facility] ([id number] CBC WITH DIFF 2020-12-26 08:44:[address] [facility] PROTHROMBIN TIME / INR 2020-12-26 08:44:00 Lizzy Rajan [facility] ACTIVATED PARTIAL 2020-12-26 08:44:00 Lizzy Rajan [facility] THRMPLAS [facility] N-TERMINAL PRO-BNP 2020-12-26 08:44:00 Lizzy Rajan [facility] COVID-19 (ID NOW RAPID 2020-12-26 08:43:00 Lizzy Rajan [facility] TESTING) [facility] Plan of Care Planned Activity Planned Date Details Comments Source Future Scheduled 2021-07-11 Hepatitis C screening [facility] [place] Test 13:49:53 (procedure) [code = 179847990] Future Scheduled 2021-07-11 Screening for [facility] Test 13:49:53 malignant neoplasm of cervix (procedure) [code = 999425494] Future Scheduled 2021-07-11 BREAST CANCER [facility] Test 13:49:53 SCREENING [code = BREAST CANCER SCREENING] Future Scheduled 2021-07-11 COLONOSCOPY SCREENING [facility] Test 13:49:53 [code = COLONOSCOPY SCREENING] Future Scheduled 2021-07-11 SHINGLES VACCINES Method [facility] Test 13:49:53 (#1) [code = SHINGLES VACCINES (#1)] Future Scheduled 2021-07-11 [facility] Test 13:49:53 malignant neoplasm of lung (procedure) [code = 990930376] Future Scheduled 2021-07-11 INFLUENZA VACCINE Method ist Hospital Test 13:49:53 [code = INFLUENZA VACCINE] Future Scheduled 2021-07-11 COVID-19 VACCINE ([facility] Test 13:49:53 Booster for Pfizer series) [code = COVID-19 VACCINE (3 - Booster for Pfizer series)] Encounters Start End Encounter Admission Attending Care Care Encounter Source Date/Time Date/Time Type Type Clinicians Facility Department ID 2021-08-01 Outpatient 3 [id number] ENCPL REF ENCPL 16:18:08 [id number] Outpatient 3 STEFANO ENCPL CVA ENCPL 12:57:07 FAYE 092021-07-06 Outpatient 3 [id number] ENCPL REF ENCPL 12:56:49 [id number] Emergency [facility] [id number] Univers 08:58:17 [facility] 2021-08-02 2021-08-15 Inpatient 3 STEFANO, ENCPL CVA [id number] ENCPL 19:04:00 11:45:00 FAYE 0222021-06-21 2021-07-02 Inpatient 3 STEFANO, ENCPL CVA [id number] ENCPL 16:15:00 12:24:00 FAYE 0112 2021-03-10 2021-03-10 Patient Ricardo, 1.2.840.1 [id number] Methodi 00:00:00 00:00:00 Outreach Rita [id number] 3.430.2.7 Hospit a .3.732283 l .8 2021-03-10 2021-03-10 Patient Ricardo, 1.2.840.1 794 Methodi 00:00:00 00:00:00 Outreach Rita [id number] 3.430.2.7 Hospit a .3.963916 l .8 2021-03-09 2021-03-09 Nurse Janelle 1.2.840.1 [id number] Methodi 00:00:00 00:00:00 Triage Consuelo Gomez [id number] 3.430.2.7 Hospit a .3.561137 l .8 2021-01-10 2021-01-24 Hospital Marcio, 1.2.840.1 [id number] Methodi 18:41:00 16:36:00 Encounter Markus Mota [id number] 3.430.2.7 Hospit a .3.732449 l .8 2021-01-12 2021-01-12 Patient Stevanr, 1.2.840.1 [id number] Methodi 00:00:00 00:00:00 Outreach Todd [address]563.1.[address] 3.430.2.7 Hospit a .3.285423 l .8 2020-12-26 2021-01-10 [facility], 1.2.840.1 [id number] Methodi 10:59:00 18:41:00 Encounter Markus Pepe. [id number] 3.430.2.7 Hospit a .3.040181 l .8 2020-12-30 2020-12-30 Surgery Attar, 1.2.840.1 [id number] Methodi 14:20:00 15:35:[address] 3.430.2.7 Hospit a .3.453572 l .8 2020-12-26 2020-12-26 Emergency [facility] [id number] Univers 03:03:00 09:34:00 Lizzy Araya [place] 350.1.13.10 itfilomena [facility] 4.2.7.2.686 [facility] [id number] [facility] 084 Branch 2020-12-26 2020-12-26 Travel 1.2.840.1 [id number] [id number] Methodi 00:00:00 00:00:[address] 3.430.2.7 0.2.7.3.698 Ho spita .3.600968 084.8 l .8 Results Test Description Test Time Test Comments Results Result Comments Source POC glucose 2021-01-24 12:47:32 Test Item Value Reference Range Interpretation Comme nts POC glucose (test code = 103 mg/dL 65-99 H Ope rator Name: Sean Huffman [id number] ID: [id number] hartable: [facility] Notified web site developer Interpretation (test code = Abnormal 50311-8) [facility] 12 [id number] 03:37:08 Test Item Value Reference Range Interpretation [...] now present-ST now depressed in Anterior leads- [facility] lab [id number] 20:42:53 Test Item Value Reference Range Interpretation Comments Cath EF Estimated 35 % (test code = [id number]) JULIAN (test code = Left main normal.LAD with JULIAN) 25% proximal stenosis.LCX with proximal 25% stenosis mid 25% stenosis.RCA dominant with 95% calcified proximal stenosis followed by proximal 75% calcified stenosis. LVEF 35% with hypokinesis anterior and aneurysmal inferiorly. Discussed case with other tax analyst. 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 [facility]2021-07-19 12:57:30 Test Item Value Reference Range Interpretation Comments MAGNESIUM (test code = 5614308856) 2.0 mg/dL 1.7-2.4 Lab Interpretation (test code = Normal 42636-1) [facility] Arterial Blood Gas.2020-12-26 11:46:41 Test Item Value Reference Range Interpretation Comments PH (test code = 2) 7.35-7.45 PCO2 (test code = See_Comment L [Automat ed message] 6272260131) The system [employer] generated this result transmitted ref erence range: 35 - 45 mmHg. The reference r lebron was not used to interpret this result as normal/abnor mal. PO2 (test code = See_Comment L [Automated message] 6594635967) The system [employer] generated this result transmitted ref erence range: 80 - 100 mmHg. The reference r lebron was not used to interpret this result as normal/abnor mal. HCO3 (test code = See_Comment [Automate d message] 4697128656) The system [employer] generated this result transmitted ref erence range: 22 - 26 mEq/L. The reference r lebron was not used to interpret this result as normal/abnor mal. BE (test code = See_Comment [Automated message] 6748081211) The system [employer] generated this result transmitted ref erence range: -3.0 - 3 .0 mEq/L. The refe rence range was not u sed to interpret this result as normal/abnor mal. Lab Interpretation (test Abnormal code = 70782-1) [facility] acute hospital WITH [id number] 09:30:54 Test Item Value Reference Range Interpretation [...] RDW-SD (test code = 48.7 fL 39.0-49.9 03058-9) RDW-CV (test code = 14.7 % 12.0-15.5 788-0) PLT (test code = See_Comment L [Automated 777-3) message] The sy stem which generated this result transmitted reference range : 166 - 358 10*3/ ?L. The reference r lebron was not used to interpret this result as normal/abnormal . MPV (test code = 11.9 fL 9.5-12.9 19660-4) IPF % (test code = 5.7 % 1.3-7.7 Platelet count 6711012404) measured by fluorescence method. NRBC/100 WBC (test See_Comment [Automat ed code = 0012050063) message] The system which generated this result transmitted reference range : 0.0 - 10.0 /100 WBCs. The refer ence range was not u sed to interpret th is result as normal/abnormal . NRBC x10^3 (test code <0.01 See_Comment [Auto mated = 6644758678) message] The s ystem which generated this result transmitted reference range : 10*3/?L. The reference range was not used to interpret this result as normal/abnormal . GRAN MAT (NEUT) % 88.0 % (test code = 770-8) IMM GRAN % (test code 1.10 % = 4459808000) LYMPH % (test code = 3.8 % 736-9) MONO % (test code = 6.5 % 5905-5) EOS % (test code = 0.2 % 713-8) BASO % (test code = 0.4 % 706-2) GRAN MAT x10^3(ANC) 12.35 10*3/uL 1.88-7.09 H (test code = 2372835207) IMM GRAN x10^3 (test 0.16 10*3/uL 0.00-0.06 H code = 1084128725) LYMPH x10^3 (test 0.54 10*3/uL 1.32-3.29 L code = 731-0) MONO x10^3 (test code 0.92 10*3/uL 0.33-0.92 = 742-7) EOS x10^3 (test code 0.03 10*3/uL 0.03-0.39 = 711-2) BASO x10^3 (test code 0.06 10*3/uL 0.01-0.07 = 704-7) Lab Interpretation Abnormal (test code = 03320-6) [id number] 09:22:28 Test Item Value Reference Interpretation Comments Range TROPONIN I (test 0.572 ng/mL See_Comment H [Automated code = 1149753725) message] The system which generated this result [...] biotin. Lab Interpretation Abnormal (test code = 61482-3) [facility] [id number] 09:19:11 Test Item Value Reference Range Interpretation Comments NT-proBNP (test code 1590 pg/mL See_Comment H [Autom ated = 3432674490) message] The system which generated this result transmitted reference range : <=125. The reference range was not used to interpret this result as normal/abnormal . JULIAN (test code = JULIAN) Biotin has been reported to cause a negative bias, interpret results relative to patient's use of biotin. Lab Interpretation Abnormal (test code = 14610-6) [facility] 09:11:52 Test Item Value Reference Range Interpretation Comments APTT Patient (test See_Comment [Automat ed code = 3173-2) message] The system which generated this result transmitted reference range : 23 - 38 Seconds . The reference range was not used to interpr et this result as normal/abnormal . JULIAN (test code = JULIAN) The [facility] patient population mean normal value for aPTT is 30 seconds. Lab Interpretation Normal (test code = 43265-3) [facility] METABOLIC PANEL (71487)2020-12-26 09:10:52 Test Item Value Reference Range Interpretation Comments NA (test code = 137 mmol/L 135-145 9254920740) K (test code = 4.0 mmol/L 3.5-5.0 0090668486) CL (test code = 105 mmol/L 98-108 0028082408) CO2 TOTAL (test code = 22 mmol/L 23-31 L 3444220725) AGAP (test code = 2-16 0392894296) BUN (test code = 30 mg/dL 7-23 H 6384098437) GLUCOSE (test code = 197 mg/dL 70-110 H 9839897442) CREATININE (test code = 1.21 mg/dL 0.50-1.04 H 0728593818) TOTAL BILI (test code = 1.1 mg/dL 0.1-1.2 2009977529) CALCIUM (test code = 9.4 mg/dL 8.6-10.6 6243966973) T PROTEIN (test code = 6.7 g/dL 6.3-8.2 5824159708) ALBUMIN (test code = 4.0 g/dL 3.5-5.0 7914326187) ALK PHOS (test code = 82 U/L 34-122 7445492215) ALTv (test code = 26 U/L 5-35 1742-6) AST(SGOT) (test code = 52 U/L 13-40 H 1814683622) eGFR (test code = mL/min/1.73m2 3978638139) JULIAN (test code = JULIAN) Association of [...] tests). Lab Interpretation Abnormal (test code = 87873-6) [facility], [id number] 09:10:31 Test Item Value Reference Range Interpretation Comments LIPASE (test code = 3571162997) 51 U/L 0-220 Lab Interpretation (test code = Normal 24048-4) [facility]PROTHROM[facility] TIME / [id number] 09:09:51 Test Item Value Reference Range Interpretation Comments PROTIME PATIENT (test See_Comment H [Auto mated message] code = 5964-2) The system [employer] generated this result transmitted ref erence range: 12.0 - 1 4.7 Seconds. The reference range was not used to int erpret this result as normal/abnormal . INR (test code = 6301-6) Nor mal INR <1.1; Warfarin Therap eutic range 2.0 to 3. 0 or 2.5 to 3.5, dep ending upon the indica tions. Lab Interpretation (test Abnormal code = 78031-2) [facility]OVID[facility] (ID NOW RAPID TESTING)2020-12-26 09:09:31 Test Item Value Reference Range Interpretation Comments SARS-CoV-2 Rapid ID NOW Not Detected Not Detected (test code = 04689-5) JULIAN (test code = JULIAN) ID NOW COVID-19 Assay is an isothermal nucleic acid amplification test intended for the qualitative detection of nucleic acid from SARS-CoV-2 viral RNA in nasopharyngeal (EXCEL DEVELOPER) specimens. It is used under Emergency Use [...] indicated. Lab Interpretation Normal (test code = 12736-5) [facility]"
--- NOTE | 2021-10-31 22:08 | RAD REPORT ---
EXAM DESCRIPTION: RAD - Chest Single View - 10/31/2021 9:51 pm CLINICAL HISTORY: SOB COMPARISON: Portable April 2018 TECHNIQUE: AP portable chest image was obtained 10/31/2021 9:51 pm . FINDINGS: Fibrotic lung pattern matches comparison. Severity chronic disease could mask early edema or infiltrate. Heart size is normal. Upper lobe vasculature within normal limits. Aorta is quite tort uous. No measurable pleural effusion and no pneumothorax. Mediastinum is significantly distorted by r otation. Defibrillator is in place. IMPRESSION: Chronic interstitial lung disease similar to comparison. This potentially mask early nikita ma or infiltrate.
[2021-10-31 23:01] LABS: Absolute Lymphocytes (CBC) 0.9 K/uL (0.7-4.9); Hematocrit 41.8 % (36.0-45.0); Lymphocytes % 18.6 % (15.3-44.8); MPV 9.2 fL (7.6-11.3); RBC Red Blood Cell Count 4.88 M/uL (3.86-4.86)
[2021-10-31 23:06] LABS: Protime INR 1.75
[2021-10-31 23:48] LABS: Bilirubin Direct 0.3 mg/dL (0-0.2); Bilirubin Total 0.8 mg/dL (0.2-1.0); Magnesium 2.1 mg/dL (1.8-2.4); Potassium 4.2 mmol/L (3.5-5.1); Protein, Total 6.8 g/dL (6.4-8.2); Troponin High Sensitivity 32.4 pg/mL (<58.9)
[2021-11-01] MEDS ORDERED: FUROSEMIDE 20 MG/ 2ML VIAL ONE (00:20)
--- NOTE | 2021-11-01 00:44 | EDPHYS ---
Physician Documentation [facility] Name: Richa Lozano Age: 65 yrs Sex: Female : 1955 Arrival Date: 10/31/2021 Time: 20:17 Bed 15 Private MD: ED Physician Zack Dominguez HPI: 10/31 21:33 This 65 yrs old Female presents to ER via Wheelchair with complaints of Breathing pm1 Difficulty, Shortness Of Breath. 21:33 The patient has shortness of breath at rest. Onset: The symptoms/episode began/occurred pm1 yesterday. The patient's shortness of breath is aggravated by light activity. Associated signs and symptoms: Pertinent negatives: chest pain, non-productive cough, fever. Severity of symptoms: in the emergency department the symptoms are unchanged Pain is currently a 0 / 10. The patient has not experienced similar symptoms in the past. The patient has not recently seen a physician. Patient with reports of shortness of breath onset yesterday with evaluation by home health nurse. Obtained a chest x-ray on her home and was told that she has pneumonia and to report to ER for further evaluation and treatment. Patient with a history CHF and has swelling to her lower extremities. Patient has been taking half her dosage of Lasix due to her disliking excessive urination. Historical: - Allergies: 21:02 Levaquin; as6 - Home Meds: 21:02 warfarin 2 mg Oral tab 1 tab once daily [Active]; Lasix Oral [Active]; atorvastatin as6 oral [Active]; metoprolol tartrate 25 mg Oral tab 1 tab once daily [Active]; - PMHx: 21:02 AFIB; Aneurysm; atelectasis; cardiomegaly; CHF; COPD; CVA; Depression; EDEMA; as6 Hypertensin; Hypertension; Pace maker; pleural effusion; rheumatic mitral stenosis; Myocardial infarction; - Immunization history:: Client reports receiving the 2nd dose of the Covid vaccine, moderna. - Social history:: Smoking status: Patient reports the use of cigarette tobacco products, smokes one-half pack cigarettes per day. ROS: 21:33 Constitutional: Negative for fever, chills, and weight loss, Cardiovascular: Negative pm1 for chest pain, palpitations, and edema. 21:33 Abdomen/GI: Negative for abdominal pain, nausea, vomiting, diarrhea, and constipation, Back: Negative for injury and pain, MS/Extremity: Negative for injury and deformity, Skin: Negative for injury, rash, and discoloration, Neuro: Negative for headache, weakness, numbness, tingling, and seizure. 21:33 Respiratory: Positive for shortness of breath, Negative for cough. 21:33 All other systems are negative. Exam: 21:33 Constitutional: This is a well developed, well nourished patient who is awake, alert, pm1 and in no acute distress. Head/Face: Normocephalic, atraumatic. 21:33 Back: No spinal tenderness. No costovertebral tenderness. Full range of motion. Skin: Warm, dry with normal turgor. Normal color with no rashes, no lesions, and no evidence of cellulitis. MS/ Extremity: Pulses equal, no cyanosis. Neurovascular intact. Full, normal range of motion. 21:33 Cardiovascular: Exam negative for acute changes, Rate: normal, Rhythm: regular, Pulses: no pulse deficits are appreciated, Heart sounds: normal. 21:33 Respiratory: Exam negative for acute changes, respiratory distress, shortness of breath, Breath sounds: are clear throughout. 21:33 Abdomen/GI: Exam negative for acute changes, Inspection: abdomen appears normal, Palpation: abdomen is soft and non-tender, in all quadrants. 21:33 Neuro: Exam negative for acute changes, Orientation: is normal, Mentation: no acute changes, per family, Motor: is normal, moves all fours. Vital Signs: 20:54 BP 111 / 71; Pulse 49; Resp 18 S; Temp 99.1(O); Pulse Ox 98% on R/A; Weight 63.5 kg as6 (R); Height 5 ft. 7 in. (170.18 cm) (R); Pain 0/10; 23:58 BP 123 / 79; Pulse 73; Resp 21; Pulse Ox 96% on R/A; lg3 20:54 Body Mass Index 21.93 (63.50 kg, 170.18 cm) as6 MDM: 21:23 Patient medically screened. pm1 11/01 00:30 Data reviewed: vital signs. Data interpreted: Pulse oximetry: on room air is 96 %. pm1 Interpretation: normal. Counseling: I had a detailed discussion with the patient and/or guardian regarding: the historical points, exam findings, and any diagnostic results supporting the discharge/admit diagnosis, lab results, radiology results, the need for further work-up and treatment in the hospital. 10/31 21:33 Order name: Basic Metabolic Panel; Complete Time: 23:50 pm10/31 21:33 Order name: CBC with Diff; Complete Time: 23:07 pm10/31 21:33 Order name: LFT's; Complete Time: 23:50 pm10/31 21:33 Order name: Magnesium; Complete Time: 23:50 pm10/31 21:33 Order name: NT PRO-BNP; Complete Time: 23:50 pm10/31 21:33 Order name: PT-INR; Complete Time: 23:07 pm10/31 21:33 Order name: Troponin HS; Complete Time: 23:50 pm10/31 21:33 Order name: XRAY Chest (1 view); Complete Time: 22:18 pm10/31 21:33 Order name: EKG; Complete Time: 21:34 pm10/31 21:33 Order name: Cardiac monitoring; Complete Time: 22:45 pm10/31 21:33 Order name: EKG - Nurse/Tech; Complete Time: 22:45 pm11/01 00:50 Order name: COVID-19 SARS RT PCR (Document "Date of Onset" if Symptomatic) 6 11/01 00:50 Order name: Flu as6 10/31 21:33 Order name: IV Saline Lock; Complete Time: 22:39 pm10/31 21:33 Order name: Labs collected and sent; Complete Time: 22:39 pm10/31 21:33 Order name: O2 Per Protocol; Complete Time: 22:39 pm10/31 21:33 Order name: O2 Sat Monitoring; Complete Time: 22:40 pm11/01 00:50 Order name: Tang; Complete Time: 01:10 lg3 Administered Medications: 01:11 Drug: Lasix (furosemide) 20 mg Route: IVP; Site: right antecubital; tw5 01:11 Follow up: Response: No adverse reaction tw5 Disposition: 11/02 03:33 Co-signature as Attending Physician, Zack Dominguez MD I agree with the assessment and kdr plan of care. Disposition Summary: 11/01/21 00:43 Hospitalization Ordered Hospitalization Status: Observation pm1 Condition: Stable pm1 Problem: new pm1 Symptoms: have improved pm1 Bed/Room Type: Standard pm1 Provider: Jen Hawkins(11/01/21 00:48) la1 Location: Telemetry/MedSurg (observation)(11/01/21 13:22) bd Room Assignment: 212(11/01/21 13:22) bd Diagnosis - Acute on chronic congestive heart failure pm1 - Patient's noncompliance with medical treatment and regimen - Lasix pm1 Forms: - Medication Reconciliation Form pm1 - SBAR form pm1 Signatures: Dispatcher [employer] EDMS Chelsea Lorenzo Martha RN RN Zack Burr MD MD [facility] Sivakumar Sandoval, EXHAUST EQUIPMENT OPERATOR-C EXHAUST EQUIPMENT OPERATOR-Cla1 Mehul Samayoa, STAS MANAGER COMPETITIVE INTELLIGENCE pm1 Citlali Marmolejo RN RN lg3 Amanda Wheat tw5 Kody Rao RN RN as6 Corrections: (The following items were deleted from the chart) 05 00:48 00:43 Sivakumar Sandoval pm1 la1 01:32 00:43 Telemetry/MedSurg (observation) pm1 mw 01:32 00:43 pm1 mw 13: 01:32 [facility] ER HOLD mw bd : 01:32 ERHOLD- mw bd
--- NOTE | 2021-11-01 00:44 | ER ---
Nurse's Notes [facility] Name: Richa Lozano Age: 65 yrs Sex: Female : 1955 Arrival Date: 10/31/2021 Time: 20:17 Bed 15 Private MD: Diagnosis: Acute on chronic congestive heart failure;Patient's noncompliance with medical treatment and regimen-Lasix Presentation: 10/31 20:54 Chief complaint: Patient's son or daughter states: "She had her regular home health as6 appointment today and the nurse listened to her and she said she was wheezing. They came to the house and did a chest x-ray and said she had pneumonia and need to come to the hospital right away" pt c/o SOB. Coronavirus screen: Client presents with at least one sign or symptom that may indicate coronavirus-19. Standard/surgical mask placed on the client. Provider contacted for isolation considerations. Ebola Screen: No symptoms or risks identified at this time. Initial Sepsis Screen: Does the patient meet any 2 criteria? No. Patient's initial sepsis screen is negative. Does the patient have a suspected source of infection? Yes: Productive cough/pneumonia. Risk Assessment: Do you want to hurt yourself or someone else? Patient reports no desire to harm self or others. Onset of symptoms was October 28, 2021. 20:54 Method Of Arrival: Wheelchair as6 20:54 Acuity: TINO 3 as6 Triage Assessment: 23:59 Respiratory: Onset: The symptoms/episode began/occurred today. lg3 11/01 00:00 Respiratory: Reports shortness of breath cough that is the patient has mild shortness lg3 of breath. Historical: - Allergies: 10/31 21:02 Levaquin; as6 - Home Meds: 21:02 warfarin 2 mg Oral tab 1 tab once daily [Active]; Lasix Oral [Active]; atorvastatin as6 oral [Active]; metoprolol tartrate 25 mg Oral tab 1 tab once daily [Active]; - PMHx: 21:02 AFIB; Aneurysm; atelectasis; cardiomegaly; CHF; COPD; CVA; Depression; EDEMA; as6 Hypertensin; Hypertension; Pace maker; pleural effusion; rheumatic mitral stenosis; Myocardial infarction; - Immunization history:: Client reports receiving the 2nd dose of the Covid vaccine, moderna. - Social history:: Smoking status: Patient reports the use of cigarette tobacco products, smokes one-half pack cigarettes per day. Screenin:40 Abuse screen: Denies threats or abuse. Denies injuries from another. Nutritional lg3 screening: No deficits noted. Tuberculosis screening: No symptoms or risk factors identified. Fall Risk Secondary diagnosis (15 points) impaired mobility, IV access (20 points). Ambulatory Aid- Crutches/Cane/Walker (15 pts). Gait- Weak (10 pts.). Total Calero Fall Scale indicates High Risk Score (45 or more points). Side Rails Up X 2 Frequent Obs/Assessments Occuring Family Present and informed to notify staff if the need to leave the bedside. Assessment: 22:40 General: Appears in no apparent distress. comfortable, Behavior is calm, cooperative. lg3 Pain: Denies pain. Neuro: No deficits noted. Cronin Agitation-Sedation Scale (RASS): 0 - Alert and Calm Level of Consciousness is awake, alert, obeys commands, Oriented to person, place, time, situation. Cardiovascular: No deficits noted. Reports shortness of breath, Denies chest pain. Respiratory: Airway is patent Trachea midline Respiratory effort is even, unlabored, Respiratory pattern is regular, symmetrical, Breath sounds with wheezes bilaterally. GI: No deficits noted. No signs and/or symptoms were reported involving the gastrointestinal system. Abdomen is flat, non-distended. : No deficits noted. No signs and/or symptoms were reported regarding the genitourinary system. EENT: No deficits noted. No signs and/or symptoms were reported regarding the EENT system. Derm: No deficits noted. No signs and/or symptoms reported regarding the dermatologic system. Skin is intact, is thin, Skin is dry, Skin is pink, warm \\T\\ dry. Musculoskeletal: No deficits noted. No signs and/or symptoms reported regarding the musculoskeletal system. Circulation, motion, and sensation intact. Capillary refill < 3 seconds, Range of motion: intact in all extremities. 23:58 Reassessment: Patient appears in no apparent distress at this time. No changes from lg3 previously documented assessment. Patient and/or family updated on plan of care and expected duration. Pain level reassessed. Patient is alert, oriented x 3, equal unlabored respirations, skin warm/dry/pink. 23:59 Cardiovascular: Rhythm is atrial fibrillation. lg3 11/01 06:43 General: daughter Garima: [phone]. lg3 Vital Signs: 10/31 20:54 BP 111 / 71; Pulse 49; Resp 18 S; Temp 99.1(O); Pulse Ox 98% on R/A; Weight 63.5 kg as6 (R); Height 5 ft. 7 in. (170.18 cm) (R); Pain 0/10; 23:58 BP 123 / 79; Pulse 73; Resp 21; Pulse Ox 96% on R/A; lg3 20:54 Body Mass Index 21.93 (63.50 kg, 170.18 cm) as6 ED Course: 20:17 Patient arrived in ED. bp1 21:02 Triage completed. as6 21:07 Arm band placed on. as6 21:20 Patient has correct armband on for positive identification. Bed in low position. Call mh5 light in reach. Side rails up X 1. Adult w/ patient. Warm blanket given. Pillow given. Pulse ox on. NIBP on. 21:21 Citlali Marmolejo, RN is Primary Nurse. lg3 21:23 Mehul Samayoa, DIP STAND LOADER is PHCP. pm1 21:23 Zack Dominguez MD is Attending Physician. pm1 21:53 XRAY Chest (1 view) In Process Unspecified. EDMS 22:40 Basic Metabolic Panel Sent. lg3 22:40 CBC with Diff Sent. lg3 22:40 LFT's Sent. lg3 22:40 Magnesium Sent. lg3 22:40 NT PRO-BNP Sent. lg3 22:40 PT-INR Sent. lg3 22:40 Troponin HS Sent. lg3 22:40 Inserted saline lock: 22 gauge in right antecubital area, using aseptic technique. lg3 Blood collected. 22:57 Basic Metabolic Panel Sent. lg3 22:57 CBC with Diff Sent. lg3 22:57 LFT's Sent. lg3 22:57 Magnesium Sent. lg3 22:57 NT PRO-BNP Sent. lg3 22:57 PT-INR Sent. lg3 22:57 Troponin HS Sent. lg3 11/01 00:43 Sivakumar Sandoval is Hospitalizing Provider. pm1 00:48 Jen Hawkins MD is Hospitalizing Provider. la1 01:07 Tang cath inserted, using sterile technique, 18 Fr., by wv, balloon inflated, to tw5 gravity drainage. 01:15 COVID-19 SARS RT PCR (Document "Date of Onset" if Symptomatic) Sent. tw5 01:15 Flu Sent. tw5 03:08 No provider procedures requiring assistance completed. Patient admitted, IV remains in tw5 place. intact, No redness/swelling at site. Administered Medications: 01:11 Drug: Lasix (furosemide) 20 mg Route: IVP; Site: right antecubital; tw5 01:11 Follow up: Response: No adverse reaction tw5 Medication: 10/31 22:40 VIS not applicable for this client. lg3 Outcome: 11/01 00:43 Decision to Hospitalize by Provider. pm1 03:09 Ad[facility]. [facility] tw 03:09 Condition: stable 03:09 Instructed on the need for admit. 14:42 Patient left the ED. tw2 Signatures: Dispatcher [employer] EDMS Sivakumar Sandoval, MEDICAL CHIEF TECHNICIAN-C MEDICAL CHIEF TECHNICIAN-Cla1 Mehul Samayoa, DIP STAND LOADER DIP STAND LOADER pm1 Molly Moncada, RN RN tw2 Shanta Bowles Citlali Aaron, RN RN lg3 Aleksandra Yousif Tiffany tw5 Kody Rao, RN RN as6
--- NOTE | 2021-11-01 02:15 | P.HP ---
Certification for Inpatient Patient admitted to: Observation With expected LOS: <2 Midnights Patient will require the following post-hospital care: None Practitioner: I am a practitioner with admitting privileges, knowledge of patient current condition, hospital course, and medical plan of care. Services: Services provided to patient in accordance with Admission requirements found in Title 42 Section 412.3 of the Code of Federal Regulations Patient History Date of Service: 11/01/21 Reason for admission: CHF exacerbation History of Present Illness: 65-year-old female with history of chronic systolic congestive heart failure, A. fib, hypertension, COPD presents emergency department for dyspnea. Patient lives at home alone in an apartment, has home health. Her home health nurse noticed that she was short of breath and had x-ray ordered family reports that the outpatient chest x-ray demonstrate pneumonia and they were told to come to the emergency department. Patient was evaluated here in the emergency department her chest x-ray here showed chronic interstitial lung disease similar to comparison her labs are significant for elevated BNP patient noted to be mildly dyspneic with 1+ pitting to bilateral lower extremities family reports that patient has not been compliant with her medications at home requesting patient be admitted under observation diuresed. We will also have patient evaluate by physical therapy in addition to diuresis. Allergies levofloxacin [From Levaquin] Allergy (Intermediate, Verified 09/27/21 07:20) Itching/Hives/Rash Home Medications: Potassium Chloride [Klor-Con 10] 1 tab PO DAILY 06/09/16 Sertraline [Zoloft*] 100 tab PO BEDTIME 06/09/16 Metoprolol Tartrate 25 mg PO DAILY 06/11/17 lisinopriL [Prinivil*] 5 mg PO DAILY #30 tab 06/20/17 Albuterol Inhaler [Ventolin Inhaler*] 2 puff IH Q6H PRN #1 hfa.aer.ad 04/10/18 Acetaminophen [Tylenol Extra Strength] 500 mg PO Q4H PRN 09/20/21 Atorvastatin Calcium [Lipitor] 40 mg PO BEDTIME 09/20/21 Melatonin 3 mg PO BEDTIME PRN 09/20/21 Ranolazine [Ranexa] 500 mg PO BID 09/20/21 Sennosides/Docusate Sodium [Senna-S Tablet] 2 tab PO BEDTIME PRN 09/20/21 Apixaban [Eliquis] 5 mg PO BID #60 tablet 10/03/21 Cranberry Fruit Extract 400 mg PO BID cap 10/03/21 Ensure Enlive 237 ml PO BID PRN can 10/03/21 Furosemide [Lasix*] 10 mg PO DAILY #30 tab 10/03/21 - Past Medical/Surgical History Diabetic: No -: HTN -: AFIB -: COPD -: SMOKER -: AAA -: CVA -: AAA -: Bilat Foot - Bunion Sx -: Psychosocial/ Personal History: Lives at home alone in apartment with home health - Family History Father -: Heart disease Mother Notes: CVA Brother Notes: anuerysm - Social History Smoking Status: Unknown if ever smoked Alcohol use: No CD- Drugs: No Caffeine use: Yes Place of Residence: Home Review of Systems 10-point ROS is otherwise unremarkable Respiratory: Shortness of Breath Cardiovascular: Edema Physical Examination - Physical Exam General: Alert, In no apparent distress, Oriented x3 HEENT: Atraumatic, PERRLA, Mucous membr. moist/pink, EOMI, Sclerae nonicteric Neck: Supple, 2+ carotid pulse no bruit, No LAD, Without JVD or thyroid abnormality Respiratory: Diminished, Crackles/rales Cardiovascular: Normal S1 S2, Edema (1-2+ pitting edema bilateral lower extremity), Irregular heart rate/rhythm (A. fib, rate controlled) Capillary refill: <2 Seconds Gastrointestinal: Normal bowel sounds, No tenderness Musculoskeletal: No tenderness Integumentary: No rashes Neurological: Normal speech, Normal strength at 5/5 x4 extr - Studies Laboratory Data (last 24 hrs) 10/31/21 22:38: PT 19.5 H, INR 1.75 10/31/21 22:38: WBC 4.9, Hgb 13.6, Hct 41.8, Plt Count 119 L 10/31/21 22:38: Sodium 139, Potassium 4.2, BUN 18, Creatinine 0.93, Glucose 131 H, Magnesium 2.1, Total Bilirubin 0.8, AST 12 L, ALT 15, Alkaline Phosphatase 78 Assessment and Plan - Plan Assessment: Dyspnea secondary to acute on chronic systolic congestive heart failure Atrial fibrillation on chronic anticoagulation therapy Hypertension COPD Plan: Dyspnea secondary to acute on chronic systolic congestive heart failure: Patient takes Lasix 10 mg daily at home increased to 20 IV twice daily for the time being. Last echocardiogram available for review from 2018 shows ejection fraction of 30 to 35%. Patient does have home health in place we will have her evaluated by physical therapy will need to continue home health at discharge. Continue other home medications consult cardiology as necessary. Atrial fibrillation on chronic anticoagulation therapy: Continue metoprolol, Coumadin patient mildly subtherapeutic. Monitor on tele. Hypertension: Continue metoprolol, other home medications once verified. COPD: As needed nebulizer treatment. DVT PPX: Continue Coumadin Code status: Full Discharge Plan: Home Plan to discharge in: 24 Hours - Advance Directives Does patient have a Living Will: No Does patient have a Durable POA for Healthcare: No - Code Status/Comfort Care Code Status Assessed: Yes (Full code) Critical Care: No Time Spent Managing Pts Care (In Minutes): 55
[2021-11-01] MEDS ORDERED: ONDANSETRON 4 MG/2 ML VIAL IV PRN (02:52)
[2021-11-01 03:06] VITALS: BMI 21.9
[2021-11-01] MEDS: METOPROLOL TAR 25 MG TAB PO SCH ×2 (06:00→18:06)
[2021-11-01] MEDS ORDERED: METOPROLOL TAR 25 MG TAB ONE (06:36)
[2021-11-01] MEDS ORDERED: FUROSEMIDE 40 MG/4 ML VIAL ONE (08:03)
[2021-11-01] MEDS ORDERED: ALBUTEROL 2.5 MG/3 ML NEB SOL NEB SCH (08:44)
[2021-11-01] MEDS ORDERED: IPRATROPIUM BROM 0.5MG/2.5ML NEB SCH (08:45)
[2021-11-01] MEDS ORDERED: FUROSEMIDE 20 MG/ 2ML VIAL IV SCH (09:00)
[2021-11-01] MEDS ORDERED: ALBUTEROL 2.5 MG/3 ML NEB SOL ONE ×2 (09:30→12:20)
[2021-11-01] MEDS ORDERED: IPRATROPIUM BROM 0.5MG/2.5ML ONE ×2 (09:30→12:20)
[2021-11-01] MEDS: ALBUTEROL 2.5 MG/3 ML NEB SOL NEB SCH ×5 (09:40→23:15)
[2021-11-01] MEDS ORDERED: PNEUMOCOCCAL VACCINE 0.5 ML IMVAC ONE (12:00)
[2021-11-01] MEDS: IPRATROPIUM BROM 0.5MG/2.5ML NEB SCH ×4 (12:17→23:15)
--- NOTE | 2021-11-01 12:32 | EKG ---
Test Date: 2021-10-31 Test Time: 22:48:44 [place]: BERNADETTE MEASUREMENT RESULTS: Intervals: Rate: 98 SD: QRSD: 96 QT: 392 QTc: 500 [place]: P: SD: QRS: 98 T: 67 INTERPRETIVE STATEMENTS: Atrial fibrillation Rightward axis Anteroseptal infarct, age undetermined Abnormal ECG Compared to ECG 05/01/2018 14:14:31 Right-axis deviation now present Myocardial infarct finding now present Ventricular-paced complex(es) or rhythm no longer present ST (T wave) deviation no longer present Possible ischemia no longer present Electronically Signed On 11-01-21 12:31:33 CDT by Gilmer Rodas
--- NOTE | 2021-11-01 13:10 | P.PN ---
Subjective Date of Service: 11/01/21 Chief Complaint: CHF exacerbation Subjective: No new changes (Still persistent cough. Patient feels markedly weak) Physical Examination - Vital Signs Temperature: 98.6 F Blood Pressure: 109/84 Pulse: 71 Respirations: 17 Pulse Ox (%): 91 - Studies Laboratory Data (last 24 hrs) 10/31/21 22:38: PT 19.5 H, INR 1.75 10/31/21 22:38: WBC 4.9, Hgb 13.6, Hct 41.8, Plt Count 119 L 10/31/21 22:38: Sodium 139, Potassium 4.2, BUN 18, Creatinine 0.93, Glucose 131 H, Magnesium 2.1, Total Bilirubin 0.8, AST 12 L, ALT 15, Alkaline Phosphatase 78 Microbiology Data (last 24 hrs): 11/01/21 01:13 Nasopharnyx Influenza Type A Antigen Screen - Final 11/01/21 01:13 Nasopharnyx Influenza Type B Antigen Screen - Final Assessment And Plan Physician Review: Patient Assessed, Agree with Above Assessment and Plan Physician Review Additional Text: - Physical Exam General: Alert, In no apparent distress, frail, on room air HEENT: Atraumatic, PERRLA, Mucous membr. moist/pink, EOMI, Sclerae nonicteric Neck: Supple, 2+ carotid pulse no bruit, No LAD, Without JVD or thyroid abnormality Respiratory: Coarse bibasilar crepitations, mild expiratory wheeze Cardiovascular: Normal S1 S2, Edema (1-2+ pitting edema bilateral lower extremity), Irregular heart rate/rhythm (A. fib, rate controlled) Capillary refill: <2 Seconds Gastrointestinal: Normal bowel sounds, No tenderness Musculoskeletal: No tenderness Integumentary: No rashes Neurological: Normal speech, Normal strength at 5/5 x4 extr - Studies Laboratory Data (last 24 hrs) 10/31/21 22:38: PT 19.5 H, INR 1.75 10/31/21 22:38: WBC 4.9, Hgb 13.6, Hct 41.8, Plt Count 119 L 10/31/21 22:38: Sodium 139, Potassium 4.2, BUN 18, Creatinine 0.93, Glucose 131 H, Magnesium 2.1, Total Bilirubin 0.8, AST 12 L, ALT 15, Alkaline Phosphatase 78 Assessment and Plan Presumed combined CHF exacerbation Acute COPD exacerbation A. fibrate controlled Chronic anticoagulation Hypertension Asthenia Plan Dyspnea -Continue Lasix will switch to p.o. 40 twice daily Prior known EF of 30 to 35%, may benefit from Entresto Since mild COPD exacerbation, start duo nebs/Solu-Medrol/empirical antibiotics Monitor BMP trend in a.m. Consult PT/OT since with marked weakness Rate controlled, continue Toprol Continue Coumadin, Coumadin patient mildly subtherapeutic. Monitor on tele. Hypertension: Continue metoprolol, other home medications once verified. COPD: As needed nebulizer treatment. DVT PPX: Continue Coumadin Code status: Full Discharge Plan: Home Plan to discharge in: 24 Hours
[2021-11-01] MEDS ORDERED: WARFARIN SODIUM 2.5 MG TAB PO SCH (17:00)
[2021-11-01] MEDS: FUROSEMIDE 40 MG TABLET PO SCH (18:06)
[2021-11-01] MEDS: METHYLPREDNISOLONE 125 MG INJ IV SCH (18:06)
[2021-11-01] MEDS: AMOX/K CLAV 875 MG TAB PO SCH (20:47)
[2021-11-01] MEDS ORDERED: AMOX TR/K CLAV 400MG CHEW TAB PO SCH (21:00)
[2021-11-02] MEDS: METHYLPREDNISOLONE 125 MG INJ IV SCH ×2 (00:14→06:34)
[2021-11-02] MEDS: ALBUTEROL 2.5 MG/3 ML NEB SOL NEB SCH ×2 (03:59→08:00)
[2021-11-02] MEDS: IPRATROPIUM BROM 0.5MG/2.5ML NEB SCH ×2 (03:59→08:00)
[2021-11-02 06:15] LABS: Absolute Lymphocytes (CBC) 0.2 K/uL (0.7-4.9); Hematocrit 40.4 % (36.0-45.0); Lymphocytes % 5.4 % (15.3-44.8); MPV 9.4 fL (7.6-11.3); Protime INR 1.21; RBC Red Blood Cell Count 4.75 M/uL (3.86-4.86)
[2021-11-02 06:27] LABS: Albumin 3.6 g/dL (3.4-5.0); Potassium 3.4 mmol/L (3.5-5.1); Protein, Total 6.2 g/dL (6.4-8.2)
[2021-11-02] MEDS: METOPROLOL TAR 25 MG TAB PO SCH ×2 (06:34→17:00)
[2021-11-02 07:10] LABS: Urine Blood 1+ (Negative); Urine Color Orange (Yellow); Urine Glucose Negative (Negative); Urine Protein 1+ (Negative); Urine Specific Gravity 1.025 (1.005-1.030); Urine Urobilinogen 0.2 mg/dL (0.2-1.0)
[2021-11-02 07:18] LABS: Urine Appearance SL CLOUDY (Clear)
[2021-11-02 07:19] LABS: Urine Bilirubin NEGATIVE (Negative); Urine Microscopic Reflex ORDER UMIC
[2021-11-02 07:21] LABS: Urine Bacteria >50 /HPF (<20); Urine Mucus 2+ /HPF (NONE SEEN); Urine Yeast MANY (NONE SEEN)
[2021-11-02] MEDS ORDERED: POTASSIUM 25 MEQ EFFERV TAB PO ONE (08:00)
[2021-11-02 08:15] LABS: Platelet Estimate ADEQ; White Blood Cell Scan OK (OK)
[2021-11-02 08:16] LABS: ACANTHOCYTE 1+; Anisocytosis 1+; Blood Morphology Comment NOTED (NOT SEEN); Hypochromasia 1+; Poikilocytosis 1+; Teardrop Cell FEW
--- NOTE | 2021-11-02 08:26 | P.DS ---
Admission Date: 11/01/21 Discharge Date: 11/02/21 Reason for Admission: CHF exacerbation Brief History of Present Illness: History of Present Illness: 65-year-old female with history of chronic systolic congestive heart failure, A. fib, hypertension, COPD presents emergency department for dyspnea. Patient lives at home alone in an apartment, has home health. Her home health nurse noticed that she was short of breath and had x-ray ordered family reports that the outpatient chest x-ray demonstrate pneumonia and they were told to come to the emergency department. Patient was evaluated here in the emergency department her chest x-ray here showed chronic interstitial lung disease similar to comparison her labs are significant for elevated BNP patient noted to be mildly dyspneic with 1+ pitting to bilateral lower extremities family reports that patient has not been compliant with her medications at home requesting patient be admitted under observation diuresed. We will also have patient evaluate by physical therapy in addition to diuresis. Allergies levofloxacin [From Levaquin] Allergy (Intermediate, Verified 09/27/21 07:20) Itching/Hives/Rash Home Medications: Potassium Chloride [Klor-Con 10] 1 tab PO DAILY 06/09/16 Sertraline [Zoloft*] 100 tab PO BEDTIME 06/09/16 Metoprolol Tartrate 25 mg PO DAILY 06/11/17 lisinopriL [Prinivil*] 5 mg PO DAILY #30 tab 06/20/17 Albuterol Inhaler [Ventolin Inhaler*] 2 puff IH Q6H PRN #1 hfa.aer.ad 04/10/18 Acetaminophen [Tylenol Extra Strength] 500 mg PO Q4H PRN 09/20/21 Atorvastatin Calcium [Lipitor] 40 mg PO BEDTIME 09/20/21 Melatonin 3 mg PO BEDTIME PRN 09/20/21 Ranolazine [Ranexa] 500 mg PO BID 09/20/21 Sennosides/Docusate Sodium [Senna-S Tablet] 2 tab PO BEDTIME PRN 09/20/21 Apixaban [Eliquis] 5 mg PO BID #60 tablet 10/03/21 Cranberry Fruit Extract 400 mg PO BID cap 10/03/21 Ensure Enlive 237 ml PO BID PRN can 10/03/21 Furosemide [Lasix*] 10 mg PO DAILY #30 tab 10/03/21 - Past Medical/Surgical History Diabetic: No -: HTN -: AFIB -: COPD -: SMOKER -: AAA -: CVA -: AAA -: Bilat Foot - Bunion Sx -: Vital Signs/Physical Exam: Temp Pulse Resp BP Pulse Ox 97.6 F 129 H 18 107/68 92 11/02/21 04:00 11/02/21 06:34 11/02/21 04:00 11/02/21 06:34 11/02/21 04:00 Laboratory Data at Discharge: WBC 4.4 K/uL (4.3-10.9) 11/02/21 05:34 Hgb 13.3 g/dL (12.0-15.0) 11/02/21 05:34 Hct 40.4 % (36.0-45.0) 11/02/21 05:34 Plt Count 120 K/uL (152-406) L 11/02/21 05:34 PT 13.4 SECONDS (9.5-12.5) H 11/02/21 05:34 INR 1.21 11/02/21 05:34 Sodium 137 mmol/L (136-145) 11/02/21 05:34 Potassium 3.4 mmol/L (3.5-5.1) L 11/02/21 05:34 BUN 21 mg/dL (7-18) H 11/02/21 05:34 Creatinine 0.92 mg/dL (0.55-1.3) 11/02/21 05:34 Glucose 196 mg/dL (74-106) H 11/02/21 05:34 Magnesium 2.0 mg/dL (1.8-2.4) 11/02/21 05:34 Total Bilirubin 1.0 mg/dL (0.2-1.0) 11/02/21 05:34 AST 9 U/L (15-37) L 11/02/21 05:34 ALT 12 U/L (12-78) 11/02/21 05:34 Alkaline Phosphatase 66 U/L (45-117) 11/02/21 05:34 Home Medications: Potassium Chloride [Klor-Con 10] 1 tab PO DAILY 06/09/16 Sertraline [Zoloft*] 100 tab PO BEDTIME 06/09/16 Metoprolol Tartrate 25 mg PO DAILY 06/11/17 lisinopriL [Prinivil*] 5 mg PO DAILY #30 tab 06/20/17 Albuterol Inhaler [Ventolin Inhaler*] 2 puff IH Q6H PRN #1 hfa.aer.ad 04/10/18 Acetaminophen [Tylenol Extra Strength] 500 mg PO Q4H PRN 09/20/21 Atorvastatin Calcium [Lipitor] 40 mg PO BEDTIME 09/20/21 Melatonin 3 mg PO BEDTIME PRN 09/20/21 Ranolazine [Ranexa] 500 mg PO BID 09/20/21 Sennosides/Docusate Sodium [Senna-S Tablet] 2 tab PO BEDTIME PRN 09/20/21 Apixaban [Eliquis] 5 mg PO BID #60 tablet 10/03/21 Cranberry Fruit Extract 400 mg PO BID cap 10/03/21 Ensure Enlive 237 ml PO BID PRN can 10/03/21 Furosemide [Lasix*] 10 mg PO DAILY #30 tab 10/03/21 Followup: Yared Chao MD [Primary Care Provider] -
--- NOTE | 2021-11-02 08:33 | P.PN ---
Subjective Date of Service: 11/02/21 Chief Complaint: CHF exacerbation Subjective: No new changes (Complain of dysuria, Tang placed Cough much improved, shortness of breath improved Patient admitted to [facility], states she lives alone) Physical Examination - Vital Signs Temperature: 97.6 F Blood Pressure: 107/68 Pulse: 129 Respirations: 18 Pulse Ox (%): 92 Assessment And Plan Physician Review: Patient Assessed, Agree with Above Assessment and Plan Physician Review Additional Text: - Physical Exam General: Alert, In no apparent distress, frail, on room air HEENT: Atraumatic, PERRLA, Mucous membr. moist/pink, EOMI, Sclerae nonicteric Neck: Supple, 2+ carotid pulse no bruit, No LAD, Without JVD or thyroid abnormality Respiratory: Coarse bibasilar crepitations, mild expiratory wheeze Cardiovascular: Normal S1 S2, improving to trace pedal edema bilaterally , Irregular heart rate/rhythm (A. fib, rate controlled) Capillary refill: <2 Seconds Gastrointestinal: Normal bowel sounds, No tenderness, GUFoley in situ Musculoskeletal: No tenderness Integumentary: No rashes Neurological: Normal speech, Normal strength at 5/5 x4 extr - Studies Laboratory Data (last 24 hrs) 10/31/21 22:38: PT 19.5 H, INR 1.75 10/31/21 22:38: WBC 4.9, Hgb 13.6, Hct 41.8, Plt Count 119 L 10/31/21 22:38: Sodium 139, Potassium 4.2, BUN 18, Creatinine 0.93, Glucose 131 H, Magnesium 2.1, Total Bilirubin 0.8, AST 12 L, ALT 15, Alkaline Phosphatase 78 Assessment and Plan Presumed combined CHF exacerbation Acute COPD exacerbation A. fibrate controlled Chronic anticoagulation Subtherapeutic INR Hypertension Asthenia UTI Plan Shortness of breath much improved, continue Lasix twice daily Prior known EF of 30 to 35%, may benefit from Entresto as outpatient Improved COPD exacerbation, wean down steroids, continue Augmentin and as needed duo nebs Noted UTI, follow for urine culture, continue antibiotics Follow PT/OT consult for weakness might benefit from SNF Rate controlled, continue Toprol INR trending down, increase Coumadin dose to 5 mg, continue daily PT/INR DVT PPX: Continue Coumadin Code status: Full Discharge Plan: Home Plan to discharge in: 24-48 Hours 11/02/21 08:30 11/02/21 08:32
[2021-11-02] MEDS ORDERED: ALBUTEROL 2.5 MG/3 ML NEB SOL NEB PRN (09:27)
[2021-11-02] MEDS: FUROSEMIDE 40 MG TABLET PO SCH ×2 (09:34→16:58)
[2021-11-02] MEDS: AMOX/K CLAV 875 MG TAB PO SCH ×2 (09:34→21:02)
[2021-11-02] MEDS: predniSONE 20 MG TAB PO SCH (09:37)
[2021-11-02] MEDS ORDERED: IPRATROPIUM BROM 0.5MG/2.5ML NEB PRN (11:18)
[2021-11-02] MEDS ORDERED: WARFARIN SODIUM 5 MG TAB PO SCH (17:00)
[2021-11-03] MEDS: METOPROLOL TAR 25 MG TAB PO SCH ×2 (05:37→17:30)
[2021-11-03] MEDS: FUROSEMIDE 40 MG TABLET PO SCH (10:11)
[2021-11-03] MEDS: AMOX/K CLAV 875 MG TAB PO SCH ×2 (10:12→21:08)
[2021-11-03] MEDS: predniSONE 20 MG TAB PO SCH (10:12)
[2021-11-03 12:46] LABS: Absolute Lymphocytes (CBC) 0.8 K/uL (0.7-4.9); MPV 9.6 fL (7.6-11.3); RBC Red Blood Cell Count 4.81 M/uL (3.86-4.86)
[2021-11-03 12:51] LABS: Albumin 3.7 g/dL (3.4-5.0); Bilirubin Total 0.6 mg/dL (0.2-1.0); Potassium 3.9 mmol/L (3.5-5.1); Protein, Total 6.2 g/dL (6.4-8.2)
[2021-11-03 12:57] LABS: Protime INR 1.48
[2021-11-03 13:29] LABS: Anisocytosis 1+; Blood Morphology Comment NOTED (NOT SEEN); Ovalocytes 1+; Platelet Estimate DECR; White Blood Cell Scan OK (OK)
--- NOTE | 2021-11-03 15:05 | P.PN ---
Subjective Date of Service: 11/03/21 Chief Complaint: CHF exacerbation Subjective: No new changes (still weak) Physical Examination - Vital Signs Temperature: 97.8 F Blood Pressure: 119/76 Pulse: 104 Respirations: 20 Pulse Ox (%): 97 Assessment And Plan Physician Review: Patient Assessed, Agree with Above Assessment and Plan Physician Review Additional Text: - Physical Exam General: Alert, In no apparent distress, frail, on room air HEENT: Atraumatic, PERRLA, Mucous membr. moist/pink, EOMI, Sclerae nonicteric Neck: Supple, 2+ carotid pulse no bruit, No LAD, Without JVD or thyroid abnormality Respiratory: Coarse bibasilar crepitations, mild expiratory wheeze Cardiovascular: Normal S1 S2, improving to trace pedal edema bilaterally , Irregular heart rate/rhythm (A. fib, rate controlled) Capillary refill: <2 Seconds Gastrointestinal: Normal bowel sounds, No tenderness, GUFoley in situ Musculoskeletal: No tenderness Integumentary: No rashes Neurological: Normal speech, Normal strength at 5/5 x4 extr Assessment and Plan Presumed combined CHF exacerbation Acute COPD exacerbation A. fibrate controlled Chronic anticoagulation Subtherapeutic INR Hypertension Asthenia UTI Plan Tolerating room air, resolved shortness of breath, Continue Lasix Prior known EF of 30 to 35%, may benefit from Entresto as outpatient Improved COPD exacerbation, wean down steroids, continue Augmentin and as needed duo nebs Noted UTI, follow for urine culture, continue antibiotics Follow PT/OT consult for weakness might benefit from SNF Rate controlled, continue Toprol INR slowly rising, dose 10 mg today, continue 5 mg Coumadin in a.m. ,continue daily PT/INR DVT PPX: Continue Coumadin Code status: Full Discharge Plan: Home Plan to discharge in: 24-48 Hours
[2021-11-03] MEDS ORDERED: WARFARIN SODIUM 5 MG TAB PO ONE (16:00)
[2021-11-04] MEDS: METOPROLOL TAR 25 MG TAB PO SCH ×2 (06:03→17:05)
[2021-11-04 08:22] LABS: Albumin 3.4 g/dL (3.4-5.0); Bilirubin Total 0.6 mg/dL (0.2-1.0); Potassium 3.7 mmol/L (3.5-5.1); Protein, Total 5.9 g/dL (6.4-8.2)
[2021-11-04] MEDS: FUROSEMIDE 40 MG TABLET PO SCH (08:50)
[2021-11-04] MEDS: predniSONE 20 MG TAB PO SCH (08:50)
[2021-11-04] MEDS: AMOX/K CLAV 875 MG TAB PO SCH ×2 (08:52→20:40)
[2021-11-04 11:55] LABS: Protime INR 2.93
--- NOTE | 2021-11-04 12:40 | P.PN ---
Subjective Date of Service: 11/04/21 Chief Complaint: CHF exacerbation Subjective: No new changes, No C/O voiced Physical Examination - Vital Signs Temperature: 97.0 F Blood Pressure: 134/90 Pulse: 80 Respirations: 18 Pulse Ox (%): 94 Assessment And Plan Physician Review: Patient Assessed, Agree with Above Assessment and Plan Physician Review Additional Text: - Physical Exam General: Alert, In no apparent distress, frail, on room air HEENT: Atraumatic, PERRLA, Mucous membr. moist/pink, EOMI, Sclerae nonicteric Neck: Supple, 2+ carotid pulse no bruit, No LAD, Without JVD or thyroid abnormality Respiratory: Coarse bibasilar crepitations, mild expiratory wheeze Cardiovascular: Normal S1 S2, improving to trace pedal edema bilaterally , Irregular heart rate/rhythm (A. fib, rate controlled) Capillary refill: <2 Seconds Gastrointestinal: Normal bowel sounds, No tenderness, GUFoley in situ Musculoskeletal: No tenderness Integumentary: No rashes Neurological: Normal speech, Normal strength at 5/5 x4 extr Assessment and Plan Presumed combined CHF exacerbation Acute COPD exacerbation A. fibrate controlled Chronic anticoagulation Subtherapeutic INR Hypertension Asthenia UTIcultures negative Plan Resolved SOB Continue Lasix Improving COPD exacerbation, wean steroids, continue Augmentin Continue duo nebs as needed Follow-up plan for SNF/detention given weakness and no help at home Continue PT and OT Prior known EF of 30 to 35%, may benefit from Entresto as outpatient Rate controlled, continue Toprol INR not therapeutic, to home dose Coumadin today, ,continue daily PT/INR DVT PPX: Continue Coumadin Code status: Full Discharge Plan: Home Plan to discharge in: 24-48 Hours 11/04/21 12:39 11/04/21 12:40 Time Spent Managing PTS Care (In Minutes): 35
[2021-11-04] MEDS ORDERED: MELATONIN 3 MG TABLET PO PRN (12:42)
[2021-11-04] MEDS ORDERED: WARFARIN SODIUM 5 MG TAB PO SCH (17:00)
[2021-11-04] MEDS: SERTRALINE HCL 50 MG TAB PO SCH (20:40)
[2021-11-04] MEDS: ATORVASTATIN 40 MG TAB PO SCH (20:40)
[2021-11-05 01:33] VITALS: O2SAT 98
[2021-11-05] MEDS ORDERED: CETIRIZINE HCL 5 MG TABLET PO PRN (04:16)
[2021-11-05] MEDS: METOPROLOL TAR 25 MG TAB PO SCH ×2 (06:29→18:19)
[2021-11-05] MEDS: AMOX/K CLAV 875 MG TAB PO SCH ×2 (09:29→20:09)
[2021-11-05] MEDS: lisinopriL 5 MG TAB PO SCH (09:29)
[2021-11-05] MEDS: FUROSEMIDE 40 MG TABLET PO SCH (09:29)
[2021-11-05] MEDS: predniSONE 20 MG TAB PO SCH (09:29)
[2021-11-05 11:46] LABS: Protime INR 3.99
[2021-11-05 11:53] LABS: Albumin 3.4 g/dL (3.4-5.0); Bilirubin Total 0.7 mg/dL (0.2-1.0); Potassium 3.7 mmol/L (3.5-5.1)
--- NOTE | 2021-11-05 13:11 | P.PN ---
Subjective Date of Service: 11/05/21 Chief Complaint: CHF exacerbation Subjective: No new changes Physical Examination - Vital Signs Temperature: 97.1 F Blood Pressure: 128/69 Pulse: 93 Respirations: 16 Pulse Ox (%): 96 Assessment And Plan Physician Review: Patient Assessed, Agree with Above Assessment and Plan Physician Review Additional Text: - Physical Exam General: Alert, In no apparent distress, frail, on room air HEENT: Atraumatic, PERRLA, Mucous membr. moist/pink, EOMI, Sclerae nonicteric Neck: Supple, 2+ carotid pulse no bruit, No LAD, Without JVD or thyroid ab normality Respiratory: Good air entry, resolved expiratory wheeze Cardiovascular: Normal S1 S2, improving to trace pedal edema bilaterally , Irregular heart rate/rhythm (A. fib, rate controlled) Capillary refill: <2 Seconds Gastrointestinal: Normal bowel sounds, No tenderness, removed Tang Musculoskeletal: No tenderness Integumentary: No rashes Neurological: Normal speech, Normal strength at 5/5 x4 extr Assessment and Plan Presumed combined CHF exacerbation Acute COPD exacerbation A. fibrate controlled Chronic anticoagulation Subtherapeutic INR Hypertension Asthenia UTIcultures negative Plan Resolved COPD/CHF exacerbation. Continue weaning down steroids Continue Augmentin Continue as needed DuoNebs Follow-up plan by case management for SNF since significant weakness although patient intermittently says she wants to go home but also willing to go for SNF to get her strength up Prior known EF of 30 to 35%, may benefit from Entresto as outpatient Continue Eliquis for A. fib Rate controlled, continue Toprol DVT PPX: Continue Coumadin Code status: Full Discharge Plan: Home Plan to discharge in: As needed when SNF available 11/05/21 13:10
[2021-11-05] MEDS: APIXABAN 5 MG TABLET PO SCH (20:10)
[2021-11-05] MEDS: SERTRALINE HCL 50 MG TAB PO SCH (20:10)
[2021-11-05] MEDS: ATORVASTATIN 40 MG TAB PO SCH (20:10)
[2021-11-06] MEDS: METOPROLOL TAR 25 MG TAB PO SCH ×2 (06:06→17:36)
[2021-11-06] MEDS: FUROSEMIDE 40 MG TABLET PO SCH (10:34)
[2021-11-06] MEDS: predniSONE 20 MG TAB PO SCH (10:34)
[2021-11-06] MEDS: AMOX/K CLAV 875 MG TAB PO SCH ×2 (10:34→21:00)
[2021-11-06] MEDS: lisinopriL 5 MG TAB PO SCH (10:35)
[2021-11-06] MEDS: APIXABAN 5 MG TABLET PO SCH ×2 (10:37→21:01)
[2021-11-06 14:56] LABS: Albumin 3.6 g/dL (3.4-5.0); Bilirubin Total 0.7 mg/dL (0.2-1.0); Potassium 3.8 mmol/L (3.5-5.1); Protein, Total 6.3 g/dL (6.4-8.2)
--- NOTE | 2021-11-06 18:07 | P.PN ---
Date of Service: 11/06/21 Subjective Subjective: No new changes Physical Examination - Vital Signs reviewed - Physical Exam General: Alert, In no apparent distress, frail, on room air HEENT: Atraumatic, PERRLA, Mucous membr. moist/pink, EOMI, Sclerae nonicteric Neck: Supple, 2+ carotid pulse no bruit, No LAD, Without JVD or thyroid abnormality Respiratory: Good air entry, resolved expiratory wheeze Cardiovascular: Normal S1 S2, improving to trace pedal edema bilaterally , Irregular heart rate/rhythm (A. fib, rate controlled) Capillary refill: <2 Seconds Gastrointestinal: Normal bowel sounds, No tenderness, removed Tang Musculoskeletal: No tenderness Integumentary: No rashes Neurological: Normal speech, Normal strength at 5/5 x4 extr Assessment and Plan Combined CHF exacerbation Acute COPD exacerbation A. fibrate controlled Chronic anticoagulation Subtherapeutic INR Hypertension Asthenia UTIcultures negative Plan -Continue with nebs and diuretics -Continue weaning down steroids -Continue Augmentin -Continue as needed DuoNebs -SNF placement -Prior known EF of 30 to 35%, may benefit from Entresto as outpatient -Continue Eliquis for A. fib -Rate controlled, continue Toprol -GI and DVT prophylaxis
[2021-11-06] MEDS: SERTRALINE HCL 50 MG TAB PO SCH (21:01)
[2021-11-06] MEDS: ATORVASTATIN 40 MG TAB PO SCH (21:01)
[2021-11-07] MEDS: METOPROLOL TAR 25 MG TAB PO SCH ×2 (05:53→18:41)
[2021-11-07] MEDS: lisinopriL 5 MG TAB PO SCH (09:37)
[2021-11-07] MEDS: FUROSEMIDE 40 MG TABLET PO SCH (09:37)
[2021-11-07] MEDS: predniSONE 20 MG TAB PO SCH (09:37)
[2021-11-07] MEDS: AMOX/K CLAV 875 MG TAB PO SCH ×2 (09:37→21:25)
[2021-11-07] MEDS: APIXABAN 5 MG TABLET PO SCH ×2 (09:38→21:25)
[2021-11-07 15:54] LABS: Albumin 3.2 g/dL (3.4-5.0); Bilirubin Total 0.7 mg/dL (0.2-1.0); Potassium 3.9 mmol/L (3.5-5.1); Protein, Total 5.7 g/dL (6.4-8.2)
[2021-11-07] MEDS: SERTRALINE HCL 50 MG TAB PO SCH (21:25)
[2021-11-07] MEDS: ATORVASTATIN 40 MG TAB PO SCH (21:25)
[2021-11-08] MEDS: METOPROLOL TAR 25 MG TAB PO SCH (05:43)
[2021-11-08] MEDS ORDERED: POTASSIUM CL SA 10 MEQ TAB PO ONE (07:30)
[2021-11-08] MEDS: lisinopriL 5 MG TAB PO SCH (09:20)
[2021-11-08] MEDS: AMOX/K CLAV 875 MG TAB PO SCH (09:20)
[2021-11-08] MEDS: APIXABAN 5 MG TABLET PO SCH (09:20)
[2021-11-08] MEDS: predniSONE 20 MG TAB PO SCH (09:20)
[2021-11-08] MEDS: FUROSEMIDE 40 MG TABLET PO SCH (09:21)
[2021-11-08 12:14] VITALS: BP 95/64; TEMP 96.8
== END 2021-11-08 15:57 | DRG 291 ==
LOC: ER 20:16 → ERHOLD 11-01 01:45 → 2ND 11-01 14:09 → OBSVTOIN 11-01 19:15
PROVIDERS: ADMIT Internal Medicine; ATTEND Internal Medicine
DX: I11.0 Hypertensive heart disease with heart failure (principal); I50.43 Acute on chronic combined systolic (congestive) and diastolic (congestive) heart failure; J44.1 Chronic obstructive pulmonary disease with (acute) exacerbation; N39.0 Urinary tract infection, site not specified; I48.91 Unspecified atrial fibrillation; R53.1 Weakness; Z79.01 Long term (current) use of anticoagulants; Z91.14 Patient's other noncompliance with medication regimen; Z86.73 Personal history of transient ischemic attack (TIA), and cerebral infarction without residual deficits; Z95.0 Presence of cardiac pacemaker; Z20.822 Contact with and (suspected) exposure to COVID-19
CPT/HCPCS: 36415; 51702; 71045; 80048; 80053; 80076; 81003; 81015; 83735; 83880; 84132; 84484; 85025; 85610; 87086; 87088; 87804; 93005; 94640; 96374; 97110; 97116; 97161; 97165; 97530; 99285; G0378; J1940; J2930; J7512; U0003

== ENCOUNTER 2022-03-01 11:49 | Inpatient (IN) | payer OTHER ==
--- OUTSIDE RECORDS SUMMARY | 2022-03-01 11:54 | XMS REPORT | Continuity of Care Document ---
:1955 Author Organization Formerly [facility] t Address [address] [place] [address] Care Team Providers Name Role Phone Anna DEL VALLE, Yared Primary Care Physician [phone] Attending Clinician Unavailable FAYE AGARWAL NATASHA Attending Clinician Unavailable Rita Silva Attending Clinician Unavailable Janelle Gomez RN, Consuelo Attending Clinician Unavailable Jh Buckley MD Attending Clinician Todd Gastelum Attending Clinician Unavailable Shayne DEL VALLE, Prieto Attending Clinician MD JH BUCKLEY Attending Clinician Unavailable Lizzy Rajan MD Attending Clinician SHELL YANG Attending Clinician Unavailable [id number] Admitting Clinician Unavailable FAYE AGARWAL NATASHA Admitting Clinician Unavailable JH BUCKLEY Admitting Clinician Unavailable MD JH BUCKLEY Admitting Clinician Unavailable SHELL YANG Admitting Clinician Unavailable Payers Payer Name Policy Type Policy Number Effective Date Expiration Date Quiana sharp [facility] [id number] MEDICARE B [id number] 1999 RAILROAD 00:00:00 Problems Condition Condition Condition [...] l A-fib A-fib Disease Active 2018-06 Methodi 08-06 [facility] 00:00: Hospita 00 l Status Status Disease Active 2018-06 Method[facility] post post 08-05 laparoscop laparoscop 00:00: Ho [place] ic ic 00 l cholecyste cholecyste ctomy ctomy Calculus Calculus Disease Active 2018-06 Metho di of of 07-27 gallbladde gallbladde 00:00: Ho spiumang r without r without 00 l cholecysti cholecysti tis tis without without obstructio obstructio n n Biliary Biliary Disease Active 2018-06 Method[facility] colic colic 07-27 00:00: Hospita 00 l Cardiomyop Cardiomyop Disease Active 2018-06 M ethodi athy athy 07-27 00:00: Hospita 00 l Status Status Disease Active 2018-06 Methodi post post 07-27 implantati implantati 00:00: Ho [place] on of on of 00 l automatic automatic cardiovert cardiovert er/defibri er/defibri llator llator (AICD) (AICD) Status Status Disease Active 2018-06 Methodi post AAA post AAA 07-27 (abdominal (abdominal 00:00: [facility] [place] aortic aortic 00 l aneurysm) aneurysm) repair repair Chronic Chronic Disease Active 2018-06 Methodi obstructiv obstructiv 07-27 e e 00:00: Hospita pulmonary pulmonary 00 l disease disease (COPD) (COPD) Tobacco Tobacco Disease Active 2018-06 Method[facility] abuse abuse 07-27 00:00: Hospita 00 l S/P MVR S/P MVR Disease Active Methodi (mitral (mitral 08-15 valve valve 00:00: Hospita repair) repair) 00 l Thrombocyt Thrombocyt Disease Active M ethodi openia openia 08-08 st 00:00: Hospita 00 l S/P MVR S/P MVR Disease Active Methodi (mitral (mitral 08-08 valve valve 00:00: Hospita replacemen replacemen 00 l t) t) Thrombocyt Thrombocyt Disease Active M ethodi openia openia 08-08 st 00:00: Hospita 00 l Paroxysmal Paroxysmal Disease Active M ethodi atrial atrial 08-08 fibrillati fibrillati 00:00: Daryn rose on on 00 l Shortness Shortness Disease Active Met hodi of breath of breath 2-15 st 00:00: Hospita 00 l 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 [address] valve valve 00:00: Hospita stenosis stenosis 00 l Essential Essential Disease Active Met hodi hypertensi hypertensi 01-13 st on on 00:00: Hospita 00 l CVA CVA Disease Active Methodi (cerebral (cerebral 01-13 vascular vascular 00:00: Hospit a accident) accident) 00 l Depression Depression Disease Active M ethodi 01-13 st 00:00: Hospita 00 l Confusion Confusion Disease Active Met hodi 01-10 st 00:00: Hospita 00 l Depressive Depressive Disease Active Overview : Univers disorder disorder 08-10 Formattin ity of 00:00: g of this [place] note Medical might be Branch different from the original. 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 Other Other Disease Active Overview: Univer [...] Active Univers ALLERGIE Class ity of [facility] [place] [facility] Family History Family Member Diagnosis Comments Start Date Stop Date Source Natural father Stroke [facility] Natural mother [facility] Social History Social Habit Start Date Stop Date Quantity Comments Source Exposure to Not sure University of SARS-CoV-2 (event) [place] [facility] History of tobacco Cigarette Smoker [facility] use Hospital History SDOH [facility] Alcohol Comment Hospital History SDOH [place] Alcohol Std Drinks Hospit al History SDOH [facility] Alcohol Binge Hospital Alcohol intake 2021-01-11 2021-01-11 Current [facility] 00:00:00 00:00:00 non-drinker of Hospital alcohol (finding) History SDOH 2019-06-04 2019-06-04 1 [facility] Alcohol Frequency 00:00:00 00:00:00 Hospita l Tobacco use and 2018-07-25 2018-07-25 Smokeless [facility] exposure 00:00:00 00:00:00 tobacco non-user Hospital Cigarettes smoked 2018-07-25 2018-07-[address] current (pack per 00:00:00 00:00:00 Hospita l day) - Reported Cigarette 2018-07-25 2018-07-25 [facility] pack-years 00:00:00 00:00:00 Hospital Sex Ass[birth year] At [birth year] [facility]ze 00:00:00 00:00:00 Hospital Smoking Status Start Date Stop Date Source Unknown if ever smoked [facility] Smokes tobacco daily 2018-07-25 00:00:00 [facility] Medications Ordered Filled Start Stop Current Ordering Indication Dosage Frequency Signature Comments Components Source Medication Medication Date Date Medication? Clinician (SIG) Name Name nicotine 2020- No [id number] 1{patch QD Place 1 Methodi (NICODERM 818 09-18 } patch on st CQ) 21 00:00: 04:59 the skin Hospit a mg/24 hr 00 :00 daily for l 30 days. enoxaparin 2020- No 60mg Inject 60 M ethodi (LOVENOX) 8-17 08-[address] 60 mg/0.6 16:37: 00:00 the skin. Ho spita mL syringe 01 :00 l potassium 0 Yes 10meq QD Take 10 Meth mazin chloride 8-[address] (K-DUR,KLOR 16:36: mouth Hospi ta -CON) 10 56 daily. l MEQ CR tablet sertraline Yes 50mg QD Take 50 mg M ethodi (ZOLOFT) 50 8-[address] MG tablet 16:36: daily. Hospit a 56 l potassium 2020-0 Yes 10meq QD Take 10 Meth mazin chloride 8-[address] (K-DUR,KLOR 16:36: mouth Hospi ta -CON) 10 56 daily. l MEQ CR tablet sertraline Yes 50mg QD Take 50 mg M ethodi (ZOLOFT) 50 01-[address] MG tablet 16:36: daily. Hospit a 56 l ipratropium 2020- No [id number] .5mg Q6H Take 2.5 Methodi (ATROVENT) 01-24 mL (0.[address] 0.02 % 00:00: 04:59 total) by Hospi ta nebulizer 00 :00 nebulizati l solution on every 6 (six) hours as needed for wheezing or shortness of breath for up to 30 days. ondansetron 2020- No [id number] 4mg Q4H Take 1 Methodi (ZOFRAN) 4 01-24 tablet (4 st MG tablet 00:00: 04:59 mg total) Ho spita 00 :00 by mouth l every 4 (four) hours as needed for nausea or vomiting for up to 30 days. ranolazine 2020- No [id number] 500mg Q.5D Take 1 Methodi (RANEXA) 01-[address] 500 MG 12 00:00: 04:59 (500 mg Hosp debora hr ER 00 :00 total) by l tablet mouth 2 (two) times a day for 30 days. rosuvastati 2020- No [id number] 20mg QD Take 1 Methodi n (CRESTOR) 01-24 tablet (20 s t 20 mg 00:00: 04:59 mg total) Hospit a tablet 00 :00 by mouth l nightly for 30 days. HYDROcodone 2020- No [id number] 1{tbl} Q4H Take 1 Methodi -acetaminop 01-24 [...] hours for tablet 4 days. lidocaine 2 2020-0 Yes 2mg/min 2 mg/min Univers g/500 mL - (30 ity of D5W (Fixed 13:15: mL/hr), IV [place] Dose) 00 Infusion, Medical infusion CONTINUOUS Branc h RTU , Starting Sat12/26/20 at 0815 heparin 2020-0 Yes 12U/kg/ 12 Univers 25,000 12-26 h Units/kg/h ity of Units/250 13:12: r [...] INITIAL BOLUS OR INITIAL INFUSION RATE.
ipratropium 0 Yes 3mL 3 mL, Unive rs -albuteroL 12-26 Inhalation ity of (DUONEB) 13:00: , QID, [place] 0.5 mg-3 00 First dose Medic al mg(2.5 mg on [facility] Branch base)/3 mL 12/26/20 at nebulizer 0800, solution 3 Until mL Discontinu ed, Routine metoprolol 0 Yes 50mg Take 50 mg U nivers succinate 7- by mouth ity of XL 50 mg 24 12:27: daily. [place] hr tablet [address] [place] [address] potassium 0 Yes 10meq Take 10 Univ ers chloride 7-19 mEq by ity of (KLOR-CON 12:27: mouth [place] 10) 10 mEq 20 daily. Medical CR tablet [place] lisinopriL Yes 5mg Take 5 mg Un jeff 5 mg tablet - by mouth ity of 12:27: daily. [address] furosemide 0 Yes 40mg Take 40 mg U nivers 40 mg - by mouth ity of tablet 12:27: daily. [address] SERTraline 0 Yes 50mg Take 50 mg U nivers 50 mg - by mouth ity of tablet 12:27: daily. [address] warfarin 3 0 Yes 3mg Take 3 mg Un jeff mg tablet - by mouth. ity o f 12:27: 3mg one [place] day and Medical then 4mg Branch the next HEPARIN 2020-0 202- No 4000U 4,000 Univers SODIUM 12-26-19 Units, IV ity of (PORCINE) 12:15: 12:15 Push, [place] 1,000 00 :00 ONCE, 1 Medical UNIT/ML dose, [facility] Branch BOLUS ACS 12/26/20 at ORDER SET 0715, BIENVENIDO heparin 2020-0 Yes 3000U FOR Univers (1,000 12-26 REBOLUSING ity of unit/mL, 10 12:12: , Starting [place] mL vial) 08 [facility] Medical for 12/26/20 at Branch Rebolusing 0712, Until Discontinu ed, Routine
Dosing based on aPTT testing parameters (refer to continuous heparin drip order).
metoprolol No 50mg 50 mg, Univ ers tartrate 12-26 Oral, ity of (LOPRESSOR) 10:15: 09:08 [place]CE, 1 [place] tablet 50 00 :00 dose, Mon Medic al mg 12/26/20 at [place] 0515, Routine methylpredn No 125mg 125 mg, IV Univers isolone sod 12-26 Piggyback, i ty of succ 09:30: 08:34 ONCE, 1 [place] (SOLU-MEDRO 00 :00 dose, Mon Med ical L) 12/26/20 at [place] injection 0430, STAT 125 mg naloxone 2018-06 [...] difficult to arouse (POSS GREATER than 3).). naloxone 2018-06 Yes .2mg Infuse 0.5 Met [...] QD Take 40 mg Methodi (LASIX) 40 008 08-[address] mg tablet 00:00: 00:00 daily. Hospi ta 00 :00 l lisinopril Yes 5mg QD Take 5 mg Me thodi (PRINIVIL) [address] 5 mg tablet 00:00: daily. Hosp debora 00 l lisinopril Yes 5mg QD Take 5 mg Me thodi (PRINIVIL) [address] 5 mg tablet 00:00: daily. Hosp [facility] 00 l metoprolol 2019-0 Yes 50mg QD Take 50 mg M ethodi succinate 8-[address] XL 00:00: daily. Hospita (TOPROL-XL) 00 l 50 mg 24 hr tablet metoprolol 2019-0 Yes 50mg QD Take 50 mg M ethodi succinate 8-[address] XL 00:00: daily. Hospita (TOPROL-XL) 00 l 50 mg 24 hr tablet Immunizations Ordered Immunization Filled Immunization Date Status Commen ts Source Name Name PFIZER COVID-19 MRNA 2021-01-24 Completed Meth odist VACCINATION 00:00:00 [facility] PFIZER COVID-19 MRNA 2021-01-24 Completed Meth odist VACCINATION 00:00:00 [facility] PFIZER COVID-19 MRNA 2021-01-05 Completed Meth odist VACCINATION 00:00:00 [facility] PFIZER COVID-19 MRNA 2021-01-05 Completed Meth odist VACCINATION 00:00:00 Hospital Vital Signs Vital Name Observation Time Observation Value Comments Source Systolic blood 2020-12-26 14:00:00 109 mm[Hg] Univer sity of [facility] Diastolic blood 2020-12-26 14:00:00 72 mm[Hg] Unive rsity [facility] Heart rate 2020-12-26 14:00:00 102 /min [facility] Respiratory rate 2020-12-26 14:00:00 14 /min [facility] Oxygen saturation in 2020-12-26 14:00:00 96 /min [facility] blood by [facility] Pulse oximetry Branch Body temperature 2020-12-26 08:10:00 36.83 Noris [facility] Body weight 2020-12-26 08:10:00 72.576 kg [facility] Systolic blood 2021-01-24 20:52:38 119 mm[Hg] Method ist Hospital pressure Diastolic blood 2021-01-24 20:52:38 78 mm[Hg] Metho dist [facility] pressure Heart rate 2021-01-24 20:52:38 132 /min Methodis t [facility] Body temperature 2021-01-24 20:52:38 36.28 Noris Meth odist [facility] Respiratory rate 2021-01-24 20:52:38 19 /min [facility] Oxygen saturation in 2021-01-24 20:52:38 96 /min [facility] Arterial blood by Pulse oximetry Body weight 2021-01-18 22:00:00 66.877 kg [facility] BMI 2021-01-18 22:00:00 23.09 kg/m2 [facility] Body height 2020-12-26 17:12:00 170.2 cm [facility] Procedures Procedure Date / Time Performing Clinician Source Performed POC GLUCOSE 2021-01-24 12:45:00 [facility] PROTHROMBIN TIME WITH INR 2021-01-24 11:22:00 [facility] PROTHROMBIN TIME WITH INR 2021-01-22 11:04:00 [facility] URINE CULTURE 2021-01-20 23:52:00 [facility] [place] [facility] spital URINALYSIS SCREEN AND 2021-01-20 23:12:00 Jian [facility] MICROSCOPY, WITH REFLEX TO CULTURE PROTHROMBIN TIME WITH INR 2021-01-20 11:26:00 [facility] PROTHROMBIN TIME WITH INR 2021-01-18 11:12:00 [facility] PROTHROMBIN TIME WITH INR 2021-01-16 10:59:00 [facility] PROTHROMBIN TIME WITH INR 2021-01-15 10:11:00 [facility] PROTHROMBIN TIME WITH INR 2021-01-13 10:47:00 [facility] PROTHROMBIN TIME WITH INR 2021-01-12 10:16:00 [facility] BASIC METABOLIC PANEL 2021-01-11 09:48:00 [facility] HC COMPLETE BLD COUNT 2021-01-11 09:48:00 [facility] W/AUTO DIFF PROTHROMBIN TIME WITH INR 2021-01-11 09:48:00 [facility] VANCOMYCIN LEVEL, TROUGH 2021-01-11 09:48:00 [facility] [place] [facility] C-REACTIVE PROTEIN 2021-01-11 09:48:00 [facility] PROCALCITONIN 2021-01-11 09:48:00 [facility] SEDIMENTATION RATE 2021-01-11 09:48:00 [facility] ESTIMATED GFR 2021-01-11 09:48:00 [facility] BASIC METABOLIC PANEL 2021-01-09 12:29:00 [facility] ESTIMATED GFR 2021-01-09 12:29:00 [facility] HC COMPLETE BLD COUNT 2021-01-09 11:20:00 [facility] W/AUTO DIFF PROTHROMBIN TIME WITH INR 2021-01-09 10:57:00 Attar, [facility] VANCOMYCIN LEVEL, TROUGH 2021-01-08 09:32:00 [facility] [place] [facility] PROTHROMBIN TIME WITH INR 2021-01-08 09:32:00 Attor, [facility] BASIC METABOLIC PANEL 2021-01-08 09:32:00 [facility] ESTIMATED GFR 2021-01-08 09:32:00 Attor [facility] spital HC COMPLETE BLD COUNT 2021-01-08 09:20:00 [facility] W/AUTO DIFF ECG 12-LEAD 2021-01-07 01:21:25 [facility] BASIC METABOLIC PANEL 2021-01-06 10:33:00 [facility] ESTIMATED GFR 2021-01-06 10:33:00 [facility] CBC HEMOGRAM 2021-01-06 10:29:00 [facility] PROTHROMBIN TIME WITH INR 2021-01-06 10:28:00 [facility] PROTHROMBIN TIME WITH INR 2021-01-05 08:50:00 [facility] BASIC METABOLIC PANEL 2021-01-05 08:50:00 [facility] ESTIMATED GFR 2021-01-05 08:50:00 [facility] HC COMPLETE BLD COUNT 2021-01-05 08:50:00 [facility] W/AUTO DIFF COVID-19 QUALITATIVE 2021-01-04 23:30:00 [facility] PROTHROMBIN TIME WITH INR 2021-01-04 09:38:00 [facility] PROTHROMBIN TIME WITH INR 2021-01-03 10:46:00 [facility] PARTIAL THROMBOPLASTIN 2021-01-03 10:46:00 [facility] TIME (PTT) BASIC METABOLIC PANEL 2021-01-03 07:10:00 [facility] ESTIMATED GFR 2021-01-03 07:10:00 [facility] CBC HEMOGRAM 2021-01-03 07:10:00 [facility] PARTIAL THROMBOPLASTIN 2021-01-03 04:26:00 [facility] TIME (PTT) SEDIMENTATION RATE 2021-01-02 19:40:00 [facility] C-REACTIVE PROTEIN 2021-01-02 19:40:00 [facility] PROCALCITONIN 2021-01-02 19:40:[address] [facility] spital BLOOD CULTURE, AEROBIC & 2021-01-02 18:40:[address] [facility] [place] ANAEROBIC PARTIAL THROMBOPLASTIN 2021-01-02 18:40:00 [facility] TIME (PTT) PROTHROMBIN TIME WITH INR 2021-01-02 09:06:00 [facility] PARTIAL THROMBOPLASTIN 2021-01-02 09:06:00 [facility] TIME (PTT) VANCOMYCIN LEVEL, TROUGH 2021-01-01 16:38:00 [facility] [place] [facility] PROTHROMBIN TIME WITH INR 2021-01-01 10:45:00 [facility] PARTIAL THROMBOPLASTIN 2021-01-01 10:45:00 [facility] TIME (PTT) PROTHROMBIN TIME WITH INR 2021-01-01 08:52:00 Prieto Bella [facility] PARTIAL THROMBOPLASTIN 2021-01-01 08:52:00 [place] [facility] TIME (PTT) PARTIAL THROMBOPLASTIN 2021-01-01 02:49:00 [facility] TIME (PTT) PARTIAL THROMBOPLASTIN 2020-12-31 20:31:00 [facility] TIME (PTT) PARTIAL THROMBOPLASTIN 2020-12-31 10:20:00 [facility] TIME (PTT) PROTHROMBIN TIME WITH INR 2020-12-31 10:20:00 [facility] CV LEFT HEART CATH LV 2020-12-30 20:42:27 Shayne [facility] GRAM WITH CORS CV SELECTIVE CORONARY 2020-12-30 20:42:27 Shanye [facility] ANGIOGRAPHY VANCOMYCIN LEVEL, TROUGH 2020-12-30 18:18:00 [facility] [place] [facility] COVID-19 QUALITATIVE 2020-12-30 14:52:00 Cass Nava [facility] RT-PCR BASIC METABOLIC PANEL 2020-12-30 12:13:00 [facility] ESTIMATED GFR 2020-12-30 12:13:00 [facility] PROTHROMBIN TIME WITH INR 2020-12-30 10:41:00 Shayne [facility] PARTIAL THROMBOPLASTIN 2020-12-30 10:41:00 [facility] TIME (PTT) CBC HEMOGRAM 2020-12-30 10:40:00 [facility] PARTIAL THROMBOPLASTIN 2020-12-29 21:05:00 [facility] TIME (PTT) ANTI XA, UNFRACTIONATED 2020-12-29 14:39:00 [facility] [place] [facility] PARTIAL THROMBOPLASTIN 2020-12-29 14:39:00 [facility] TIME (PTT) CT CARDIAC OVERREAD 2020-12-29 12:36:40 Shayne [facility] CV CTA CORONARY ARTERIES 2020-12-29 12:15:26 Shayne [facility] W CONTRAST HC COMPLETE BLD COUNT 2020-12-29 06:13:00 [facility] W/AUTO DIFF BASIC METABOLIC PANEL 2020-12-29 06:13:00 [facility] ANTI XA, UNFRACTIONATED 2020-12-29 06:13:00 Shayne [facility] ESTIMATED GFR 2020-12-29 06:13:00 [facility] ANTI XA, UNFRACTIONATED 2020-12-28 23:32:00 [facility] [place] [facility] US CAROTID DUPLEX 2020-12-28 20:25:00 [facility] [place] [facility] BILATERAL ANTI XA, UNFRACTIONATED 2020-12-28 15:49:00 [facility] [place] [facility] URINE CULTURE 2020-12-28 09:09:00 Shayne [facility] spital URINALYSIS SCREEN AND 2020-12-28 08:37:00 Shayne [facility] MICROSCOPY, WITH REFLEX TO CULTURE HC COMPLETE BLD COUNT 2020-12-28 07:23:00 [facility] W/AUTO DIFF BASIC METABOLIC PANEL 2020-12-28 07:23:00 [facility] ANTI XA, UNFRACTIONATED 2020-12-28 07:23:00 [facility] [place] [facility] ESTIMATED GFR 2020-12-28 07:23:00 [facility] PROTHROMBIN TIME WITH INR 2020-12-28 07:23:00 [facility] BLOOD CULTURE, AEROBIC & 2020-12-28 02:52:00 Shayne [facility] ANAEROBIC XR CHEST 1 VW PORTABLE 2020-12-28 00:32:07 Shayne [facility] ANTI XA, UNFRACTIONATED 2020-12-27 23:22:00 [facility] [place] [facility] ANTI XA, UNFRACTIONATED 2020-12-27 21:24:00 [facility] [place] [facility] ANTI XA, UNFRACTIONATED 2020-12-27 14:52:00 [facility] [place] [facility] HC COMPLETE BLD COUNT 2020-12-27 09:16:00 [facility] W/AUTO DIFF BASIC METABOLIC PANEL 2020-12-27 09:00:00 [facility] TROPONIN 2020-12-27 09:00:00 [facility] ESTIM[facility] GFR 2020-12-27 09:00:00 [facility] LIPID PANEL 2020-12-27 05:00:00 [facility] ECG 12-LEAD 2020-12-27 04:13:48 [facility] ANTI XA, UNFRACTIONATED 2020-12-27 02:50:[address] [facility] [place] [facility] [address] HEAD WO CONTRAST 2020-12-27 00:55:16 [facility] TROPONIN 2020-12-26 23:39:00 [facility] TTE COMPLETE, WO 2020-12-26 22:08:00 [facility] CONTRAST, W DOPPLER ([id number]) ECG 12-LEAD 2020-12-26 17:45:46 [facility] TROPONIN 2020-12-26 17:36:00 [facility] THYROID STIMULATING 2020-12-26 17:36:00 [facility] HORMONE T4, FREE 2020-12-26 17:36:00 [facility] HEMOGLOBIN A1C 2020-12-26 17:36:00 [facility] PARTIAL THROMBOPLASTIN 2020-12-26 17:36:00 [facility] TIME (PTT) PROTHROMBIN TIME WITH INR 2020-12-26 17:36:00 [facility] ANTI XA, UNFRACTIONATED 2020-12-26 17:36:00 [facility] [place] [facility] MAGNESIUM 2020-12-26 12:04:[address] [facility] ACUTE CARE ARTERIAL BLOOD 2020-12-26 11:43:00 Lizzy Rajan [facility] EKG-12 LEAD 2020-12-26 10:48:[address] [facility] XR CHEST 1 VW 2020-12-26 08:50:[address] [facility] LIPASE 2020-12-26 08:44:[address] [facility] TROPONIN I 2020-12-26 08:44:[address] [facility] COMP. METABOLIC PANEL 2020-12-26 08:44:00 Lizzy Rajan [facility] ([id number]) Medical Branch CBC WITH DIFF 2020-12-26 08:44:[address] [facility] PROTHROMBIN TIME / INR 2020-12-26 08:44:00 Lizzy Rajan [facility] ACTIVATED PARTIAL 2020-12-26 08:44:00 Lizzy Rajan [facility] PRO-BNP 2020-12-26 08:44:00 Lizzy Rajan [facility] COVID-19 (ID NOW RAPID 2020-12-26 08:43:00 Lizzy Rajan [facility] TESTING) Medical Branch Plan of Care Planned Activity Planned Date Details Comments Source Future Scheduled 2022-02-07 HEPATITIS B VACCINES [facility] Test 08:57:14 (1 of 3 - 3-dose series) [code = HEPATITIS B VACCINES (1 of 3 - 3-dose series)] Future Scheduled 2022-02-07 65+ PNEUMOCOCCAL [facility] Test 08:57:14 VACCINE (1 - PCV) [code = 65+ PNEUMOCOCCAL VACCINE (1 - PCV)] Future Scheduled 2022-02-07 Hepatitis C screening [facility] Test 08:57:14 (procedure) [code = 833236759] Future Scheduled 2022-02-07 Screening for [facility] Test 08:57:14 malignant neoplasm of cervix (procedure) [code = 360051223] Future Scheduled 2022-02-07 BREAST CANCER [facility] Test 08:57:14 SCREENING [code = BREAST CANCER SCREENING] Future Scheduled 2022-02-07 COLONOSCOPY SCREENING [facility] Test 08:57:14 [code = COLONOSCOPY SCREENING] Future Scheduled 2022-02-07 SHINGLES VACCINES ([facility] Test 08:57:14 of 2) [code = SHINGLES VACCINES (1 of 2)] Future Scheduled 2022-02-07 COVID-19 VACCINE (3 - Me [facility] Test 08:57:14 Booster for Pfizer series) [code = COVID-19 VACCINE (3 - Booster for Pfizer series)] Future Scheduled 2022-02-07 [facility] 08:57:14 [code = INFLUENZA VACCINE] Future Scheduled 2021-07-11 Hepatitis C screening [facility] Test 13:49:53 (procedure) [code = 117952511] Future Scheduled 2021-07-11 [facility] malignant neoplasm of cervix (procedure) [code = 862689921] Future Scheduled 2021-07-11 BREAST CANCER [facility] Test 13:49:53 SCREENING [code = BREAST CANCER SCREENING] Future Scheduled 2021-07-11 COLONOSCOPY SCREENING [facility] Test 13:49:53 [code = COLONOSCOPY SCREENING] Future Scheduled 2021-07-11 SHINGLES VACCINES (#1) M [facility] Test 13:49:53 [code = SHINGLES VACCINES (#1)] Future Scheduled 2021-07-11 [facility] malignant neoplasm of lung (procedure) [code = 260886259] Future Scheduled 2021-07-11 [facility]ACCINE [facility] 13:49:53 [code = INFLUENZA VACCINE] Future Scheduled 2021-07-11 COVID-19 VACCINE (3 - [facility] Test 13:49:53 Booster for Pfizer series) [code = COVID-19 VACCINE (3 - Booster for Pfizer series)] Encounters Start End Encounter Admission Attending Care Care Encounter Source Date/Time Date/Time Type Type Clinicians Facility Department ID 2021-11-07 Outpatient 3 [id number] ENCPL REF ENCPL 16:01:05 0531 2021-08-01 Outpatient 3 [id number] ENCPL REF ENCPL 16:18:08 0222 2021-07-06 Outpatient 3 STEFANO, ENCPL CVA ENCPL 12:57:07 FAYE 0923 2021-07-06 Outpatient 3 [id number] ENCPL REF ENCPL 12:56:49 0922 2021-04-10 Emergency [id number] [facility]08 2021-11-21 Inpatient 3 STEFANO, ENCPL CVA [id number] ENCPL 17:12:00 10:40:00 FAYE 0601 2021-08-02 2021-08-15 Inpatient 3 STEFANO, ENCPL CVA [id number] 22 ENCPL 19:04:00 11:45:00 FAYE 0223 2021-06-21 2021-07-02 Inpatient 3 STEFANO, ENCPL CVA [id number] 22 ENCPL 16:15:00 12:24:00 FAYE 0112 2021-03-10 2021-03-10 Patient Ricardo, 1.2.840.1 [id number] Methodi 00:00:00 00:00:00 Outreach Rita 34510.1.[address] 3.430.2.7 Hospit a .3.910071 l .8 2021-03-10 2021-03-10 Patient Ricardo, 1.2.840.1 [id number] [facility] 00:00:00 00:00:00 Outreach Rita 31662.1.[address] 3.430.2.7 Hospit a .3.301195 l .8 2021-03-10 2021-03-10 Patient Ricardo, 1.2.840.1 799 Methodi 00:00:00 00:00:00 Outreach Rita [address]9616.1.[address] 3.430.2.7 Hospit a .3.852390 l .8 2021-03-10 2021-03-10 Patient Ricardo, 1.2.840.1 794 Methodi 00:00:00 00:00:00 Outreach Rita 14806.1.[address] 3.430.2.7 Hospit a .3.215639 l .8 2021-03-09 2021-03-09 Nurse Janelle 1.2.840.1 [id number] Methodi 00:00:00 00:00:00 Triage Consuelo Gomez [address]00.1.[address] 3.430.2.7 Hospit a .3.552780 l .8 2021-03-09 2021-03-09 Nurse Janelle 1.2.840.1 [id number] Methodi 00:00:00 00:00:00 Triage Consuelo Gomez 41822.1.[address] 3.430.2.7 Hospit a .3.953814 l .8 2021-01-10 2021-01-24 [facility] [place], 1.2.840.1 [id number] Methodi 18:41:00 16:36:00 Encounter Jh Mota 17112.1.[address] 3.430.2.7 Hospit a .3.363302 l .8 2021-01-12 2021-01-12 Patient Steemer, 1.2.840.1 [id number] Methodi 00:00:00 00:00:00 Outreach Sonicihumza [address]358.1.[address] 3.430.2.7 Hospit a .3.447795 l .8 2020-12-26 2021-01-10 [facility], 1.2.840.1 [id number] Methodi 10:59:00 18:41:00 Encounter Jh Mota 20101.1.[address] 3.430.2.7 Hospit a .3.123255 l .8 2020-12-30 2020-12-30 Surgery Attar, 1.2.840.1 [id number] 1910 Methodi 14:20:00 15:35:[address] 3.430.2.7 Hospit a .3.500724 l .8 2020-12-26 2020-12-26 [facility] 1.2.479.[id number] [facility] 03:03:00 09:34:00 Lizzy Martin 350.1.13.10 ity [facility] 4.2.7.2.686 [facility] [id number] [place] [id number] Branch 2020-12-26 2020-12-26 Travel 1.2.840.1 1.2.298.607 [id number] Methodi 00:00:00 00:00:[address] 3.430.2.7 0.2.7.3.698 Ho spita .3.874813 084.8 l .8 2019-06-04 2019-06-09 [facility] [id number] [place] 00:00:00 00:00:[address] SHELL [address] Results Test Description Test Time Test Comments Results Result Comments Source POC glucose 2021-01-24 12:47:32 Test Item Value Reference Range Interpretation Comme nts POC glucose (test code = 103 mg/dL 65-99 H Ope rator Name: Sean Huffman 38794-0) ID: [id number] hartable: [facility] Notified staining machine operator Interpretation (test code = Abnormal 56899-8) [facility] 12 [id number] 03:37:08 Test Item Value Reference Range Interpretation [...] now present-ST now depressed in [facility] RNA [Presence] in Respiratory specimen by MARTIN with probe [id number] 22:50:21 Test Item Value Reference Range Interpretation Comments SARS-CoV-2 (COVID-19) RNA Not detected Not-Detected [Presence] in Respiratory specimen by MARTIN with probe detection (test code = 18349-6) 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 employed 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 healthcare 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 (test code = 73338-1) Whether the patient has symptoms related to condition of interest (test code = 33866-2) Patient was hospitalized because of this condition (test code = 89951-9) Whether the patient was admitted to intensive care unit (ICU) for condition of interest (test code = 61393-8) Whether patient resides in a congregate care setting (test code = 35728-3) 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 LVEF 35% with hypokinesis anterior and aneurysmal inferiorly. Discussed case with other manager instrumentation. 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 Druze FshopeagSQVR-ZyI-7 (COVID-19) RNA [Presence] in Respiratory specimen by MARTIN with probe [id number] 13:52:17 Test Item Value Reference Range Interpretation Comments SARS-CoV-2 (COVID-19) RNA Not detected Not-Detected [Presence] in Respiratory specimen by MARTIN with probe detection (test code = 20573-8) 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 employed in a healthcare setting (test code = 62564-0) Whether the patient has symptoms related to condition of interest (test code = 93594-6) Patient was hospitalized because of this condition (test code = 94238-0) Whether the patient was admitted to intensive care unit (ICU) for condition of interest (test code = 61625-6) Whether patient resides in a congregate care setting (test code = 95320-2) [id number] 12:57:30 Test Item Value Reference Range Interpretation Comments MAGNESIUM (test code = 7307683255) 2.0 mg/dL 1.7-2.4 Lab Interpretation (test code = Normal 76633-9) [facility] Arterial Blood Gas.2020-12-26 11:46:41 Test Item Value Reference Range Interpretation Comments PH (test code = 2) 7.35-7.45 PCO2 (test code = See_Comment L [Automate d message] 7707072329) The system [employer] generated this result transmitted ref erence range: 35 - 45 mmHg. The reference r lebron was not used to interpret this result as normal/abnor mal. PO2 (test code = See_Comment L [Automated message] 2635165004) The system [employer] generated this result transmitted ref erence range: 80 - 100 mmHg. The reference r lebron was not used to interpret this result as normal/abnor mal. HCO3 (test code = See_Comment [Automate d message] 7158596379) The system [employer] generated this result transmitted ref erence range: 22 - 26 mEq/L. The reference r lebron was not used to interpret this result as normal/abnor mal. BE (test code = See_Comment [Automated message] 3506523206) The system [employer] generated this result transmitted ref erence range: -3.0 - 3 .0 mEq/L. The refe rence range was not u sed to interpret this result as normal/abnor mal. Lab Interpretation (test Abnormal code = 98009-5) [facility] WITH [id number] 09:30:54 Test Item Value Reference Range Interpretation [...] RDW-SD (test code = 48.7 fL 39.0-49.9 46967-6) RDW-CV (test code = 14.7 % 12.0-15.5 788-0) PLT (test code = See_Comment L [Automated 777-3) message] The sy stem which generated this result transmitted reference range : 166 - 358 10*3/ ?L. The reference r lebron was not used to interpret this result as normal/abnormal . MPV (test code = 11.9 fL 9.5-12.9 76074-1) IPF % (test code = 5.7 % 1.3-7.7 Platelet count 5444614743) measured by fluorescence method. NRBC/100 WBC (test See_Comment [Automat ed code = 5831110527) message] The system which generated this result transmitted reference range : 0.0 - 10.0 /100 WBCs. The refer ence range was not u sed to interpret th is result as normal/abnormal . NRBC x10^3 (test code <0.01 See_Comment [Auto mated = 7800942816) message] The s ystem which generated this result transmitted reference range : 10*3/?L. The reference range was not used to interpret this result as normal/abnormal . GRAN MAT (NEUT) % 88.0 % (test code = 770-8) IMM GRAN % (test code 1.10 % = 0560308091) LYMPH % (test code = 3.8 % 736-9) MONO % (test code = 6.5 % 5905-5) EOS % (test code = 0.2 % 713-8) BASO % (test code = 0.4 % 706-2) GRAN MAT x10^3(ANC) 12.35 10*3/uL 1.88-7.09 H (test code = 7120134429) IMM GRAN x10^3 (test 0.16 10*3/uL 0.00-0.06 H code = 2387087253) LYMPH x10^3 (test 0.54 10*3/uL 1.32-3.29 L code = 731-0) MONO x10^3 (test code 0.92 10*3/uL 0.33-0.92 = 742-7) EOS x10^3 (test code 0.03 10*3/uL 0.03-0.39 = 711-2) BASO x10^3 (test code 0.06 10*3/uL 0.01-0.07 = 704-7) Lab Interpretation Abnormal (test code = 39570-2) [id number]28 Test Item Value Reference Interpretation Comments Range TROPONIN I (test 0.572 ng/mL See_Comment H [Automated code = 6349088539) message] The system which generated this result [...] biotin. Lab Interpretation Abnormal (test code = 36495-9) [id number] 09:19:11 Test Item Value Reference Range Interpretation Comments NT-proBNP (test code 1590 pg/mL See_Comment H [Autom ated = 9862378302) message] The system which generated this result transmitted reference range : <=125. The reference range was not used to interpret this result as normal/abnormal . JULIAN (test code = JULIAN) Biotin has been reported to cause a negative bias, interpret results relative to patient's use of biotin. Lab Interpretation Abnormal (test code = 43032-7) [facility]2021-07-19 09:11:52 Test Item Value Reference Range Interpretation Comments APTT Patient (test See_Comment [Automat ed code = 3173-2) message] The system which generated this result transmitted reference range : 23 - 38 Seconds . The reference range was not used to interpr et this result as normal/abnormal . JULIAN (test code = JULIAN) The [facility] patient population mean normal value for aPTT is 30 seconds. Lab Interpretation Normal (test code = 79812-9) [facility]. METABOLIC PANEL (53345)2020-12-26 09:10:52 Test Item Value Reference Range Interpretation Comments NA (test code = 137 mmol/L 135-145 8174895529) K (test code = 4.0 mmol/L 3.5-5.0 6870924380) CL (test code = 105 mmol/L 98-108 5598758589) CO2 TOTAL (test code = 22 mmol/L 23-31 L 8339547843) AGAP (test code = 2-16 5830280210) BUN (test code = 30 mg/dL 7-23 H 5837220258) GLUCOSE (test code = 197 mg/dL 70-110 H 4931478085) CREATININE (test code = 1.21 mg/dL 0.50-1.04 H 3402489728) TOTAL BILI (test code = 1.1 mg/dL 0.1-1.2 3039756962) CALCIUM (test code = 9.4 mg/dL 8.6-10.6 3025477860) T PROTEIN (test code = 6.7 g/dL 6.3-8.2 8958988413) ALBUMIN (test code = 4.0 g/dL 3.5-5.0 6577525259) ALK PHOS (test code = 82 U/L 34-122 3572611085) ALTv (test code = 26 U/L 5-35 1742-6) AST(SGOT) (test code = 52 U/L 13-40 H 6638979814) eGFR (test code = mL/min/1.73m2 3684884561) JULIAN (test code = JULIAN) Association of [...] tests). Lab Interpretation Abnormal (test code = 07218-3) [facility] Hospital[facility]IP[facility], [id number] 09:10:31 Test Item Value Reference Range Interpretation Comments LIPASE (test code = 5350617331) 51 U/L 0-220 Lab Interpretation (test code = Normal 61169-0) [facility] HospitalPROTHROMBIN TIME / [id number] 09:09:51 Test Item Value Reference Range Interpretation Comments PROTIME PATIENT (test See_Comment H [Auto mated message] code = 5964-2) The system [email or web address] generated this result transmitted ref erence range: 12.0 - 1 4.7 Seconds. The reference range was not used to int erpret this result as normal/abnormal . INR (test code = 6301-6) Nor mal INR <1.1; Warfarin Therap eutic range 2.0 to 3. 0 or 2.5 to 3.5, dep ending upon the indica tions. Lab Interpretation (test Abnormal code = 08279-4) [facility] HospitalCOVID-[facility] (ID NOW RAPID TESTING)2020-12-26 09:09:31 Test Item Value Reference Range Interpretation Comments SARS-CoV-2 Rapid ID NOW Not Detected Not Detected (test code = 54231-3) JULIAN (test code = JULIAN) ID NOW COVID-19 Assay is an isothermal nucleic acid amplification test intended for the qualitative detection of nucleic acid from SARS-CoV-2 viral RNA in nasopharyngeal (HYDROMETEOROLOGIST) specimens. It is used under Emergency Use [...] indicated. Lab Interpretation Normal (test code = 48288-9) [facility]"
--- NOTE | 2022-03-01 12:37 | RAD REPORT ---
EXAM DESCRIPTION: CT - Head C Spine Cap Wo Con - 03/01/2022 12:19 pm CLINICAL HISTORY: Trauma, head and neck injury. Chest, abdomen and pelvis pain. fall COMPARISON: Thorax W/ Con dated 01/21/2018; Facial Bones W/ Mpr dated 03/01/2022 TECHNIQUE: CT head without contrast. CT cervical spine without contrast with coronal and sagittal reformatted images. CT chest, abdomen and pelvis without contrast with coronal and sagittal reformatted images of the spi ne. All CT scans are performed using dose optimization technique as appropriate and may include automated exposure control or mA/KV adjustment according to patient size. FINDINGS: CT HEAD WITHOUT CONTRAST: No intracranial hemorrhage, hydrocephalus or extra-axial fluid collection. Moderate generalized brain atrophy. 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 No areas of bra in edema or midline shift. The paranasal sinuses and mastoids are clear. The calvarium is intact. Right frontal scalp hematoma i s present. CT CERVICAL SPINE WITHOUT CONTRAST: No fracture or subluxation. Carotid atherosclerosis. The prevertebral soft tissues are normal in thic kness. CT CHEST, ABDOMEN, PELVIS WITHOUT CONTRAST: NOTE: Lack of contrast is a significant limitation in the assessment of trauma related findings. Spec ifically, solid organ, vascular and bowel evaluation is significantly limited. Trace bilateral pleural effusions. Mild COPD.No pneumothorax or pericardial/pleural fluid. 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 A crescenti c appearance is seen in the descending thoracic aorta which also is mildly dilated measuring up to 5. 3 cm. There is significant cardiomegaly present. Pacer wires are noted. 5.3 cm infrarenal abdominal aortic aneurysm is also noted. No evidence of intra-abdominal visceral injury, free fluid or free air is seen within the above detai led limitations. Moderate retained stool throughout the colon. An acute fracture is not seen. IMPRESSION: Aneurysm of the descending thoracic aorta is present with a crescentic intraluminal appe arance which could indicate dissection. Recommend CT angiography of the aorta for further evaluation. Infrarenal abdominal aortic aneurysm is present measuring 5.3 cm in transverse dimension. No trauma related abnormality seen.
--- NOTE | 2022-03-01 12:40 | RAD REPORT ---
EXAM DESCRIPTION: CT - CTFB CLINICAL HISTORY: fall Fall, facial trauma and pain COMPARISON: No comparisons TECHNIQUE: Axial 2 mm thick images of the face were obtained with sagittal and coronal reconstructio n images. All CT scans are performed using dose optimization technique as appropriate and may include automated exposure control or mA/KV adjustment according to patient size. FINDINGS: No acute facial bone fracture is seen.The mandible is intact. Soft tissue swelling is seen along the right face and right forehead region. The globes and orbital contents are grossly unremarkable.Mild right periorbital soft tissue swelling. The paranasal sinuses and mastoids are clear. Carotid atherosclerosis. IMPRESSION: Negative for facial bone fracture. Soft tissue swelling right periorbital region with mild right-sided proptosis. Soft tissue hematoma right face and right forehead.
--- NOTE | 2022-03-01 13:05 | RAD REPORT ---
EXAM DESCRIPTION: RAD - Elbow Right 2 View - 03/01/2022 12:41 pm CLINICAL HISTORY: PAIN, fall COMPARISON: None. FINDINGS: No fracture is identified and no elevated posterior fat pad. There is no dislocation or pe riosteal reaction noted. No foreign body or other soft tissue abnormality. No other significant findi ng. IMPRESSION: Negative right elbow examination.
--- NOTE | 2022-03-01 13:06 | RAD REPORT ---
EXAM DESCRIPTION: RAD - Forearm Right - 03/01/2022 12:41 pm CLINICAL HISTORY: PAINafter a fall COMPARISON: No comparisons FINDINGS: No fracture is identified. There is no dislocation or periosteal reaction noted. No foreign body or other soft tissue abnormality. IMPRESSION: Negative right forearm examination.
[2022-03-01 13:09] LABS: Absolute Lymphocytes (CBC) 0.6 K/uL (0.7-4.9); Hematocrit 40.2 % (36.0-45.0); Lymphocytes % 9.4 % (15.3-44.8); MCV 87.1 fL (80-100); MPV 9.3 fL (7.6-11.3); RBC Red Blood Cell Count 4.62 M/uL (3.86-4.86)
--- NOTE | 2022-03-01 13:09 | RAD REPORT ---
EXAM DESCRIPTION: RAD - Hand Right 3 View - 03/01/2022 12:41 pm CLINICAL HISTORY: PAINafter a fall COMPARISON: No comparisons FINDINGS: No fracture is identified. There is no dislocation or periosteal reaction noted. IP joint space narrowing is present without spurring or erosive component. Mild degenerative change present a t the trapezium first metacarpal articulation. There is hyperextension at the fourth and fifth MCP mag ints and at the fourth PIP joint. Baseline for the patient is unknown. This appears to be a hyperexte nsion affect rather than a dislocation. Correlation is needed with patient history regarding the four th and fifth MCP joints. IMPRESSION: No fracture or acute bone finding confirmed. Hyperextension of the fourth and fifth MCP joints and fourth PIP joints may be baseline for this quan ent. This needs correlation with patient provided history.
--- NOTE | 2022-03-01 13:11 | RAD REPORT ---
EXAM DESCRIPTION: RAD - Chest Single View - 03/01/2022 12:40 pm CLINICAL HISTORY: COUGH, fall COMPARISON: Portable 10/31/2021 TECHNIQUE: AP portable chest image was obtained 03/01/2022 12:40 pm . FINDINGS: Chronic interstitial lung pattern is present similar to comparison. Cardiomegaly is presen t obscuring much of the chest. Posterior lower left chest and retrocardiac left chest are too obscure d for full assessment. Enlarged cardiomegaly does not have associated vascular engorgement. Defibrillator is in place. Ster notomy wires are in place. Cardiac valve surgical changes are noted. No measurable pleural effusion and no pneumothorax. No acute bony abnormality seen. No acute aortic f indings suspected. IMPRESSION: No pneumothorax, pleural fluid collection or large contusion identifiable Exam is limited. Not all portions of the lung parenchyma are clearly visualized.
[2022-03-01 13:28] LABS: Albumin 3.6 g/dL (3.4-5.0); Bilirubin Direct 0.5 mg/dL (0-0.2); Bilirubin Total 1.5 mg/dL (0.2-1.0); Protein, Total 6.3 g/dL (6.4-8.2)
[2022-03-01] MEDS ORDERED: IPRATROPIUM BROM 0.5MG/2.5ML ONE ×2 (13:28→21:00)
[2022-03-01] MEDS ORDERED: NA CHLORIDE 0.9% 1,000 ML ONE (13:28)
[2022-03-01] MEDS ORDERED: METHYLPREDNISOLONE 125 MG INJ ONE (13:28)
[2022-03-01] MEDS ORDERED: LEVALBUTEROL 1.25 MG/3 ML NEB ONE (13:28)
[2022-03-01 13:29] LABS: Potassium 4.6 mmol/L (3.5-5.1)
[2022-03-01] MEDS ORDERED: TETANUS & DIPHTHERIA TOX,ADULT 0.5 ML VIAL ONE (13:29)
[2022-03-01] MEDS ORDERED: FAMOTIDINE 20 MG/2 ML VIAL IV ONE (13:29)
[2022-03-01 13:31] LABS: Protime INR 1.13
[2022-03-01] MEDS ORDERED: METOPROLOL TAR 50 MG TAB ONE (14:25)
[2022-03-01] MEDS ORDERED: DIGOXIN 0.25 MG/ML AMP ONE (14:25)
[2022-03-01] MEDS ORDERED: METOPROLOL TARTRATE 5 MG/5 ML INJ IV ONE (14:25)
--- NOTE | 2022-03-01 14:58 | RAD REPORT ---
EXAM DESCRIPTION: CT - Angio Aorta For Dissection - 03/01/2022 2:31 pm CLINICAL HISTORY: dissection, chest pain COMPARISON: Portable chest 03/01/2022, CT chest abdomen and pelvis without contrast 03/01/2022, CT c hest 01/21/2018 TECHNIQUE: Dynamically enhanced 3 mm thick images of the chest, abdomen, and upper pelvis were obtai jan during administration of approximately 150mL Isovue 370 IV contrast. Sagittal and coronal reconst ruction images were generated using MIP and reviewed. Exam utilizes a protocol to evaluate entire cou rse of the aorta. All CT scans are performed using dose optimization technique as appropriate and may include automated exposure control or mA/KV adjustment according to patient size. FINDINGS: The ascending thoracic aorta is unremarkable. There is aneurysmal dilatation of the aortic arch along the left lateral margin to approximately 4.7 cm. This is not increased slightly from a 20 08 measurement of 4.3 cm. There is aneurysmal dilatation of the descending thoracic aorta. Mid descen ding aorta is 5.5 cm AP x 5.3 cm TR. There is large amount of mural thrombus along the posterior aspe ct of the aneurysm. No contrast opacified false channel. No centrally displaced calcifications. This descending thoracic aortic dilatation is new from 2018. Acute midthoracic dissection is not suspected . The aorta tapers to 3.5 cm AP x 3.6 cm TR near the khari of the diaphragm. There is aneurysmal dilatat ion of the upper abdominal aorta at the mesenteric and renal artery level measuring 4.0 cm AP x 5.4 c m TR. A rim of mural thrombus is seen along the anterior, left lateral and posterior aspect of the to rtuous aorta. Again, mural thrombus appears to be chronic with no opacified false channel or displace d calcification. Infrarenal aorta is tortuous but nondilated. Pulmonary arteries are normal as well. Patient has pronounced cardiomegaly primarily biatrial enlarge ment. There is no pericardial thickening or effusion. Mitral valve surgical changes are noted. Bypass surgical changes are seen. Defibrillator wires are in place. Patient has chronic interstitial lung findings. No focal mass or consolidation. Minimal bilateral ple ural effusions are present. No pleural thickening or pleural based mass. There is no pneumothorax. No abnormal mediastinal or hilar mass or lymphadenopathy seen. No chest wall mass or abnormal axillar y lymphadenopathy. Prominent calcifications are present in the mesenteric artery origins. Significant stenosis is doubtf ul. Single artery provides the right kidney with supply. Left renal artery is poorly visualized. The enhancement of the left renal parenchyma substantially reduced relative to the left. There is cortica l thinning seen in the medial aspect of the right kidney. No mass or abnormal lymphadenopathy. Trace amount of free fluid is seen in the dependent portion of the pelvis. No acute bowel finding. No urin carolyn bladder abnormality. IMPRESSION: Descending thoracic aortic aneurysm is present, new from the 2018 comparison study. Mura l thrombus is present. Findings favor chronic changes to the aorta rather than an acute dissection. Aneurysmal dilatation of the aortic arch is unchanged from 2018. Upper abdominal aortic aneurysmal dilatation is also present of unknown age. Mural thrombus is presen t. No acute abdominal aortic finding. Pronounced cardiomegaly primarily biatrial enlargement. No pericardial effusion. Diminished perfusion of the left kidney likely from left renal artery stenosis due to the upper abdom inal aneurysm. Minimal bilateral pleural effusions are present. Trace amount of free fluid is seen in the peritoneal cavity. No other significant findings on chest, abdomen and upper pelvis examination.
--- NOTE | 2022-03-01 15:37 | ER ---
Nurse's Notes [facility] Name: Richa Lozano Age: 66 yrs Sex: Female : 1955 Arrival Date: 03/01/2022 Time: 11:52 Bed 30 Private MD: Diagnosis: Persistent atrial fibrillation-with RVR;COPD/ Chronic obstructive pulmonary disease with (acute) exacerbation;Fall on same level, unspecified;Laceration without foreign body of right forearm-SKIN TEARS;Tobacco abuse counseling;Tobacco use;Cardiomegaly;Pleural effusion in other conditions classified elsewhere-BILATERAL;Unspecified diastolic (congestive) heart failure;UTI/ Urinary tract infection, site not specified Presentation: 03/01 12:00 Chief complaint: EMS states: MECHANICAL FALL AT HOME. Coronavirus screen: At this time, bp the client does not indicate any symptoms associated with coronavirus-19. Ebola Screen: No symptoms or risks identified at this time. Initial Sepsis Screen: Does the patient meet any 2 criteria? HR > 90 bpm. No. Patient's initial sepsis screen is negative. Does the patient have a suspected source of infection? No. Patient's initial sepsis screen is negative. Risk Assessment: Do you want to hurt yourself or someone else? Patient reports no desire to harm self or others. Note 2 HR DOWNTIME. Onset of symptoms is unknown. 12:00 Method Of Arrival: EMS: [facility] bp 12:00 Acuity: TINO 3 bp 12:03 Care prior to arrival: IV initiated. 20 GA, in the left antecubital area, Glucose bp check: 123. Mechanism of Injury: Fall from standing position. Trauma event details: Injury occurred in the [facility], Injury occurred: at home. Injury occurred: March 01, 2022 Injury occurred at: 10:00. Triage Assessment: 12:00 General: General: SEE TRAUMA NOTE. bp Trauma Activation: Alert Physician: ED Physician; Name: ; Notified At: ; Arrived At: Physician: General Surgeon; Name: ; Notified At: ; Arrived At: Physician: Radiology; Name: ; Notified At: ; Arrived At: Physician: Respiratory; Name: ; Notified At: ; Arrived At: Physician: Lab; Name: ; Notified At: ; Arrived At: Historical: - Allergies: 12:02 Levaquin; bp - Home Meds: 12:02 atorvastatin 40 mg oral tab 1 tab once daily [Active]; Lasix 40 mg oral tab 1 tab 2 bp times per day [Active]; metoprolol tartrate 25 mg Oral tab 1 tab once daily [Active]; warfarin 2 mg Oral tab 1 tab once daily [Active]; - PMHx: 12:02 AFIB; Aneurysm; atelectasis; cardiomegaly; CHF; COPD; CVA; Depression; EDEMA; bp Hypertension; Myocardial infarction; Pace maker; rheumatic mitral stenosis; pleural effusion; - Immunization history:: Adult Immunizations up to date. - Social history:: Smoking status: Patient denies any tobacco usage or history of. - Family history:: not pertinent. Screenin:07 Abuse screen: Denies threats or abuse. Denies injuries from another. Tuberculosis bp screening: No symptoms or risk factors identified. Primary Survey: 12:07 NO uncontrolled hemorrhage observed. A: The client is alert. Airway: patent. bp Breathing/Chest: Respiratory effort: spontaneous, unlabored. Circulation: Cardiac rhythm: atrial fibrillation with rapid ventricular response. Disability Client is alert. Exposure/Environment: There is no evidence of uncontrolled external bleeding. Obvious injury(ies) are noted at this time: SKIN TEARS BUE A warming method has been applied: A warm blanket has been provided to the patient. 03/02 09:39 Reassessment Breathing:. bp Assessment: 03/01 12:00 General: Appears distressed, uncomfortable, Behavior is cooperative, appropriate for bp age, anxious. Pain: Complains of pain in forehead and right arm. Neuro: Level of Consciousness is awake, alert, obeys commands, Oriented to Appropriate for age. EENT: No deficits noted. Cardiovascular: Rhythm is atrial fibrillation with rapid ventricular response. Respiratory: No deficits noted. GI: No signs and/or symptoms were reported involving the gastrointestinal system. : No signs and/or symptoms were reported regarding the genitourinary system. Derm: Skin is fragile, is thin, Wound noted Other: SKIN TEARS TO BUE. Musculoskeletal: No deficits noted. Injury Description: Bruise sustained to right armstrong. 14:00 Reassessment: No changes from previously documented assessment. Patient and/or family bp updated on plan of care and expected duration. Pain level reassessed. 16:00 Reassessment: ADMIT INITIATED. bp 18:00 Reassessment: No changes from previously documented assessment. Patient and/or family bp updated on plan of care and expected duration. Pain level reassessed. ADMIT IN PROCESS. Vital Signs: 12:00 BP 113 / 67; Pulse 110; Resp 20; Temp 98.7; Pulse Ox 97% ; Weight 65 kg; Height 5 ft. 7 bp in. (170.18 cm); 13:00 BP 128 / 97; Pulse 147; Resp 20; Pulse Ox 97% on 3 lpm NC; bp 14:00 BP 119 / 77; Pulse 152; Resp 20; Pulse Ox 100% on 3 lpm NC; bp 15:00 BP 144 / 96; Pulse 106; Resp 20; Pulse Ox 100% ; bp 16:00 BP 152 / 77; Pulse 67; Resp 20; Pulse Ox 98% on 3 lpm NC; bp 17:00 BP 137 / 77; Pulse 66; Resp 16; Pulse Ox 100% ; bp 18:00 BP 148 / 81; Pulse 76; Resp 17; Pulse Ox 100% ; bp 12:00 Body Mass Index 22.44 (65.00 kg, 170.18 cm) bp Hubbard Coma Score: 12:07 Eye Response: spontaneous(4). Verbal Response: oriented(5). Motor Response: obeys bp commands(6). Total: 15. Trauma Score (Adult): 12:07 Eye Response: spontaneous(1); Verbal Response: oriented(1); Motor Response: obeys bp commands(2); Systolic BP: > 89 mm Hg(4); Respiratory Rate: 10 to 29 per min(4); William Score: 15; Trauma Score: 12 ED Course: 11:52 Patient arrived in ED. em1 11:55 Raul Wei MD is Attending Physician. zackery 12:00 Carlos Melgar, NAV is Primary Nurse. bp 12:01 Triage completed. bp 12:07 Patient has correct armband on for positive identification. Bed in low position. Call bp light in reach. Side rails up X2. 12:07 Patient maintains SpO2 saturation greater than 95% on room air. Thermoregulation: warm bp blanket given to patient. 12:21 Facial Bones W/ Mpr In Process Unspecified. EDMS 12:21 Head C Spine Cap Wo Con In Process Unspecified. EDMS 12:42 XRAY Chest (1 view) In Process Unspecified. EDMS 12:42 Forearm Right XRAY In Process Unspecified. EDMS 12:42 Hand Right 3 View XRAY In Process Unspecified. EDMS 12:42 Elbow Right 2 View In Process Unspecified. EDMS 14:33 CT Aorta for Dissection In Process Unspecified. EDMS 15:31 Siddhartha Tesfaye is Hospitalizing Provider. zackery 16:00 Straight cath inserted, using sterile technique, 16 Fr. Specimen obtained. bp 19:37 Primary Nurse role handed off by Carlos Melgar RN as6 19:37 Kody Rao RN is Primary Nurse. as6 20:21 Primary Nurse role handed off by Kody Rao RN kl 20:21 Rita Hyman RN is Primary Nurse. kl 03/02 08:22 Primary Nurse role handed off by Rita Hyman RN eb 09:39 Carlos Melgar RN is Primary Nurse. bp 09:39 No provider procedures requiring assistance completed. Patient admitted, IV remains in bp place. 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 Exp: 10/14/2023. Lot bp #: [id number]. } Route: IM; Site: left deltoid; 16:19 Follow up: Response: No adverse reaction bp 13:00 Drug: Pepcid (famotidine) 20 mg Route: IVP; Site: left antecubital; bp 16:19 Follow up: Response: No adverse reaction bp 13:00 Drug: Xopenex (levalbuterol) 3.75 mg Route: Inhalation; bp 13:00 Drug: AtroVENT (ipratropium) Aerosol 0.5 mg Route: Inhalation; bp 13:00 Drug: SOLU-Medrol (methylPrednisoLONE) 125 mg Route: IVP; Site: left antecubital; bp 16:20 Follow up: Response: No adverse reaction bp 13:00 Drug: NS 0.9% 1000 ml Route: IV; Rate: 125 ml/hr; Site: left antecubital; bp 14:45 Drug: Digoxin 0.5 mg Route: IVP; Site: left antecubital; bp 15:31 Follow up: Response: No adverse reaction bp 14:45 Drug: Lopressor (metoprolol) 5 mg Route: IVP; Site: left antecubital; bp 15:31 Follow up: Response: No adverse reaction bp 14:45 Drug: Lopressor (metoprolol TARTRATE) 50 mg Route: PO; bp 15:31 Follow up: Response: No adverse reaction bp 16:13 Drug: Rocephin (cefTRIAXone) 1 grams Route: IV; Rate: per protocol; Site: left bp antecubital; 17:50 Follow up: IV Status: Completed infusion; IV Intake: 100ml bp 17:30 Drug: Lovenox (enoxaparin) 1 mg/kg Route: Sub-Q; Site: right lower abdomen; bp 03/02 04:54 Not Given (Patient Refused): Coumadin (warfarin) 5 mg PO once kl Intake: 03/01 12:07 PO: 0ml; Total: 0ml. bp 17:50 IV: 100ml; Total: 100ml. bp Outcome: 15:36 Decision to Hospitalize by Provider. zackery 21:10 Admitted to ER Hold. Please see [facility] for further documentation. kl 21:10 Condition: improved 03/02 12:24 Patient left the ED. iw Signatures: Dispatcher [employer] EDMS Rita Hyman RN RN kl Anderson, Corey, MD MD cha Williams, Irene, RN RN iw Martinez, Eric em1 Carlos Melgar RN RN bp Botello, Elizabeth eb Slawson, Ashby RN RN as6 Corrections: (The following items were deleted from the chart) 03/01 12:03 12:02 PMHx: Hypertensin; bp bp 16:15 12:00 General: bp bp 17:20 12:00 BP 113 / 67; Pulse 110bpm; Resp 20bpm; Pulse Ox 97%; Temp 98.7F; bp bp 17:51 12:00 BP 113 / 67; Pulse 110bpm; Resp 20bpm; Pulse Ox 97%; Temp 98.7F; 28.8 kg; Height bp 5 ft. 7 in.; BMI: 9.95; bp 19:11 17:30 Coumadin (warfarin) 5 mg PO bp bp
--- NOTE | 2022-03-01 15:37 | EDPHYS ---
Physician Documentation [facility] Name: Richa Lozano Age: 66 yrs Sex: Female : 1955 Arrival Date: 03/01/2022 Time: 11:52 Bed 30 Private MD: ED Physician Raul Wei HPI: 03/01 13:35 This 66 yrs old Female presents to ER via EMS with complaints of Fall Injury. zackery 13:35 Details of fall: The patient fell from an upright position, while walking. Onset: The zackery symptoms/episode began/occurred just prior to arrival. Associated injuries: The patient sustained injury to the head, abrasion, swelling, tenderness, right arm, decreased range of motion, laceration, painful injury, swelling. Historical: - Allergies: 12:02 Levaquin; bp - Home Meds: 12:02 atorvastatin 40 mg oral tab 1 tab once daily [Active]; Lasix 40 mg oral tab 1 tab 2 bp times per day [Active]; metoprolol tartrate 25 mg Oral tab 1 tab once daily [Active]; warfarin 2 mg Oral tab 1 tab once daily [Active]; - PMHx: 12:02 AFIB; Aneurysm; atelectasis; cardiomegaly; CHF; COPD; CVA; Depression; EDEMA; bp Hypertension; Myocardial infarction; Pace maker; rheumatic mitral stenosis; pleural effusion; - Immunization history:: Adult Immunizations up to date. - Social history:: Smoking status: Patient denies any tobacco usage or history of. - Family history:: not pertinent. ROS: 13:35 Constitutional: Negative for fever, chills, and weight loss, Eyes: Negative for injury, zackery pain, redness, and discharge, ENT: Negative for injury, pain, and discharge, Neck: Negative for injury, pain, and swelling, Abdomen/GI: Negative for abdominal pain, nausea, vomiting, diarrhea, and constipation, Back: Negative for injury and pain, : Negative for injury, bleeding, discharge, and swelling, MS/Extremity: Negative for injury and deformity, Skin: Negative for injury, rash, and discoloration, Neuro: Negative for headache, weakness, numbness, tingling, and seizure, Psych: Negative for depression, anxiety, suicide ideation, homicidal ideation, and hallucinations, Allergy/Immunology: Negative for hives, rash, and allergies, Endocrine: Negative for neck swelling, polydipsia, polyuria, polyphagia, and marked weight changes, Hematologic/Lymphatic: Negative for swollen nodes, abnormal bleeding, and unusual bruising. 13:35 Cardiovascular: Positive for palpitations. 13:35 Respiratory: Positive for cough, shortness of breath, wheezing, expiratory. 13:35 MS/extremity: Positive for decreased range of motion, laceration, pain, tenderness, of the right arm. Exam: 13:35 Constitutional: This is a well developed, well nourished patient who is awake, alert, zackery and in no acute distress. Head/Face: Normocephalic, atraumatic. Eyes: Pupils equal round and reactive to light, extra-ocular motions intact. Lids and lashes normal. Conjunctiva and sclera are non-icteric and not injected. Cornea within normal limits. Periorbital areas with no swelling, redness, or edema. ENT: Nares patent. No nasal discharge, no septal abnormalities noted. Tympanic membranes are normal and external auditory canals are clear. Oropharynx with no redness, swelling, or masses, exudates, or evidence of obstruction, uvula midline. Mucous membranes moist. Neck: Trachea midline, no thyromegaly or masses palpated, and no cervical lymphadenopathy. Supple, full range of motion without nuchal rigidity, or vertebral point tenderness. No Meningismus. Chest/axilla: Normal chest wall appearance and motion. Nontender with no deformity. No lesions are appreciated. Cardiovascular: Regular rate and rhythm with a normal S1 and S2. No gallops, murmurs, or rubs. Normal PMI, no JVD. No pulse deficits. Back: No spinal tenderness. No costovertebral tenderness. Full range of motion. Female : Normal external genitalia. Skin: Warm, dry with normal turgor. Normal color with no rashes, no lesions, and no evidence of cellulitis. Neuro: Awake and alert, GCS 15, oriented to person, place, time, and situation. Cranial nerves II-XII grossly intact. Motor strength 5/5 in all extremities. Sensory grossly intact. Cerebellar exam normal. Normal gait. Psych: Awake, alert, with orientation to person, place and time. Behavior, mood, and affect are within normal limits. 13:35 Respiratory: mild respiratory distress is noted, Respirations: labored breathing, that is mild, Breath sounds: bronchial sounds, decreased breath sounds, rhonchi, that are mild, stridor, is not appreciated. 14:05 ECG was reviewed by the Attending Physician. [facility] Vital Signs: 12:00 BP 113 / 67; Pulse 110; Resp 20; Temp 98.7; Pulse Ox 97% ; Weight 65 kg; Height 5 ft. 7 bp in. (170.18 cm); 13:00 BP 128 / 97; Pulse 147; Resp 20; Pulse Ox 97% on 3 lpm NC; bp 14:00 BP 119 / 77; Pulse 152; Resp 20; Pulse Ox 100% on 3 lpm NC; bp 15:00 BP 144 / 96; Pulse 106; Resp 20; Pulse Ox 100% ; bp 16:00 BP 152 / 77; Pulse 67; Resp 20; Pulse Ox 98% on 3 lpm NC; bp 17:00 BP 137 / 77; Pulse 66; Resp 16; Pulse Ox 100% ; bp 18:00 BP 148 / 81; Pulse 76; Resp 17; Pulse Ox 100% ; bp 12:00 Body Mass Index 22.44 (65.00 kg, 170.18 cm) bp William Coma Score: 12:07 Eye Response: spontaneous(4). Verbal Response: oriented(5). Motor Response: obeys bp commands(6). Total: 15. Trauma Score (Adult): 12:07 Eye Response: spontaneous(1); Verbal Response: oriented(1); Motor Response: obeys bp commands(2); Systolic BP: > 89 mm Hg(4); Respiratory Rate: 10 to 29 per min(4); William Score: 15; Trauma Score: 12 MDM: 11:55 Patient medically screened. [facility] 13:41 Differential diagnosis: abrasion, closed head injury, contusion, fracture, multiple zackery trauma, sprain, strain. Data reviewed: vital signs, nurses notes, EMS record, lab test result(s), EKG, radiologic studies, doppler, plain films. Data interpreted: equipment monitor phototypesetting: rate is 110 beats/min, rhythm is regular. Test interpretation: by ED physician or midlevel provider: ECG, plain radiologic studies. Counseling: I had a detailed discussion with the patient and/or guardian regarding: the presence of at least one elevated blood pressure reading (>120/80) during this emergency department visit, lab results, radiology results. 03/01 12:01 Order name: Basic Metabolic Panel; Complete Time: 13:50 [facility] 03/01 12:01 Order name: CBC with Diff; Complete Time: 13:26 [facility] 03/01 12:01 Order name: LFT's; Complete Time: 13:50 [facility] 03/01 12:01 Order name: Magnesium; Complete Time: 13:50 [facility] 03/01 12:01 Order name: NT PRO-BNP; Complete Time: 13:50 [facility] 03/01 12:01 Order name: PT-INR; Complete Time: 13:50 [facility] 03/01 12:01 Order name: Troponin HS; Complete Time: 13:50 [facility] 03/01 12:01 Order name: Lipase; Complete Time: 13:50 [facility] 03/01 12:01 Order name: SARS-COV-2 RT PCR (Document "Date of Onset" if Symptomatic); Complete Time: [facility] 15:20 03/01 12:03 Order name: Lactate; Complete Time: 13:26 [facility] 03/01 12:03 Order name: Blood Culture Adult (2) [facility] 03/01 12:03 Order name: CK; Complete Time: 13:50 [facility] 03/01 15:30 Order name: Urine Microscopic Only; Complete Time: 16:54 [facility] 03/01 16:10 Order name: Urine Dipstick-Ancillary; Complete Time: 16:54 [facility] 03/01 12:01 Order name: XRAY Chest (1 view); Complete Time: 13:26 [facility] 03/01 12:01 Order name: Forearm Right XRAY; Complete Time: 13:26 [facility] 03/01 12:01 Order name: Hand Right 3 View XRAY; Complete Time: 13:26 [facility] 03/01 12:06 Order name: Facial Bones W/ Mpr; Complete Time: 13:26 [facility] 03/01 12:06 Order name: Head C Spine Cap Wo Con; Complete Time: 13:26 [facility] 03/01 12:29 Order name: Elbow Right 2 View; Complete Time: 13:26 [facility] 03/01 14:03 Order name: CT Aorta for Dissection; Complete Time: 15:20 [facility] 03/01 16:16 Order name: SARS RAPID em1 03/01 16:34 Order name: Urine Culture [facility] 03/01 12:01 Order name: EKG; Complete Time: 12:02 [facility] 03/01 12:01 Order name: Cardiac monitoring; Complete Time: 13:49 [facility] 03/01 12:01 Order name: EKG - Nurse/Tech; Complete Time: 13:49 [facility] 03/01 12:01 Order name: IV Saline Lock; Complete Time: 13:49 [facility] 03/01 12:01 Order name: Labs collected and sent; Complete Time: 13:49 [facility] 03/01 12:01 Order name: O2 Per Protocol; Complete Time: 13:49 [facility] 03/01 12:01 Order name: O2 Sat Monitoring; Complete Time: 13:49 [facility] 03/01 12:01 Order name: Wound dressing; Complete Time: 16:19 [facility] 03/01 15:30 Order name: Urine Dipstick-Ancillary (obtain specimen); Complete Time: 16:19 [facility] EC:05 Rate is 155 beats/min. Rhythm is irregularly irregular. QRS [place] is Normal. IN interval zackery is normal. QRS interval is normal. QT interval is normal. No Q waves. T waves are Normal. No ST changes noted. Clinical impression: Atrial Fibrillation and No evidence of ischemia. Interpreted by me. Reviewed by me. 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 Exp: 10/14/2023. Lot bp #: [id number]. } Route: IM; Site: left deltoid; 16:19 Follow up: Response: No adverse reaction bp 13:00 Drug: Pepcid (famotidine) 20 mg Route: IVP; Site: left antecubital; bp 16:19 Follow up: Response: No adverse reaction bp 13:00 Drug: Xopenex (levalbuterol) 3.75 mg Route: Inhalation; bp 13:00 Drug: AtroVENT (ipratropium) Aerosol 0.5 mg Route: Inhalation; bp 13:00 Drug: SOLU-Medrol (methylPrednisoLONE) 125 mg Route: IVP; Site: left antecubital; bp 16:20 Follow up: Response: No adverse reaction bp 13:00 Drug: NS 0.9% 1000 ml Route: IV; Rate: 125 ml/hr; Site: left antecubital; bp 14:45 Drug: Digoxin 0.5 mg Route: IVP; Site: left antecubital; bp 15:31 Follow up: Response: No adverse reaction bp 14:45 Drug: Lopressor (metoprolol) 5 mg Route: IVP; Site: left antecubital; bp 15:31 Follow up: Response: No adverse reaction bp 14:45 Drug: Lopressor (metoprolol TARTRATE) 50 mg Route: PO; bp 15:31 Follow up: Response: No adverse reaction bp 16:13 Drug: Rocephin (cefTRIAXone) 1 grams Route: IV; Rate: per protocol; Site: left bp antecubital; 17:50 Follow up: IV Status: Completed infusion; IV Intake: 100ml bp 17:30 Drug: Lovenox (enoxaparin) 1 mg/kg Route: Sub-Q; Site: right lower abdomen; bp 03/02 04:54 Not Given (Patient Refused): Coumadin (warfarin) 5 mg PO once kl Disposition Summary: 03/01/22 15:36 Hospitalization Ordered Provider: Siddhartha Tesfaye cha Condition: Fair zackery Problem: new zackery Symptoms: have improved zackery Bed/Room Type: Standard zackery Hospitalization Status: Inpatient Admission(03/01/22 15:39) zackery Location: Telemetry/MedSurg (Inpatient)(03/02/22 10:32) dw Room Assignment: 407(03/02/22 10:32) dw Diagnosis - Persistent atrial fibrillation - with RVR zackery - COPD/ Chronic obstructive pulmonary disease with (acute) exacerbation zackery - Fall on same level, unspecified zackery - Laceration without foreign body of right forearm - SKIN TEARS zackery - Tobacco abuse counseling zackery - Tobacco use zackery - Cardiomegaly zackery - Pleural effusion in other conditions classified elsewhere - BILATERAL zackery - Unspecified diastolic (congestive) heart failure zackery - UTI/ Urinary tract infection, site not specified zackery Forms: - Medication Reconciliation Form zackery - SBAR form zackery Signatures: Dispatcher [employer] Bella Cespedes RN Raul Alfaro MD MD cha Peltier, Brian, RN RN bp [place], MyKena 2 Rita Hyman RN Corrections: (The following items were deleted from the chart) 03/01 12:03 12:02 PMHx: Hypertensin; bp bp 12:13 12:07 Head C Spine Cap Wo Con+CT.RAD.BRZ ordered. EDMS EDMS 12: 12:09 Facial Bones W/ MPR+CT.RAD.BRZ ordered. EDMS EDMS 12: 12:02 Elbow Right 3 View+RAD.RAD.BRZ ordered. EDMS EDMS 15:39 15:36 Observation zackery zackery 15:39 15:36 Telemetry/MedSurg (observation) zackery zackery 15:39 15:36 zackery zackery 22:56 15:39 Telemetry/MedSurg (Inpatient) [facility] 22:56 15:39 zackery 2 03/02 10:32 03/01 22:56 BR ER HOLD [facility] 03/02 10:32 03/01 22:56 ERHOLD- [facility]
[2022-03-01 16:09] LABS: Urine Blood 1+ (Negative); Urine Glucose Negative (Negative); Urine Protein Negative (Negative)
[2022-03-01] MEDS ORDERED: CEFTRIAXONE 1000 MG/VIAL ONE (16:21)
[2022-03-01] MEDS ORDERED: NA CHLORIDE 0.9% 100 ML ONE (16:21)
[2022-03-01 16:28] LABS: Urine Bacteria >50 /HPF (<20); Urine Mucus 2+ /HPF (None Seen); Urine RBC 21-50 /HPF (None Seen)
[2022-03-01] MEDS ORDERED: WARFARIN SODIUM 5 MG TAB ONE (17:52)
[2022-03-01] MEDS ORDERED: ENOXAPARIN 60 MG/0.6 ML SQ ONE (17:53)
--- NOTE | 2022-03-01 18:28 | P.HP ---
Certification for Inpatient Patient admitted to: Inpatient With expected LOS: >2 Midnights Practitioner: I am a practitioner with admitting privileges, knowledge of patient current condition, hospital course, and medical plan of care. Services: Services provided to patient in accordance with Admission requirements found in Title 42 Section 412.3 of the Code of Federal Regulations Patient History Date of Service: 03/01/22 Reason for admission: Fall History of Present Illness: 66-year-old woman with a history of COPD, extensive cardiac history including CABG, mitral valve surgery, status post defibrillator was brought to the emergency department due to fall at home. Patient states that she slipped and fell in her living room. She sustained a bruise to the right forehead, swelling or hydration and skin tears to the right arm. Patient noted to be in rapid atrial fibrillation with heart rate up to 145 in the ED. Also noted to be wheezing. Patient given IV normal saline bolus, bronchodilator treatment, IV steroid, IV metoprolol followed by oral metoprolol. Her heart rate improved. Patient was still wheezing during my examination. She is hospitalized for further management. Allergies levofloxacin [From Levaquin] Allergy (Intermediate, Verified 09/27/21 07:20) Itching/Hives/Rash Home Medications: Potassium Chloride [Klor-Con 10] 1 tab PO DAILY 06/09/16 Sertraline [Zoloft*] 100 tab PO BEDTIME 06/09/16 Metoprolol Tartrate 25 mg PO DAILY 06/11/17 lisinopriL [Prinivil*] 5 mg PO DAILY #30 tab 06/20/17 Albuterol Inhaler [Ventolin Inhaler*] 2 puff IH Q6H PRN #1 hfa.aer.ad 04/10/18 Acetaminophen [Tylenol Extra Strength] 500 mg PO Q4H PRN 09/20/21 Atorvastatin Calcium [Lipitor] 40 mg PO BEDTIME 09/20/21 Melatonin 3 mg PO BEDTIME PRN 09/20/21 Ranolazine [Ranexa] 500 mg PO BID 09/20/21 Sennosides/Docusate Sodium [Senna-S Tablet] 2 tab PO BEDTIME PRN 09/20/21 Apixaban [Eliquis] 5 mg PO BID #60 tablet 10/03/21 Cranberry Fruit Extract 400 mg PO BID cap 10/03/21 Ensure Enlive 237 ml PO BID PRN can 10/03/21 Furosemide [Lasix*] 10 mg PO DAILY #30 tab 10/03/21 Albuterol Neb [Proventil 0.083% Neb Soln] 2.5 mg NEB [id number] PRN #60 amp 11/08/21 Amox/Clavulanate [Augmentin 875-125 Tab*] 875 mg PO BID #14 tab 11/08/21 Ipratropium Neb [Atrovent*] 0.5 mg NEB [id number] PRN #60 amp 11/08/21 - Past Medical/Surgical History Diabetic: No -: HTN -: AFIB -: COPD -: SMOKER -: AAA -: CVA -: AAA -: Bilat Foot - Bunion Sx -: Psychosocial/ Personal History: Lives at home alone in apartment with home health - Family History Father -: Heart disease Mother Notes: CVA Brother Notes: anuerysm - Social History Alcohol use: No CD- Drugs: No Caffeine use: Yes Review of Systems Other: Except as documented, all other systems reviewed and negative. Physical Examination - Physical Exam General: Alert, In no apparent distress, Oriented x3, Other HEENT: Mucous membr. moist/pink, Other (Bruise right forehead and right zygomatic area) Neck: Supple, JVD not distended Respiratory: Normal air movement, Expiratory wheezes, Other (No crackles) Cardiovascular: Normal S1 S2, No murmurs, Edema (1+ bilateral lower extremity edema), Irregular heart rate/rhythm Capillary refill: <2 Seconds Gastrointestinal: Normal bowel sounds, Soft and benign, Non-distended, No tenderness Integumentary: Erythema, Other (Bruise noted on the right leg. Skin test right forearm.) Neurological: Other (No focal motor deficit), Abnormal speech (Slow speech.) Lymphatics: No axilla or inguinal lymphadenopathy - Studies Laboratory Data (last 24 hrs) 03/01/22 13:00: PT 13.4 H, INR 1.13 03/01/22 13:00: WBC 6.10, Hgb 13.3, Hct 40.2, Plt Count 107 L 03/01/22 13:00: Sodium 135 L, Potassium 4.6, BUN 18, Creatinine 1.18, Glucose 125 H, Magnesium 2.0, Total Bilirubin 1.5 H, AST 30, ALT 24, Alkaline Phosph atase 74, Lipase 33 L Assessment and Plan - Problems (Diagnosis) (1) Atrial fibrillation with RVR Onset Date: 06/18/17 Current Visit: No Status: Acute (2) Fall Current Visit: Yes Status: Acute (3) COPD exacerbation Current Visit: Yes Status: Acute (4) Aortic aneurysm Current Visit: Yes Status: Acute - Plan Admit patient to the medical floor. Heart rate currently controlled. Continue oral metoprolol 25 mg twice daily. Check TSH. Patient is on Coumadin anticoagulation. Continue Coumadin and monitor PT/INR. 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 Case discussed with cardiology-Dr. Rodas will recommend further outpatient work-up and surgery. Scheduled bronchodilators, IV steroid. Obtain echocardiogram Trend troponin. Reconcile and continue other home medications. - Advance Directives Does patient have a Living Will: No Does patient have a Durable POA for Healthcare: No
[2022-03-01] MEDS: ALBUTEROL 2.5 MG/3 ML NEB SOL NEB SCH (20:05)
[2022-03-01] MEDS: IPRATROPIUM BROM 0.5MG/2.5ML NEB SCH (20:05)
[2022-03-01] MEDS ORDERED: ONDANSETRON 4 MG/2 ML VIAL IV PRN (20:05)
[2022-03-01] MEDS ORDERED: ACETAMINOPHEN 500 MG TAB PO PRN (20:05)
[2022-03-01] MEDS ORDERED: ALBUTEROL 2.5 MG/3 ML NEB SOL ONE (21:00)
[2022-03-01 21:03] VITALS: BMI 27.9
[2022-03-02] MEDS: ALBUTEROL 2.5 MG/3 ML NEB SOL NEB SCH ×3 (01:09→13:36)
[2022-03-02] MEDS: IPRATROPIUM BROM 0.5MG/2.5ML NEB SCH ×3 (01:09→13:36)
[2022-03-02] MEDS ORDERED: METHYLPREDNISOLONE 40 MG INJ ONE ×2 (01:22→06:56)
[2022-03-02] MEDS: METOPROLOL TAR 25 MG TAB PO SCH ×2 (06:00→18:34)
[2022-03-02] MEDS: METHYLPREDNISOLONE 40 MG INJ IV SCH ×4 (06:00→18:00)
[2022-03-02] MEDS ORDERED: IPRATROPIUM BROM 0.5MG/2.5ML ONE (10:15)
[2022-03-02] MEDS ORDERED: ALBUTEROL 2.5 MG/3 ML NEB SOL ONE (10:15)
--- NOTE | 2022-03-02 14:40 | P.PN ---
Subjective Date of Service: 03/02/22 Chief Complaint: Fall Patient states she feels better and her mind is clearer than it was yesterday. She refused to stand up and walk with physical therapy. She also refused bronchodilator treatment. Her oxygen saturation has been stable on room air. Physical Examination - Vital Signs Temperature: 97.3 F Blood Pressure: 112/57 Pulse: 81 Respirations: 18 Pulse Ox (%): 90 Assessment And Plan - Current Problems (Diagnosis) (1) Atrial fibrillation with RVR Onset Date: 06/18/17 Current Visit: No Status: Acute (2) Fall Current Visit: Yes Status: Acute (3) COPD exacerbation Current Visit: Yes Status: Acute (4) Aortic aneurysm Current Visit: Yes Status: Acute - Plan Physical Exam General: Alert, In no apparent distress, Oriented x3, Other HEENT: Bruise right forehead and right zygomatic area Neck: Supple, JVD not distended Respiratory: Normal air movement, clear to auscultation bilaterally, no crackles Cardiovascular: Normal S1 S2, No murmurs, 1+ bilateral lower extremity edema, Irregular heart rate/rhythm Gastrointestinal: Normal bowel sounds, Soft and benign, Non-distended, No tenderness Integumentary: Erythema, Bruise noted on the right leg. Skin tears right forearm Neurological: No focal motor deficit. Plan: Heart rate currently controlled. Continue oral metoprolol 25 mg twice daily. TSH is pending. It appears patient has been refusing blood work and other tests Patient is on Coumadin anticoagulation. Continue Coumadin and monitor PT/INR. 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 Case discussed with cardiology-Dr. Rodas will recommend further outpatient work-up and surgery. Patient is refusing bronchodilators. Change from IV steroids to oral prednisone. Echocardiogram notes done. Reconcile and continue other home medications.
[2022-03-02] MEDS ORDERED: ALBUTEROL 2.5 MG/3 ML NEB SOL NEB PRN (14:43)
[2022-03-02] MEDS ORDERED: ALPRAZOLAM 0.5 MG TABLET PO ONE (23:19)
[2022-03-03] MEDS: METHYLPREDNISOLONE 40 MG INJ IV SCH ×3 (00:12→12:00)
--- NOTE | 2022-03-03 00:28 | CON ---
Date of Consultation: 03/02/2022 Reason For Consultation: Atrial fibrillation with rapid ventricular response. History Of Present Illness: This is a 66-year-old female with a past medical history of COPD, ash ry artery disease status post CABG, mitral valve surgery, and defibrillator in place. The patient martinez d a mechanical fall after she slipped and fell at home. She had right forehead bruise and some skin tear. The patient was found to be in atrial fibrillation with a rate of 145 in the emergency room. On my evaluation, she appears to be doing clinically better and does not have any chest pain at the p resent time. Past Medical History: As outlined above in the HPI. Medications: Refer to reconciliation sheet for detailed list. Allergies: LEVOFLOXACIN. Family History: No premature coronary artery disease or cancer. Social History: Does not smoke or drink. Does not use any drugs. Review of Systems: All systems reviewed and are negative except for as mentioned in HPI. Physical Examination: Vital signs: Reviewed. Head and Neck: Pupils are equal, reactive to light. Intact eye movements. No JVD. No cervical lym phadenopathy. Neck is supple. Thyroid is not enlarged. Lungs: Clear to auscultation bilaterally. No rhonchi, rales, or crackles. No accessory muscle use. Heart: Irregularly irregular. No extra sounds. Abdomen: Soft, nontender. Bowel sounds positive. No organomegaly. No masses or hernia. No rigidi ty or rebound. Extremities: No clubbing or cyanosis. Intact pulses. Skin: No rash. Neurologic: Alert, awake, and oriented x3. No acute focal deficits appreciated. Lymph Nodes: No cervical or axillary adenopathy. Investigations: BUN 18, creatinine 1.1. Troponins negative. NT-proBNP is 3718. Hemoglobin is 13.3 and white blood count 6.1. Assessment And Recommendation: 1.Atrial fibrillation with rapid ventricular response, now rate is controlled. Currently on metopro lol. We will recommend to switch this to sotalol at 80 mg twice a day for rhythm control and this pa joelle is not a candidate for anticoagulation as she had a recent fall. We will discuss further with her the option of appendage closure for stroke prevention. 2.Elevated NT-proBNP, likely chronic congestive heart failure. We will plan for cardiac workup incl uding echocardiogram, which can be done as an outpatient. Thank you for the consult. SR/MIMI Voice ID: [id number] Report ID: [id number]
[2022-03-03] MEDS: METOPROLOL TAR 25 MG TAB PO SCH (05:41)
[2022-03-03 06:46] LABS: Absolute Lymphocytes (CBC) 0.5 K/uL (0.7-4.9); Hematocrit 38.9 % (36.0-45.0); Lymphocytes % 4.6 % (15.3-44.8); MCV 85.9 fL (80-100); MPV 8.9 fL (7.6-11.3); RBC Red Blood Cell Count 4.53 M/uL (3.86-4.86)
[2022-03-03 06:49] LABS: Protime INR 1.2
[2022-03-03 07:11] LABS: Magnesium 2.1 mg/dL (1.8-2.4); Phosphorus 2.9 mg/dL (2.5-4.9); Potassium 4.2 mmol/L (3.5-5.1); Thyroid Stimulating Hormone 0.894 uIU/mL (0.360-3.740)
[2022-03-03 09:24] LABS: Blood Morphology Comment NOT SEEN (NOT SEEN); Platelet Estimate DECR; White Blood Cell Scan OK (OK)
--- NOTE | 2022-03-03 13:40 | P.PN ---
Subjective Date of Service: 03/03/22 Chief Complaint: Fall Staff report patient was intermittently agitated last night. Daughter states she becomes agitated if she misses her sertraline dose. Her oxygen saturation has been stable on room air. Physical Examination - Vital Signs Temperature: 96.9 F Blood Pressure: 145/75 Pulse: 82 Respirations: 14 Pulse Ox (%): 95 Assessment And Plan - Current Problems (Diagnosis) (1) Atrial fibrillation with RVR Onset Date: 06/18/17 Current Visit: No Status: Acute (2) Fall Current Visit: Yes Status: Acute (3) COPD exacerbation Current Visit: Yes Status: Acute (4) Aortic aneurysm Current Visit: Yes Status: Acute - Plan Physical Exam General: In no apparent distress, Oriented x2. Neck: Supple, JVD not distended Respiratory: Bilateral diminished breath sounds, clear to auscultation bilaterally, no crackles Cardiovascular: Normal S1 S2, No murmurs, 1+ bilateral lower extremity edema, Irregular heart rate/rhythm Gastrointestinal: Normal bowel sounds, Soft and benign, Non-distended, No tenderness Integumentary: Erythema, Bruise noted on the right leg. Skin tears right forearm Neurological: No focal motor deficit. Plan: Heart rate currently controlled. Patient seen by cardiology-Dr. Moss who recommend replacing metoprolol with sotalol. TSH within normal limit. She agreed to blood work today. Daughter confirms patient takes 3 to 4 mg of Coumadin every other day. Continue Coumadin and monitor PT/INR. 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 Case discussed with cardiology-Dr. Rodas will recommend further outpatient work-up and surgery. Change from IV steroids to oral prednisone. Echocardiogram not done yet. Patient refused echocardiogram yesterday Continue other home medications. Resume sertraline.
[2022-03-03] MEDS: NICOTINE 21 MG/PAT TD SCH (14:57)
[2022-03-03] MEDS: WARFARIN SODIUM 3 MG TAB PO SCH (18:30)
[2022-03-03] MEDS: SOTALOL HCL 80 MG TAB PO SCH (18:30)
--- NOTE | 2022-03-03 20:04 | PN ---
Date of Progress Note: 03/03/2022 Subjective: Seen by bedside, doing very well. No chest pain or shortness of breath or palpitations. Review of Systems: No chest pain, shortness of breath, orthopnea, cough. No nausea, vomiting, diarrhea. No abdominal p ain. All other systems reviewed and were negative. Physical Examination: Vital Signs: Temperature is 97.1, pulse 81, breathing at 14, blood pressure 125/58, saturating 95% o n room air. General: Pleasant middle-aged female, in no apparent distress. Head and Neck: Pupils are equal, reactive to light. Intact eye movements. No JVD. No cervical lym phadenopathy. Neck: Supple. Thyroid is not enlarged. Lungs: Clear to auscultation bilaterally. No rhonchi, rales, or crackles. No accessory muscle use. Heart: Irregular. No extra sounds. Abdomen: Soft, nontender. Bowel sounds positive. No organomegaly. No masses or hernia. No rigidi ty or rebound. Extremities: No clubbing, cyanosis. Intact pulses. Skin: No rash. Neurologic: Alert, awake, oriented x3. No acute deficit appreciated. Investigations: Labs reviewed. Assessment And Recommendations: 1.Atrial fibrillation, rate is controlled. Continue sotalol. After third dose, check EKG to evalua te the QTc interval, and this patient is not a candidate for anticoagulation due to falls and will ne ed left atrial appendage closure for a stroke prevention, which can be arranged for as an outpatient. 2.Fall with large amount of skin ecchymosis and some tears, and she is doing clinically well. 3.Elevated NT-proBNP. Patient will need echocardiogram to evaluate ejection fraction and treat acco rdingly. SR/MODL Voice ID: [id number] Report ID: [id number]
[2022-03-03] MEDS: SERTRALINE HCL 50 MG TAB PO SCH (20:45)
[2022-03-03] MEDS: ATORVASTATIN 40 MG TAB PO SCH (20:45)
[2022-03-04] MEDS: SOTALOL HCL 80 MG TAB PO SCH ×2 (07:19→17:35)
[2022-03-04] MEDS: predniSONE 20 MG TAB PO SCH (08:13)
[2022-03-04] MEDS: POTASSIUM CL SA 10 MEQ TAB PO SCH (08:13)
[2022-03-04] MEDS: NICOTINE 21 MG/PAT TD SCH (08:13)
[2022-03-04] MEDS ORDERED: METOPROLOL TAR 50 MG TAB PO SCH (09:00)
[2022-03-04] MEDS: IPRATROPIUM BROM 0.5MG/2.5ML NEB PRN ×2 (10:49→20:25)
--- NOTE | 2022-03-04 12:58 | P.PN ---
Subjective Date of Service: 03/04/22 Chief Complaint: Fall No new complaints. No event overnight. No report of agitation. Noted to be wheezing this morning. Physical Examination - Vital Signs Temperature: 97.1 F Blood Pressure: 145/76 Pulse: 73 Respirations: 22 Pulse Ox (%): 91 - Studies Microbiology Data (last 24 hrs): 03/01/22 16:04 Clean Catch Urine [place] Count - Final >100,000 CFU/ML. 03/01/22 16:04 Clean Catch Urine - Final Proteus Mirabilis Assessment And Plan - Current Problems (Diagnosis) (1) Atrial fibrillation with RVR Onset Date: 06/18/17 Current Visit: No Status: Acute (2) Fall Current Visit: Yes Status: Acute (3) COPD exacerbation Current Visit: Yes Status: Acute (4) Aortic aneurysm Current Visit: Yes Status: Acute - Plan Physical Exam General: In no apparent distress, Oriented x2. Neck: Supple, JVD not distended Respiratory: Bilateral diminished breath sounds, clear to auscultation bilaterally, no crackles Cardiovascular: Normal S1 S2, No murmurs, 1+ bilateral lower extremity edema, Irregular heart rate/rhythm Gastrointestinal: Normal bowel sounds, Soft and benign, Non-distended, No tenderness Integumentary: Erythema, Bruise noted on the right leg. Skin tears right forearm Neurological: No focal motor deficit. Plan: Heart rate currently controlled on sotalol. Patient seen by cardiology-Dr. Moss who recommend replacing metoprolol with sotalol. TSH within normal limit. Patient noted to be wheezing. Bronchodilators on board. Continue oral prednisone. Coumadin restarted.. Monitor PT/INR. 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 Rodas recommend further outpatient work-up and surgery. Echocardiogram not done yet. Patient refused echocardiogram yesterday. Obtain echo tomorrow Continue sertraline for anxiety. Patient refused heart healthy diet. Diet changed to regular per her preference.
--- NOTE | 2022-03-04 14:55 | PN ---
Date of Progress Note: 03/04/2022 Subjective: Seen by bedside. No new complaints. Review of Systems: No chest pain, shortness of breath, orthopnea, or cough. No nausea, vomiting, diarrhea. All other s ystems reviewed and they were negative. Physical Examination: Vital Signs: Temperature is 97.1, pulse 73, breathing at 18, blood pressure 145/76, saturating 97% o n room air. General: Pleasant elderly female, no apparent distress. Head and Neck: Pupils are equal, reactive to light. Intact eye movements. No JVD. No cervical lym phadenopathy. Neck is supple. Thyroid is not enlarged. Lungs: Clear to auscultation bilaterally. No rhonchi, wheezing, or crackles. No accessory muscle u se. Heart: Regular. No extra sounds. Abdomen: Soft, nontender. Bowel sounds positive. No organomegaly. No masses or hernia. No rigidi ty or rebound. Extremities: No clubbing or cyanosis. Intact pulses. Skin: No rash. Neurologic: Alert, awake, oriented x3. No acute focal deficits appreciated. Investigations: BUN is 25, creatinine is 0.96, and hemoglobin is 13. Assessment And Recommendations: 1.Atrial fibrillation, rate is controlled on sotalol. Repeat EKG today and evaluate QTc interval. If this is normal, from my perspective the patient can be released and we will plan for outpatient le ft atrial appendage closure for stroke prevention as she had a major recent fall. 2.Elevated NT-proBNP. Obtain echocardiogram in the morning to further assess her heart function sta tus. 3.Status post recent fall this patient not a candidate for anticoagulation for stroke prevention, but recommend baby aspirin 81 mg until we do definitive manage ment with appendage closure. SR/MODL Voice ID: [id number] Report ID: [id number]
[2022-03-04] MEDS: WARFARIN SODIUM 3 MG TAB PO SCH (17:35)
[2022-03-04] MEDS: ATORVASTATIN 40 MG TAB PO SCH (20:35)
[2022-03-04] MEDS: SERTRALINE HCL 50 MG TAB PO SCH (20:35)
[2022-03-04] MEDS ORDERED: MELATONIN 5 MG TABLET PO PRN (22:30)
[2022-03-05 04:07] LABS: Absolute Lymphocytes (CBC) 0.7 K/uL (0.7-4.9); Hematocrit 40.2 % (36.0-45.0); MCV 87.6 fL (80-100); RBC Red Blood Cell Count 4.59 M/uL (3.86-4.86)
[2022-03-05 04:08] LABS: Protime INR 1.18
[2022-03-05 04:23] LABS: Potassium 4.2 mmol/L (3.5-5.1)
[2022-03-05] MEDS: SOTALOL HCL 80 MG TAB PO SCH ×2 (06:19→17:03)
[2022-03-05] MEDS: POTASSIUM CL SA 10 MEQ TAB PO SCH (07:42)
[2022-03-05] MEDS: predniSONE 20 MG TAB PO SCH (07:43)
[2022-03-05] MEDS: NICOTINE 21 MG/PAT TD SCH (07:43)
--- NOTE | 2022-03-05 14:04 | P.PN ---
Subjective Date of Service: 03/05/22 Chief Complaint: Fall Patient has no new complaints. No agitation reported No wheezing. Physical Examination - Vital Signs Temperature: 97.2 F Blood Pressure: 143/68 Pulse: 70 Respirations: 14 Pulse Ox (%): 92 Assessment And Plan - Current Problems (Diagnosis) (1) Atrial fibrillation with RVR Onset Date: 06/18/17 Current Visit: No Status: Acute (2) Fall Current Visit: Yes Status: Acute (3) COPD exacerbation Current Visit: Yes Status: Acute (4) Aortic aneurysm Current Visit: Yes Status: Acute - Plan Physical Exam General: In no apparent distress, Oriented x2. Neck: Supple, JVD not distended Respiratory: Bilateral diminished breath sounds, clear to auscultation bilaterally, no crackles, no wheezes. Cardiovascular: Normal S1 S2, No murmurs, 1+ bilateral lower extremity edema, Irregular heart rate/rhythm Gastrointestinal: Normal bowel sounds, Soft and benign, Non-distended, No tenderness Integumentary: Erythema, Bruise noted on the right leg. Skin tears right forearm Neurological: No focal motor deficit. Plan: Patient seen by cardiology-Dr. Moss who recommend replacing metoprolol with sotalol. Heart rate has been controlled on sotalol. Continue bronchodilators for COPD Continue oral prednisone. Coumadin and monitor PT/INR. Patient been experiencing intermittent confusion. Unclear if patient had a stroke. CT head on presentation showed old CVA. Cannot do MRI due to presence of pacemaker. Repeat CT head today Aspirin. LDL 58. Continue Lipitor. Continue physical therapy. Patient needing significant assistance with mobility and transfers. She will will benefit from inpatient rehab. 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 Rodas recommend further outpatient work-up and surgery. Echocardiogram not done yet. Patient refused echocardiogram. Continue sertraline for anxiety. Patient refused heart healthy diet. Diet changed to regular per her preference.
--- NOTE | 2022-03-05 14:18 | EKG ---
Test Date: 2022-03-01 Test Time: 13:44:43 Jack Spinner: BP MEASUREMENT RESULTS: Intervals: Rate: 145 [place]: QRSD: 100 QT: 260 QTc: 403 [place]: P: [place]: QRS: 96 T: 220 INTERPRETIVE STATEMENTS: Atrial fibrillation with rapid ventricular response Rightward axis Anterior infarct, age undetermined ST & T wave abnormality, consider inferior ischemia or digitalis effect Abnormal ECG Compared to ECG 10/31/2021 22:48:44 ST (T wave) deviation now present Possible ischemia now present Myocardial infarct finding still present Electronically Signed On 03-05-22 14:14:59 CDT by Juve Moss
[2022-03-05] MEDS ORDERED: ALBUTEROL 2.5 MG/3 ML NEB SOL NEB PRN (15:00)
[2022-03-05] MEDS ORDERED: IPRATROPIUM BROM 0.5MG/2.5ML NEB PRN (15:00)
[2022-03-05] MEDS: CEFTRIAXONE 1,000 MG in NA CHLORIDE 0.9% 50 ML IVPB SCH (15:59)
[2022-03-05] MEDS: WARFARIN SODIUM 3 MG TAB PO SCH (16:02)
--- NOTE | 2022-03-05 16:28 | RAD REPORT ---
EXAM DESCRIPTION: CT - Head Brain Wo Cont - 03/05/2022 3:48 pm CLINICAL HISTORY: Confusion. H/o CVA. COMPARISON: Head C Spine Cap Wo Con dated 03/01/2022 TECHNIQUE: Axial 5 mm thick images of the head were obtained without IV contrast. All CT scans are performed using dose optimization technique as appropriate and may include automated exposure control or mA/KV adjustment according to patient size. FINDINGS: No intracranial hemorrhage, mass, edema or shift of mid-line structures. No acute cortical based infarction is identified. Patient has advanced for age atrophy and advanced for age chronic is chemic change. Old right occipital CVA changes are present. Ventricles are in proportion to the amoun t of volume loss. Thalamus, basal ganglia and brainstem chronic ischemic insults are present as well. Intracranial findings are not clearly different from short interval March 01 study. Mastoid air cells and visualized portions of the paranasal sinuses are clear. No acute bony findings. IMPRESSION: No acute intracranial finding identified. Atrophy chronic ischemic change and old infarction changes are similar to the March 01 short inte rval examination.
[2022-03-05] MEDS: SERTRALINE HCL 50 MG TAB PO SCH (20:44)
--- NOTE | 2022-03-05 21:03 | P.PN ---
Date of Service: 03/06/22 Subjective: ROS: 10 point ROS as noted above, otherwise negative Physical Exam: Gen: NAD, AOx2 HEENT: normal conjunctiva, sclera anicteric CV: regular rate & rhythm, trace-1+ b/l lower extremity edema Pulm: non-labored respirations, clear bilaterally Abd: soft, non-tender, non-distended Skin: RLE ecchymosis, skin tears on R forearm Neuro: normal speech, normal affect, moves all extremities vitals reviewed Problem List Afib with RVR, paroxysmal Acute metabolic encephalopathy secondary to UTI fall acute on chronic COPD exacerbation CAD s/p CABG, h/o MV surgery Descending thoracic aortic aneurysm, chronic Afib with RVR seen by Dr. Moss - recommended sotalol instead of metoprolol HR much improved Dr. Moss recommends outpatient f/u for watchman's procedure; high risk for bleeding with recent falls unsure if discussed anticoagulation with patient/family. currently coumadin has been ordered monitor INR COPD exacerbation continue bronchodilators, prednisone Acute metabolic encephalopathy secondary to UTI - Proteus improving continue rocephin Patient needing significant assistance with mobility and transfers. Continue physical therapy. She will will benefit from inpatient rehab. 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 Rodas recommend further outpatient work-up and surgery. Echocardiogram not done yet. Patient refused echocardiogram. Continue sertraline for anxiety. Patient refused heart healthy diet. Diet changed to regular per her preference. VTE: coumadin Code: full Dispo: patient/family requested rehab facility ~2 days Time Spent Managing Pts Care (In Minutes): 35
[2022-03-06] MEDS: SOTALOL HCL 80 MG TAB PO SCH ×2 (06:28→17:28)
[2022-03-06] MEDS: CEFTRIAXONE 1,000 MG in NA CHLORIDE 0.9% 50 ML IVPB SCH (07:38)
[2022-03-06] MEDS: NICOTINE 21 MG/PAT TD SCH (07:39)
[2022-03-06] MEDS: POTASSIUM CL SA 10 MEQ TAB PO SCH (07:39)
[2022-03-06] MEDS: predniSONE 20 MG TAB PO SCH (07:39)
[2022-03-06 12:24] LABS: Protime INR 1.73
[2022-03-06 12:30] LABS: Potassium 4.3 mmol/L (3.5-5.1)
[2022-03-06] MEDS: WARFARIN SODIUM 3 MG TAB PO SCH (16:14)
[2022-03-06 16:37] VITALS: BP 143/59; TEMP 97.5
[2022-03-06 20:14] VITALS: O2SAT 92
[2022-03-06] MEDS: SERTRALINE HCL 50 MG TAB PO SCH (20:38)
[2022-03-06] MEDS: ATORVASTATIN 40 MG TAB PO SCH (20:38)
[2022-03-06] MEDS ORDERED: ENOXAPARIN 80 MG/0.8 ML SQ SCH (21:00)
--- NOTE | 2022-03-06 21:10 | P.DS ---
Admission Date: 03/01/22 Discharge Date: 03/06/22 Disposition: TRANSFER TO INPATIENT REHAB Reason for Admission: Fall Consultations: Cardiology - Dr. Moss Brief History of Present Illness: 66-year-old woman with a history of COPD, extensive cardiac history including CABG, mitral valve surgery, status post defibrillator was brought to the emergency department due to fall at home. Patient states that she slipped and fell in her living room. She sustained a bruise to the right forehead, swelling or hydration and skin tears to the right arm. Patient noted to be in rapid atrial fibrillation with heart rate up to 145 in the ED. Also noted to be wheezing. Patient given IV normal saline bolus, bronchodilator treatment, IV steroid, IV metoprolol followed by oral metoprolol. Her heart rate improved. Patient was still wheezing during my examination. She is hospitalized for further management. Problem List Afib with RVR, paroxysmal Acute metabolic encephalopathy secondary to UTI fall acute on chronic COPD exacerbation CAD s/p CABG, h/o MV surgery Descending thoracic aortic aneurysm, chronic Hospital Course: Patient presented to ED after a fall at home. She was found to be in rapid atrial fibrillation and a urinary tract infection. Cardiology was consulted. Patient was treated with sotalol with improvement of her heart rate. Her coumadin was restarted. Requires bridge with lovenox until INR is therapeutic. (mechanical mitral valve). She was also noted to have wheezing and shortness of breath, which improvement with treatment for COPD exacerbation with 4 days of prednisone, and nebulizers. She was stable and improved, but continued with debility / generalized weakness requiring assistance. She was deemed stable for discharge to inpatient rehab. Continue sotalol and coumadin with lovenox bridge initially received rocephin for UTI (Urine culture: Proteus) and transitioned to keflex for 6 more days on discharge. Imaging also noted a descending thoracic aortic aneurysm of 5.[address] Rodas (Cardiology) recommended further outpatient work-up and possibly surgery in near future Follow up: PCP within 1 week Cardiology in ~1-2 weeks. Vital Signs/Physical Exam: Temp Pulse Resp BP Pulse Ox 97.5 F 84 14 143/59 H 98 03/06/22 16:00 03/06/22 16:00 03/06/22 16:00 03/06/22 16:00 03/06/22 16:00 General: Alert, In no apparent distress, Oriented x3 HEENT: EOMI, Sclerae nonicteric Neck: No LAD Respiratory: Clear to auscultation bilaterally, Diminished Cardiovascular: No edema, Irregular heart rate/rhythm Gastrointestinal: Soft and benign, Non-distended, No tenderness Integumentary: No rashes, No significant lesion Neurological: Normal speech, Normal affect Laboratory Data at Discharge: WBC 9.40 K/uL (4.3-10.9) 03/05/22 03:25 Hgb 13.1 g/dL (12.0-15.0) 03/05/22 03:25 Hct 40.2 % (36.0-45.0) 03/05/22 03:25 Plt Count 106 K/uL (152-406) L 03/05/22 03:25 PT 19.3 SECONDS (9.5-12.5) H 03/06/22 11:56 INR 1.73 03/06/22 11:56 Sodium 136 mmol/L (136-145) 03/06/22 11:56 Potassium 4.3 mmol/L (3.5-5.1) 03/06/22 11:56 BUN 29 mg/dL (7-18) H 03/06/22 11:56 Creatinine 1.04 mg/dL (0.55-1.3) 03/06/22 11:56 Glucose 205 mg/dL (74-106) H 03/06/22 11:56 Phosphorus 2.9 mg/dL (2.5-4.9) 03/03/22 06:35 Magnesium 2.1 mg/dL (1.8-2.4) 03/03/22 06:35 Total Bilirubin 1.5 mg/dL (0.2-1.0) H 03/01/22 13:00 AST 30 U/L (15-37) 03/01/22 13:00 ALT 24 U/L (12-78) 03/01/22 13:00 Alkaline Phosphatase 74 U/L (45-117) 03/01/22 13:00 Triglycerides 53 mg/dL (<150) 03/03/22 06:35 Cholesterol 113 mg/dL (<200) 03/03/22 06:35 HDL Cholesterol 44 mg/dL (40-60) 03/03/22 06:35 Cholesterol/HDL Ratio 2.57 03/03/22 06:35 Lipase 33 U/L (73-393) L 03/01/22 13:00 Home Medications: Potassium Chloride [Klor-Con 10] 1 tab PO DAILY 06/09/16 Sertraline [Zoloft*] 100 tab PO BEDTIME 06/09/16 Albuterol Inhaler [Ventolin Inhaler*] 2 puff IH Q6H PRN #1 hfa.aer.ad 04/10/18 Acetaminophen [Tylenol Extra Strength] 500 mg PO Q4H PRN 09/20/21 Atorvastatin Calcium [Lipitor] 40 mg PO BEDTIME 09/20/21 Melatonin 3 mg PO BEDTIME PRN 09/20/21 Ranolazine [Ranexa] 500 mg PO BID 09/20/21 Sennosides/Docusate Sodium [Senna-S Tablet] 2 tab PO BEDTIME PRN 09/20/21 Cranberry Fruit Extract 400 mg PO BID cap 10/03/21 Ensure Enlive 237 ml PO BID PRN can 10/03/21 Albuterol Neb [Proventil 0.083% Neb Soln] 2.5 mg NEB [id number] PRN #60 amp 11/08/21 Ipratropium Neb [Atrovent*] 0.5 mg NEB [id number] PRN #60 amp 11/08/21 Albuterol Neb [Proventil 0.083% Neb Soln] 2.5 mg NEB [id number] PRN amp 03/06/22 Cephalexin [Keflex] 500 mg PO Q6HR 6 Days #24 cap 03/06/22 Enoxaparin Sodium [Lovenox 60 MG INJ*] 65 mg SQ Q12HR syr 03/06/22 Sotalol HCl [Betapace*] 80 mg PO BID 6AM 6PM tab 03/06/22 Warfarin Sodium [Coumadin*] 3 mg PO DAILY 5 PM tab 03/06/22 New Medications: Cephalexin [Keflex] 500 mg PO Q6HR 6 Days #24 cap Physician Discharge Instructions: Patient presented to ED after a fall at home. She was found to be in rapid atrial fibrillation and a urinary tract infection. Cardiology was consulted. Patient was treated with sotalol with improvement of her heart rate. Her coumadin was restarted. Requires bridge with lovenox until INR is therapeutic. (mechanical mitral valve). She was also noted to have wheezing and shortness of breath, which improvement with treatment for COPD exacerbation with 4 days of prednisone, and nebulizers. She was stable and improved, but continued with debility / generalized weakness requiring assistance. She was deemed stable for discharge to inpatient rehab. Continue sotalol and coumadin with lovenox bridge initially received rocephin for UTI (Urine culture: Proteus) and transitioned to keflex for 6 more days on discharge. Imaging also noted a descending thoracic aortic aneurysm of 5.[address] Rodas (Cardiology) recommended further outpatient work-up and possibly surgery in near future Follow up: PCP within 1 week Cardiology in ~1-2 weeks. Followup: Yared Chao MD [ACTIVE - CAN ADMIT] - 1 Week (PCP- call to schedule an appointment) Juve Moss MD [ACTIVE - CAN ADMIT] - 1-2 Weeks (call to schedule follow up appointment.) Time spent managing pt's care (in minutes): 45
--- NOTE | 2022-03-06 21:19 | PN ---
Date of Progress Note: 03/06/2022 Subjective: Seen by bedside. She is pleasantly confused. Review of Systems: No chest pain, shortness of breath, orthopnea, or cough. No nausea, vomiting, or diarrhea. All othe r systems reviewed and they were negative. Physical Examination: Vital Signs: Reviewed. Head and Neck: Pupils are equal, reactive to light. Intact eye movements. No JVD. No cervical lym phadenopathy. Neck is supple. Thyroid is not enlarged. Lungs: Clear to auscultation bilaterally. No rhonchi, rales, or crackles. No accessory muscle use. Heart: Regular. No extra sounds. Abdomen: Soft, nontender. Bowel sounds positive. No organomegaly. No masses or hernia. No rigidi ty or rebound. Extremities: No clubbing or cyanosis. Intact pulses. Skin: No rashes. Neurologic: Alert, awake, oriented x3. No acute focal deficits appreciated. Investigations: BUN 29, creatinine 1.04, and hemoglobin is 13.1. Assessment And Recommendations: Atrial fibrillation. This patient had an echo today and she has a m echanical mitral valve, so she will need to be on Coumadin. INR apparently is subtherapeutic at 1.73 . To continue Coumadin and to have INR between 2.5 and 3, if need be to bridge with Lovenox. This p atient is not going to be a candidate for left atrial appendage closure because the ongoing need for the Coumadin due to the mechanical mitral valve. 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 /MIMI Voice ID: [id number] Report ID: [id number]
--- NOTE | 2022-03-07 06:31 | ECHO ---
HEIGHT: 5 ft 7 in WEIGHT: 143 lb 4.8 oz DATE OF STUDY: 03/06/[address]: Siddhartha Tesfaye MD 2-DIMENSIONAL: YES M.MODE: YES DOPPLER: YES COLOR FLOW: YES TDS: PORTABLE: YES DEFINITY: BUBBLE STUDY: DIAGNOSIS: AORTIC DISSECTION CARDIAC HISTORY: CATHERIZATION: YES SURGERY: YES PROSTHETIC VALVE: MITRAL VALVE PACEMAKER: MEASUREMENTS (cm) DIASTOLIC (NORMALS) SYSTOLIC (NORMALS) IVSd 1.1 (0.6-1.2) LA Diam 5.0 (1.9-4.0) LVEF 35% LVIDd 4.8 (3.5-5.7) LVIDs 4.0 (2.0-3.5) %FS 17% LVPWd 1.5 (0.6-1.2) Ao Diam 2.9 (2.0-3.7) 2 DIMENSIONAL ASSESSMENT: RIGHT ATRIUM: NORMAL LEFT ATRIUM: ENLARGED RIGHT VENTRICLE: NORMAL (PACEMAKER WIRE) LEFT VENTRICLE: DEPRESSED EJECTION FRACTION TRICUSPID VALVE: SEVERE TRICUSPID REGURGITATION MITRAL VALVE: MECHANICAL PROSTHESIS IS PRESENT PULMONIC VALVE: NORMAL AORTIC VALVE: NORMAL PERICARDIAL EFFUSION: NONE AORTIC ROOT: NORMAL LEFT VENTRICULAR WALL MOTION: MODERATE GLOBAL HYPOKINESIS DOPPLER/COLOR FLOW: SEE BELOW COMMENTS: MODERATELY DEPRESSED LEFT VENTRICULAR EJECTION FRACTION 35-40% WITH MODERATE GLOBAL HYPOKINESIS. MITRAL MECHANICAL PROSTHESIS IS PRESENT AND FUNCTIONING WELL. MILD MITRAL REGURGITATION. SEVERE TRICUSPID REGURGITATION. SEVERE LEFT ATRIAL ENLARGEMENT. TECHNOLOGIST: ED ANDERSON
== END 2022-03-06 22:59 | DRG 308 ==
LOC: ER 11:49 → ERHOLD 18:05 → 4TH 03-02 11:51
PROVIDERS: ADMIT Internal Medicine; ATTEND Hospitalist
DX: I48.19 Other persistent atrial fibrillation (principal); G93.41 Metabolic encephalopathy; J44.1 Chronic obstructive pulmonary disease with (acute) exacerbation; N39.0 Urinary tract infection, site not specified; I10 Essential (primary) hypertension; F41.9 Anxiety disorder, unspecified; I51.7 Cardiomegaly; I71.2 Thoracic aortic aneurysm, without rupture; I25.10 Atherosclerotic heart disease of native coronary artery without angina pectoris; I25.2 Old myocardial infarction; S51.811A Laceration without foreign body of right forearm, initial encounter; S00.83XA Contusion of other part of head, initial encounter; Z60.2 Problems related to living alone; Z88.8 Allergy status to other drugs, medicaments and biological substances; Z88.1 Allergy status to other antibiotic agents; Z95.1 Presence of aortocoronary bypass graft; Z86.73 Personal history of transient ischemic attack (TIA), and cerebral infarction without residual deficits; Z79.01 Long term (current) use of anticoagulants; Z95.810 Presence of automatic (implantable) cardiac defibrillator; Z87.891 Personal history of nicotine dependence; Z79.899 Other long term (current) drug therapy; Z20.822 Contact with and (suspected) exposure to COVID-19; W18.30XA Fall on same level, unspecified, initial encounter; Y92.099 Unspecified place in other non-institutional residence as the place of occurrence of the external cause; Y93.9 Activity, unspecified
CPT/HCPCS: 36415; 51702; 70450; 70486; 71045; 71250; 71275; 72125; 74175; 76377; 80048; 80061; 80076; 81003; 81015; 82550; 83605; 83690; 83735; 83880; 84100; 84443; 84484; 85025; 85610; 87040; 87077; 87086; 87088; 87186; 90471; 90714; 93005; 93306; 94640; 96365; 96366; 96372; 96375; 97110; 97161; 97530; 99285; J1160; J1650; J2920; J2930; J7030; J7512; J7614; Q9967; U0003

== ENCOUNTER 2022-04-15 14:16 | Inpatient (IN) | payer OTHER ==
--- OUTSIDE RECORDS SUMMARY | 2022-04-15 14:20 | XMS REPORT | Continuity of Care Document ---
:1955 Author Organization [facility] t Address [address] [place] [address] Care Team Providers Name Role Phone Yared Castillo MD Primary Care Physician [phone] Attending Clinician Unavailable FAYE AGARWAL NATASHA Attending Clinician Unavailable Rita Silva Attending Clinician Unavailable Janelle Gomez RN, Consuelo Attending Clinician Unavailable Jh Buckley MD Attending Clinician oTdd Gastelum Attending Clinician Unavailable Prieto Bella MD Attending Clinician MD JH BUCKLEY Attending Clinician Unavailable Lizzy Rajan MD Attending Clinician SHELL YANG Attending Clinician Unavailable [id number] Admitting Clinician Unavailable FAYE AGARWAL NATASHA Admitting Clinician Unavailable JH BUCKLEY Admitting Clinician Unavailable MD JH BUCKLEY Admitting Clinician Unavailable SHELL YANG Admitting Clinician Unavailable Payers Payer Name Policy Type Policy Number Effective Date Expiration Date S lila [facility] [id number] MEDICARE B [id number] 1999 RAILROAD 00:00:00 Problems Condition Condition Condition [...] ethodi atrial atrial 08-08 fibrillati fibrillati 00:00: Ho spita on on 00 l Shortness Shortness Disease Active Met hodi of breath of breath 2-15 st 00:00: Hospita 00 l 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 Allergies, Adverse Reactions, Alerts Allergy Allergy Status Severity Reaction(s) Onset Inactive Treating Comm ents Source Name Type Date Date Clinician Levoflox Propensi Active Itching Metho di acin ty to 01-10 st adverse 00:00: Hospita reaction 00 l s to drug NO KNOWN Drug Active Univers ALLERGIE Class ity of S [place] [facility] Family History Family Member Diagnosis Comments Start Date Stop Date Source Natural father Stroke [facility] Natural mother [facility] Social History Social Habit Start Date Stop Date Quantity Comments Source Exposure to Not sure University of SARS-CoV-2 (event) [place] [facility] History of tobacco Cigarette Smoker [facility] use [facility] History SDOH [facility] Alcohol Comment Hospital History SDOH [facility] Alcohol Std Drinks Hospit al History SDOH [facility] Binge Hospital Alcohol intake 2021-01-11 2021-01-11 Current [facility] 00:00:00 00:00:00 non-drinker of Hospital alcohol (finding) History SDOH 2019-06-04 2019-06-04 1 [facility] Frequency 00:00:00 00:00:00 Hospita l Tobacco use and 2018-07-25 2018-07-25 Smokeless [facility] exposure 00:00:00 00:00:00 tobacco non-user Hospital Cigarettes smoked 2018-07-25 2018-07-25 Methodi current (pack per 00:00:00 00:00:00 Hospita l day) - Reported Cigarette 2018-07-25 2018-07-25 [facility] pack-years 00:00:00 00:00:00 Hospital Sex Ass[birth year] At [birth year] [facility] 00:00:00 00:00:00 Hospital Smoking Status Start Date Stop Date Source Unknown if ever smoked [facility] Smokes tobacco daily 2018-07-25 00:00:00 [facility] Medications Ordered Filled Start Stop Current Ordering Indication Dosage Frequency Signature Comments Components Source Medication Medication Date Date Medication? Clinician (SIG) Name Name nicotine 2020- No [id number] 1{patch QD Place 1 Methodi (NICODERM [id number] } patch on st CQ) 21 00:00: [...] 16:36: daily. Hospit a 56 l potassium 0 Yes 10meq QD Take 10 Meth mazin chloride 8-[address] (K-DUR,KLOR 16:36: mouth Hospi ta -CON) 10 56 daily. l MEQ CR tablet sertraline Yes 50mg QD Take 50 mg M ethodi (ZOLOFT) 50 8-[address] MG tablet 16:36: daily. Hospit a 56 l ipratropium 2020- No [id number] .5mg Q6H Take 2.5 [facility] (ATROVENT) 01-24 mL (0.[address] 0.02 % 00:00: 04:59 [facility]00 nebulizati l solution on every 6 (six) hours as needed for wheezing or shortness of breath for up to 30 days. ondansetron 2020- No [id number] 4mg Q4H Take 1 [facility] (ZOFRAN) 4 01-24 tablet (4 st MG tablet 00:00: 04:59 mg total) Ho spita 00 :00 by mouth l every 4 (four) hours as needed for nausea or vomiting for up to 30 days. ranolazine 2020- No [id number] 500mg Q.5D Take 1 [facility] (RANEXA) 01-[address] 500 MG 12 00:00: 04:59 (500 mg Hosp [facility] hr ER 00 :00 total) by l tablet mouth 2 (two) times a day for 30 days. rosuvastati 2020- No [id number] 20mg QD Take 1 Methodi n (CRESTOR) 01-24 tablet (20 s t 20 mg 00:00: 04:59 mg total) Hospit a tablet 00 :00 by mouth l nightly for 30 days. HYDROcodone 2020- No [id number] 1{tbl} Q4H Take 1 Methodi -acetaminop 01-[address] hen (NORCO) 00:00: 04:59 mouth [facility] 5-325 mg 00 :00 every 4 l per tablet (four) hours as needed for moderate pain for up to 7 days .chronic pain. Max Daily Amount: 6 tablets sulfamethox 0 2020- No 1{tbl} Q.5D Take 1 M ethodi azole-trime 8-17 - tablet by st thoprim 00:00: 04:59 mouth Hospita (BACTRIM 00 :00 every 12 l DS) 800-160 (twelve) mg per hours for tablet 4 days. lidocaine 2 Yes 2mg/min 2 mg/min Univers g/500 mL 7-19 (30 ity of D5W (Fixed 13:15: mL/hr), IV [place] Dose) 00 Infusion, Medical infusion CONTINUOUS Branc h RTU , Starting Sat12/26/20 at 0815 heparin Yes 12U/kg/ 12 Univers 25,000 7-19 h [...] Inhalation ity of (DUONEB) 13:00: , QID, [place] 0.5 mg-3 00 First dose Medic al mg(2.5 mg on Sat Branch base)/3 mL 12/26/20 at nebulizer 0800, solution 3 Until mL Discontinu ed, Routine metoprolol Yes 50mg Take 50 mg U nivers succinate 12-26 by mouth ity of XL 50 mg 24 12:27: daily. [place] hr tablet Medical Branch potassium Yes 10meq Take 10 Univ ers chloride 7- mEq by ity of (KLOR-CON 12:27: mouth [place] 10) 10 mEq 20 daily. Medical CR tablet Branch lisinopriL Yes 5mg Take 5 mg Un jeff 5 mg tablet 12-26 by mouth ity of 12:27: daily. [address] furosemide Yes 40mg Take 40 mg U nivers 40 mg - by mouth ity of tablet 12:27: daily. [place] [address] Medical [place] SERTraline Yes 50mg Take 50 mg U nivers 50 mg - by mouth ity of tablet 12:27: daily. [place] [address] Medical [place] warfarin 3 Yes 3mg Take 3 mg Un jeff mg tablet 12-26 by mouth. ity o f 12:27: 3mg one [place] 20 day and Medical then 4mg Branch the next HEPARIN 2020-2020- No 4000U 4,000 Univers SODIUM 7-19 07-19 Units, IV ity of (PORCINE) 12:15: 12:15 Push, [place] 1,000 00 :00 ONCE, 1 Medical UNIT/ML dose, Mon [place] BOLUS ACS 12/26/20 at ORDER SET 0715, BIENVENIDO heparin Yes 3000U FOR Univers (1,000 12-26 REBOLUSING ity of unit/mL, 10 12:12: , Starting [place] mL vial) 08 Mon Medical for 12/26/20 at [place] Rebolusing 0712, Until Discontinu ed, Routine
Dosing based on aPTT testing parameters (refer to continuous heparin drip order).
metoprolol 2020- No 50mg 50 mg, Univ ers tartrate 12-26 Oral, ity of (LOPRESSOR) 10:15: 09:08 [place]CE[place] 1 [place] tablet 50 00 :00 dose, [facility] Medic al mg 12/26/20 at [place] 0515, Routine methylpredn 2020- No 125mg 125 mg, IV Univers isolone sod 12-26 Piggyback, i ty of succ 09:30: 08:34 ONCE, 1 [place] (SOLU-MEDRO 00 :00 dose, Mon Med ical L) 12/26/20 at [place] injection 0430, STAT 125 mg naloxone 2018-06 [...] tablet 00:00: 00:00 daily. Hospi ta 00 : l lisinopril 2019-0 Yes 5mg QD Take 5 mg Me thodi (PRINIVIL) 02-[address] 5 mg tablet 00:00: daily. [facility] 00 l lisinopril 2019-0 Yes 5mg QD Take 5 mg Me thodi (PRINIVIL) [address] 5 mg tablet 00:00: daily. [facility] 00 l lisinopril 2019-0 Yes 5mg QD Take 5 mg Me thodi (PRINIVIL) 02-[address] 5 mg tablet 00:00: daily. [facility] 00 l metoprolol 2018-0 Yes 50mg QD Take 50 mg M [...] Date Status Commen ts Source Name Name MODLOFT COVID-19 MRNA 2021-01-24 Completed Meth odist VACCINATION 00:00:00 [facility] PFIZER COVID-19 MRNA 2021-01-24 Completed Meth odist VACCINATION 00:00:00 [facility] PFIZER COVID-19 MRNA 2021-01-24 Completed Meth odist VACCINATION 00:00:00 [facility] COVID-19 MRNA 2021-01-05 Completed Meth odist VACCINATION 00:00:00 [facility] COVID-19 MRNA 2021-01-05 Completed Meth odist VACCINATION 00:00:00 [facility] PFIZER COVID-19 MRNA 2021-01-05 Completed Meth odist VACCINATION 00:00:00 Hospital Vital Signs Vital Name Observation Time Observation Value Comments Source Systolic blood 2020-12-26 14:00:00 109 mm[Hg] Univer sity of pressure [facility] Diastolic blood 2020-12-26 14:00:00 72 mm[Hg] Unive rsity of [facility] Heart rate 2020-12-26 14:00:00 102 /min [facility] Respiratory rate 2020-12-26 14:00:00 14 /min [facility] Oxygen saturation in 2020-12-26 14:00:00 96 /min [facility] Arterial blood by [facility] Pulse oximetry [place] Body temperature 2020-12-26 08:10:00 36.83 Noris [facility] Body weight 2020-12-26 08:10:00 72.576 kg [facility] Systolic blood 2021-01-24 20:52:38 119 mm[Hg] [facility] pressure Diastolic blood 2021-01-24 20:52:38 78 mm[Hg] [facility] pressure Heart rate 2021-01-24 20:52:38 132 /min [facility] Body temperature 2021-01-24 20:52:38 36.28 Noris [facility] Respiratory rate 2021-01-24 20:52:38 19 /min [facility] Oxygen saturation in 2021-01-24 20:52:38 96 /min [facility] Arterial blood by Pulse oximetry Body weight 2021-01-18 22:00:00 66.877 kg [facility] BMI 2021-01-18 22:00:00 23.09 kg/m2 [facility] Body height 2020-12-26 17:12:00 170.2 cm [facility] Procedures Procedure Date / Time Performing Clinician Source Performed POC GLUCOSE 2021-01-24 12:45:00 [facility] PROTHROMBIN TIME WITH INR 2021-01-24 11:22:00 [facility] PROTHROMBIN TIME WITH INR 2021-01-22 11:04:00 [facility] URINE CULTURE 2021-01-20 23:52:00 Irene Villar [facility] spital URINALYSIS SCREEN AND 2021-01-20 23:12:00 Irene Villar [facility] MICROSCOPY, WITH REFLEX TO CULTURE PROTHROMBIN TIME WITH INR 2021-01-20 11:26:00 [facility] PROTHROMBIN TIME WITH INR 2021-01-18 11:12:00 [facility] PROTHROMBIN TIME WITH INR 2021-01-16 10:59:00 [facility] PROTHROMBIN TIME WITH INR 2021-01-15 10:11:00 [facility] PROTHROMBIN TIME WITH INR 2021-01-13 10:47:00 [facility] PROTHROMBIN TIME WITH INR 2021-01-12 10:16:00 [facility] BASIC METABOLIC PANEL 2021-01-11 09:48:00 [facility] HC COMPLETE BLD COUNT 2021-01-11 09:48:00 [facility] W/AUTO DIFF PROTHROMBIN TIME WITH INR 2021-01-11 09:48:00 [facility] VANCOMYCIN LEVEL, TROUGH 2021-01-11 09:48:00 [facility] C-REACTIVE PROTEIN 2021-01-11 09:48:00 [facility] PROCALCITONIN 2021-01-11 09:48:00 [facility] SEDIMENTATION RATE 2021-01-11 09:48:00 [facility] ESTIMATED GFR 2021-01-11 09:48:00 [facility] BASIC METABOLIC PANEL 2021-01-09 12:29:00 [facility] ESTIMATED GFR 2021-01-09 12:29:00 [facility] HC COMPLETE BLD COUNT 2021-01-09 11:20:00 [facility] W/AUTO DIFF PROTHROMBIN TIME WITH INR 2021-01-09 10:57:00 Prieto Bella [facility] VANCOMYCIN LEVEL, TROUGH 2021-01-08 09:32:00 [facility] PROTHROMBIN TIME WITH INR 2021-01-08 09:32:00 [facility] BASIC METABOLIC PANEL 2021-01-08 09:32:00 [facility] ESTIMATED GFR 2021-01-08 09:32:00 [facility] HC COMPLETE BLD COUNT 2021-01-08 09:20:00 [facility] W/AUTO DIFF ECG 12-LEAD 2021-01-07 01:21:25 [facility] BASIC METABOLIC PANEL 2021-01-06 10:33:00 [facility] ESTIMATED GFR 2021-01-06 10:33:00 [facility] CBC HEMOGRAM 2021-01-06 10:29:00 [facility] PROTHROMBIN TIME WITH INR 2021-01-06 10:28:00 [facility] PROTHROMBIN TIME WITH INR 2021-01-05 08:50:00 [facility] BASIC METABOLIC PANEL 2021-01-05 08:50:00 [facility] ESTIMATED GFR 2021-01-05 08:50:00 [facility] HC COMPLETE BLD COUNT 2021-01-05 08:50:00 [facility] W/AUTO DIFF COVID-19 QUALITATIVE 2021-01-04 23:30:00 [facility] [facility] PROTHROMBIN TIME WITH INR 2021-01-04 09:38:00 [facility] PROTHROMBIN TIME WITH INR 2021-01-03 10:46:00 [facility] PARTIAL THROMBOPLASTIN 2021-01-03 10:46:00 [facility] TIME (PTT) BASIC METABOLIC PANEL 2021-01-03 07:10:00 [facility] ESTIMATED GFR 2021-01-03 07:10:00 [facility] CBC HEMOGRAM 2021-01-03 07:10:00 [facility] PARTIAL THROMBOPLASTIN 2021-01-03 04:26:00 [facility] TIME (PTT) SEDIMENTATION RATE 2021-01-02 19:40:00 [facility] C-REACTIVE PROTEIN 2021-01-02 19:40:00 [facility] PROCALCITONIN 2021-01-02 19:40:00 [facility] spital BLOOD CULTURE, AEROBIC & 2021-01-02 18:40:00 [facility] ANAEROBIC PARTIAL THROMBOPLASTIN 2021-01-02 18:40:00 [facility] TIME (PTT) PROTHROMBIN TIME WITH INR 2021-01-02 09:06:00 [facility] PARTIAL THROMBOPLASTIN 2021-01-02 09:06:00 [facility] TIME (PTT) VANCOMYCIN LEVEL, TROUGH 2021-01-01 16:38:00 [facility] PROTHROMBIN TIME WITH INR 2021-01-01 10:45:00 [facility] PARTIAL THROMBOPLASTIN 2021-01-01 10:45:00 [facility] TIME (PTT) PROTHROMBIN TIME WITH INR 2021-01-01 08:52:00 [facility] PARTIAL THROMBOPLASTIN 2021-01-01 08:52:00 [facility] TIME (PTT) PARTIAL THROMBOPLASTIN 2021-01-01 02:49:00 [facility] TIME (PTT) PARTIAL THROMBOPLASTIN 2020-12-31 20:31:00 [facility] TIME (PTT) PARTIAL THROMBOPLASTIN 2020-12-31 10:20:00 [facility] TIME (PTT) PROTHROMBIN TIME WITH INR 2020-12-31 10:20:00 [facility] CV LEFT HEART CATH LV 2020-12-30 20:42:27 [facility] GRAM WITH CORS CV SELECTIVE CORONARY 2020-12-30 20:42:27 Attar, [facility] ANGIOGRAPHY VANCOMYCIN LEVEL, TROUGH 2020-12-30 18:18:00 [facility] COVID-19 QUALITATIVE 2020-12-30 14:52:00 Cass Nava [facility] RT-PCR BASIC METABOLIC PANEL 2020-12-30 12:13:00 [facility] ESTIMATED GFR 2020-12-30 12:13:00 [facility] PROTHROMBIN TIME WITH INR 2020-12-30 10:41:00 Shayne [facility] PARTIAL THROMBOPLASTIN 2020-12-30 10:41:00 [facility] TIME (PTT) CBC HEMOGRAM 2020-12-30 10:40:00 [facility] PARTIAL THROMBOPLASTIN 2020-12-29 21:05:00 [facility] TIME (PTT) ANTI XA, UNFRACTIONATED 2020-12-29 14:39:00 [facility] PARTIAL THROMBOPLASTIN 2020-12-29 14:39:00 [facility] TIME (PTT) CT CARDIAC OVERREAD 2020-12-29 12:36:40 Shayne [facility] CV CTA CORONARY ARTERIES 2020-12-29 12:15:26 Jose Bellaammed [facility] W CONTRAST HC COMPLETE BLD COUNT 2020-12-29 06:13:00 [facility] W/AUTO DIFF BASIC METABOLIC PANEL 2020-12-29 06:13:00 [facility] ANTI XA, UNFRACTIONATED 2020-12-29 06:13:00 Jose Bellaammed [facility] ESTIMATED GFR 2020-12-29 06:13:00 [facility] ANTI XA, UNFRACTIONATED 2020-12-28 23:32:00 [facility] US CAROTID DUPLEX 2020-12-28 20:25:00 [facility] BILATERAL ANTI XA, UNFRACTIONATED 2020-12-28 15:49:00 [facility] URINE CULTURE 2020-12-28 09:09:00 Attar, [facility] spital URINALYSIS SCREEN AND 2020-12-28 08:37:00 Shayne [facility] MICROSCOPY, WITH REFLEX TO CULTURE HC COMPLETE BLD COUNT 2020-12-28 07:23:00 [facility] W/AUTO DIFF BASIC METABOLIC PANEL 2020-12-28 07:23:00 [facility] ANTI XA, UNFRACTIONATED 2020-12-28 07:23:00 [facility] ESTIMATED GFR 2020-12-28 07:23:00 [facility] PROTHROMBIN TIME WITH INR 2020-12-28 07:23:00 [facility] BLOOD CULTURE, AEROBIC & 2020-12-28 02:52:00 Shayne [facility] ANAEROBIC XR CHEST 1 VW PORTABLE 2020-12-28 00:32:07 [facility] ANTI XA, UNFRACTIONATED 2020-12-27 23:22:00 [facility] ANTI XA, UNFRACTIONATED 2020-12-27 21:24:00 [facility] ANTI XA, UNFRACTIONATED 2020-12-27 14:52:00 [facility] HC COMPLETE BLD COUNT 2020-12-27 09:16:00 [facility]FF BASIC METABOLIC PANEL 2020-12-27 09:00:00 [facility] TROPONIN 2020-12-27 09:00:00 Jose Bellaammed [facility] spital ESTIMATED GFR 2020-12-27 09:00:00 [facility] LIPID PANEL 2020-12-27 05:00:00 [facility] ECG 12-LEAD 2020-12-27 04:13:48 [facility] ANTI XA, UNFRACTIONATED 2020-12-27 02:50:00 [facility] CT HEAD WO CONTRAST 2020-12-27 00:55:16 [facility] TROPONIN 2020-12-26 23:39:00 Prieto Bella TTE COMPLETE, WO 2020-12-26 22:08:00 [facility] CONTRAST, W DOPPLER ([id number]) ECG 12-LEAD 2020-12-26 17:45:46 [facility] TROPONIN 2020-12-26 17:36:00 [facility] THYROID STIMULATING 2020-12-26 17:36:00 [facility] HORMONE T4, FREE 2020-12-26 17:36:00 [facility] HEMOGLOBIN A1C 2020-12-26 17:36:00 [facility] PARTIAL THROMBOPLASTIN 2020-12-26 17:36:00 [place] [facility] TIME (PTT) PROTHROMBIN TIME WITH INR 2020-12-26 17:36:00 [facility] ANTI XA, UNFRACTIONATED 2020-12-26 17:36:00 [facility] MAGNESIUM 2020-12-26 12:04:00 Lizzy Rajan [facility] ACUTE CARE ARTERIAL BLOOD 2020-12-26 11:43:00 [facility] 2020-12-26 10:48:57 Lizzy Rajan [facility] XR CHEST 1 VW 2020-12-26 08:50:43 Lizzy Rajan [facility] LIPASE 2020-12-26 08:44:00 Lizzy Rajan [facility] TROPONIN I 2020-12-26 08:44:00 Lizzy Rajan [facility] COMP. METABOLIC PANEL 2020-12-26 08:44:00 Lizzy Rajan [facility] ([id number]) [facility] CBC WITH DIFF 2020-12-26 08:44:00 Lizzy Rajan [facility] PROTHROMBIN TIME / INR 2020-12-26 08:44:00 Lizzy Rajan [facility] ACTIVATED PARTIAL 2020-12-26 08:44:00 Lizzy Rajan [facility] N-TERMINAL PRO-BNP 2020-12-26 08:44:00 Lizzy Rajan [facility] COVID-19 (ID NOW RAPID 2020-12-26 08:43:00 Lizzy Rajan [facility] TESTING Medical Branch Plan of Care Planned Activity Planned Date Details Comments Source Future Scheduled 2022-04-12 HEPATITIS B VACCINES [facility] Test 18:31:35 (1 of 3 - 3-dose series) [code = HEPATITIS B VACCINES (1 of 3 - 3-dose series)] Future Scheduled 2022-04-12 65+ [facility] 18:31:35 VACCINE (1 - PCV) [code = 65+ PNEUMOCOCCAL VACCINE (1 - PCV)] Future Scheduled 2022-04-12 Hepatitis C screening [facility] Test 18:31:35 (procedure) [code = 198402717] Future Scheduled 2022-04-12 Screening for [facility] Test 18:31:35 malignant neoplasm of cervix (procedure) [code = 715577760] Future Scheduled 2022-04-12 BREAST CANCER [facility] Test 18:31:35 SCREENING [code = BREAST CANCER SCREENING] Future Scheduled 2022-04-12 COLONOSCOPY SCREENING Me [facility] Test 18:31:35 [code = COLONOSCOPY SCREENING] Future Scheduled 2022-04-12 SHINGLES VACCINES (1 Met [facility] Test 18:31:35 of 2) [code = SHINGLES VACCINES (1 of 2)] Future Scheduled 2022-04-12 COVID-19 VACCINE (3 - Me [facility] [place] [facility] Test 18:31:35 Booster for Pfizer series) [code = COVID-19 VACCINE (3 - Booster for Pfizer series)] Future Scheduled 2022-04-12 INFLUENZA VACCINE Method [facility] Test 18:31:35 [code = INFLUENZA VACCINE] Future Scheduled 2022-02-07 HEPATITIS B VACCINES Met [facility] Test 08:57:14 (1 of 3 - 3-dose series) [code = HEPATITIS B VACCINES (1 of 3 - 3-dose series)] Future Scheduled 2022-02-07 65+ [facility]AL [facility] 08:57:14 VACCINE (1 - PCV) [code = 65+ PNEUMOCOCCAL VACCINE (1 - PCV)] Future Scheduled 2022-02-07 [facility] Test 08:57:14 (procedure) [code = 484925152] Future Scheduled 2022-02-07 [facility] Test 08:57:14 malignant neoplasm of cervix (procedure) [code = 053658853] Future Scheduled 2022-02-07 BREAST CANCER [facility] Test 08:57:14 SCREENING [code = BREAST CANCER SCREENING] Future Scheduled 2022-02-07 COLONOSCOPY SCREENING [facility] Test 08:57:14 [code = COLONOSCOPY SCREENING] Future Scheduled 2022-02-07 SHINGLES VACCINES (1 [facility] Test 08:57:14 of 2) [code = SHINGLES VACCINES (1 of 2)] Future Scheduled 2022-02-07 COVID-19 VACCINE ([facility] 08:57:14 Booster for Pfizer series) [code = COVID-19 VACCINE (3 - Booster for Pfizer series)] Future Scheduled 2022-02-07 INFLUENZA VACCINE [facility] Test 08:57:14 [code = INFLUENZA VACCINE] Future Scheduled 2021-07-11 Hepatitis C screening [facility] Test 13:49:53 (procedure) [code = 674206128] Future Scheduled 2021-07-11 Screening for [facility] Test 13:49:53 malignant neoplasm of cervix (procedure) [code = 596331195] Future Scheduled 2021-07-11 BREAST CANCER [facility] Test 13:49:53 SCREENING [code = BREAST CANCER SCREENING] Future Scheduled 2021-07-11 COLONOSCOPY SCREENING [facility] Test 13:49:53 [code = COLONOSCOPY SCREENING] Future Scheduled 2021-07-11 SHINGLES VACCINES (#1) [facility] 13:49:53 [code = SHINGLES VACCINES (#1)] Future Scheduled 2021-07-11 Screening for [facility] Test 13:49:53 malignant neoplasm of lung (procedure) [code = 514506091] Future Scheduled 2021-07-11 INFLUENZA VACCINE [facility] Test 13:49:53 [code = INFLUENZA VACCINE] Future Scheduled 2021-07-11 COVID-19 VACCINE ([facility] 13:49:53 Booster for Pfizer series) [code = COVID-19 VACCINE (3 - Booster for Pfizer series)] Encounters Start End Encounter Admission Attending Care Care Encounter Source Date/Time Date/Time Type Type Clinicians Facility Department ID 2022-04-11 Outpatient 3 [id number] [facility] OTH [facility] 09:10:38 [facility] 2022-04-10 Outpatient 3 [id number] [facility] REF [facility] 10:52:38 1101 [facility] [place] 2022-03-08 Outpatient 3 [id number] [facility] CRD [facility] 11:47:43 0929 [facility] [place] [facility] 2022-03-05 Outpatient 3 STEFANOLAURA HOSEA [facility] 13:11:04 FAYE 0926 [facility] [place] 2021-11-07 Outpatient 3 [id number] [facility] REF [facility] 16:01:05 0531 [facility] [place] 2021-08-01 Outpatient 3 [id number] [facility] REF [facility] 16:18:08 0222 [facility] [place] 2021-07-06 Outpatient 3 STEFANO [facility] CVA [facility] 12:57:07 FAYE 0923 [facility] [place] 2021-07-06 Outpatient 3 [id number] [facility] REF [facility] 12:56:49 0922 [facility] [place] 2021-04-10 Emergency [facility] [id number] Univers 08:58:17 ity [facility] 2022-03-06 2022-03-22 Inpatient 3 STEFANOMORENAPL BIN [id number] [facility] 23:33:00 18:50:00 FAYE [facility] [place] 2021-11-08 2021-11-21 Inpatient 3 STEFANO ENCPL CVA [id number] 22 [facility] 17:12:00 10:40:00 FAYE 0601 [facility] [place] 2021-08-02 2021-08-15 Inpatient 3 STEFANO ENCPL CVA [id number] [facility] 19:04:00 11:45:00 FAYE 0223 [facility] [place] 2021-06-21 2021-07-02 Inpatient 3 LAURA AGARWAL CVA [id number] 22 [facility] 16:15:00 12:24:00 FAYE 0112 [facility] [place] 2021-03-10 2021-03-10 Patient Ricardo, 1.2.840.1 [id number] Methodi 00:00:00 00:00:00 Outreach Rita 70155.1.[address] 3.430.2.7 Hospit a .3.473331 l .8 2021-03-10 2021-03-10 Patient Ricardo, 1.2.840.1 [id number] Methodi 00:00:00 00:00:00 Outreach Rita [address]81.1.[address] 3.430.2.7 Hospit a .3.095486 l .8 2021-03-09 2021-03-09 Nurse Janelle 1.2.840.1 [id number] Methodi 00:00:00 00:00:00 Triage PatriciaConsuelo [address]42.1.[address] 3.430.2.7 Hospit a .3.015905 l .8 2021-01-10 2021-01-24 Hospital Rogerio, 1.2.840.1 [id number] Methodi 18:41:00 16:36:00 Encounter Jh Mota 46370.1.[address] 3.430.2.7 Hospit a .3.236818 l .8 2021-01-12 2021-01-12 Patient Oriana, 1.2.840.1 [id number] Methodi 00:00:00 00:00:00 Outreach Todd 60179.1.[address] 3.430.2.7 Hospit a .3.351023 l .8 2020-12-26 2021-01-10 Hospital Rogerio, 1.2.840.1 [id number] Methodi 10:59:00 18:41:00 Encounter Jh Mota 92660.1.[address] 3.430.2.7 Hospit a .3.086253 l .8 2020-12-30 2020-12-30 Surgery Attar, 1.2.840.1 [id number] 6512 Methodi 14:20:00 15:35:[address] 3.430.2.7 Hospit a .3.781464 l .8 2020-12-26 2020-12-26 Emergency [facility] 1.2.459.043 [id number] [id number] Univers 03:03:00 09:34:00 Lizzy Aray[place] 350.1.13.10 [facility] [place] 4.2.7.2.686 [facility] [id number] [facility] [address] 2020-12-26 2020-12-26 Travel 1.2.840.1 1.2.336.599 [id number] Methodi 00:00:00 00:00:[address] 3.430.2.7 0.2.7.3.698 Ho spita .3.340205 084.8 l .8 2019-06-04 2019-06-09 Inpatient [facility] [id number] [address] [place] [address] 00:00:00 00:00:00 SHELL [address] Results Test Description Test Time Test Comments Results Result Comments Source POC glucose 2021-01-24 12:47:32 Test Item Value Reference Range Interpretation Comme nts POC glucose (test code = 103 mg/dL 65-99 H Ope rator Name: Sean Schaefer Nathanael 27431-6Aby ID: [id number] hartable: [facility] Notified liner helper Interpretation (test code = Abnormal 19768-6) [facility] [id number] 03:37:08 Test Item Value Reference Range Interpretation [...] now present-ST now depressed in Anterior leads- [facility] YalusovjWRJU-FsY-7 (COVID-19) RNA [Presence] in Respiratory specimen by MARTIN with probe [id number] 22:50:21 Test Item Value Reference Range Interpretation Comments SARS-CoV-2 (COVID-19) RNA Not detected Not-Detected [Presence] in Respiratory specimen by MARTIN with probe detection (test code = 82599-8) 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 employed in a healthcare setting (test code = 63748-2) Whether the patient has symptoms related to condition of interest (test code = 47741-9) Patient was hospitalized because of this condition (test code = 44472-2) Whether the patient was admitted to intensive care unit (ICU) for condition of interest (test code = 53834-1) Whether patient resides in a congregate care setting (test code = 55700-0) [facility] [id number] 20:42:53 Test Item Value Reference Range Interpretation Comments Cath EF Estimated 35 % (test code = 3361322815) JULIAN (test code = Left main normal.LAD with JULIAN) 25% proximal stenosis.LCX with proximal 25% stenosis mid 25% stenosis.RCA dominant with 95% calcified proximal stenosis followed by proximal 75% calcified stenosis. LVEF 35% with hypokinesis anterior and aneurysmal inferiorly. Discussed case with other word processing operator. 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 (test code = 48448-4) Whether the patient has symptoms related to condition of interest (test code = 84799-0) Patient was hospitalized because of this condition (test code = 50909-9) Whether the patient was admitted to intensive care unit (ICU) for condition of interest (test code = 84759-9) Whether patient resides in a congregate care setting (test code = 41817-5) NERI GALLEGO2021-07-19 12:57:30 Test Item Value Reference Range Interpretation Comments MAGNESIUM (test code = 3363428648) 2.0 mg/dL 1.7-2.4 Lab Interpretation (test code = Normal 01765-4) [facility].2020-12-26 11:46:41 Test Item Value Reference Range Interpretation Comments PH (test code = 2) 7.35-7.45 PCO2 (test code = See_Comment L [Automate d message] 6748027936) The system [employer] generated this result transmitted ref erence range: 35 - 45 mmHg. The reference r lebron was not used to interpret this result as normal/abnor mal. PO2 (test code = See_Comment L [Automated message] 1636682452) The system [employer] generated this result transmitted ref erence range: 80 - 100 mmHg. The reference r lebron was not used to interpret this result as normal/abnor mal. HCO3 (test code = See_Comment [Automate d message] 1675527136) The system [employer] generated this result transmitted ref erence range: 22 - 26 mEq/L. The reference r lebron was not used to interpret this result as normal/abnor mal. BE (test code = See_Comment [Automated message] 1277929750) The system [employer] generated this result transmitted ref erence range: -3.0 - 3 .0 mEq/L. The refe rence range was not u sed to interpret this result as normal/abnor mal. Lab Interpretation (test Abnormal code = 72756-6) [facility] WITH [id number] 09:30:54 Test Item Value Reference Range Interpretation Comments WBC (test code = See_Comment H [Automated 8790-2) message] The sy stem which generated this [...] RDW-SD (test code = 48.7 fL 39.0-49.9 91272-7) RDW-CV (test code = 14.7 % 12.0-15.5 788-0) PLT (test code = See_Comment L [Automated 777-3) message] The sy stem which generated this result transmitted reference range : 166 - 358 10*3/ ?L. The reference r lebron was not used to interpret this result as normal/abnormal . MPV (test code = 11.9 fL 9.5-12.9 71178-1) IPF % (test code = 5.7 % 1.3-7.7 Platelet count 5685953556) measured by fluorescence method. NRBC/100 WBC (test See_Comment [Automat ed code = 6675583199) message] The system which generated this result transmitted reference range : 0.0 - 10.0 /100 WBCs. The refer ence range was not u sed to interpret th is result as normal/abnormal . NRBC x10^3 (test code <0.01 See_Comment [Auto mated = 1496228757) message] The s ystem which generated this result transmitted reference range : 10*3/?L. The reference range was not used to interpret this result as normal/abnormal . GRAN MAT (NEUT) % 88.0 % (test code = 770-8) IMM GRAN % (test code 1.10 % = 7489916842) LYMPH % (test code = 3.8 % 736-9) MONO % (test code = 6.5 % 5905-5) EOS % (test code = 0.2 % 713-8) BASO % (test code = 0.4 % 706-2) GRAN MAT x10^3(ANC) 12.35 10*3/uL 1.88-7.09 H (test code = 7998607875) IMM GRAN x10^3 (test 0.16 10*3/uL 0.00-0.06 H code = 4323553579) LYMPH x10^3 (test 0.54 10*3/uL 1.32-3.29 L code = 731-0) MONO x10^3 (test code 0.92 10*3/uL 0.33-0.92 = 742-7) EOS x10^3 (test code 0.03 10*3/uL 0.03-0.39 = 711-2) BASO x10^3 (test code 0.06 10*3/uL 0.01-0.07 = 704-7) Lab Interpretation Abnormal (test code = 73478-8) [facility] [id number] 09:22:28 Test Item Value Reference Interpretation Comments Range TROPONIN I (test 0.572 ng/mL See_Comment H [Automated code = 4271248863) message] The system which generated this result [...] biotin. Lab Interpretation Abnormal (test code = 16569-8) [facility] [id number] 09:19:11 Test Item Value Reference Range Interpretation Comments NT-proBNP (test code 1590 pg/mL See_Comment H [Autom ated = 5731047207) message] The system which generated this result transmitted reference range : <=125. The reference range was not used to interpret this result as normal/abnormal . JULIAN (test code = JULIAN) Biotin has been reported to cause a negative bias, interpret results relative to patient's use of biotin. Lab Interpretation Abnormal (test code = 31128-9) [facility]2021-07-19 09:11:52 Test Item Value Reference Range Interpretation Comments APTT Patient (test See_Comment [Automat ed code = 3173-2) message] The system which generated this result transmitted reference range : 23 - 38 Seconds . The reference range was not used to interpr et this result as normal/abnormal . JULIAN (test code = JULIAN) The [facility] patient population mean normal value for aPTT is 30 seconds. Lab Interpretation Normal (test code = 85553-8) [facility] METABOLIC PANEL (33546)2020-12-26 09:10:52 Test Item Value Reference Range Interpretation Comments NA (test code = 137 mmol/L 135-145 3750938819) K (test code = 4.0 mmol/L 3.5-5.0 9659136897) CL (test code = 105 mmol/L 98-108 4231918062) CO2 TOTAL (test code = 22 mmol/L 23-31 L 1034169203) AGAP (test code = 2-16 4670121232) BUN (test code = 30 mg/dL 7-23 H 1671416874) GLUCOSE (test code = 197 mg/dL 70-110 H 4120134661) CREATININE (test code = 1.21 mg/dL 0.50-1.04 H 2685825667) TOTAL BILI (test code = 1.1 mg/dL 0.1-1.2 6181968744) CALCIUM (test code = 9.4 mg/dL 8.6-10.6 7133701156) T PROTEIN (test code = 6.7 g/dL 6.3-8.2 7003999684) ALBUMIN (test code = 4.0 g/dL 3.5-5.0 2464408759) ALK PHOS (test code = 82 U/L 34-122 4345306675) ALTv (test code = 26 U/L 5-35 1742-6) AST(SGOT) (test code = 52 U/L 13-40 H 1591143360) eGFR (test code = mL/min/1.73m2 8340634034) JULIAN (test code = JULIAN) Association of [...] tests). Lab Interpretation Abnormal (test code = 77700-4) [facility], [id number] 09:10:31 Test Item Value Reference Range Interpretation Comments LIPASE (test code = 8323263812) 51 U/L 0-220 Lab Interpretation (test code = Normal 21152-5) [facility] HospitalPROT[facility]OM[facility] TIME / [id number] 09:09:51 Test Item Value Reference Range Interpretation Comments PROTIME PATIENT (test See_Comment H [Auto mated message] code = 5964-2) The system creads generated this result transmitted ref erence range: 12.0 - 1 4.7 Seconds. The reference range was not used to int erpret this result as normal/abnormal . INR (test code = 6301-6) Nor mal INR <1.1; Warfarin Therap eutic range 2.0 to 3. 0 or 2.5 to 3.5, dep ending upon the indica tions. Lab Interpretation (test Abnormal code = 72144-4) [facility]OVID[facility] (ID NOW RAPID TESTING)2020-12-26 09:09:31 Test Item Value Reference Range Interpretation Comments SARS-CoV-2 Rapid ID NOW Not Detected Not Detected (test code = 45473-1) JULIAN (test code = JULIAN) ID NOW COVID-19 Assay is an isothermal nucleic acid amplification test intended for the qualitative detection of nucleic acid from SARS-CoV-2 viral RNA in nasopharyngeal ([employer]) specimens. It is used under Emergency Use [...] indicated. Lab Interpretation Normal (test code = 01350-3) [facility]"
--- NOTE | 2022-04-15 15:12 | RAD REPORT ---
EXAM DESCRIPTION: CT - Head Brain Wo Cont - 04/15/2022 2:51 pm CLINICAL HISTORY: Mental status change, unknown cause Headache, drowsiness COMPARISON: Head Brain Wo Cont dated 03/05/2022; Facial Bones W/ Mpr dated 03/01/2022 TECHNIQUE: All CT scans are performed using dose optimization technique as appropriate and may inclu de automated exposure control or mA/KV adjustment according to patient size. FINDINGS: No intracranial hemorrhage, hydrocephalus or extra-axial fluid collection.Area of gliosis noted right occipital region compatible with remote infarct. Moderate generalized brain atrophy is pr esent with moderate periventricular and deep white matter chronic microvascular ischemic changes.No a reas of brain edema or evidence of midline shift. The paranasal sinuses and mastoids are clear. The calvarium is intact. IMPRESSION: No acute intracranial abnormality.
--- NOTE | 2022-04-15 15:26 | RAD REPORT ---
EXAM DESCRIPTION: RAD - Chest Single View - 04/15/2022 3:12 pm CLINICAL HISTORY: SWELLING Chest pain. COMPARISON: Chest Single View dated 03/01/2022; Chest Single View dated 10/31/2021; Chest Single View dated 05/01/2018; Chest Single View dated 04/03/2018 FINDINGS: Portable technique limits examination quality. Mild pulmonary edema is present. Small to moderate bilateral pleural effusions. The heart is enlarged with multilead pacer/defibrillator device. Sternotomy wires. IMPRESSION: Moderate CHF/ volume overload.
[2022-04-15 16:24] LABS: Absolute Lymphocytes (CBC) 0.7 K/uL (0.7-4.9); Hematocrit 38.2 % (36.0-45.0); Lymphocytes % 9.6 % (15.3-44.8); MCV 88.9 fL (80-100); MPV 8.6 fL (7.6-11.3)
[2022-04-15 16:39] LABS: Protime INR 10.62
[2022-04-15 16:57] LABS: Albumin 3.1 g/dL (3.4-5.0); Bilirubin Direct 0.7 mg/dL (0-0.2); Bilirubin Total 1.4 mg/dL (0.2-1.0); Magnesium 2.2 mg/dL (1.8-2.4); Potassium 4.4 mmol/L (3.5-5.1); Protein, Total 5.9 g/dL (6.4-8.2); Troponin High Sensitivity 38.6 pg/mL (<58.9)
[2022-04-15] MEDS ORDERED: FUROSEMIDE 20 MG/ 2ML VIAL ONE ×2 (17:52→18:10)
[2022-04-15] MEDS ORDERED: OSELTAMIVIR 75 MG CAP ONE (18:10)
[2022-04-15] MEDS ORDERED: VITAMIN K (ADULT) 10 MG/ML ONE (18:31)
--- NOTE | 2022-04-15 18:32 | EDPHYS ---
Physician Documentation [facility] Name: Richa Lozano Age: 66 yrs Sex: Female : 1955 Arrival Date: 04/15/2022 Time: 14:18 Bed 25 Private MD: ED Physician Matt Sanchez HPI: 04/15 14:33 This 66 yrs old Female presents to ER via EMS with complaints of Upper Extremity cp Swelling. 14:33 The patient has shortness of breath at rest. cp 14:33 Onset: The symptoms/episode began/occurred 3 day(s) ago. Duration: The symptoms are cp continuous. Associated signs and symptoms: Pertinent positives: swelling of left and right arms, drowsiness, Pertinent negatives: chest pain, fever. Severity of symptoms: in the emergency department the symptoms are unchanged. Historical: - Allergies: 14:29 Levaquin; eh3 - Home Meds: 14:29 atorvastatin 40 mg Oral tab 1 tab once daily [Active]; Lasix 40 mg Oral tab 1 tab 2 eh3 times per day [Active]; metoprolol tartrate 25 mg Oral tab 1 tab once daily [Active]; warfarin 2 mg Oral tab 1 tab once daily [Active]; - PMHx: 14:29 AFIB; Aneurysm; atelectasis; cardiomegaly; CHF; COPD; CVA; Depression; EDEMA; eh3 Hypertension; Myocardial infarction; Pace maker; pleural effusion; rheumatic mitral stenosis; - Immunization history:: Adult Immunizations up to date. - Social history:: Smoking status: unknown. ROS: 14:40 Constitutional: Positive for decreased appetite, Negative for fever. cp 14:40 Eyes: Negative for injury, pain, redness, and discharge. cp 14:40 ENT: Negative for drainage from ear(s), ear pain, sore throat, difficulty swallowing, difficulty handling secretions. 14:40 Cardiovascular: Positive for edema, Negative for chest pain. 14:40 Respiratory: Positive for shortness of breath, Negative for cough, wheezing. 14:40 Abdomen/GI: Negative for abdominal pain, nausea, vomiting, and diarrhea. 14:40 Skin: Negative for cellulitis, rash. 14:40 Neuro: Positive for weakness, Negative for headache. 14:40 All other systems are negative. Exam: 14:45 Constitutional: The patient appears in no acute distress, alert, awake, cp non-diaphoretic, non-toxic, well developed, well nourished. 14:45 Head/Face: Normocephalic, atraumatic. cp 14:45 Eyes: Periorbital structures: appear normal, Pupils: equal, round, and reactive to light and accomodation, Extraocular movements: intact throughout, Conjunctiva: normal, no exudate, no injection, Sclera: no appreciated abnormality, Lids and lashes: appear normal, bilaterally. 14:45 ENT: External ear(s): are unremarkable, Nose: is normal, Mouth: Lips: dry, Oral mucosa: moist, Posterior pharynx: Airway: no evidence of obstruction, patent, erythema, is not appreciated, exudate, is not appreciated. 14:45 Neck: ROM/movement: is normal, is supple, without pain, no range of motions limitations, no meningismus. 14:45 Chest/axilla: Inspection: normal, Palpation: is normal, no crepitus, no tenderness. 14:45 Cardiovascular: Rate: tachycardic, Rhythm: irregular, JVD: is not appreciated, mild left arm and hand edema. 14:45 Respiratory: the patient does not display signs of respiratory distress, Respirations: shallow respirations, that is mild, Breath sounds: decreased breath sounds, that are moderate, are heard in the left posterior lower lobe, stridor, is not appreciated, wheezing: is not appreciated. 14:45 Abdomen/GI: Inspection: abdomen appears normal, Palpation: abdomen is soft and non-tender, in all quadrants. 14:45 Back: pain, is absent, ROM is normal. 14:45 Skin: cellulitis, is not appreciated, no rash present. 14:45 Neuro: Orientation: to person, situation, Mentation: able to follow commands, somnolent, Motor: moves all fours, general weakness with no focal deficits. 15:40 ECG was reviewed by the Attending Physician. cp Vital Signs: 14:27 BP 126 / 104; Pulse 115; Resp 16; Pulse Ox 100% on 3 lpm NC; eh3 15:30 BP 133 / 113; Pulse 109; Resp 16; Pulse Ox 100% on 2.5 lpm NC; eh3 16:30 BP 163 / 113; Pulse 109; Resp 15; Pulse Ox 99% on 2.5 lpm NC; eh3 17:30 BP 137 / 97; Pulse 103; Resp 15; Pulse Ox 99% on 2 lpm NC; 3 18:30 BP 138 / 106; Pulse 99; Resp 16; Pulse Ox 100% on 2 lpm NC; eh3 19:30 BP 141 / 107; Pulse 99; Resp 16; Pulse Ox 100% on BiPAP; 3 MDM: 14:29 Patient medically screened. 18:15 Data reviewed: vital signs, nurses notes, lab test result(s), EKG, radiologic studies, cp CT scan, plain films. 18:15 Test interpretation: by ED physician or midlevel provider: ECG, plain radiologic cp studies. Physician consultation: Sivakumar CABEZAS was contacted at 18:10, regarding admission, to the telemetry unit. patient's condition, and will see patient in ED, shortly. 04/15 14:26 Order name: Basic Metabolic Panel; Complete Time: 16:58 04/15 14:26 Order name: CBC with Diff; Complete Time: 16:49 04/15 16:49 Interpretation: Normal except: MCHC 31.8; PLT 141; RDW 18.0; HOSEA% 77.5; LYM% 9.6. 04/15 14:26 Order name: LFT's; Complete Time: 16:58 04/15 14:26 Order name: Magnesium; Complete Time: 16:58 04/15 14:26 Order name: NT PRO-BNP; Complete Time: 16:58 04/15 14:26 Order name: PT-INR; Complete Time: 16:49 04/15 16:50 Interpretation: Normal except: INR 10.62. 04/15 14:26 Order name: Troponin HS; Complete Time: 16:58 04/15 14:27 Order name: Urine Microscopic Only 04/15 14:27 Order name: COVID-19 SARS RT PCR (Document "Date of Onset" if Symptomatic); Complete cp Time: 17:54 04/15 14:27 Order name: Flu; Complete Time: 17:54 04/15 17:54 Interpretation: Abnormal: FLUB FLU B ----- POSITIVE for FLU B protein antigen. 04/15 14:29 Order name: Lactate; Complete Time: 16:49 04/15 14:29 Order name: Procalcitonin; Complete Time: 16:58 04/15 14:29 Order name: Blood Culture Adult (2) 04/15 14:29 Order name: AMMONIA; Complete Time: 17:54 04/15 14:26 Order name: XRAY Chest (1 view); Complete Time: 16:02 04/15 14:26 Order name: EKG; Complete Time: 14:27 04/15 14:26 Order name: Cardiac monitoring; Complete Time: 14:27 04/15 14:26 Order name: EKG - Nurse/Tech; Complete Time: 15:53 04/15 14:26 Order name: IV Saline Lock; Complete Time: 16:46 04/15 14:26 Order name: Labs collected and sent; Complete Time: 16:46 04/15 14:26 Order name: O2 Per Protocol; Complete Time: 14:27 04/15 14:26 Order name: O2 Sat Monitoring; Complete Time: 14:27 04/15 14:28 Order name: CT Head Brain wo Cont; Complete Time: 16:02 04/15 16:51 Interpretation: Report reviewed. 04/15 16:58 Order name: ABG; Complete Time: 19:34 04/15 19:34 Interpretation: Normal except: ABGPCO2 74.8; ABGHCO3 41.1; WFVN8SR 93.4; ABGCOHB 1.9. 04/15 18:30 Order name: BIPAP 04/15 18:31 Order name: Tang; Complete Time: 19:37 cp EC:40 Rate is 108 beats/min. Rhythm is irregular. QRS interval is normal. QT interval is cp normal. T waves are Inverted in leads I, II. Interpreted by me. Reviewed by me. Administered Medications: 17:48 Drug: Lasix (furosemide) 20 mg Route: IVP; Site: left antecubital; eh3 19:37 Follow up: Response: No adverse reaction eh3 18:41 Drug: Lasix (furosemide) 20 mg Route: IVP; Site: left antecubital; eh3 19:37 Follow up: Urine output 250 ml; Response: No adverse reaction eh3 18:41 Drug: Vitamin K1 (phytonadione) 10 mg Route: Sub-Q; Site: left lower abdomen; eh3 19:37 Follow up: Response: No adverse reaction eh3 20:17 Drug: Tamiflu (oseltamivir) 75 mg Route: PO; eh3 21:02 Follow up: Response: No adverse reaction eh3 Disposition: 04/16 06:20 Co-signature as Attending Physician, Matt CM was immediately available on-site ms3 in the Emergency Department for consultation in the care of the patient. . Disposition Summary: 04/15/22 18:31 Hospitalization Ordered Hospitalization Status: Inpatient Admission cp Location: Telemetry/[facility]Sur (Inpatient) cp Condition: Stable cp Problem: an acute exacerbation cp Symptoms: have improved cp Bed/Room Type: Standard cp Provider: Rylan Loya(04/15/22 18:57) ph Room Assignment: [facility](04/15/22 19:24) mw Diagnosis - Respiratory failure, unspecified with hypercapnia cp - Unspecified combined systolic (congestive) and diastolic (congestive) heart failure cp Forms: - Medication Reconciliation Form cp - SBAR form cp Signatures: Dispatcher [employer] EDGA Stacy Hernandez RN RN Nani Phipps RN RN ph Raul Desai, TESSIE PA cp Matt Sanchez DO DO ms3 Kelly Phipps RN RN 3 Corrections: (The following items were deleted from the chart) 11 18:57 18:31 Sivakumar Sandoval cp ph 19:24 18:31 cp 04/16 00:27 04/15 15:30 This 66 yrs old Female presents to ER via EMS with complaints of Upper cp Extremity Swelling. cp
--- NOTE | 2022-04-15 18:32 | ER ---
Nurse's Notes [facility] Name: Richa Lozano Age: 66 yrs Sex: Female : 1955 Arrival Date: 04/15/2022 Time: 14:18 Bed 25 Private MD: Diagnosis: Respiratory failure, unspecified with hypercapnia;Unspecified combined systolic (congestive) and diastolic (congestive) heart failure Presentation: 04/15 14:27 Chief complaint: EMS states: bilateral swelling of forearms, altered mental status eh3 since . Coronavirus screen: Vaccine status: Patient reports receiving the 2nd dose of the covid vaccine. Ebola Screen: No symptoms or risks identified at this time. Risk Assessment: Do you want to hurt yourself or someone else? Patient reports no desire to harm self or others. Onset of symptoms was April 12, 2022. 14:27 Method Of Arrival: EMS: [facility] 14:27 Acuity: TINO 3 3 19:40 Initial Sepsis Screen: Does the patient meet any 2 criteria? No. Patient's initial 3 sepsis screen is negative. Does the patient have a suspected source of infection? No. Patient's initial sepsis screen is negative. Triage Assessment: 14:29 General: Appears distressed, uncomfortable, Behavior is cooperative, appropriate for eh3 age, drowsy. Pain: Denies pain. EENT: No signs and/or symptoms were reported regarding the EENT system. Neuro: Level of Consciousness is awake, obeys commands, confused, lethargic, Oriented to person, place, situation, Speech is normal. Cardiovascular: Capillary refill < 3 seconds Patient's skin is warm and dry. Rhythm is sinus tachycardia Parent/caregiver reports patient has had fatigue, shortness of breath, lack of appetite. Respiratory: Airway is patent Respiratory effort is even, labored, Respiratory pattern is regular, symmetrical, Breath sounds with wheezes bilaterally. GI: Abdomen is round non-distended. : No signs and/or symptoms were reported regarding the genitourinary system. Derm: Skin is fragile, has blisters on bilateral forearms has skin tears on R forearm Skin is dry, Skin is consuelo toes purple in color Skin temperature is warm Wound noted dorsal aspect of right forearm and palmar aspect of right forearm. Musculoskeletal: No signs and/or symptoms reported regarding the musculoskeletal system. Historical: - Allergies: 14:29 Levaquin; eh3 - Home Meds: 14:29 atorvastatin 40 mg Oral tab 1 tab once daily [Active]; Lasix 40 mg Oral tab 1 tab 2 eh3 times per day [Active]; metoprolol tartrate 25 mg Oral tab 1 tab once daily [Active]; warfarin 2 mg Oral tab 1 tab once daily [Active]; - PMHx: 14:29 AFIB; Aneurysm; atelectasis; cardiomegaly; CHF; COPD; CVA; Depression; EDEMA; eh3 Hypertension; Myocardial infarction; Pace maker; pleural effusion; rheumatic mitral stenosis; - Immunization history:: Adult Immunizations up to date. - Social history:: Smoking status: unknown. Screenin:39 Abuse screen: Denies threats or abuse. Denies injuries from another. Nutritional eh3 screening: No deficits noted. Tuberculosis screening: No symptoms or risk factors identified. Fall Risk Fall in past 12 months (25 points). Secondary diagnosis (15 points) IV access (20 points). Total Calero Fall Scale indicates High Risk Score (45 or more points). Fall prevention measures have been instituted. Side Rails Up X 2 Placed Close to Nursing Station Frequent Obs/Assessments Occuring As available patient and family educated on Fall Prevention Program and Strategies. Assessment: 14:30 Reassessment: No changes from previously documented assessment. See triage assessment. eh3 15:30 Reassessment: Patient and/or family updated on plan of care and expected duration. Pain eh3 level reassessed. Patient denies pain at this time. 16:30 Reassessment: Patient and/or family updated on plan of care and expected duration. Pain eh3 level reassessed. Patient denies pain at this time. 17:30 Reassessment: Patient and/or family updated on plan of care and expected duration. Pain eh3 level reassessed. Patient denies pain at this time. 18:30 Reassessment: Patient and/or family updated on plan of care and expected duration. Pain eh3 level reassessed. Patient denies pain at this time. 19:30 Reassessment: Patient and/or family updated on plan of care and expected duration. Pain eh3 level reassessed. Patient denies pain at this time. Vital Signs: 14:27 BP 126 / 104; Pulse 115; Resp 16; Pulse Ox 100% on 3 lpm NC; eh3 15:30 BP 133 / 113; Pulse 109; Resp 16; Pulse Ox 100% on 2.5 lpm NC; eh3 16:30 BP 163 / 113; Pulse 109; Resp 15; Pulse Ox 99% on 2.5 lpm NC; eh3 17:30 BP 137 / 97; Pulse 103; Resp 15; Pulse Ox 99% on 2 lpm NC; eh3 18:30 BP 138 / 106; Pulse 99; Resp 16; Pulse Ox 100% on 2 lpm NC; eh3 19:30 BP 141 / 107; Pulse 99; Resp 16; Pulse Ox 100% on BiPAP; eh3 ED Course: 14:18 Patient arrived in ED. eb 14:25 Raul Desai PA is PHCP. cp 14:25 Matt Sanchez DO is Attending Physician. cp 14:27 Kelly Phipps, NAV is Primary Nurse. eh3 14:29 Triage completed. eh3 14:29 Arm band placed on right ankle. eh3 14:30 Patient has correct armband on for positive identification. Placed in gown. Bed in low eh3 position. Call light in reach. Side rails up X2. Adult w/ patient. Client placed on continuous cardiac and pulse oximetry monitoring. NIBP monitoring applied. Door closed. Noise minimized. Lights dimmed. Warm blanket given. 14:52 CT Head Brain wo Cont In Process Unspecified. EDMS 15:14 XRAY Chest (1 view) In Process Unspecified. EDMS 16:45 Inserted saline lock: 22 gauge in left antecubital area, using aseptic technique. Blood zm collected. 16:46 AMMONIA Sent. zm 16:46 Blood Culture Adult (2) Sent. zm 16:50 Flu Sent. zm 16:50 COVID-19 SARS RT PCR (Document "Date of Onset" if Symptomatic) Sent. zm 18:30 Sivakumar Sandoval FNP-C is Hospitalizing Provider. cp 18:57 Rylan Loya MD is Hospitalizing Provider. ph 19:00 BIPAP Sent. eh3 19:15 Cleaned of incontinence. Linen changed. eh3 19:30 Tang cath inserted, using sterile technique, 18 Fr., by mt, balloon inflated, to eh3 gravity drainage. 19:40 No provider procedures requiring assistance completed. Patient admitted, IV remains in eh3 place. Administered Medications: 17:48 Drug: Lasix (furosemide) 20 mg Route: IVP; Site: left antecubital; eh3 19:37 Follow up: Response: No adverse reaction eh3 18:41 Drug: Lasix (furosemide) 20 mg Route: IVP; Site: left antecubital; eh3 19:37 Follow up: Urine output 250 ml; Response: No adverse reaction eh3 18:41 Drug: Vitamin K1 (phytonadione) 10 mg Route: Sub-Q; Site: left lower abdomen; eh3 19:37 Follow up: Response: No adverse reaction eh3 20:17 Drug: Tamiflu (oseltamivir) 75 mg Route: PO; eh3 21:02 Follow up: Response: No adverse reaction 3 Medication: 19:40 VIS not applicable for this client. eh3 Output: 19:37 Urine: 250ml; Total: 250ml. eh3 Outcome: 18:31 Decision to Hospitalize by Provider. cp 20:17 Admitted to Med/surg accompanied by nurse, via stretcher, room 201, with oxygen, with 3 chart, Report called to Waqas Alvarado RN 20:17 Condition: stable 20:17 Instructed on the need for admit. 20:18 Patient left the ED. 3 Signatures: Dispatcher [employer] EDNani Durán RN RN Raul Montez PA PA cp Botello, Elizabeth eb Hall, Erin, RN RN [facility] Liudmila Bowles Corrections: (The following items were deleted from the chart) 17:47 16:30 BP 133 / 113; Pulse 109bpm; Resp 16bpm; Pulse Ox 100% 2.5 lpm Nasal Cannula; 3 eh3 19:38 16:30 BP 137 / 97; Pulse 103bpm; Resp 15bpm; Pulse Ox 99% 2 lpm Nasal Cannula; 3 eh3 20:02 15:30 Reassessment: Patient and/or family updated on plan of care and expected eh3 duration. Pain level reassessed. Patient is alert, oriented x 3, equal unlabored respirations, skin warm/dry/pink. eh3 20:02 16:30 Reassessment: Patient and/or family updated on plan of care and expected eh3 duration. Pain level reassessed. Patient is alert, oriented x 3, equal unlabored respirations, skin warm/dry/pink. eh3 20:02 17:30 Reassessment: Patient and/or family updated on plan of care and expected eh3 duration. Pain level reassessed. Patient is alert, oriented x 3, equal unlabored respirations, skin warm/dry/pink. eh3 20:02 18:30 Reassessment: Patient and/or family updated on plan of care and expected eh3 duration. Pain level reassessed. Patient is alert, oriented x 3, equal unlabored respirations, skin warm/dry/pink. 3 21:03 19:37 To radiology for BiPap ([employer] Only)+[email or web address]. 3 3
[2022-04-15 18:36] LABS: Arterial Blood Carboxyhemoglob 1.9 % (0-1.5); Blood Gas Oxyhemoglobin 93.4 % (94-97); Blood O2 Saturation 96.3 % (92-98.5)
--- NOTE | 2022-04-15 19:40 | P.HP ---
Certification for Inpatient Patient admitted to: Inpatient With expected LOS: >2 Midnights Patient will require the following post-hospital care: None Practitioner: I am a practitioner with admitting privileges, knowledge of patient current condition, hospital course, and medical plan of care. Services: Services provided to patient in accordance with Admission requirements found in Title 42 Section 412.3 of the Code of Federal Regulations <Sivakumar Sandoval - Last Filed: 04/15/22 19:33> Patient History Date of Service: 04/15/22 Reason for admission: CHF exacerbation, hypercapnic respiratory failure History of Present Illness: 66-year-old female with history of atrial fibrillation on chronic anticoagulation, mechanical mitral valve, CAD status post CABG, COPD, presented to the emergency department for edema, altered mental status since per [facility] staff. Patient currently resides at [facility], was sent for evaluation of swelling and altered mental status since . Patient was evaluated here in the emergency department her labs were significant for supratherapeutic INR 10.6 to, patient takes Coumadin for mechanical mitral valve, sodium 133, chloride 93, CO2 39 BNP 6696 ABG was obtained after noted elevated CO2 on chemistry which revealed PCO2 of 74.8, pH 7.36, HCO3 41.1. Patient oriented x2 but awake, able to follow commands requesting food. Patient was placed on BiPAP in ED given hypercapnic respiratory failure, she also tested positive for influenza B. She was given Tamiflu, she was also given a dose of subcu vitamin K for supratherapeutic INR greater than 10. Chart review shows patient has a known descending thoracic aortic aneurysm last 5.5 cm on 03/01/2022. Echocardiogram performed during recent hospitalization 03/06/2022 shows ejection fraction of 30 to 40% with global hypokinesis, mitral mechanical prosthesis present and functioning well. Mild mitral regurgitation, severe tricuspid regurgitation, severe left atrial enlargement. We will admit for further evaluation and management of acute on chronic systolic CHF, hypercapnic respiratory failure, influenza B. - Past Medical/Surgical History Diabetic: No -: HTN -: AFIB -: COPD -: SMOKER -: AAA -: CVA -: CHFsystolic -: AAA -: Bilat Foot - Bunion Sx -: -: Mechanical mitral valveon warfarin Psychosocial/ Personal History: Currently resides at [facility] - Family History Father -: Heart disease Mother Notes: CVA Brother Notes: anuerysm - Social History Smoking Status: Unknown if ever smoked Alcohol use: No CD- Drugs: No Caffeine use: Yes Place of Residence: [facility] <Sivakumar Sandoval Lucio Meneses - Last Filed: 04/15/22 19:33> Date of Service: 04/16/22 <Rylan Loya - Last Filed: 04/16/22 09:02> Allergies levofloxacin [From Levaquin] Allergy (Intermediate, Verified 09/27/21 07:20) Itching/Hives/Rash Home Medications: Potassium Chloride [Klor-Con 10] 1 tab PO DAILY 06/09/16 Sertraline [Zoloft*] 100 tab PO BEDTIME 06/09/16 Albuterol Inhaler [Ventolin Inhaler*] 2 puff IH Q6H PRN #1 hfa.aer.[id number] 04/10/18 Acetaminophen [Tylenol Extra Strength] 500 mg PO Q4H PRN 09/20/21 Atorvastatin Calcium [Lipitor] 40 mg PO BEDTIME 09/20/21 Melatonin 3 mg PO BEDTIME PRN 09/20/21 Ranolazine [Ranexa] 500 mg PO BID 09/20/21 Sennosides/Docusate Sodium [Senna-S Tablet] 2 tab PO BEDTIME PRN 09/20/21 Cranberry Fruit Extract 400 mg PO BID cap 10/03/21 Ensure Enlive 237 ml PO BID PRN can 10/03/21 Albuterol Neb [Proventil 0.083% Neb Soln] 2.5 mg NEB [id number] PRN #60 amp 11/08/21 Ipratropium Neb [Atrovent*] 0.5 mg NEB [id number] PRN #60 amp 11/08/21 Albuterol Neb [Proventil 0.083% Neb Soln] 2.5 mg NEB [id number] PRN amp 03/06/22 Cephalexin [Keflex] 500 mg PO Q6HR 6 Days #24 cap 03/06/22 Enoxaparin Sodium [Lovenox 60 MG INJ*] 65 mg SQ Q12HR syr 03/06/22 Sotalol HCl [Betapace*] 80 mg PO BID 6AM 6PM tab 03/06/22 Warfarin Sodium [Coumadin*] 3 mg PO DAILY 5 PM tab 03/06/22 Review of Systems 10-point ROS is otherwise unremarkable Respiratory: Shortness of Breath Cardiovascular: Edema Neurological: Confusion <Sivakumar Sandoval - Last Filed: 04/15/22 19:33> Physical Examination - Physical Exam General: Alert, In no apparent distress, Oriented x2 HEENT: Atraumatic, PERRLA, Mucous membr. moist/pink, EOMI, Sclerae nonicteric Neck: Supple, 2+ carotid pulse no bruit, No LAD, Without JVD or thyroid abnormality Respiratory: Normal air movement, Diminished, Crackles/rales Cardiovascular: Normal S1 S2, Edema, Irregular heart rate/rhythm (A. fib, rate around 100) Capillary refill: <2 Seconds Gastrointestinal: Normal bowel sounds, No tenderness Musculoskeletal: No tenderness Integumentary: No rashes Neurological: Normal speech, Normal tone, Normal affect, Other (Oriented x2 speech is clear and appropriate) Lymphatics: No axilla or inguinal lymphadenopathy - Studies Laboratory Data (last 24 hrs) 04/15/22 16:09: PT 116.8 H, INR 10.62 H* 04/15/22 16:09: WBC 7.20, Hgb 12.1, Hct 38.2, Plt Count 141 L 04/15/22 16:09: Sodium 133 L, Potassium 4.4, BUN 22 H, Creatinine 0.88, Glucose 133 H, Magnesium 2.2, Total Bilirubin 1.4 H, AST 23, ALT 24, Alkaline Phosphatase 83 Microbiology Data (last 24 hrs): 04/15/22 16:52 Nasopharnyx Influenza Type A Antigen Screen - Final 04/15/22 16:52 Nasopharnyx Influenza Type B Antigen Screen - Final <Sivakumar Sandoval - Last Filed: 04/15/22 19:33> - Studies Laboratory Data (last 24 hrs) 04/15/22 16:09: PT 116.8 H, INR 10.62 H* 04/15/22 16:09: WBC 7.20, Hgb 12.1, Hct 38.2, Plt Count 141 L 04/15/22 16:09: Sodium 133 L, Potassium 4.4, BUN 22 H, Creatinine 0.88, Glucose 133 H, Magnesium 2.2, Total Bilirubin 1.4 H, AST 23, ALT 24, Alkaline Phosphatase 83 Microbiology Data (last 24 hrs): 04/15/22 16:52 Nasopharnyx Influenza Type A Antigen Screen - Final 04/15/22 16:52 Nasopharnyx Influenza Type B Antigen Screen - Final <Rylan Loya - Last Filed: 04/16/22 09:02> Assessment and Plan - Plan Assessment: Acute on chronic systolic CHF Acute hypercapnic respiratory failure secondary to CHF exacerbation Influenza B Acute metabolic encephalopathy secondary to hypercapnic respiratory failure/influenza B Atrial fibrillation on chronic anticoagulation therapy History of mechanical mitral valve replacement on warfarin Supratherapeutic INR History of descending thoracic/abdominal aortic aneurysm History of CAD status post CABG Plan: Acute on chronic systolic CHF: 1500 cc/day fluid restriction, daily weights, IV Lasix. Most recent echocardiogram 03/01/2022 shows EF 30 to 40% with global hypokinesis, mild mitral regurgitation, severe tricuspid regurgitation, left atrial enlargement. Cardiology consult in place we will monitor on telemetry. Acute hypercapnic respiratory failure secondary to CHF exacerbation: Patient placed on BiPAP in ED, maintaining her airway well she is alert mildly confused. Repeat ABG ordered for tonight/tomorrow morning. Pulmonology consult in place. Anticipate improvement with diuresis, positive pressure ventilation. Influenza B: Started on Tamiflu in ED, unknown when symptoms began. Acute metabolic encephalopathy secondary to hypercapnic respiratory failure/inf luenza B: Continue as above. Atrial fibrillation on chronic anticoagulation therapy: Supratherapeutic INR, continue sotalol, hold Coumadin monitor INR daily. History of mechanical mitral valve replacement on warfarin: Hold Coumadin given supratherapeutic INR Supratherapeutic INR: Given vitamin K in ED, hold warfarin and monitor INR daily. No signs of active bleeding. History of descending thoracic/abdominal aortic aneurysm: Last imaged 03/01/2022, no acute chest pain/back pain or signs of acute decompensation/dissection. History of CAD status post CABG: Continue home medications, monitor on telemetry. Patient denies any chest pain at this time. DVT PPX: SCDsupratherapeutic INR Code status: Full Discharge Plan: Home Plan to discharge in: 72 Hours - Advance Directives Does patient have a Living Will: No Does patient have a Durable POA for Healthcare: No - Code Status/Comfort Care Code Status Assessed: Yes (Full code) Critical Care: No Time Spent Managing Pts Care (In Minutes): 70 <Sivakumar Sandoval - Last Filed: 04/15/22 19:33> Physician Review: Patient Assessed, Agree with Above Assessment and Plan <Rylan Loya - Last Filed: 04/16/22 09:02>
[2022-04-15] MEDS ORDERED: ACETAMINOPHEN 500 MG TAB PO PRN (20:13)
[2022-04-15] MEDS ORDERED: ONDANSETRON 4 MG/2 ML VIAL IV PRN ×2 (20:13→20:24)
[2022-04-15 21:23] VITALS: BMI 23.9
[2022-04-15] MEDS: ATORVASTATIN 40 MG TAB PO SCH (21:34)
[2022-04-15] MEDS: SERTRALINE HCL 100 MG TAB PO SCH (21:34)
[2022-04-16 02:31] LABS: Arterial Blood Carboxyhemoglob 1.9 % (0-1.5); Blood Gas Oxyhemoglobin 92.6 % (94-97); Blood O2 Saturation 95.7 % (92-98.5)
[2022-04-16] MEDS: SOTALOL HCL 80 MG TAB PO SCH ×2 (04:58→17:13)
[2022-04-16] MEDS ORDERED: ALBUTEROL 2.5 MG/3 ML NEB SOL NEB PRN ×2 (05:33→09:00)
[2022-04-16] MEDS ORDERED: METHYLPREDNISOLONE 125 MG INJ IV ONE (05:33)
[2022-04-16] MEDS ORDERED: IPRATROPIUM BROM 0.5MG/2.5ML NEB PRN ×2 (05:33→09:00)
[2022-04-16] MEDS ORDERED: IPRATROPIUM BROM 0.5MG/2.5ML ONE ×2 (05:42)
[2022-04-16] MEDS ORDERED: ALBUTEROL 2.5 MG/3 ML NEB SOL ONE (05:43)
[2022-04-16 07:48] LABS: Arterial Blood Carboxyhemoglob 1.9 % (0-1.5); Blood Gas Oxyhemoglobin 85.2 % (94-97)
--- NOTE | 2022-04-16 08:31 | EKG ---
Test Date: 2022-04-15 Test Time: 15:34:25 Termite Technician: SABINA MEASUREMENT RESULTS: Intervals: Rate: 108 GA: QRSD: 94 QT: 368 QTc: 493 [place]: P: GA: QRS: 84 T: 203 INTERPRETIVE STATEMENTS: Atrial fibrillation with rapid ventricular response Low voltage QRS T wave abnormality, consider lateral ischemia or digitalis effect Abnormal ECG Compared to ECG 03/01/2022 13:44:43 Low QRS voltage now present T-wave abnormality now present Right-axis deviation no longer present Myocardial infarct finding no longer present ST (T wave) deviation no longer present Possible ischemia still present Electronically Signed On 04-16-22 08:29:17 SPLIT AND DRUM ROOM SUPERVISOR by Gilmer Rodas
--- NOTE | 2022-04-16 08:44 | P.PN ---
Subjective Date of Service: 04/16/22 Chief Complaint: CHF exacerbation, hypercapnic respiratory failure She remains on BiPAP, but reports that her breathing has improved with the BiPAP mask. This morning, she was audibly wheezing. She denies any chest pain or palpitations. Review of Systems 10-point ROS is otherwise unremarkable Respiratory: Cough, Shortness of Breath, Wheezing Physical Examination - Vital Signs Temperature: 97.0 F Blood Pressure: 138/97 Pulse: 88 Respirations: 21 Pulse Ox (%): 96 - Physical Exam General: Alert, Oriented x3, Mild distress HEENT: Atraumatic, PERRLA, Mucous membr. moist/pink, EOMI, Sclerae nonicteric Neck: Supple, JVD distended (minimal) Respiratory: Diminished, Expiratory wheezes, Rhonchi/gurgles Cardiovascular: Regular rate/rhythm, Normal S1 S2, No gallops, No rubs, Other (mechanical mitral valve click noted), Edema (1+ BLE) Gastrointestinal: Normal bowel sounds, Soft and benign, Non-distended, No tenderness, No rebound, No guarding Musculoskeletal: No clubbing Integumentary: No rashes Neurological: Normal speech, Cranial nerves 3-12 intact, Normal affect - Studies Laboratory Data (last 24 hrs) 04/15/22 16:09: PT 116.8 H, INR 10.62 H* 04/15/22 16:09: WBC 7.20, Hgb 12.1, Hct 38.2, Plt Count 141 L 04/15/22 16:09: Sodium 133 L, Potassium 4.4, BUN 22 H, Creatinine 0.88, Glucose 133 H, Magnesium 2.2, Total Bilirubin 1.4 H, AST 23, ALT 24, Alkaline Phosphatase 83 Microbiology Data (last 24 hrs): 04/15/22 16:52 Nasopharnyx Influenza Type A Antigen Screen - Final 04/15/22 16:52 Nasopharnyx Influenza Type B Antigen Screen - Final Assessment And Plan - Plan # Acute on Chronic Decompensated Systolic Congestive Heart Failure with Reduced Ejection Fraction (LVEF 35-40 %) s/p AICD - Consult Cardiology and spoke with Dr. Rodas - recommendations appreciated - Transthoracic echocardiogram (03/06/2022) - "Moderately depressed left ventricular ejection fraction 35-40% with moderate global hypokinesis. mitral mechanical prosthesis is present and functioning well. mild mitral regurgitation. severe tricuspid regurgitation. severe left atrial enlargement" - Diuresis with IV furosemide for today - Continue home sotalol - Daily weights - Strict I/O - Cardiac diet, 1.5 L fluid restriction, 2 g Na restriction # Acute Hypercapnic Respiratory Failure likely due to Chronic Obstructive Pulmonary Disease Exacerbation Currently, she is on BiPAP, with improvement of her SpO2 readings to 100 %. - Evaluation thus far: - Initial ABG = pH 7.36, PCO2 74.8, PO2 86.7 - Chest x-ray = "moderate CHF/ volume overload." - Management plan: - Consulted Pulmonary Medicine - recommendations appreciated - Steroids and bronchodilators per Pulm - Consulted Respiratory Therapy - Supplemental oxygen to maintain SpO2 > 92% - PRN benzonatate, guaifenesin - Encouraged incentive spirometry # Viral Severe Sepsis likely secondary to Influenza B Infection She met sepsis criteria based on HR > 90 bpm and RR > 20 breaths/min, and the suspected source is influenza B. Severe sepsis was suspected due to concern for tissue hypoperfusion/organ dysfunction based on acute respiratory failure requiring BiPAP. - Sepsis order set was initiated - Initial Lactate was 1.0 - Blood cultures drawn - Broad spectrum antibiotics not started due to no evidence of bacterial infection - Started on oseltamivir - In regards to fluids: - 30 mL/kg of IV fluids was not administered given SBP > 90, MAP > 65, lactic acid < 4 - Isolation precautions # Acute Toxic Metabolic Encephalopathy likely secondary to above (resolved) - Evaluation thus far: - Labs = Na+ 133, Ca2+ 8.9, CO2 39, Glucose 133, Ammonia 37, BUN 22, TSH pending - Initial ABG = pH 7.36, PCO2 74.8, PO2 86.7 - Blood cultures x 2 drawn - Urinalysis = pending - CT head = "no acute intracranial abnormality." - Continue treating above conditions and monitor mental status # Chronic Atrial Fibrillation s/p PPM on Warfarin # History of Mechanical Mitral Valve Replacement # Supratherapuetic INR - Cardiology consulted and spoke with Dr. Rodas - recommendations appreciated - INR = 10.62 - S/P Vitamin K in ED - Hold warfarin and monitor INR # Coronary Artery Disease s/p CABG # History of Descending Thoracic/Abdominal Aortic Aneurysm - Continue home aspirin, atorvastatin, sotalol, ranolazine - Consider starting JIMY-I/ARB if blood pressure allows Rylan Loya M.D.
[2022-04-16] MEDS: FUROSEMIDE 40 MG/4 ML VIAL IV SCH ×2 (08:46→17:13)
[2022-04-16] MEDS: OSELTAMIVIR 75 MG CAP PO SCH ×2 (08:47→20:20)
[2022-04-16] MEDS ORDERED: BENZONATATE 100 MG CAP PO PRN (08:50)
[2022-04-16] MEDS ORDERED: guaiFENesin 100 MG/5 ML UCUP PO PRN (08:50)
[2022-04-16] MEDS ORDERED: DULERA 200/5 (MOMETASONE/FORMOTEROL) INHALER IH SCH (09:00)
--- NOTE | 2022-04-16 12:33 | P.CNS ---
Date of Consult: 04/16/22 Reason for Consult: Respiratory failure Chief Complaint: CHF exacerbation, hypercapnic respiratory failure History of Present Illness: Patient is 66 years of age with a history of COPD CHF atrial fibrillation history of mechanical valve was admitted from [place] with worsening mental status was found to be hypoxic hypercarbic currently on BiPAP history had a stroke on the right side tested positive for influenza B please she is stable echocardiogram in February showed congestive heart failure patient is responsive Allergies levofloxacin [From Levaquin] Allergy (Intermediate, Verified 09/27/21 07:20) Itching/Hives/Rash Home Medications: Potassium Chloride [Klor-Con 10] 1 tab PO DAILY 06/09/16 Sertraline [Zoloft*] 100 tab PO BEDTIME 06/09/16 Albuterol Inhaler [Ventolin Inhaler*] 2 puff IH Q6H PRN #1 hfa.aer.ad 04/10/18 Acetaminophen [Tylenol Extra Strength] 500 mg PO Q4H PRN 09/20/21 Atorvastatin Calcium [Lipitor] 40 mg PO BEDTIME 09/20/21 Melatonin 3 mg PO BEDTIME PRN 09/20/21 Ranolazine [Ranexa] 500 mg PO BID 09/20/21 Sennosides/Docusate Sodium [Senna-S Tablet] 2 tab PO BEDTIME PRN 09/20/21 Cranberry Fruit Extract 400 mg PO BID cap 10/03/21 Ensure Enlive 237 ml PO BID PRN can 10/03/21 Albuterol Neb [Proventil 0.083% Neb Soln] 2.5 mg NEB [id number] PRN #60 amp 11/08/21 Ipratropium Neb [Atrovent*] 0.5 mg NEB [id number] PRN #60 amp 11/08/21 Albuterol Neb [Proventil 0.083% Neb Soln] 2.5 mg NEB [id number] PRN amp 03/06/22 Cephalexin [Keflex] 500 mg PO Q6HR 6 Days #24 cap 03/06/22 Enoxaparin Sodium [Lovenox 60 MG INJ*] 65 mg SQ Q12HR syr 03/06/22 Sotalol HCl [Betapace*] 80 mg PO BID 6AM 6PM tab 03/06/22 Warfarin Sodium [Coumadin*] 3 mg PO DAILY 5 PM tab 03/06/22 - Past Medical/Surgical History Diabetic: No -: HTN -: AFIB -: COPD -: SMOKER -: AAA -: CVA -: CHFsystolic -: AAA -: Bilat Foot - Bunion Sx -: -: Mechanical mitral valveon warfarin Psychosocial/ Personal History: Currently resides at [facility] - Family History Father Medical History: Heart disease Mother Notes: CVA Brother Notes: anuerysm - Social History Smoking Status: Unknown if ever smoked Alcohol use: No CD- Drugs: No Caffeine use: Yes Place of Residence: [facility] Review of Systems is unable to be obtained Physical Examination Temp Pulse Resp BP Pulse Ox 97.1 F 94 H 20 118/65 95 04/16/22 12:00 04/16/22 12:00 04/16/22 12:00 04/16/22 12:00 04/16/22 12:00 General: Alert, Other Neck: Supple (Patient has a BiPAP mask) Respiratory: Clear to auscultation bilaterally, Diminished Cardiovascular: No edema, Abnormal S1 S2 Gastrointestinal: Normal bowel sounds, Soft and benign Musculoskeletal: No clubbing, No swelling Laboratory Data (last 24 hrs) 04/15/22 16:09: PT 116.8 H, INR 10.62 H* 04/15/22 16:09: WBC 7.20, Hgb 12.1, Hct 38.2, Plt Count 141 L 04/15/22 16:09: Sodium 133 L, Potassium 4.4, BUN 22 H, Creatinine 0.88, Glucose 133 H, Magnesium 2.2, Total Bilirubin 1.4 H, AST 23, ALT 24, Alkaline Phosphatase 83 - Problems (1) Respiratory failure with hypoxia and hypercapnia Current Visit: Yes Status: Acute Plan: alexis is 66 years of age with a history of CHF global hypokinesis COPD admitted with altered mental status hypoxic hypercapnic respiratory failure labs reviewed BNP is elevated bicarb is also elevated and to titrate sat to 90% without the nasal cannula or high flow added nebulized bronchodilator and steroids oxygenation satisfactory she is 97% on 1-1/2 L patient is tested positive for influenza B Qualifiers: Chronicity: acute on chronic Qualified Code(s): J96.21 - Acute and chronic respiratory failure with hypoxia; J96.22 - Acute and chronic respiratory failure with hypercapnia
[2022-04-16] MEDS: METHYLPREDNISOLONE 40 MG INJ IV SCH ×2 (12:55→20:21)
[2022-04-16] MEDS: SPIRONOLACTONE 25 MG TABLET PO SCH ×2 (12:55→20:20)
[2022-04-16] MEDS: ASPIRIN 81 MG CHEWABLE TABLET PO SCH (12:55)
--- NOTE | 2022-04-16 13:30 | CON ---
Date of Consultation: 04/16/2022 Reason For Consultation: Congestive heart failure. History Of Present Illness: Ms. Lozano is 66. Has a history of abdominal aortic aneurysm, mitral ilsa ve repair that is mechanical, prosthetic for mitral stenosis. She takes Coumadin. She has a history of pacemaker, depression, atrial fibrillation, congestive heart failure, COPD, and CVA. Came in wit h CHF and COPD exacerbation. No chest pain. No syncope. No nausea, vomiting. No palpitation. Past Medical History: As stated above. Allergies: SHE IS ALLERGIC TO LEVAQUIN. Review of Systems: Negative. Social History: Negative. Family History: Noncontributory. Physical Examination: General: She was in atrial fibrillation, rate 100. HEENT: Negative. Neck: Supple with no bruit. Chest: Revealed some expiratory wheezing and some rales at the bases. Cardiac: Revealed atrial fibrillation. Abdomen: Benign. Extremities: Revealed no clubbing, cyanosis, or edema. Diagnostic Data: Her INR was 10, pO2 was 85, pCO2 was 75, pH of 7.36. BNP of 6696. Echocardiogram in February showed an ejection fraction of 40% with left atrial enlargement, normal function of pros thetic mitral valve. Impression And Plan: 1.Elevated INR. We need to hold her Coumadin. We will restart it once her INR is about 3 or 3.5. She needs to be diuresed and treated for chronic obstructive pulmonary disease. Continue her other r egimen otherwise. 2.Acute on chronic systolic congestive heart failure exacerbation. 3.Chronic obstructive pulmonary disease exacerbation. 4.Abdominal aortic aneurysm. 5.Status post pacemaker, stable. 6.Atrial fibrillation, well controlled. 7.Depression. 8.Hypertension, well controlled. 9.History of cerebrovascular accident. 10.History of mitral stenosis, status post MVR. 11.Elevated BNP secondary to congestive heart failure. No need for further cardiac workup, hold ant icoagulation, treat with inhalers. She is on sotalol, Lipitor, steroid, Lasix, and Ranexa. Continue . We will continue to follow. LION/MIMI Voice ID: [id number] Report ID: [id number]
[2022-04-16] MEDS: ALBUTEROL 2.5 MG/3 ML NEB SOL IH SCH ×2 (14:00→20:30)
[2022-04-16] MEDS ORDERED: METHYLPREDNISOLONE 40 MG INJ IV SCH (14:00)
[2022-04-16 15:44] LABS: Arterial Blood Carboxyhemoglob 2.1 % (0-1.5); Blood Gas Oxyhemoglobin 85.1 % (94-97); Blood O2 Saturation 88.1 % (92-98.5)
[2022-04-16 19:42] LABS: Absolute Lymphocytes (CBC) 0.3 K/uL (0.7-4.9); Hematocrit 36.5 % (36.0-45.0); MCV 87.3 fL (80-100); MPV 8.8 fL (7.6-11.3); RBC Red Blood Cell Count 4.18 M/uL (3.86-4.86)
[2022-04-16 19:57] LABS: Protime INR 4.17
[2022-04-16 20:17] LABS: Albumin 2.8 g/dL (3.4-5.0); Protein, Total 5.2 g/dL (6.4-8.2); Thyroid Stimulating Hormone 0.84 uIU/mL (0.360-3.740)
[2022-04-16] MEDS: acetaZOLAMIDE 250 MG TAB PO SCH (20:19)
[2022-04-16] MEDS: SERTRALINE HCL 100 MG TAB PO SCH (20:20)
[2022-04-16] MEDS: ATORVASTATIN 40 MG TAB PO SCH (20:20)
[2022-04-16 20:21] LABS: Potassium 3.8 mmol/L (3.5-5.1)
[2022-04-17] MEDS: ALBUTEROL 2.5 MG/3 ML NEB SOL IH SCH ×4 (01:15→20:00)
[2022-04-17 04:15] LABS: Specific Gravity 1.011 (1.005-1.030); Urine Bacteria 20-50 /HPF (<20); Urine Bilirubin NEGATIVE (Negative); Urine Blood 1+ (Negative); Urine Clarity Turbid (Clear); Urine Color Light-Orange (Yellow); Urine Glucose NEGATIVE (Negative); Urine Mucus Slight /HPF (None Seen); Urine Protein 1+ (Negative); Urine RBC 21-50 /HPF (None Seen); Urine Urobilinogen 1+ (Normal); Urine WBC Clump Rare /HPF (None Seen); Urine pH 8.5 (5.0-7.0)
[2022-04-17 05:05] LABS: Protime INR 2.52
[2022-04-17 05:06] LABS: Absolute Lymphocytes (CBC) 0.3 K/uL (0.7-4.9); Hematocrit 34.5 % (36.0-45.0); Lymphocytes % 3.7 % (15.3-44.8); MCV 87.5 fL (80-100); MPV 8.9 fL (7.6-11.3); RBC Red Blood Cell Count 3.94 M/uL (3.86-4.86)
[2022-04-17] MEDS: SOTALOL HCL 80 MG TAB PO SCH ×2 (05:20→17:52)
[2022-04-17 05:33] LABS: Blood Morphology Comment NOT SEEN (NOT SEEN); Platelet Estimate ADEQ
[2022-04-17 05:38] LABS: Albumin 2.7 g/dL (3.4-5.0); Potassium 3.3 mmol/L (3.5-5.1); Protein, Total 5.3 g/dL (6.4-8.2)
[2022-04-17] MEDS ORDERED: POTASSIUM CL SA 10 MEQ TAB PO ONE (09:00)
[2022-04-17] MEDS: SPIRONOLACTONE 25 MG TABLET PO SCH ×2 (09:26→22:09)
[2022-04-17] MEDS: ASPIRIN 81 MG CHEWABLE TABLET PO SCH (09:26)
[2022-04-17] MEDS: acetaZOLAMIDE 250 MG TAB PO SCH ×2 (09:27→22:10)
[2022-04-17] MEDS: OSELTAMIVIR 75 MG CAP PO SCH ×2 (09:27→22:10)
[2022-04-17] MEDS: METHYLPREDNISOLONE 40 MG INJ IV SCH ×2 (09:28→22:09)
[2022-04-17] MEDS: FUROSEMIDE 40 MG/4 ML VIAL IV SCH ×2 (09:28→17:52)
--- NOTE | 2022-04-17 15:42 | P.PN ---
Subjective Date of Service: 04/17/22 Chief Complaint: CHF exacerbation, hypercapnic respiratory failure No acute events overnight. She reports that her shortness of breath has improvement significantly. She has been weaned off of BiPAP and is now on 2 L nasal cannula, with SpO2 readings of 95 %. She denies any chest pain or palpitations. Review of Systems 10-point ROS is otherwise unremarkable Respiratory: Cough, Dry, Shortness of Breath (improved) Physical Examination - Vital Signs Temperature: 97.2 F Blood Pressure: 103/60 Pulse: 84 Respirations: 16 Pulse Ox (%): 100 Assessment And Plan - Plan - Physical Exam General: Alert, Oriented x3, no distress HEENT: Atraumatic, PERRLA, Mucous membr. moist/pink, EOMI, Sclerae nonicteric Neck: Supple, JVD not distended Respiratory: Diminished, faint expiratory wheezes, faint rhonchi/gurgles Cardiovascular: Regular rate/rhythm, Normal S1 S2, No gallops, No rubs, Other (mechanical mitral valve click noted), Edema (1+ BLE) Gastrointestinal: Normal bowel sounds, Soft and benign, Non-distended, No tenderness, No rebound, No guarding Musculoskeletal: No clubbing Integumentary: No rashes Neurological: Normal speech, Cranial nerves 3-12 intact, Normal affect # Acute on Chronic Decompensated Systolic Congestive Heart Failure with Reduced Ejection Fraction (LVEF 35-40 %) s/p AICD - Consult Cardiology and spoke with Dr. Rodas - recommendations appreciated - Transthoracic echocardiogram (03/06/2022) - "Moderately depressed left ventricular ejection fraction 35-40% with moderate global hypokinesis. mitral mechanical prosthesis is present and functioning well. mild mitral regurgitation. severe tricuspid regurgitation. severe left atrial enlargement" - Diuresis with IV furosemide for today - Continue home sotalol - Daily weights - Strict I/O - Cardiac diet, 1.5 L fluid restriction, 2 g Na restriction # Acute Hypercapnic Respiratory Failure likely due to Chronic Obstructive Pulmonary Disease Exacerbation Currently, she is on 2 L nasal cannula, with improvement of her SpO2 readings to 95 %. - Evaluation thus far: - Initial ABG = pH 7.36, PCO2 74.8, PO2 86.7 - Chest x-ray = "moderate CHF/ volume overload." - Management plan: - Consulted Pulmonary Medicine and spoke with Dr. Geller- recommendations appreciated - Steroids and bronchodilators per Pulm - Dr. Geller will order outpatient non-invasive ventilator - Consulted Respiratory Therapy - Supplemental oxygen to maintain SpO2 > 92% - PRN benzonatate, guaifenesin - Encouraged incentive spirometry # Viral Severe Sepsis likely secondary to Influenza B Infection She met sepsis criteria based on HR > 90 bpm and RR > 20 breaths/min, and the suspected source is influenza B. Severe sepsis was suspected due to concern for tissue hypoperfusion/organ dysfunction based on acute respiratory failure requiring BiPAP. - Sepsis order set was initiated - Initial Lactate was 1.0 - Blood cultures drawn - Broad spectrum antibiotics not started due to no evidence of bacterial infection - Started on oseltamivir - In regards to fluids: - 30 mL/kg of IV fluids was not administered given SBP > 90, MAP > 65, lactic acid < 4 - Isolation precautions # Acute Toxic Metabolic Encephalopathy likely secondary to above (resolved) - Evaluation thus far: - Labs = Na+ 133, Ca2+ 8.9, CO2 39, Glucose 133, Ammonia 37, BUN 22, TSH pending - Initial ABG = pH 7.36, PCO2 74.8, PO2 86.7 - Blood cultures x 2 drawn - Urinalysis = pending - CT head = "no acute intracranial abnormality." - Continue treating above conditions and monitor mental status # Chronic Atrial Fibrillation s/p PPM on Warfarin # History of Mechanical Mitral Valve Replacement # Supratherapuetic INR - Cardiology consulted and spoke with Dr. Rodas - recommendations appreciated - INR = 10.62 -> 4.17 -> 2.52 - Resume warfarin - S/P Vitamin K in ED - Monitor INR # Coronary Artery Disease s/p CABG # History of Descending Thoracic/Abdominal Aortic Aneurysm - Continue home aspirin, atorvastatin, sotalol, ranolazine - Consider starting JIMY-I/ARB if blood pressure allows Rylan Loya M.D.
[2022-04-17] MEDS: SERTRALINE HCL 100 MG TAB PO SCH (22:10)
[2022-04-17] MEDS: ATORVASTATIN 40 MG TAB PO SCH (22:10)
[2022-04-18] MEDS: ALBUTEROL 2.5 MG/3 ML NEB SOL IH SCH ×4 (01:35→20:30)
[2022-04-18 05:50] LABS: Albumin 2.9 g/dL (3.4-5.0); Bilirubin Total 1.1 mg/dL (0.2-1.0); Potassium 3.9 mmol/L (3.5-5.1); Protein, Total 5.4 g/dL (6.4-8.2)
[2022-04-18 05:51] LABS: Protime INR 1.85
[2022-04-18 05:53] LABS: Absolute Lymphocytes (CBC) 0.4 K/uL (0.7-4.9); Hematocrit 34.8 % (36.0-45.0); Lymphocytes % 3.5 % (15.3-44.8); RBC Red Blood Cell Count 4.01 M/uL (3.86-4.86)
[2022-04-18] MEDS: SOTALOL HCL 80 MG TAB PO SCH ×2 (06:11→18:13)
--- NOTE | 2022-04-18 08:22 | P.DS ---
Admission Date: 04/15/22 Discharge Date: 04/18/22 Disposition: [facility] TO [facility] Discharge Condition: GOOD Reason for Admission: CHF exacerbation, hypercapnic respiratory failure Vital Signs/Physical Exam: Temp Pulse Resp BP Pulse Ox 96.8 F 98 H 20 142/84 H 95 04/18/22 04:00 04/18/22 04:00 04/18/22 04:00 04/18/22 04:00 04/18/22 04:00 Laboratory Data at Discharge: WBC 11.00 K/uL (4.3-10.9) H 04/18/22 04:30 Hgb 11.5 g/dL (12.0-15.0) L 04/18/22 04:30 Hct 34.8 % (36.0-45.0) L 04/18/22 04:30 Plt Count 122 K/uL (152-406) L 04/18/22 04:30 PT 20.3 SECONDS (9.5-12.5) H 04/18/22 04:30 INR 1.85 04/18/22 04:30 Sodium 134 mmol/L (136-145) L 04/18/22 04:30 Potassium 3.9 mmol/L (3.5-5.1) D 04/18/22 04:30 BUN 21 mg/dL (7-18) H 04/18/22 04:30 Creatinine 1.11 mg/dL (0.55-1.3) 04/18/22 04:30 Glucose 170 mg/dL (74-106) H 04/18/22 04:30 Magnesium 2.2 mg/dL (1.8-2.4) 04/15/22 16:09 Total Bilirubin 1.1 mg/dL (0.2-1.0) H 04/18/22 04:30 AST 13 U/L (15-37) L 04/18/22 04:30 ALT 20 U/L (12-78) 04/18/22 04:30 Alkaline Phosphatase 74 U/L (45-117) 04/18/22 04:30 Home Medications: Potassium Chloride [Klor-Con 10] 1 tab PO DAILY 06/09/16 Sertraline [Zoloft*] 100 tab PO BEDTIME 06/09/16 Albuterol Inhaler [Ventolin Inhaler*] 2 puff IH Q6H PRN #1 hfa.aer.ad 04/10/18 Acetaminophen [Tylenol Extra Strength] 500 mg PO Q4H PRN 09/20/21 Atorvastatin Calcium [Lipitor] 40 mg PO BEDTIME 09/20/21 Melatonin 3 mg PO BEDTIME PRN 09/20/21 Ranolazine [Ranexa] 500 mg PO BID 09/20/21 Albuterol Neb [Proventil 0.083% Neb Soln] 2.5 mg NEB [id number] PRN #60 amp 11/08/21 Ipratropium Neb [Atrovent*] 0.5 mg NEB [id number] PRN #60 amp 11/08/21 Warfarin Sodium [Coumadin*] 3 mg PO DAILY 5 PM tab 03/06/22 Ascorbic Acid 500 mg PO DAILY 04/17/22 Cholecalciferol (Vitamin D3) [Vitamin D3] 50 mcg PO DAILY 04/17/22 Fluocinonide/Emollient Base [Fluocinonide-E 0.05% Cream] 15 gm TP DAILY 04/17/22 Furosemide [Lasix*] 20 mg PO DAILY 04/17/22 Multivit-Min/FA/Lycopen/Lutein [Centrum Silver Tablet] 1 each PO DAILY 04/17/22 Polyethylene Glycol 3350 [Miralax] 17 gm PO DAILY PRN 04/17/22 Protein Supplement [Promod] 30 ml PO BID 04/17/22 Sotalol HCl [Betapace*] 80 mg PO BID 04/17/22 Zinc Sulfate [Zinc Sulfate*] 220 mg PO DAILY 04/17/22 Albuterol Neb [Proventil 0.083% Neb Soln] 2.5 mg NEB [id number] PRN amp 04/18/22 Arformoterol Tartrate [Brovana] 15 mcg NEB BIDRESP #1 vial.neb 04/18/22 Aspirin Chewable [Aspirin Chewable*] 81 mg PO DAILY tab.chew 04/18/22 Benzonatate [Tessalon Perle*] 100 mg PO TID PRN cap 04/18/22 Oseltamivir [Tamiflu*] 75 mg PO BID cap 04/18/22 Spironolactone [Aldactone*] 25 mg PO BID tab 04/18/22 acetaZOLAMIDE [Diamox*] 125 mg PO BID tab 04/18/22 New Medications: Arformoterol Tartrate [Brovana] 15 mcg NEB BIDRESP #1 vial.neb Diet: AHA Activity: Fall precautions Followup: NONE,NONE [Primary Care Provider] - Zachary Geller MD [ACTIVE - CAN ADMIT] -
--- NOTE | 2022-04-18 08:24 | PN ---
Date of Progress Note: 04/17/2022 Mrs. Lozano has been followed for atrial fibrillation. Today, she has a heart rate of 83. She is imp roved from a breathing standpoint. She has a history of prosthetic mechanical mitral valve replaceme nt, on Coumadin. Last INR was . She can resume her Coumadin dose. She has CHF, pacemaker , depression, COPD, CVA. Last creatinine is 1.01. She is presently on Lasix, Lipitor, aspirin, albu terol, steroid, sotalol, Ranexa and acetazolamide as well as Aldactone. Again, she is feeling better . I will resume her Coumadin. Continue present regimen. Consider discharge to home. VINCE Voice ID: [id number] Report ID: [id number]
[2022-04-18] MEDS: OSELTAMIVIR 75 MG CAP PO SCH ×2 (08:55→21:09)
[2022-04-18] MEDS: WARFARIN SODIUM 3 MG TAB PO SCH (08:55)
[2022-04-18] MEDS: ASPIRIN 81 MG CHEWABLE TABLET PO SCH (08:55)
[2022-04-18] MEDS: SPIRONOLACTONE 25 MG TABLET PO SCH ×2 (08:57→21:08)
[2022-04-18] MEDS: FUROSEMIDE 40 MG/4 ML VIAL IV SCH (08:57)
[2022-04-18] MEDS: acetaZOLAMIDE 250 MG TAB PO SCH ×2 (08:57→21:09)
[2022-04-18] MEDS: METHYLPREDNISOLONE 40 MG INJ IV SCH (08:58)
[2022-04-18] MEDS ORDERED: POTASSIUM CL SA 10 MEQ TAB PO ONE (09:00)
--- NOTE | 2022-04-18 12:08 | P.PN ---
Subjective Date of Service: 04/18/22 Chief Complaint: hypercapnic respiratory failure Subjective: Improving (Doing well alert responsive cooperative no new complaint) Review of Systems is unable to be obtained Physical Examination - Vital Signs Temperature: 97 F Blood Pressure: 139/69 Pulse: 72 Respirations: 14 Pulse Ox (%): 99 - Physical Exam General: Other (Intermittently responsive) Neck: Supple Respiratory: Clear to auscultation bilaterally, Diminished Assessment And Plan - Current Problems (Diagnosis) (1) Respiratory failure with hypoxia and hypercapnia Current Visit: Yes Status: Acute Plan: Patient admitted with hypercapnic respiratory failure presumed underlying COPD active smoker commend discharging on Brovana twice daily history of congestive heart failure labs reviewed patient stable for discharge labs medications all reviewed continue titrate sat to 90% she is to on 2 L patient is 97% will follow-up as an outpatient discussed with Dr. Loya reduce Lasix to 40 mg daily continue with spironolactone and Diamox Qualifiers: Chronicity: acute on chronic Qualified Code(s): J96.21 - Acute and chronic respiratory failure with hypoxia; J96.22 - Acute and chronic respiratory failure with hypercapnia Physician Review: Patient Assessed, Agree with Above Assessment and Plan
--- NOTE | 2022-04-18 12:57 | P.PN ---
Subjective Date of Service: 04/18/22 Chief Complaint: hypercapnic respiratory failure No acute events overnight. She is slightly confused this morning. We spoke with her nurse at [facility], who stated that this is her mental baseline. She denies any chest pain, shortness of breath, or palpitations. Review of Systems 10-point ROS is otherwise unremarkable Respiratory: SOB with Excertion Physical Examination - Vital Signs Temperature: 97 F Blood Pressure: 139/69 Pulse: 72 Respirations: 14 Pulse Ox (%): 99 Assessment And Plan - Plan - Physical Exam General: Alert, Oriented x3, no distress HEENT: Atraumatic, PERRLA, Mucous membr. moist/pink, EOMI, Sclerae nonicteric Neck: Supple, JVD not distended Respiratory: Diminished, faint expiratory wheezes, faint rhonchi/gurgles Cardiovascular: Regular rate/rhythm, Normal S1 S2, No gallops, No rubs, Other (mechanical mitral valve click noted), Edema (1+ BLE) Gastrointestinal: Normal bowel sounds, Soft and benign, Non-distended, No tenderness, No rebound, No guarding Musculoskeletal: No clubbing Integumentary: No rashes Neurological: Normal speech, Cranial nerves 3-12 intact, Normal affect # Acute on Chronic Decompensated Systolic Congestive Heart Failure with Reduced Ejection Fraction (LVEF 35-40 %) s/p AICD - Consult Cardiology and spoke with Dr. Rodas - recommendations appreciated - Transthoracic echocardiogram (03/06/2022) - "Moderately depressed left ventricular ejection fraction 35-40% with moderate global hypokinesis. mitral mechanical prosthesis is present and functioning well. mild mitral regurgitation. severe tricuspid regurgitation. severe left atrial enlargement" - Diuresis with IV furosemide for today - Continue home sotalol - Daily weights - Strict I/O - Cardiac diet, 1.5 L fluid restriction, 2 g Na restriction # Acute Hypercapnic Respiratory Failure likely due to Chronic Obstructive Pulmonary Disease Exacerbation Currently, she is on 2 L nasal cannula, with improvement of her SpO2 readings to 95 %. - Evaluation thus far: - Initial ABG = pH 7.36, PCO2 74.8, PO2 86.7 - Chest x-ray = "moderate CHF/ volume overload." - Management plan: - Consulted Pulmonary Medicine and spoke with Dr. Geller- recommendations appreciated - Steroids and bronchodilators per Pulm - Dr. Geller will order outpatient non-invasive ventilator - Consulted Respiratory Therapy - Supplemental oxygen to maintain SpO2 > 92% - PRN benzonatate, guaifenesin - Encouraged incentive spirometry # Viral Severe Sepsis likely secondary to Influenza B Infection She met sepsis criteria based on HR > 90 bpm and RR > 20 breaths/min, and the suspected source is influenza B. Severe sepsis was suspected due to concern for tissue hypoperfusion/organ dysfunction based on acute respiratory failure requiring BiPAP. - Sepsis order set was initiated - Initial Lactate was 1.0 - Blood cultures drawn - Broad spectrum antibiotics not started due to no evidence of bacterial infection - Started on oseltamivir - In regards to fluids: - 30 mL/kg of IV fluids was not administered given SBP > 90, MAP > 65, lactic acid < 4 - Isolation precautions # Urine Culture positive for Gram-Negative Rods # Microscopic Hematuria - Given her reported baseline mental status, it is unclear if this represents true infection vs asymptomatic bacteruria - Started empiric course of ceftriaxone x 5 days - Per RN, specimen was obtained prior to Tang insertion - Remove Tang catheter # Acute Toxic Metabolic Encephalopathy likely secondary to above (resolved) - Evaluation thus far: - Labs = Na+ 133, Ca2+ 8.9, CO2 39, Glucose 133, Ammonia 37, BUN 22, TSH pending - Initial ABG = pH 7.36, PCO2 74.8, PO2 86.7 - Blood cultures x 2 drawn - CT head = "no acute intracranial abnormality." - Continue treating above conditions and monitor mental status # Chronic Atrial Fibrillation s/p PPM on Warfarin # History of Mechanical Mitral Valve Replacement # Supratherapuetic INR - Cardiology consulted and spoke with Dr. Rodas - recommendations appreciated - INR = 10.62 -> 4.17 -> 2.52 - Resume warfarin - S/P Vitamin K in ED - Monitor INR # Coronary Artery Disease s/p CABG # History of Descending Thoracic/Abdominal Aortic Aneurysm - Continue home aspirin, atorvastatin, sotalol, ranolazine - Consider starting JIMY-I/ARB if blood pressure allows Rylan Loya M.D.
[2022-04-18] MEDS: CEFTRIAXONE 1,000 MG in NA CHLORIDE 0.9% 50 ML IVPB SCH (13:53)
[2022-04-18] MEDS: ATORVASTATIN 40 MG TAB PO SCH (21:08)
[2022-04-18] MEDS: SERTRALINE HCL 100 MG TAB PO SCH (21:09)
[2022-04-19] MEDS: ALBUTEROL 2.5 MG/3 ML NEB SOL IH SCH ×4 (01:50→19:25)
[2022-04-19 04:43] LABS: Absolute Lymphocytes (CBC) 0.6 K/uL (0.7-4.9); Lymphocytes % 4.6 % (15.3-44.8); MCV 87.6 fL (80-100); MPV 8.9 fL (7.6-11.3); RBC Red Blood Cell Count 4.34 M/uL (3.86-4.86)
[2022-04-19 04:45] LABS: Protime INR 1.74
[2022-04-19 04:57] LABS: Potassium 4.1 mmol/L (3.5-5.1)
[2022-04-19] MEDS: SOTALOL HCL 80 MG TAB PO SCH ×2 (05:59→17:49)
[2022-04-19] MEDS ORDERED: CEFTRIAXONE 1000 MG/VIAL ONE (07:34)
[2022-04-19] MEDS ORDERED: NA CHLORIDE 0.9% 50 ML ONE (07:51)
[2022-04-19] MEDS: SPIRONOLACTONE 25 MG TABLET PO SCH ×2 (08:05→21:18)
[2022-04-19] MEDS: OSELTAMIVIR 75 MG CAP PO SCH ×2 (08:05→21:23)
[2022-04-19] MEDS: FUROSEMIDE 40 MG TABLET PO SCH (08:06)
[2022-04-19] MEDS: ASPIRIN 81 MG CHEWABLE TABLET PO SCH (08:07)
[2022-04-19] MEDS: acetaZOLAMIDE 250 MG TAB PO SCH ×2 (08:07→21:17)
[2022-04-19] MEDS: CEFTRIAXONE 1,000 MG in NA CHLORIDE 0.9% 50 ML IVPB SCH (08:08)
--- NOTE | 2022-04-19 10:52 | P.PN ---
Subjective Date of Service: 04/19/22 Chief Complaint: hypercapnic respiratory failure No acute events overnight. She is appears well this morning and endorses no particular complaints. This morning, her leukocytosis is slightly up-trending. Her urine culture has returned positive for Citrobacter Freundii. Review of Systems 10-point ROS is otherwise unremarkable General: Weakness (generalized) Physical Examination - Vital Signs Temperature: 97.4 F Blood Pressure: 127/64 Pulse: 77 Respirations: 17 Pulse Ox (%): 97 Assessment And Plan - Plan - Physical Exam General: Alert, Oriented x2-3, no distress HEENT: Atraumatic, PERRLA, Mucous membr. moist/pink, EOMI, Sclerae nonicteric Neck: Supple, JVD not distended Respiratory: Diminished, faint expiratory wheezes, faint rhonchi/gurgles Cardiovascular: Regular rate/rhythm, Normal S1 S2, No gallops, No rubs, Other (mechanical mitral valve click noted), Edema (1+ BLE) Gastrointestinal: Normal bowel sounds, Soft and benign, Non-distended, No tenderness, No rebound, No guarding Musculoskeletal: No clubbing Integumentary: No rashes Neurological: Normal speech, Cranial nerves 3-12 intact, Normal affect # Acute on Chronic Decompensated Systolic Congestive Heart Failure with Reduced Ejection Fraction (LVEF 35-40 %) s/p AICD - Consult Cardiology and spoke with Dr. Rodas - recommendations appreciated - Transthoracic echocardiogram (03/06/2022) - "Moderately depressed left ventricular ejection fraction 35-40% with moderate global hypokinesis. mitral mechanical prosthesis is present and functioning well. mild mitral regurgitation. severe tricuspid regurgitation. severe left atrial enlargement" - Diuresis with IV furosemide for today - Continue home sotalol - Daily weights - Strict I/O - Cardiac diet, 1.5 L fluid restriction, 2 g Na restriction # Acute Hypercapnic Respiratory Failure likely due to Chronic Obstructive Pulmonary Disease Exacerbation Currently, she is on 2 L nasal cannula, with improvement of her SpO2 readings to 95 %. - Evaluation thus far: - Initial ABG = pH 7.36, PCO2 74.8, PO2 86.7 - Chest x-ray = "moderate CHF/ volume overload." - Management plan: - Consulted Pulmonary Medicine and spoke with Dr. Geller- recommendations appreciated - Steroids and bronchodilators per Pulm - Dr. Geller will order outpatient non-invasive ventilator - Consulted Respiratory Therapy - Supplemental oxygen to maintain SpO2 > 92% - PRN benzonatate, guaifenesin - Encouraged incentive spirometry # Viral Severe Sepsis likely secondary to Influenza B Infection She met sepsis criteria based on HR > 90 bpm and RR > 20 breaths/min, and the suspected source is influenza B. Severe sepsis was suspected due to concern for tissue hypoperfusion/organ dysfunction based on acute respiratory failure requiring BiPAP. - Sepsis order set was initiated - Initial Lactate was 1.0 - Blood cultures drawn - Broad spectrum antibiotics not started due to no evidence of bacterial infection - Started on oseltamivir - In regards to fluids: - 30 mL/kg of IV fluids was not administered given SBP > 90, MAP > 65, lactic acid < 4 - Isolation precautions # Urine Culture positive for Citrobacter Freundii # Microscopic Hematuria - Given her reported baseline mental status and lack of dysuria, it is unclear if this represents true infection vs asymptomatic bacteruria - Started empiric course of ceftriaxone x 5 days - Per RN, specimen was obtained prior to Tang insertion - Remove Tang catheter # Acute Toxic Metabolic Encephalopathy likely secondary to above (resolved) - Evaluation thus far: - Labs = Na+ 133, Ca2+ 8.9, CO2 39, Glucose 133, Ammonia 37, BUN 22, TSH pending - Initial ABG = pH 7.36, PCO2 74.8, PO2 86.7 - Blood cultures x 2 drawn - CT head = "no acute intracranial abnormality." - Continue treating above conditions and monitor mental status # Chronic Atrial Fibrillation s/p PPM on Warfarin # History of Mechanical Mitral Valve Replacement # Supratherapuetic INR - Cardiology consulted and spoke with Dr. Rodas - recommendations appreciated - INR = 10.62 -> 4.17 -> 2.52 -> 1.85 -> 1.74 - Resume warfarin - S/P Vitamin K in ED - Monitor INR # Coronary Artery Disease s/p CABG # History of Descending Thoracic/Abdominal Aortic Aneurysm - Continue home aspirin, atorvastatin, sotalol, ranolazine - Consider starting JIMY-I/ARB if blood pressure allows Rylan Loya M.D.
[2022-04-19] MEDS: WARFARIN SODIUM 3 MG TAB PO SCH (17:49)
[2022-04-19] MEDS: SERTRALINE HCL 100 MG TAB PO SCH (21:19)
[2022-04-19] MEDS: ATORVASTATIN 40 MG TAB PO SCH (21:23)
[2022-04-20] MEDS: ALBUTEROL 2.5 MG/3 ML NEB SOL IH SCH ×3 (01:10→14:41)
[2022-04-20] MEDS: SOTALOL HCL 80 MG TAB PO SCH ×2 (05:18→17:21)
[2022-04-20 06:07] LABS: Absolute Lymphocytes (CBC) 0.9 K/uL (0.7-4.9); Hematocrit 36.1 % (36.0-45.0); Lymphocytes % 10.1 % (15.3-44.8); MCV 86.7 fL (80-100); MPV 9.1 fL (7.6-11.3); RBC Red Blood Cell Count 4.16 M/uL (3.86-4.86)
[2022-04-20] MEDS ORDERED: CEFTRIAXONE 1000 MG/VIAL ONE (07:29)
[2022-04-20] MEDS ORDERED: NA CHLORIDE 0.9% 50 ML ONE (07:49)
[2022-04-20] MEDS: acetaZOLAMIDE 250 MG TAB PO SCH (08:32)
[2022-04-20] MEDS: OSELTAMIVIR 75 MG CAP PO SCH (08:32)
[2022-04-20] MEDS: SPIRONOLACTONE 25 MG TABLET PO SCH (08:33)
[2022-04-20] MEDS: FUROSEMIDE 40 MG TABLET PO SCH (08:33)
[2022-04-20] MEDS: ASPIRIN 81 MG CHEWABLE TABLET PO SCH (08:33)
[2022-04-20] MEDS: CEFTRIAXONE 1,000 MG in NA CHLORIDE 0.9% 50 ML IVPB SCH (08:34)
[2022-04-20 11:16] VITALS: O2SAT 92
[2022-04-20 16:36] VITALS: BP 106/62; TEMP 96.9
[2022-04-20] MEDS: WARFARIN SODIUM 3 MG TAB PO SCH (17:21)
--- NOTE | 2022-04-20 20:13 | P.DS ---
Admission Date: 04/15/22 Discharge Date: 04/20/22 Disposition: TRANSFER TO ASSISTED Comment: [facility] Discharge Condition: GOOD Reason for Admission: hypercapnic respiratory failure Hospital Course: DIAGNOSES: # Acute on Chronic Decompensated Systolic Congestive Heart Failure with Reduced Ejection Fraction (LVEF 35-40 %) s/p AICD # Acute on Chronic Hypercapnic Respiratory Failure likely due to Chronic Obstructive Pulmonary Disease Exacerbation # Viral Severe Sepsis likely secondary to Influenza B Infection # Possible Citrobacter Freundii and Enterococcus Faecalis Urinary Tract Infection # Microscopic Hematuria # Acute Toxic Metabolic Encephalopathy likely secondary to above (resolved) # Chronic Atrial Fibrillation s/p PPM on Warfarin # History of Mechanical Mitral Valve Replacement # Supratherapuetic INR # Coronary Artery Disease s/p CABG # History of Descending Thoracic/Abdominal Aortic Aneurysm HOSPITAL COURSE: Ms. Richa Lozano is a 66-year-old female with a past medical history significant for chronic systolic congestive heart failure, chronic hypercapnic respiratory failure secondary to chronic obstructive pulmonary disease, chronic atrial fibrillation s/p PPM with history of mechanical mitral valve replacement on warfarin, coronary artery disease s/p CABG who was admitted to the [facility] on 04/15/2022 for altered mental status. She was admitted to the Medicine service. Upon further evaluation she was found to have an acute on chronic decompensated systolic congestive heart failure exacerbation as well as an acute chronic obstructive pulmonary disease exacerbation. Additionally, she was noted to have severe viral sepsis due to inf luenza B as well as possible Citrobacter Freundii and Enterococcus Faecalis urinary tract infection. She was treated with IV antibiotics, IV diuresis, and intermittent BiPAP. Cardiology and Pulmonary Medicine were consulted and she was evaluated by Dr. Rodas and Dr. Geller, respectively. Over the course of her hospitalization, she improved significantly. She returned to her mental baseline as described by the [facility] staff (Mr. Weldon). Based on her urine culture sensitivities, she was started on a 5-day course of sulfamethoxazoletrimethop rim and amoxicillinclavulanate. She was noted to have microscopic hematuria (possibly from straight catheterization) and she and her daughter (Ms. Painting) was advised to have this followed up with Urology as an outpatient. On 04/20/2022, she was seen on rounds and deemed medically stable for discharge. She was discharged with instructions to schedule follow-up appointments with her PCP and with Urology (Dr. Lira). She and her daughter were given the opportunity to ask questions and reported no further questions. Furthermore, all questions were answered to the best of my ability. A copy of this discharge summary will be sent to the above providers to facilitate continuity of care. Today, I personally spent 35 minutes on her case, of which greater than 50% of the time was spent in patient education, counseling, and coordination of care as described above. - Physical Exam General: Alert, Oriented x2-3, no distress HEENT: Atraumatic, PERRLA, Mucous membr. moist/pink, EOMI, Sclerae nonicteric Neck: Supple, JVD not distended Respiratory: Diminished, faint expiratory wheezes, faint rhonchi/gurgles Cardiovascular: Regular rate/rhythm, Normal S1 S2, No gallops, No rubs, Other (mechanical mitral valve click noted), Edema (1+ BLE) Gastrointestinal: Normal bowel sounds, Soft and benign, Non-distended, No tenderness, No rebound, No guarding Musculoskeletal: No clubbing Integumentary: No rashes Neurological: Normal speech, Cranial nerves 3-12 intact, Normal affect Vital Signs/Physical Exam: Temp Pulse Resp BP Pulse Ox 96.9 F 71 18 106/62 90 L 04/20/22 16:00 04/20/22 16:00 04/20/22 16:00 04/20/22 16:00 04/20/22 16:00 Laboratory Data at Discharge: WBC 8.50 K/uL (4.3-10.9) 04/20/22 05:46 Hgb 12.2 g/dL (12.0-15.0) 04/20/22 05:46 Hct 36.1 % (36.0-45.0) 04/20/22 05:46 Plt Count 118 K/uL (152-406) L 04/20/22 05:46 PT 19.1 SECONDS (9.5-12.5) H 04/19/22 04:31 INR 1.74 04/19/22 04:31 Sodium 132 mmol/L (136-145) L 04/19/22 04:31 Potassium 4.1 mmol/L (3.5-5.1) 04/19/22 04:31 BUN 34 mg/dL (7-18) H 04/19/22 04:31 Creatinine 1.13 mg/dL (0.55-1.3) 04/19/22 04:31 Glucose 187 mg/dL (74-106) H 04/19/22 04:31 Magnesium 2.2 mg/dL (1.8-2.4) 04/15/22 16:09 Total Bilirubin 1.1 mg/dL (0.2-1.0) H 04/18/22 04:30 AST 13 U/L (15-37) L 04/18/22 04:30 ALT 20 U/L (12-78) 04/18/22 04:30 Alkaline Phosphatase 74 U/L (45-117) 04/18/22 04:30 Home Medications: Potassium Chloride [Klor-Con 10] 1 tab PO DAILY 06/09/16 Sertraline [Zoloft*] 100 tab PO BEDTIME 06/09/16 Albuterol Inhaler [Ventolin Inhaler*] 2 puff IH Q6H PRN #1 hfa.aer.ad 04/10/18 Acetaminophen [Tylenol Extra Strength] 500 mg PO Q4H PRN 09/20/21 Atorvastatin Calcium [Lipitor] 40 mg PO BEDTIME 09/20/21 Melatonin 3 mg PO BEDTIME PRN 09/20/21 Ranolazine [Ranexa] 500 mg PO BID 09/20/21 Albuterol Neb [Proventil 0.083% Neb Soln] 2.5 mg NEB [id number] PRN #60 amp 11/08/21 Ipratropium Neb [Atrovent*] 0.5 mg NEB [id number] PRN #60 amp 11/08/21 Warfarin Sodium [Coumadin*] 3 mg PO DAILY 5 PM tab 03/06/22 Ascorbic Acid 500 mg PO DAILY 04/17/22 Cholecalciferol (Vitamin D3) [Vitamin D3] 50 mcg PO DAILY 04/17/22 Fluocinonide/Emollient Base [Fluocinonide-E 0.05% Cream] 15 gm TP DAILY 04/17/22 Furosemide [Lasix*] 20 mg PO DAILY 04/17/22 Multivit-Min/FA/Lycopen/Lutein [Centrum Silver Tablet] 1 each PO DAILY 04/17/22 Polyethylene Glycol 3350 [Miralax] 17 gm PO DAILY PRN 04/17/22 Protein Supplement [Promod] 30 ml PO BID 04/17/22 Sotalol HCl [Betapace*] 80 mg PO BID 04/17/22 Zinc Sulfate [Zinc Sulfate*] 220 mg PO DAILY 04/17/22 Albuterol Neb [Proventil 0.083% Neb Soln] 2.5 mg NEB [id number] PRN amp 04/18/22 Arformoterol Tartrate [Brovana] 15 mcg NEB BIDRESP #1 vial.neb 04/18/22 Aspirin Chewable [Aspirin Chewable*] 81 mg PO DAILY tab.chew 04/18/22 Benzonatate [Tessalon Perle*] 100 mg PO TID PRN cap 04/18/22 Oseltamivir [Tamiflu*] 75 mg PO BID cap 04/18/22 Spironolactone [Aldactone*] 25 mg PO BID tab 04/18/22 acetaZOLAMIDE [Diamox*] 125 mg PO BID tab 04/18/22 Amox/Clavulanate [Augmentin 875-125 Tab*] 875 mg PO BID tab 04/20/22 Furosemide [Lasix*] 40 mg PO DAILY tab 04/20/22 Smz./Tmp. [Bactrim Ds 800 MG/160 MG*] 1 tab PO BID tab 04/20/22 New Medications: Arformoterol Tartrate [Brovana] 15 mcg NEB BIDRESP #1 vial.neb Physician Discharge Instructions: Follow up with Dr. Geller in 1-2 weeks. Follow up with primary care provider in 1-2 weeks. If you have any nursing questions please call [phone]. If you have worsening of symptoms please report to the ER. Fall precautions Diet: AHA Activity: Fall precautions Followup: Zachary Geller MD [ACTIVE - CAN ADMIT] - 1-2 Weeks (Call to make appointment) NONE,NONE [Primary Care Provider] - 1-2 Weeks Omid Lira [ACTIVE - CAN ADMIT] - Time spent managing pt's care (in minutes): 35
[2022-04-20] MEDS ORDERED: CIPROFLOXACIN HCL 500 MG TAB PO SCH (21:00)
[2022-04-20] MEDS ORDERED: SMZ./TMP. 800/160 MG TABLET PO SCH (21:00)
[2022-04-20] MEDS ORDERED: AMOX/K CLAV 875 MG TAB PO SCH (21:00)
== END 2022-04-20 19:17 | DRG 871 ==
LOC: ER 14:16 → ERHOLD 19:16 → 2ND 19:31
PROVIDERS: ADMIT Internal Medicine; ATTEND Internal Medicine
PROC: 5A09457 Assistance with Respiratory Ventilation, 24-96 Consecutive Hours, Continuous Positive Airway Pressure (ICD-10-PCS; principal; 2022-04-15)
DX: A41.89 Other specified sepsis (principal); G92.8 Other toxic encephalopathy; I50.23 Acute on chronic systolic (congestive) heart failure; J96.22 Acute and chronic respiratory failure with hypercapnia; J96.21 Acute and chronic respiratory failure with hypoxia; I48.20 Chronic atrial fibrillation, unspecified; J44.1 Chronic obstructive pulmonary disease with (acute) exacerbation; N39.0 Urinary tract infection, site not specified; J10.1 Influenza due to other identified influenza virus with other respiratory manifestations; I11.0 Hypertensive heart disease with heart failure; I25.10 Atherosclerotic heart disease of native coronary artery without angina pectoris; I71.23 Aneurysm of the descending thoracic aorta, without rupture; F32.A Depression, unspecified; I71.40 Abdominal aortic aneurysm, without rupture, unspecified; I08.1 Rheumatic disorders of both mitral and tricuspid valves; I25.2 Old myocardial infarction; B96.89 Other specified bacterial agents as the cause of diseases classified elsewhere; B95.2 Enterococcus as the cause of diseases classified elsewhere; R79.1 Abnormal coagulation profile; R65.20 Severe sepsis without septic shock; R31.29 Other microscopic hematuria; Z95.0 Presence of cardiac pacemaker; Z95.1 Presence of aortocoronary bypass graft; Z95.4 Presence of other heart-valve replacement; Z88.1 Allergy status to other antibiotic agents; Z79.82 Long term (current) use of aspirin; Z79.01 Long term (current) use of anticoagulants; Z86.73 Personal history of transient ischemic attack (TIA), and cerebral infarction without residual deficits; Z79.899 Other long term (current) drug therapy; Z20.822 Contact with and (suspected) exposure to COVID-19
CPT/HCPCS: 36415; 51702; 70450; 71045; 80048; 80053; 80076; 81001; 82140; 82805; 83605; 83735; 83880; 84145; 84439; 84443; 84484; 85025; 85610; 87040; 87077; 87086; 87088; 87186; 87804; 93005; 94010; 94640; 94660; 94760; 96372; 96374; 99285; J1940; J2920; J2930; J3430; J3535; U0003

== ENCOUNTER 2022-05-07 12:59 | Emergency (ER) | payer OTHER ==
--- OUTSIDE RECORDS SUMMARY | 2022-05-07 13:05 | XMS REPORT | Continuity of Care Document ---
:1955 Author Organization [facility] t Address [facility] [place] [address] Care Team Providers Name Role Phone Yared Castillo MD Primary Care Physician [phone] Attending Clinician Unavailable FAYE AGARWAL NATASHA Attending Clinician Unavailable Rita Silva Attending Clinician Unavailable Janelle Gomez RN, Consuelo Attending Clinician Unavailable Jh Buckley MD Attending Clinician Todd Gastelum Attending Clinician Unavailable Prieto Bella MD Attending Clinician MD JH BUCKLEY Attending Clinician Unavailable Lizzy Rajan MD Attending Clinician SHELL YANG Attending Clinician Unavailable [id number] Admitting Clinician Unavailable FAYE AGARWAL NATASHA Admitting Clinician Unavailable JH BUCKLEY Admitting Clinician Unavailable MD JH BUCKLEY Admitting Clinician Unavailable SHELL YANG Admitting Clinician Unavailable Payers Payer Name Policy Type Policy Number Effective Date Expiration Date S lila [facility] [id number] MEDICARE B [id number] 1999 RAILROAD 00:00:00 Problems Condition Condition Condition [...] MVR Disease Active Methodi (mitral (mitral 08-15 st valve valve 00:00: Hospita repair) repair) 00 l S/P MVR S/P MVR Disease Active Methodi (mitral (mitral 08-08 st valve valve 00:00: Hospita replacemen replacemen 00 l t) t) Thrombocyt Thrombocyt Disease Active M ethodi openia openia 08-08 st 00:00: Hospita 00 l Paroxysmal Paroxysmal Disease Active M ethodi atrial atrial 08-08 fibrillati fibrillati 00:00: Ho [place] on on 00 l Thrombocyt Thrombocyt Disease Active M ethodi openia openia 08-08 st 00:00: Hospita 00 l Shortness Shortness Disease Active Met hodi of breath of breath 2-15 st 00:00: Hospita 00 l 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 Sneddon syndrome Allergies, Adverse Reactions, Alerts Allergy Allergy Status Severity Reaction(s) Onset Inactive Treating Comm ents Source Name Type Date Date Clinician Levoflox Propensi Active Itching Metho di acin ty to 01-10 st adverse 00:00: Hospita reaction 00 l s to drug NO KNOWN Drug Active Univers ALLERGIE Class ity of S [place] [facility] Family History Family Member Diagnosis Comments Start Date Stop Date Source Natural father Stroke [facility] Natural mother [facility] Social History Social Habit Start Date Stop Date Quantity Comments Source Exposure to Not sure University of SARS-CoV-2 (event) [place] [facility] History SDOH Druze Alcohol Std Drinks Hospit al History SDOH Druze Alcohol Binge Hospital History of tobacco Smokes tobacco Me thodist use daily Hospital History SDOH Druze Alcohol Comment Hospital Alcohol intake 2021-01-11 2021-01-11 Current Druze [...] Stop Date Source Unknown if ever smoked [facility] Smokes tobacco daily 2018-07-25 00:00:[address] [facility] Medications Ordered Filled Start Stop Current Ordering Indication Dosage Frequency Signature Comments Components Source Medication Medication Date Date Medication? Clinician (SIG) Name Name nicotine 2020- No [id number] 1{patch QD Place 1 Methodi (NICODERM 18 0918 } patch on st CQ) 21 [...] 56 daily. l MEQ CR tablet sertraline 0 Yes 50mg QD Take 50 mg M ethodi (ZOLOFT) 50 8-[address] MG tablet 16:36: daily. Hospit a 56 l potassium 1-0 Yes 10meq QD Take 10 Meth mazin chloride 8-[address] (K-DUR,KLOR 16:36: mouth Hospi ta -CON) 10 56 daily. l MEQ CR tablet sertraline 2020-0 Yes 50mg QD Take 50 mg M ethodi (ZOLOFT) 50 8-[address] MG tablet 16:36: daily. Hospit a 56 l potassium 1-0 Yes 10meq QD Take 10 Meth mazin chloride 8-[address] (K-DUR,KLOR 16:36: mouth Hospi ta -CON) 10 56 daily. l MEQ CR tablet sertraline 0 Yes 50mg QD Take 50 mg M ethodi (ZOLOFT) 50 8-[address] MG tablet 16:36: daily. Hospit a 56 l ipratropium 2020- No [id number] .5mg Q6H Take 2.5 Methodi (ATROVENT) 01-24 mL (0.[address] 0.02 % 00:00: 04:59 total) [facility] :00 nebulizati l solution on every 6 (six) hours as needed for wheezing or shortness of breath for up to 30 days. ondansetron 2020- No [id number] 4mg Q4H Take 1 Methodi (ZOFRAN) 4 01-24 tablet (4 st MG tablet 00:00: 04:59 mg total) Ho spita 00 :00 by mouth l every 4 (four) hours as needed for nausea or vomiting for up to 30 days. ranolazine 2020- No [id number] 500mg Q.5D Take 1 Methodi (RANEXA) 01-[address] 500 MG 12 00:00: 04:59 (500 mg Hosp debora hr ER 00 :00 total) by l tablet mouth 2 (two) times a day for 30 days. rosuvastati 2020- No [id number] 20mg QD Take 1 Methodi n (CRESTOR) 01-24 tablet (20 s t 20 mg 00:00: 04:59 mg total) Hospit a tablet 00 :00 by mouth l nightly for 30 days. HYDROcodone 2020- No [id number] 1{tbl} Q4H Take 1 Methodi -acetaminop 01-24 [...] Yes 2mg/min 2 mg/min Univers g/500 mL 12-26 (30 ity of D5W (Fixed 13:15: mL/hr), [...] Inhalation ity of (DUONEB) 13:00: , QID, [place] 0.5 mg-3 00 First dose Medic al mg(2.5 mg on Sat Branch base)/3 mL 12/26/20 at nebulizer 0800, solution 3 Until mL Discontinu ed, Routine metoprolol Yes 50mg Take 50 mg U nivers succinate - by mouth ity of XL 50 mg 24 12:27: daily. [place] hr tablet 20 Medical Branch potassium Yes 10meq Take 10 Univ ers chloride 7-19 mEq by ity of (KLOR-CON 12:27: mouth [place] 10) 10 mEq 20 daily. Medical CR tablet Branch lisinopriL Yes 5mg Take 5 mg Un jeff 5 mg tablet -19 by mouth ity of 12:27: daily. [address] furosemide Yes 40mg Take 40 mg U nivers 40 mg -19 by mouth ity of tablet 12:27: daily. [address] SERTraline Yes 50mg Take 50 mg U nivers 50 mg 12-26 by mouth ity of tablet 12:27: daily. [place] [address] [facility] warfarin 3 Yes 3mg Take 3 mg Un jeff mg tablet 12-26 by mouth. ity o f 12:27: 3mg one [place] 20 day and Medical then 4mg Branch the next HEPARIN 0 2020- No 4000U 4,000 Univers SODIUM 12-26 Units, IV ity of (PORCINE) 12:15: 12:15 Push, [place] 1,000 00 :00 ONCE, 1 Medical UNIT/ML dose, [facility] BOLUS ACS 12/26/20 at ORDER SET 0715, BIENVENIDO heparin Yes 3000U FOR Univers (1,000 12-26 REBOLUSING ity of unit/mL, 10 12:12: , Starting [place] mL vial) 08 [facility] Medical for 12/26/20 at [place] Rebolusing 0712, Until Discontinu ed, Routine
Dosing based on aPTT testing parameters (refer to continuous heparin drip order).
metoprolol 2020- No 50mg 50 mg, Univ ers tartrate 12-26 Oral, ity of (LOPRESSOR) 10:15: 09:08 [place]CE[place] 1 [place] 50 00 :00 dose, [facility] Medic al mg 12/26/20 at [place] 0515, Routine methylpredn 2020- No 125mg 125 mg, IV Univers isolone sod 12-26 Piggyback, i ty of succ 09:30: 08:34 ONCE, 1 [place] (SOLU-MEDRO 00 :00 dose, [facility] Med ical L) 12/26/20 at [place] injection 0430, STAT 125 mg naloxone 2018-06 [...] to arouse (POSS GREATER than 3).). furosemide 2018-06- No 40mg QD Take 40 mg Methodi (LASIX) 40 008 08-[address] mg tablet 00:00: 00:00 daily. Hospi ta 00 : l lisinopril Yes 5mg QD Take 5 mg Me thodi (PRINIVIL) [address] 5 mg tablet 00:00: daily. [facility]osp [facility] 00 l lisinopril 2019-0 Yes 5mg QD Take 5 mg Me thodi (PRINIVIL) 9- by mouth st 5 mg tablet 00:00: daily. [facility] 00 l lisinopril 2019-0 Yes 5mg QD Take 5 mg Me thodi (PRINIVIL) 9- by mouth st 5 mg tablet 00:00: daily. [facility] 00 l lisinopril 2019-0 Yes 5mg QD Take 5 mg Me thodi (PRINIVIL) 9-[address] 5 mg tablet 00:00: [...] MRNA 2021-01-24 Completed Meth odist VACCINATION 00:00:00 [facility] PFIZER COVID-19 MRNA 2021-01-24 Completed Meth odist VACCINATION 00:00:00 [facility] PFIZER COVID-19 MRNA 2021-01-24 Completed Meth odist VACCINATION 00:00:00 [facility] PFIZER COVID-19 MRNA 2021-01-24 Completed Meth odist VACCINATION 00:00:00 [facility] PFIZER COVID-19 MRNA 2021-01-05 Completed Meth odist VACCINATION 00:00:00 [facility] PFIZER COVID-19 MRNA 2021-01-05 Completed Meth odist VACCINATION 00:00:00 [facility] PFIZER COVID-19 MRNA 2021-01-05 Completed Meth odist VACCINATION 00:00:00 [facility] PFIZER COVID-19 MRNA 2021-01-05 Completed Meth odist VACCINATION 00:00:00 Hospital Vital Signs Vital Name Observation Time Observation Value Comments Source Systolic blood 2020-12-26 14:00:00 109 mm[Hg] Univer sity of pressure [facility] Diastolic blood 2020-12-26 14:00:00 72 mm[Hg] Unive rsity of pressure [facility] Heart rate 2020-12-26 14:00:00 102 /min [facility] Respiratory rate 2020-12-26 14:00:00 14 /[facility] in 2020-12-26 14:00:00 96 /min [facility] blood by [facility] Pulse oximetry Branch Body temperature 2020-12-26 08:10:00 36.83 Noris [facility] Body weight 2020-12-26 08:10:00 72.576 kg [facility] Systolic blood 2021-01-24 20:52:38 119 mm[Hg] [facility] pressure Diastolic blood 2021-01-24 20:52:38 78 mm[Hg] [facility] pressure Heart rate 2021-01-24 20:52:38 132 /min [facility] Body temperature 2021-01-24 20:52:38 36.28 Noris [facility] Respiratory rate 2021-01-24 20:52:38 19 /min [facility] Oxygen saturation in 2021-01-24 20:52:38 96 /min [facility] Arterial blood by Pulse oximetry Body weight 2021-01-18 22:00:00 66.877 kg [facility] BMI 2021-01-18 22:00:00 23.09 kg/m2 [facility] Body height 2020-12-26 17:12:00 170.2 cm [facility] Procedures Procedure Date / Time Performing Clinician Source Performed POC GLUCOSE 2021-01-24 12:45:00 [facility] PROTHROMBIN TIME WITH INR 2021-01-24 11:22:00 [facility] PROTHROMBIN TIME WITH INR 2021-01-22 11:04:00 [facility] URINE CULTURE 2021-01-20 23:52:00 VillarIrene [facility] spital URINALYSIS SCREEN AND 2021-01-20 23:12:00 Irene Villar [facility] MICROSCOPY, WITH REFLEX TO CULTURE PROTHROMBIN TIME WITH INR 2021-01-20 11:26:00 [facility] PROTHROMBIN TIME WITH INR 2021-01-18 11:12:00 [facility] PROTHROMBIN TIME WITH INR 2021-01-16 10:59:00 [facility] PROTHROMBIN TIME WITH INR 2021-01-15 10:11:00 [facility] PROTHROMBIN TIME WITH INR 2021-01-13 10:47:00 [facility] PROTHROMBIN TIME WITH INR 2021-01-12 10:16:00 [facility] BASIC METABOLIC PANEL 2021-01-11 09:48:00 [facility] HC COMPLETE BLD COUNT 2021-01-11 09:48:00 [facility] W/AUTO DIFF PROTHROMBIN TIME WITH INR 2021-01-11 09:48:00 [facility] VANCOMYCIN LEVEL, TROUGH 2021-01-11 09:48:00 [facility] C-REACTIVE PROTEIN 2021-01-11 09:48:00 [facility] PROCALCITONIN 2021-01-11 09:48:00 [facility] SEDIMENTATION RATE 2021-01-11 09:48:00 [facility] ESTIMATED GFR 2021-01-11 09:48:00 [facility] BASIC METABOLIC PANEL 2021-01-09 12:29:00 [facility] ESTIMATED GFR 2021-01-09 12:29:00 [facility] HC COMPLETE BLD COUNT 2021-01-09 11:20:00 [facility] W/AUTO DIFF PROTHROMBIN TIME WITH INR 2021-01-09 10:57:00 Shayne [facility] VANCOMYCIN LEVEL, TROUGH 2021-01-08 09:32:00 [facility] PROTHROMBIN TIME WITH INR 2021-01-08 09:32:00 Shayne [facility] BASIC METABOLIC PANEL 2021-01-08 09:32:00 [facility] ESTIMATED GFR 2021-01-08 09:32:00 Shayne [facility] HC COMPLETE BLD COUNT 2021-01-08 09:20:00 [facility] W/AUTO DIFF ECG 12-LEAD 2021-01-07 01:21:25 [facility] BASIC METABOLIC PANEL 2021-01-06 10:33:00 [facility] ESTIMATED GFR 2021-01-06 10:33:00 [facility] CBC HEMOGRAM 2021-01-06 10:29:00 [facility] PROTHROMBIN TIME WITH INR 2021-01-06 10:28:00 [facility] PROTHROMBIN TIME WITH INR 2021-01-05 08:50:00 [facility] BASIC METABOLIC PANEL 2021-01-05 08:50:00 [facility] ESTIMATED GFR 2021-01-05 08:50:00 [facility] HC COMPLETE BLD COUNT 2021-01-05 08:50:00 [facility] W/AUTO DIFF COVID-19 QUALITATIVE 2021-01-04 23:30:00 [facility] PROTHROMBIN TIME WITH INR 2021-01-04 09:38:00 [facility] PROTHROMBIN TIME WITH INR 2021-01-03 10:46:00 [facility] PARTIAL THROMBOPLASTIN 2021-01-03 10:46:00 [facility] TIME (PTT) BASIC METABOLIC PANEL 2021-01-03 07:10:00 [facility] ESTIMATED GFR 2021-01-03 07:10:00 [facility] CBC HEMOGRAM 2021-01-03 07:10:00 [facility] PARTIAL THROMBOPLASTIN 2021-01-03 04:26:00 [facility] TIME (PTT) SEDIMENTATION RATE 2021-01-02 19:40:00 José [facility] C-REACTIVE PROTEIN 2021-01-02 19:40:00 José [facility] PROCALCITONIN 2021-01-02 19:40:00 Sisi Kumar [facility] spital BLOOD CULTURE, AEROBIC & 2021-01-02 18:40:00 José nanette [facility] ANAEROBIC PARTIAL THROMBOPLASTIN 2021-01-02 18:40:00 [facility] TIME (PTT) PROTHROMBIN TIME WITH INR 2021-01-02 09:06:00 [facility] PARTIAL THROMBOPLASTIN 2021-01-02 09:06:00 [facility] TIME (PTT) VANCOMYCIN LEVEL, TROUGH 2021-01-01 16:38:00 [facility] PROTHROMBIN TIME WITH INR 2021-01-01 10:45:00 [facility] PARTIAL THROMBOPLASTIN 2021-01-01 10:45:00 [facility] TIME (PTT) PROTHROMBIN TIME WITH INR 2021-01-01 08:52:00 Shayne [facility] PARTIAL THROMBOPLASTIN 2021-01-01 08:52:00 [facility] TIME (PTT) PARTIAL THROMBOPLASTIN 2021-01-01 02:49:00 [facility] TIME (PTT) PARTIAL THROMBOPLASTIN 2020-12-31 20:31:00 [facility] TIME (PTT) PARTIAL THROMBOPLASTIN 2020-12-31 10:20:00 [facility] TIME (PTT) PROTHROMBIN TIME WITH INR 2020-12-31 10:20:00 [facility] CV LEFT HEART CATH LV 2020-12-30 20:42:27 [facility] GRAM WITH CORS CV SELECTIVE CORONARY 2020-12-30 20:42:27 [facility] ANGIOGRAPHY VANCOMYCIN LEVEL, TROUGH 2020-12-30 18:18:00 [facility] COVID-19 QUALITATIVE 2020-12-30 14:52:00 Cass Nava [facility] RT-PCR BASIC METABOLIC PANEL 2020-12-30 12:13:00 [facility] ESTIMATED GFR 2020-12-30 12:13:00 [facility] PROTHROMBIN TIME WITH INR 2020-12-30 10:41:00 Shayne [facility] PARTIAL THROMBOPLASTIN 2020-12-30 10:41:00 [facility] TIME (PTT) CBC HEMOGRAM 2020-12-30 10:40:00 [facility] PARTIAL THROMBOPLASTIN 2020-12-29 21:05:00 [facility] TIME (PTT) ANTI XA, UNFRACTIONATED 2020-12-29 14:39:00 [facility] PARTIAL THROMBOPLASTIN 2020-12-29 14:39:00 [facility] TIME (PTT) CT CARDIAC OVERREAD 2020-12-29 12:36:40 Shayne [facility] CV CTA CORONARY ARTERIES 2020-12-29 12:15:26 Shayne [facility] W CONTRAST HC COMPLETE BLD COUNT 2020-12-29 06:13:00 [facility] W/AUTO DIFF BASIC METABOLIC PANEL 2020-12-29 06:13:00 [facility] ANTI XA, UNFRACTIONATED 2020-12-29 06:13:00 Shayne [facility] ESTIMATED GFR 2020-12-29 06:13:00 [facility] ANTI XA, UNFRACTIONATED 2020-12-28 23:32:00 [facility] US CAROTID DUPLEX 2020-12-28 20:25:00 [facility] BILATERAL ANTI XA, UNFRACTIONATED 2020-12-28 15:49:00 [facility] URINE CULTURE 2020-12-28 09:09:00 [facility] URINALYSIS SCREEN AND 2020-12-28 08:37:00 Shayne [facility] MICROSCOPY, WITH REFLEX TO CULTURE HC COMPLETE BLD COUNT 2020-12-28 07:23:00 [facility] W/AUTO DIFF BASIC METABOLIC PANEL 2020-12-28 07:23:00 [facility] ANTI XA, UNFRACTIONATED 2020-12-28 07:23:00 [facility] ESTIMATED GFR 2020-12-28 07:23:00 [facility] PROTHROMBIN TIME WITH INR 2020-12-28 07:23:00 [facility] BLOOD CULTURE, AEROBIC & 2020-12-28 02:52:00 Prieto Bella [facility] ANAEROBIC XR CHEST 1 VW PORTABLE 2020-12-28 00:32:07 [facility] ANTI XA, UNFRACTIONATED 2020-12-27 23:22:00 [facility] ANTI XA, UNFRACTIONATED 2020-12-27 21:24:[address] [facility]A, UN[facility]RA[facility] 2020-12-27 14:52:00 [facility] HC COMPLETE BLD COUNT 2020-12-27 09:16:00 [facility] W/AUTO DIFF BASIC METABOLIC PANEL 2020-12-27 09:00:00 [facility] TROPONIN 2020-12-27 09:00:00 Shayne [facility] spital ESTIMATED GFR 2020-12-27 09:00:00 [facility] LIPID PANEL 2020-12-27 05:00:00 [facility] ECG 12-LEAD 2020-12-27 04:13:48 [facility] ANTI XA, UNFRACTIONATED 2020-12-27 02:50:[address] [facility] CT HEAD WO CONTRAST 2020-12-27 00:55:[facility] 2020-12-26 23:39:00 Jose Bellaammed [facility] spital TTE COMPLETE, WO 2020-12-26 22:08:00 [facility] CONTRAST, W DOPPLER ([id number]) ECG 12-LEAD 2020-12-26 17:45:46 [facility] TROPONIN 2020-12-26 17:36:00 [facility] THYROID STIMULATING 2020-12-26 17:36:00 [facility] HORMONE T4, FREE 2020-12-26 17:36:00 [facility] HEMOGLOBIN A1C 2020-12-26 17:36:00 [facility] PARTIAL THROMBOPLASTIN 2020-12-26 17:36:00 [facility] TIME (PTT) PROTHROMBIN TIME WITH INR 2020-12-26 17:36:00 [facility] ANTI XA, UNFRACTIONATED 2020-12-26 17:36:00 [facility] MAGNESIUM 2020-12-26 12:04:00 Lizzy Rajan [facility] ACUTE CARE ARTERIAL BLOOD 2020-12-26 11:43:00 [facility] EKG-12 LEAD 2020-12-26 10:48:57 Lizzy Rajan [facility] XR CHEST 1 VW 2020-12-26 08:50:43 Lizzy Rajan [facility] LIPASE 2020-12-26 08:44:00 Lizzy Rajan [facility] TROPONIN I 2020-12-26 08:44:00 Lizzy Rajan [facility] COMP. METABOLIC PANEL 2020-12-26 08:44:00 Lizzy Rajan [facility] ([id number]) [facility] Branch CBC WITH DIFF 2020-12-26 08:44:00 Lizzy Rajan [facility] PROTHROMBIN TIME / INR 2020-12-26 08:44:00 Lizzy Rajan [facility] ACTIVATED PARTIAL 2020-12-26 08:44:00 Lizzy Rajan [facility] N-TERMINAL PRO-BNP 2020-12-26 08:44:00 Lizzy Rajan [facility] COVID-19 (ID NOW RAPID 2020-12-26 08:43:00 Lizzy Rajan [facility] TESTING) Medical Branch Plan of Care Planned Activity Planned Date Details Comments Source Future Scheduled 2022-04-12 HEPATITIS B VACCINES [facility] Test 18:31:35 (1 of 3 - 3-dose series) [code = HEPATITIS B VACCINES (1 of 3 - 3-dose series)] Future Scheduled 2022-04-12 65+ PNEUMOCOCCAL [facility] Test 18:31:35 VACCINE (1 - PCV) [code = 65+ PNEUMOCOCCAL VACCINE (1 - PCV)] Future Scheduled 2022-04-12 Hepatitis C screening [facility] Test 18:31:35 (procedure) [code = 974967086] Future Scheduled 2022-04-12 Screening for [facility] Test 18:31:35 malignant neoplasm of cervix (procedure) [code = [id number]] Future Scheduled 2022-04-12 BREAST CANCER [facility] Test 18:31:35 SCREENING [code = BREAST CANCER SCREENING] Future Scheduled 2022-04-12 COLONOSCOPY SCREENING [facility] Test 18:31:35 [code = COLONOSCOPY SCREENING] Future Scheduled 2022-04-12 SHINGLES VACCINES (1 Met [facility] Test 18:31:35 of 2) [code = SHINGLES VACCINES (1 of 2)] Future Scheduled 2022-04-12 COVID-19 VACCINE (3 - Me [facility] Test 18:31:35 Booster for Pfizer series) [code = COVID-19 VACCINE (3 - Booster for Pfizer series)] Future Scheduled 2022-04-[address] [facility] Test 18:31:35 [code = INFLUENZA VACCINE] Future Scheduled 2022-04-12 HEPATITIS B VACCINES Met [facility] Test 18:31:35 (1 of 3 - 3-dose series) [code = HEPATITIS B VACCINES (1 of 3 - 3-dose series)] Future Scheduled 2022-04-12 65+ PNEUMOCOCCAL [facility] Test 18:31:35 VACCINE (1 - PCV) [code = 65+ PNEUMOCOCCAL VACCINE (1 - PCV)] Future Scheduled 2022-04-12 Hepatitis C screening [facility] Test 18:31:35 (procedure) [code = [id number]] Future Scheduled 2022-04-12 Screening for [facility] Test 18:31:35 malignant neoplasm of cervix (procedure) [code = [id number]] Future Scheduled 2022-04-12 BREAST CANCER [facility] Test 18:31:35 SCREENING [code = BREAST CANCER SCREENING] Future Scheduled 2022-04-12 COLONOSCOPY SCREENING [facility] Test 18:31:35 [code = COLONOSCOPY SCREENING] Future Scheduled 2022-04-12 SHINGLES VACCINES (1 Met [facility] Test 18:31:35 of 2) [code = SHINGLES VACCINES (1 of 2)] Future Scheduled 2022-04-12 COVID-19 VACCINE (3 - Me [facility] Test 18:31:35 Booster for Pfizer series) [code = COVID-19 VACCINE (3 - Booster for Pfizer series)] Future Scheduled 2022-04-[address] [facility] Test 18:31:35 [code = INFLUENZA VACCINE] Future Scheduled 2022-02-07 HEPATITIS B VACCINES [facility] Test 08:57:14 (1 of 3 - 3-dose series) [code = HEPATITIS B VACCINES (1 of 3 - 3-dose series)] Future Scheduled 2022-02-07 65+ PNEUMOCOCCAL [facility] Test 08:57:14 VACCINE (1 - PCV) [code = 65+ PNEUMOCOCCAL VACCINE (1 - PCV)] Future Scheduled 2022-02-07 Hepatitis C screening [facility] Test 08:57:14 (procedure) [code = 871660390] Future Scheduled 2022-02-07 Screening for [facility] Test 08:57:14 malignant neoplasm of cervix (procedure) [code = 837012141] Future Scheduled 2022-02-07 BREAST CANCER [facility] Test 08:57:14 SCREENING [code = BREAST CANCER SCREENING] Future Scheduled 2022-02-07 COLONOSCOPY SCREENING [facility] Test 08:57:14 [code = COLONOSCOPY SCREENING] Future Scheduled 2022-02-07 SHINGLES VACCINES (1 [facility] Test 08:57:14 of 2) [code = SHINGLES VACCINES (1 of 2)] Future Scheduled 2022-02-07 COVID-19 VACCINE (3 - Me [facility] Test 08:57:14 Booster for Pfizer series) [code = COVID-19 VACCINE (3 - Booster for Pfizer series)] Future Scheduled 2022-02-[address] [facility] Test 08:57:14 [code = INFLUENZA VACCINE] Future Scheduled 2021-07-11 Hepatitis C screening [facility] Test 13:49:53 (procedure) [code = 409290265] Future Scheduled 2021-07-11 Screening for [facility] Test 13:49:53 malignant neoplasm of cervix (procedure) [code = 379455275] Future Scheduled 2021-07-11 BREAST CANCER [facility] Test 13:49:53 SCREENING [code = BREAST CANCER SCREENING] Future Scheduled 2021-07-11 COLONOSCOPY SCREENING [facility] Test 13:49:53 [code = COLONOSCOPY SCREENING] Future Scheduled 2021-07-11 [facility]INGLES [facility]IN[facility] (#[facility] Test 13:49:53 [code = SHINGLES VACCINES (#1)] Future Scheduled 2021-07-11 Screening for [facility] Test 13:49:53 malignant neoplasm of lung (procedure) [code = 295991128] Future Scheduled 2021-07-11 [facility]ACCINE [facility] Test 13:49:53 [code = INFLUENZA VACCINE] Future Scheduled 2021-07-11 COVID-19 VACCINE (3 - Me [facility] Test 13:49:53 Booster for Pfizer series) [code = COVID-19 VACCINE (3 - Booster for Pfizer series)] Encounters Start End Encounter Admission Attending Care Care Encounter Source Date/Time Date/Time Type Type Clinicians Facility Department ID 2022-04-11 Outpatient 3 [id number] [facility] OT [facility] 09:10:38 [facility] 2022-04-10 Outpatient 3 [id number] [facility] REF [facility] 10:52:38 [facility]01 [facility] 2022-03-08 Outpatient 3 [id number] [facility] CRD [facility] 11:47:43 0929 [facility] [place] 2022-03-05 Outpatient 3 LAURA AGARWAL HOSEA [facility] 13:11:04 FAYE 0926 [facility] [place] [facility] 2021-11-07 Outpatient 3 [id number] [facility] REF [facility] 16:01:05 0531 [facility] [place] [facility] 2021-08-01 Outpatient 3 [id number] [facility] REF [facility] 16:18:08 0222 [facility] [place] [facility] 2021-07-06 Outpatient 3 LAURA AGARWAL CVA [facility] 12:57:07 FAYE 0923 [facility] [place] [facility] 2021-07-06 Outpatient 3 [id number] [facility] REF [facility] 12:56:49 0922 [facility] [place] [facility] 2021-04-10 Emergency [facility] [id number] [facility] 08:58:17 [facility] 2022-03-06 2022-03-22 Inpatient 3 STEFANO, ENCPL BIN [id number] 22 [facility] 23:33:00 18:50:00 FAYE 0927 [facility] [place] [facility] 2021-11-08 2021-11-21 Inpatient 3 STEFANO, ENCPL CVA [id number] 22 [facility] 17:12:00 10:40:00 FAYE 0601 [facility] [place] [facility] 2021-08-02 2021-08-15 Inpatient 3 STEFANO ENCPL CVA [id number] 22 [facility] 19:04:00 11:45:00 FAYE 0223 [facility] [place] [facility] 2021-06-21 2021-07-02 Inpatient 3 STEFANO ENCPL CVA [id number] 22 [facility] 16:15:00 12:24:00 FAYE 0112 [facility] [place] [facility] 2021-03-10 2021-03-10 Patient Ricardo, 1.2.840.1 [id number] [facility]i 00:00:00 00:00:00 Outreach Rita [address]1531.1.[address] 3.430.2.7 Hospit a .3.391485 l .8 2021-03-10 2021-03-10 Patient Ricardo, 1.2.840.1 [id number] [facility] 00:00:00 00:00:00 Outreach Rita 08509.1.[address] 3.430.2.7 Hospit a .3.132487 l .8 2021-03-09 2021-03-09 Nurse Janelle 1.2.840.1 [id number] [facility]i 00:00:00 00:00:00 Triage Consuelo Gomez 99233.1.[address] 3.430.2.7 Hospit a .3.151372 l .8 2021-01-10 2021-01-24 Hospital Rogerio 1.2.840.1 [id number] Methodi 18:41:00 16:36:00 Encounter Jh Mota 86341.1.[address] 3.430.2.7 Hospit a .3.687850 l .8 2021-01-12 2021-01-12 Patient Oriana, 1.2.840.1 [id number] Methodi 00:00:00 00:00:00 Outreach Todd 82528.1.[address] 3.430.2.7 Hospit a .3.335719 l .8 2020-12-26 2021-01-10 Hospital Rogerio, 1.2.840.1 [id number] Methodi 10:59:00 18:41:00 Encounter Jh Pepe. 17273.1.[address] 3.430.2.7 Hospit a .3.404692 l .8 2020-12-30 2020-12-30 Surgery Attar, 1.2.840.1 [id number] Methodi 14:20:00 15:35:[address] 3.430.2.7 Hospit a .3.135627 l .8 2020-12-26 2020-12-26 Emergency [facility] 1.2.718.505 [id number] Univers 03:03:00 09:34:00 Lizzy Araya [place] [facility] [id number] [place] [id number] [place] 2020-12-26 2020-12-26 Travel 1.2.840.1 1.2.170.037 [id number] Methodi 00:00:00 00:00:[address] 3.430.2.7 0.2.7.3.698 spita .3.235338 084.8 l .8 2019-06-04 2019-06-09 Inpatient [facility] [id number] [address] [place] [address] 00:00:00 00:00:[address] SHELL [address] Results Test Description Test Time Test Comments Results Result Comments Source POC glucose 2021-01-24 12:47:32 Test Item Value Reference Range Interpretation Comme nts POC glucose (test code = 103 mg/dL 65-99 H Ope rator Name: Sean Huffman [id number]) ID: [id number] hartable: [facility] Notified motor installer Interpretation (test code = Abnormal 66437-1) [facility] 12 [id number] 03:37:08 Test Item Value Reference Range Interpretation [...] now present-ST now depressed in Anterior leads- [facility] ObyvasceLWDX-QeK-1 (COVID-19) RNA [Presence] in Respiratory specimen by MARTIN with probe [id number] 22:50:21 Test Item Value Reference Range Interpretation Comments SARS-CoV-2 (COVID-19) RNA Not detected Not-Detected [Presence] in Respiratory specimen by MARTIN with probe detection (test code = 65789-7) 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 employed 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 healthcare 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 (test code = 18706-5) Whether the patient has symptoms related to condition of interest (test code = 27700-7) Patient was hospitalized because of this condition (test code = 73924-7) Whether the patient was admitted to intensive care unit (ICU) for condition of interest (test code = 30160-6) Whether patient resides in a congregate care setting (test code = 36606-8) [place] [facility] [facility] lab [id number] 20:42:53 Test Item Value Reference Range Interpretation Comments Cath EF Estimated 35 % (test code = 4821027158) JULIAN (test code = Left main normal.LAD with JULIAN) 25% proximal stenosis.LCX with proximal 25% stenosis mid 25% stenosis.RCA dominant with 95% calcified proximal stenosis followed by proximal 75% calcified stenosis. LVEF 35% with hypokinesis anterior and aneurysmal inferiorly. Discussed case with other new accounts clerk. 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 Chivo StreeterARS-CoV-2 (COVID-19) RNA [Presence] in Respiratory specimen by MARTIN with probe [id number] 13:52:17 Test Item Value Reference Range Interpretation Comments SARS-CoV-2 (COVID-19) RNA Not detected Not-Detected [Presence] in Respiratory specimen by MARTIN with probe detection (test code = 94339-1) 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 employed in a healthcare setting (test code = 96000-1) Whether the patient has symptoms related to condition of interest (test code = 04211-4) Patient was hospitalized because of this condition (test code = 82712-7) Whether the patient was admitted to intensive care unit (ICU) for condition of interest (test code = 65549-5) Whether patient resides in a congregate care setting (test code = 81132-3) NERI GALLEGO2021-07-19 12:57:30 Test Item Value Reference Range Interpretation Comments MAGNESIUM (test code = 1958424756) 2.0 mg/dL 1.7-2.4 Lab Interpretation (test code = Normal 77226-6) [facility].2020-12-26 11:46:41 Test Item Value Reference Range Interpretation Comments PH (test code = 2) 7.35-7.45 PCO2 (test code = See_Comment L [Automate d message] 3941171136) The system [employer] generated this result transmitted ref erence range: 35 - 45 mmHg. The reference r lebron was not used to interpret this result as normal/abnor mal. PO2 (test code = See_Comment L [Automated message] 3380276865) The system [employer] generated this result transmitted ref erence range: 80 - 100 mmHg. The reference r lebron was not used to interpret this result as normal/abnor mal. HCO3 (test code = See_Comment [Automate d message] 9097167827) The system [employer] generated this result transmitted ref erence range: 22 - 26 mEq/L. The reference r lebron was not used to interpret this result as normal/abnor mal. BE (test code = See_Comment [Automated message] 1003967059) The system [employer] generated this result transmitted ref erence range: -3.0 - 3 .0 mEq/L. The refe rence range was not u sed to interpret this result as normal/abnor mal. Lab Interpretation (test Abnormal code = 54279-9) [facility] WITH [id number] 09:30:54 Test Item Value Reference Range Interpretation Comments WBC (test code = See_Comment H [Automated 2890-2) message] The sy stem which generated this result transmitted reference range : 4.30 - 11.10 10*3/?L. The reference range was not used to interpret this result as normal/abnormal . RBC (test code = See_Comment [Automated 019-8) message] The sy stem which generated this [...] RDW-SD (test code = 48.7 fL 39.0-49.9 52409-1) RDW-CV (test code = 14.7 % 12.0-15.5 788-0) PLT (test code = See_Comment L [Automated 777-3) message] The sy stem which generated this result transmitted reference range : 166 - 358 10*3/ ?L. The reference r lebron was not used to interpret this result as normal/abnormal . MPV (test code = 11.9 fL 9.5-12.9 97070-1) IPF % (test code = 5.7 % 1.3-7.7 Platelet count 3011447145) measured by fluorescence method. NRBC/100 WBC (test See_Comment [Automat ed code = 5111090741) message] The system which generated this result transmitted reference range : 0.0 - 10.0 /100 WBCs. The refer ence range was not u sed to interpret th is result as normal/abnormal . NRBC x10^3 (test code <0.01 See_Comment [Auto mated = 4110922610) message] The s ystem which generated this result transmitted reference range : 10*3/?L. The reference range was not used to interpret this result as normal/abnormal . GRAN MAT (NEUT) % 88.0 % (test code = 770-8) IMM GRAN % (test code 1.10 % = 0162170587) LYMPH % (test code = 3.8 % 736-9) MONO % (test code = 6.5 % 5905-5) EOS % (test code = 0.2 % 713-8) BASO % (test code = 0.4 % 706-2) GRAN MAT x10^3(ANC) 12.35 10*3/uL 1.88-7.09 H (test code = 4789282226) IMM GRAN x10^3 (test 0.16 10*3/uL 0.00-0.06 H code = 4213428895) LYMPH x10^3 (test 0.54 10*3/uL 1.32-3.29 L code = 731-0) MONO x10^3 (test code 0.92 10*3/uL 0.33-0.92 = 742-7) EOS x10^3 (test code 0.03 10*3/uL 0.03-0.39 = 711-2) BASO x10^3 (test code 0.06 10*3/uL 0.01-0.07 = 704-7) Lab Interpretation Abnormal (test code = 04425-4) [facility] [id number] 09:22:28 Test Item Value Reference Interpretation Comments Range TROPONIN I (test 0.572 ng/mL See_Comment H [Automated code = 6350158985) message] The system which generated this result [...] biotin. Lab Interpretation Abnormal (test code = 50963-8) [facility] [id number] 09:19:11 Test Item Value Reference Range Interpretation Comments NT-proBNP (test code 1590 pg/mL See_Comment H [Autom ated = 1060708128) message] The system which generated this result transmitted reference range : <=125. The reference range was not used to interpret this result as normal/abnormal . JULIAN (test code = JULIAN) Biotin has been reported to cause a negative bias, interpret results relative to patient's use of biotin. Lab Interpretation Abnormal (test code = 48607-1) [facility]2021-[facility]19 09:11:52 Test Item Value Reference Range Interpretation Comments APTT Patient (test See_Comment [Automat ed code = 3173-2) message] The system which generated this result transmitted reference range : 23 - 38 Seconds . The reference range was not used to interpr et this result as normal/abnormal . JULIAN (test code = JULIAN) The [facility] patient population mean normal value for aPTT is 30 seconds. Lab Interpretation Normal (test code = 91629-9) [facility]. METABOLIC PANEL (52027)2020-12-26 09:10:52 Test Item Value Reference Range Interpretation Comments NA (test code = 137 mmol/L 135-145 6597418090) K (test code = 4.0 mmol/L 3.5-5.0 5165521481) CL (test code = 105 mmol/L 98-108 5048672495) CO2 TOTAL (test code = 22 mmol/L 23-31 L 5271285883) AGAP (test code = 2-16 9008145203) BUN (test code = 30 mg/dL 7-23 H 5020545151) GLUCOSE (test code = 197 mg/dL 70-110 H 5994194275) CREATININE (test code = 1.21 mg/dL 0.50-1.04 H 5305955283) TOTAL BILI (test code = 1.1 mg/dL 0.1-1.3 4723356589) CALCIUM (test code = 9.4 mg/dL 8.6-10.6 7694501763) T PROTEIN (test code = 6.7 g/dL 6.3-8.2 9147478227) ALBUMIN (test code = 4.0 g/dL 3.5-5.0 9023493243) ALK PHOS (test code = 82 U/L 34-122 2940186475) ALTv (test code = 26 U/L 5-35 1742-6) AST(SGOT) (test code = 52 U/L 13-40 H 4323396944) eGFR (test code = mL/min/1.73m2 7385015558) JULIAN (test code = JULIAN) Association of [...] tests). Lab Interpretation Abnormal (test code = 91961-9) [facility] HospitalLIP[facility], [id number] 09:10:31 Test Item Value Reference Range Interpretation Comments LIPASE (test code = 2039873521) 51 U/L 0-220 Lab Interpretation (test code = Normal 12073-6) [facility] HospitalPROTHROMBIN TIME / [id number] 09:09:51 Test Item Value Reference Range Interpretation Comments PROTIME PATIENT (test See_Comment H [Auto mated message] code = 5964-2) The system [employer] generated this result transmitted ref erence range: 12.0 - 1 4.7 Seconds. The reference range was not used to int erpret this result as normal/abnormal . INR (test code = 6301-6) Nor mal INR <1.1; Warfarin Therap eutic range 2.0 to 3. 0 or 2.5 to 3.5, dep ending upon the indica tions. Lab Interpretation (test Abnormal code = 14058-9) [facility] Hospital[facility]OVID[facility] (ID NOW RAPID TESTING)2020-12-26 09:09:31 Test Item Value Reference Range Interpretation Comments SARS-CoV-2 Rapid ID NOW Not Detected Not Detected (test code = 38447-5) JULIAN (test code = JULIAN) ID NOW COVID-19 Assay is an isothermal nucleic acid amplification test intended for the qualitative detection of nucleic acid from SARS-CoV-2 viral RNA in nasopharyngeal (WAFER SUBSTRATE TESTER) specimens. It is used under Emergency Use [...] indicated. Lab Interpretation Normal (test code = 80925-0) [facility]"
--- NOTE | 2022-05-07 13:38 | RAD REPORT ---
EXAM DESCRIPTION: CT - Ct Stroke Brain Wo Cont - 05/07/2022 1:26 pm CLINICAL HISTORY: ams COMPARISON: Head Brain Wo Cont dated 04/15/2022; Head Brain Wo Cont dated 03/05/2022 TECHNIQUE: All CT scans are performed using dose optimization technique as appropriate and may inclu de automated exposure control or mA/KV adjustment according to patient size. FINDINGS: Acute intracranial hemorrhage which is primarily intraventricular. The left lateral ventri shea is approximately 2/3 full of acute blood products. Layering hemorrhage is seen within both of the lateral ventricles. Hemorrhage is seen the third and fourth ventricle as well. Advanced chronic smal l vessel ischemic changes. Remote left parietal lobe and cerebellar infarcts. Mild ixzy-up-uwcac midl ine shift. Changes of hydrocephalus at the left lateral ventricle. Remote right occipital lobe infarc t. IMPRESSION: Intraventricular hemorrhage probably related to a hemorrhagic left basal ganglia infarct . The left ventricle is dilated consistent with changes of developing hydrocephalus. Mild left-to-rig ht midline shift. Sequela of remote infarcts. Discussed with Dr Sanchez by Dr. Yadav at 1319 on 05/07/22
[2022-05-07] MEDS ORDERED: FOSPHENYTOIN PE IV ONE (13:45)
[2022-05-07] MEDS ORDERED: NA CHLORIDE 0.9% IV ONE (13:45)
--- NOTE | 2022-05-07 13:54 | EDPHYS ---
Physician Documentation [facility] Name: Richa Lozano Age: 66 yrs Sex: Female : 1955 Arrival Date: 05/07/2022 Time: 13:03 Bed 18 Private MD: ED Physician Matt Sanchez HPI: 05/07 13:38 This 66 yrs old Female presents to ER via Unassigned with complaints of S/S of Possible snw Stroke. 13:38 The patient's problem is reported as altered mental status, confused, decreased snw responsiveness. Onset: The symptoms/episode began/occurred acutely, daughter states onset at 1145. Duration: The episode is continuous. Context: the episode(s) was witnessed, by family, daughter, symptoms became apparent 1145. Associated signs and symptoms: Pertinent positives: confusion. Severity of symptoms: At their worst the symptoms were severe. Patient's baseline: Neuro: alert but confused, Motor: right-sided weakness, Ambulation: unable to walk, uses wheelchair, Speech: the patient can speak but doesn't make sense, The patient has a previous history of CVA, TIA. The patient has not experienced similar symptoms in the past. Historical: - Allergies: 13:00 Levaquin; vg1 - PMHx: 13:00 AFIB; Aneurysm; atelectasis; cardiomegaly; CHF; COPD; CVA; Depression; EDEMA; vg1 Hypertension; Myocardial infarction; Pace maker; pleural effusion; rheumatic mitral stenosis; Angina pectoris; - Immunization history:: Client reports receiving the 2nd dose of the Covid vaccine. - Social history:: Smoking status: unknown. ROS: 13:31 Constitutional: Positive for AMS. snw 13:31 Unable to obtain ROS due to altered mental status. 15:38 Constitutional: Negative for fever, chills, and weight loss. snw Exam: 13:31 Radiologist reports: hemorrhagic stroke snw 13:31 Head/Face: Normocephalic, atraumatic. 13:31 ENT: Nares patent. No nasal discharge, no septal abnormalities noted. Tympanic membranes are normal and external auditory canals are clear. Oropharynx with no redness, swelling, or masses, exudates, or evidence of obstruction, uvula midline. Mucous membranes moist. Neck: Trachea midline, no thyromegaly or masses palpated, and no cervical lymphadenopathy. Supple, full range of motion without nuchal rigidity, or vertebral point tenderness. No Meningismus. Chest/axilla: Normal chest wall appearance and motion. Nontender with no deformity. No lesions are appreciated. 13:31 Respiratory: Lungs have equal breath sounds bilaterally, clear to auscultation and percussion. No rales, rhonchi or wheezes noted. No increased work of breathing, no retractions or nasal flaring. Abdomen/GI: Soft, non-tender, with normal bowel sounds. No distension or tympany. No guarding or rebound. No evidence of tenderness throughout. Back: No spinal tenderness. No costovertebral tenderness. Full range of motion. 13:31 Eyes: Extraocular movements: forced deviation to left bilateral. 13:31 Cardiovascular: Rate: tachycardic, Rhythm: irregularly irregular, Heart sounds: normal. 13:31 Skin: bandages to right hand, right armstrong. 13:31 Neuro: Orientation: Not oriented to Mentation: able to follow commands, seizure activity, is not displayed by the patient. Vital Signs: 13:00 BP 120 / 96; Pulse 101; Resp 16; Temp 97.9(A); Pulse Ox 97% on R/A; Weight 40.5 kg; vg1 13:29 Weight 40.5 kg; ld1 14:15 BP 95 / 83; Pulse 102; Resp 16; Pulse Ox 99% on R/A; vg1 14:30 BP 77 / 32; Pulse 96; Resp 14; Pulse Ox 99% on R/A; vg1 14:39 BP 87 / 65; Pulse 102; Resp 14; Pulse Ox 98% on R/A; vg1 14:45 BP 99 / 77; Pulse 89; Resp 15; Pulse Ox 97% on R/A; vg1 NIH Stroke Scale Scores: 13:00 NIHSS Score: 16 vg1 13:31 NIHSS Score: 16 snw [place] Coma Score: 13:15 Eye Response: spontaneous(4). Verbal Response: confused(4). Motor Response: obeys vg1 commands(6). Total: 14. 13:31 Eye Response: spontaneous(4). Verbal Response: inappropriate words(3). Motor Response: snw obeys commands(6). Total: 13. 14:30 Eye Response: to voice(3). Verbal Response: incomprehensible(2). Motor Response: vg1 localizes pain(5). Total: 10. Procedures: 15:29 Intubation: Intubated orally using 4 Glidescope with 7.0 mm ETT. was successful on ms3 first attempt. Ventilated with Ambu bag. Tube secured with ETT calix Placement verified by CO2 detector with (+) color change, O2 saturation after procedure was 100 %. Capnography. Patient tolerated well. MDM: 13:20 Patient medically screened. snw 13:20 Data reviewed: vital signs, nurses notes. Data interpreted: Pulse oximetry: on room snw air. Physician consultation: Ajit Shrestha MD was called at 13:21, and will see patient in ED, immediately. ED course: Discussed history with pt's Daughter, Garima Oconnor, who called to say that pt was at her baseline yesterday. When visited at lunch today, pt had AMS, forced eye deviation to left. Family requested she be evaluated in ED. Pt arrived at 1303 to ED. 1325 + hemorrhagic CVA. Family notified of bleed and request [facility]. Attempt to transfer initiated. Daughter: Garima Oconnor [phone]. 13:49 Counseling: I had a detailed discussion with the patient and/or guardian regarding: the snw historical points, exam findings, and any diagnostic results supporting the discharge/admit diagnosis, radiology results, the need to transfer to another facility, for higher level of care, [facility] does not immediately have the required specialist. Physician consultation: Dr. Alonzo Christy regarding regarding transfer, consult, patient's condition, will speak with Blasting Cap Assembler. 13:50 Physician consultation: Dr Nash regarding regarding transfer, to [facility]. keep snw SBP less than 160. 14:58 ED course: GCS 11, tachycardia, pressure lower, Life flight at bedside, FFP being sent snw to dept. 15:17 ED course: Pt intubated per Dr. Sanchez, tube verified by direct visualization and CO2 snw measurement, 7.0 ETT 24 at the teeth, 87/56, 97%, 29 CO2, HR 97 post intubation. Life flight crew at bedside. FFP given per pressure bag. . 05/07 13:18 Order name: Basic Metabolic Panel; Complete Time: 14:44 snw 05/07 13:18 Order name: CBC with Diff; Complete Time: 14:21 [facility] 05/07 13:18 Order name: Hepatic Function; Complete Time: 14:44 [facility] 05/07 13:18 Order name: High Sensitivity Troponin; Complete Time: 14:44 [facility] 05/07 13:18 Order name: Magnesium; Complete Time: 14:44 [facility] 05/07 13:18 Order name: Protime (+inr); Complete Time: 14:27 [facility] 05/07 13:18 Order name: Ptt, Activated; Complete Time: 14:27 [facility] 05/07 13:18 Order name: CT Stroke Brain w/o Contrast; Complete Time: 13:54 [facility] 05/07 13:18 Order name: Stroke CXR 1 View; Complete Time: 14:57 [facility] 05/07 13:30 Order name: SARS-COV-2 Antigen Rapid; Complete Time: 14:54 05/07 13:49 Order name: FFP [facility] 05/07 13:52 Order name: ABO/RH typing [facility] 05/07 14:37 Order name: ABO/RH no charge; Complete Time: 14:44 [facility] 05/07 13:18 Order name: EKG; Complete Time: 13:19 [facility] 05/07 13:18 Order name: Accucheck; Complete Time: 14:07 [facility] 05/07 13:18 Order name: Cardiac monitoring; Complete Time: 14:07 [facility] 05/07 13:18 Order name: EKG - Nurse/Tech; Complete Time: 13:59 [facility] 05/07 13:18 Order name: IV Saline Lock; Complete Time: 13:59 [facility] 05/07 13:18 Order name: Labs collected and sent; Complete Time: 13:59 [facility] 05/07 13:18 Order name: NPO; Complete Time: 14:07 [facility] 05/07 13:18 Order name: O2 Per Protocol; Complete Time: 14:07 [facility] 05/07 13:18 Order name: O2 Sat Monitoring; Complete Time: 14:07 [facility] 05/07 13:18 Order name: Tang: criticore; Complete Time: 14:07 w EC:35 Rate is 92 beats/min. Rhythm is irregularly irregular. T waves are Inverted in leads snw II, III, V4, V5, V6. Clinical impression: Atrial Fibrillation. Administered Medications: 14:05 Drug: Fosphenytoin 20 mg/kg Route: IVPB; Infused Over: 15 mins; Site: left antecubital; vg1 14:20 Follow up: IV Status: Completed infusion; IV Intake: 100ml vg1 15:00 Drug: Vitamin K1 (phytonadione) 10 mg Route: Sub-Q; Site: abdomen; vg1 15:21 Follow up: Response: Adverse reaction, Physician notified vg1 Disposition: 13:39 PA/STAGE HAND's history reviewed, patient interviewed, and examined. HPI: 66-year-old female ms3 with past medical history of CVA, A. fib, hypertension presents via [facility] for altered mental status that was noted at 11:45 AM. custodial staff noticed patient to be staring out window and EMS was called for altered mental status. My personal exam of patient reveals: On exam patient is alert, exhibiting echolalia, fixed deviation to the left. Patient has NIH of 16. Heart rate and rhythm are regular without murmurs rubs or gallops. Lungs are clear to auscultation bilaterally. Skin is warm and dry. Disposition Summary: 05/07/22 13:54 Transfer Ordered Transfer Location: [facility] snw Reason: Higher level of care snw Condition: Critical snw Problem: new snw Symptoms: are unchanged snw Accepting Physician: Dr. Nash(05/07/22 15:38) vg1 Diagnosis - Intraventricular hemorrhage, left basal ganglia infarct, mild left to right midline snw shift Forms: - Medication Reconciliation Form snw - SBAR form snw Critical care time excluding procedures: 15:30 Critical care time: Bedside Care: 40 minutes, Consultation: 10 minutes, Family ms3 Intervention: 15 minutes. Total time: 65 minutes NIH Stroke Scale - NIH Stroke Score Date: 05/07/2022 Time: 13:00 Total Score = 16 1a. Level of Consciousness (LOC) - 0(Alert) 1b. Level of Consciousness (LOC) (Month \T\ Age) - 1(One) 1c. LOC Commands (Open \T\ Closes Eyes/Production [place]) - 0(Both) 2. Best Gaze (Lateral Gaze Paresis) - 2(Forced deviation) 3. Visual Field Loss - 3(Bilateral hemianopia) 4. Facial Palsy - 2(Partial paralysis) 5a. Left Arm: Motor (10-second hold) - 0(No drift) 5b. Right Arm: Motor (10-second hold) - 4(No movement) 6a. Left Leg: Motor (5-second hold - always test supine) - 0(No drift) 6b. Right Leg: Motor (5-second hold - always test supine) - 2(Drift, some effort against gravity) 7. Limb Ataxia (finger/nose \T\ heel/armstrong - test with eyes open) - 0(Absent) 8. Sensory Loss (pinprick arms/legs/face) - 1(Mild to moderate loss) 9. Best Language: Aphasia (description/naming/reading) - 0(No aphasia) 10. Dysarthria (speech clarity - read or repeat words) - 0(Normal) 11. Extinction and Inattention (visual/tactile/auditory/spatial/personal) - 1(Present) Initials: vg1 NIH Stroke Scale - NIH Stroke Score Date: 05/07/2022 Time: 13:31 Total Score = 16 1a. Level of Consciousness (LOC) - 0(Alert) 1b. Level of Consciousness (LOC) (Month \T\ Age) - 2(Neither) 1c. LOC Commands (Open \T\ Closes Eyes/[place]) - 2(Neither) 2. Best Gaze (Lateral Gaze Paresis) - 2(Forced deviation) 3. Visual Field Loss - 1(Partial hemianopia) 4. Facial Palsy - 0(Normal) 5a. Left Arm: Motor (10-second hold) - 0(No drift) 5b. Right Arm: Motor (10-second hold) - 2(Drift, some effort against gravity) 6a. Left Leg: Motor (5-second hold - always test supine) - 0(No drift) 6b. Right Leg: Motor (5-second hold - always test supine) - 2(Drift, some effort against gravity) 7. Limb Ataxia (finger/nose \T\ heel/armstrong - test with eyes open) - 2(Present in two limbs) 8. Sensory Loss (pinprick arms/legs/face) - 0(Normal) 9. Best Language: Aphasia (description/naming/reading) - 1(Mild to moderate aphasia) 10. Dysarthria (speech clarity - read or repeat words) - 1(Mild to Moderate) 11. Extinction and Inattention (visual/tactile/auditory/spatial/personal) - 1(Present) Initials: fabi Signatures: Dispatcher [employer] Mary Ngo, SUSANC BOILING HOUSE OILER-[place] Staci Franklin, RN RN vg1 Matt Sanchez DO DO ms3 Corrections: (The following items were deleted from the chart) 14:12 13:20 ED course: Discussed history with pt's Daughter, Garima Oconnor, who snw called to say that pt was at her baseline yesterday. When visited at lunch today, pt had AMS, forced eye deviation to left. Family requested she be evaluated in ED. Pt arrived at 1303 to ED. 1325 + hemorrhagic CVA. Family notified of bleed and request [facility]. Attempt to transfer initiated.. snw 15:38 13:54 Dr. Saad dunlap vg1
--- NOTE | 2022-05-07 13:54 | ER ---
Nurse's Notes [facility] Name: Richa Lozano Age: 66 yrs Sex: Female : 1955 Arrival Date: 05/07/2022 Time: 13:03 Bed 18 Private MD: Diagnosis: Intraventricular hemorrhage, left basal ganglia infarct, mild left to right midline shift Presentation: 05/07 13:00 Chief complaint: EMS states: Pt is from [facility], toned out for 'sudden vg1 onset of AMS'; upon arrival of daughter to facility around 1215 stated pt was starring out window and pt usually has slow speech but was unable to understand. Pt appears to have skin tear to Left wrist. 13:00 Coronavirus screen: Vaccine status: Patient reports receiving the 2nd dose of the covid vg1 vaccine. Client denies travel out of the [place] in the last 14 days. Ebola Screen: Patient negative for fever greater than or equal to 101.5 degrees Fahrenheit, and additional compatible Ebola Virus Disease symptoms. An acute neurological deficit is present. The charge nurse has been notified. Initial Sepsis Screen: Does the patient meet any 2 criteria? No. Patient's initial sepsis screen is negative. Does the patient have a suspected source of infection? No. Patient's initial sepsis screen is negative. Risk Assessment: Do you want to hurt yourself or someone else? Patient reports no desire to harm self or others. Onset of symptoms is unknown. 13:00 Method Of Arrival: EMS: [facility] vg1 13:00 Acuity: TINO 2 vg1 Triage Assessment: 13:00 The onset of the patients symptoms was at an unknown time. General: Appears vg1 uncomfortable, slender, Behavior is cooperative. Pain: Denies pain. EENT: No signs and/or symptoms were reported regarding the EENT system. Neuro: Level of Consciousness is awake, alert, lethargic, Oriented to person, Special Education Paraeducator are weak on right Weakness in right arm(s) Gait is unable to access. Speech with expressive aphasia noted, Pupils are PERRLA, Pupil Size: 7 Denies headache. Cardiovascular: Patient's skin is warm and dry. Respiratory: Airway is patent Respiratory effort is even, unlabored. GI: Abdomen is flat, Abd is soft and non tender X 4 quads. : No signs and/or symptoms were reported regarding the genitourinary system. Derm: Skin is thin, has skin tears on CORI arms. Musculoskeletal: Range of motion: limited in Right arm. Stroke Activation: Symptom onset < 3 hours Physician: Stroke Attending; Name: ; Notified At: ; Arrived At: Physician: Chief Stroke Resident; Name: ; Notified At: ; Arrived At: Physician: Stroke Resident; Name: ; Notified At: ; Arrived At: Physician: ED Attending; Name: ; Notified At: ; Arrived At: Physician: ED Resident; Name: ; Notified At: ; Arrived At: Historical: - Allergies: 13:00 Levaquin; vg1 - PMHx: 13:00 AFIB; Aneurysm; atelectasis; cardiomegaly; CHF; COPD; CVA; Depression; EDEMA; vg1 Hypertension; Myocardial infarction; Pace maker; pleural effusion; rheumatic mitral stenosis; Angina pectoris; - Immunization history:: Client reports receiving the 2nd dose of the Covid vaccine. - Social history:: Smoking status: unknown. Screenin:00 Abuse screen: Denies threats or abuse. Nutritional screening: No deficits noted. vg1 Tuberculosis screening: No symptoms or risk factors identified. Fall Risk Fall in past 12 months (25 points). Secondary diagnosis (15 points) TIA, IV access (20 points). Ambulatory Aid- None/Bed Rest/Nurse Assist (0 pts). Gait- Impaired (20 pts.). Mental Status- Overestimates/Forgets Limitations (15 pts.). Total Calero Fall Scale indicates High Risk Score (45 or more points). Fall prevention measures have been instituted. Side Rails Up X 2 Placed Close to Nursing Station. Assessment: 13:00 Reassessment: SEE TRIAGE. vg1 13:00 VAN Scoring: Arm Drift: Minor drift Visual Disturbance: Field Cut: Abnormal visual vg1 castrejon noted. Provider notified of +VAN scoring. Aphasia: No aphasia noted. Neglect: Patient is noted to be ignoring one of side of their body. Provider notified of +VAN scoring. Patient has been NPO before screening. The patient is alert, and able to follow commands. The patient exhibits slurred or garbled speech. Provider notified of the indication for Speech Therapy consult. The patient is exhibiting difficulty speaking. The patient does not exhibit difficulty understanding words. The patient is unable to swallow own secretions without drooling or the need for suction. Bedside swallow screening discontinued. Patient kept NPO until cleared by Speech Therapy or Physician. The patient failed the bedside swallow screening. The patient will be kept NPO until cleared by Speech Therapy or Physician. Provider notified of bedside swallow screening results: Mary Cowart DIRECTOR [employer]-C. TNKase (Tenecteplase) Screening:. 13:20 TNKase (Tenecteplase) Screening: Contraindications: Intracranial hemorrhage and its vg1 risk factor and suspicion of subarachnoid bleed: Yes. 13:20 not performed; asked pt to try and swallow secretions and pt began to cough was not vg1 performed. 14:00 Reassessment: Patient appears in no apparent distress at this time. No changes from vg1 previously documented assessment. Pt awake and alert. 14:00 Reassessment: Asked pt of any pain, unable to understand pt at this time; pt appears to vg1 have expressive aphasia; provider notified. Transfer in progress, per facility currently waiting for covid results. 15:00 Reassessment: Patient appears in no apparent distress at this time. No changes from vg1 previously documented assessment. Vital Signs: 13:00 BP 120 / 96; Pulse 101; Resp 16; Temp 97.9(A); Pulse Ox 97% on R/A; Weight 40.5 kg; vg1 13:29 Weight 40.5 kg; ld1 14:15 BP 95 / 83; Pulse 102; Resp 16; Pulse Ox 99% on R/A; vg1 14:30 BP 77 / 32; Pulse 96; Resp 14; Pulse Ox 99% on R/A; vg1 14:39 BP 87 / 65; Pulse 102; Resp 14; Pulse Ox 98% on R/A; vg1 14:45 BP 99 / 77; Pulse 89; Resp 15; Pulse Ox 97% on R/A; vg1 [place] Coma Score: 13:15 Eye Response: spontaneous(4). Verbal Response: confused(4). Motor Response: obeys vg1 commands(6). Total: 14. 13:31 Eye Response: spontaneous(4). Verbal Response: inappropriate words(3). Motor Response: snw obeys commands(6). Total: 13. 14:30 Eye Response: to voice(3). Verbal Response: incomprehensible(2). Motor Response: vg1 localizes pain(5). Total: 10. NIH Stroke Scale Scores: 13:00 NIHSS Score: 16 vg1 13:31 NIHSS Score: 16 sn ED Course: 13:00 Arm band placed on. vg1 13:00 Patient has correct armband on for positive identification. Placed in gown. Bed in low vg1 position. Call light in reach. Side rails up X2. Client placed on continuous cardiac and pulse oximetry monitoring. NIBP monitoring applied. 13:03 Patient arrived in ED. vg1 13:04 Matt Sanchez DO is Attending Physician. ms3 13:16 Mary Cowart FNP-C is [facility]. snw 13:26 initiated transfer to [facility]. bd 13:28 CT Stroke Brain w/o Contrast In Process Unspecified. EDMS 13:30 Inserted saline lock: 20 gauge in left antecubital area, using aseptic technique. vg1 ,using aseptic technique. Completed by Shivani CHOPRA. 13:55 pt accepted in transfer to [facility] by dr Christy, admin approval given by [place]o Val[place]ia.pt going to [facility] 1127. 13:55 Tang cath inserted, using sterile technique, 16 Fr., by ca, balloon inflated, to vg1 gravity drainage, urine specimen collected. 14:20 Triage completed. vg1 14:37 Stroke CXR 1 View In Process Unspecified. EDMS 14:51 Staci Franklin, RN is Primary Nurse. vg1 15:38 No provider procedures requiring assistance completed. Patient transferred, IV remains vg1 in place. Administered Medications: 14:05 Drug: Fosphenytoin 20 mg/kg Route: IVPB; Infused Over: 15 mins; Site: left antecubital; vg1 14:20 Follow up: IV Status: Completed infusion; IV Intake: 100ml vg1 15:00 Drug: Vitamin K1 (phytonadione) 10 mg Route: Sub-Q; Site: abdomen; vg1 15:21 Follow up: Response: Adverse reaction, Physician notified vg1 Medication: 15:35 VIS not applicable for this client. vg1 Intake: 14:20 IV: 100ml; Total: 100ml. vg1 Outcome: 13:54 ER care complete, transfer ordered by . snw 15:38 Transferred by helicopter vg1 15:38 critical 15:38 Instructed on the need for transfer. 15:38 Patient left the ED. vg1 NIH Stroke Scale - NIH Stroke Score Date: 05/07/2022 Time: 13:00 Total Score = 16 1a. Level of Consciousness (LOC) - 0(Alert) 1b. Level of Consciousness (LOC) (Month \T\ Age) - 1(One) 1c. LOC Commands (Open \T\ Closes Eyes/Pharmacist'S Aide) - 0(Both) 2. Best Gaze (Lateral Gaze Paresis) - 2(Forced deviation) 3. Visual Field Loss - 3(Bilateral hemianopia) 4. Facial Palsy - 2(Partial paralysis) 5a. Left Arm: Motor (10-second hold) - 0(No drift) 5b. Right Arm: Motor (10-second hold) - 4(No movement) 6a. Left Leg: Motor (5-second hold - always test supine) - 0(No drift) 6b. Right Leg: Motor (5-second hold - always test supine) - 2(Drift, some effort against gravity) 7. Limb Ataxia (finger/nose \T\ heel/armstrong - test with eyes open) - 0(Absent) 8. Sensory Loss (pinprick arms/legs/face) - 1(Mild to moderate loss) 9. Best Language: Aphasia (description/naming/reading) - 0(No aphasia) 10. Dysarthria (speech clarity - read or repeat words) - 0(Normal) 11. Extinction and Inattention (visual/tactile/auditory/spatial/personal) - 1(Present) Initials: 1 NIH Stroke Scale - NIH Stroke Score Date: 05/07/2022 Time: 13:31 Total Score = 16 1a. Level of Consciousness (LOC) - 0(Alert) 1b. Level of Consciousness (LOC) (Month \T\ Age) - 2(Neither) 1c. LOC Commands (Open \T\ Closes Eyes/Pharmacist'S Aide) - 2(Neither) 2. Best Gaze (Lateral Gaze Paresis) - 2(Forced deviation) 3. Visual Field Loss - 1(Partial hemianopia) 4. Facial Palsy - 0(Normal) 5a. Left Arm: Motor (10-second hold) - 0(No drift) 5b. Right Arm: Motor (10-second hold) - 2(Drift, some effort against gravity) 6a. Left Leg: Motor (5-second hold - always test supine) - 0(No drift) 6b. Right Leg: Motor (5-second hold - always test supine) - 2(Drift, some effort against gravity) 7. Limb Ataxia (finger/nose \T\ heel/armstrong - test with eyes open) - 2(Present in two limbs) 8. Sensory Loss (pinprick arms/legs/face) - 0(Normal) 9. Best Language: Aphasia (description/naming/reading) - 1(Mild to moderate aphasia) 10. Dysarthria (speech clarity - read or repeat words) - 1(Mild to Moderate) 11. Extinction and Inattention (visual/tactile/auditory/spatial/personal) - 1(Present) Initials: snw Signatures: Dispatcher [employer] EDMS Chelsea Lorenzo Shelly, DIRECTOR [employer]-C DIRECTOR [employer]-Csnw Staci Franklin, RN RN vg1 Matt Sanchez DO DO ms3 Nalini Schmidt RN RN ld1 Corrections: (The following items were deleted from the chart) 15:20 14:00 Reassessment: Transfer in progress, per facility currently waiting for vg1 covid results vg1
[2022-05-07 14:04] LABS: Hematocrit 41.8 % (36.0-45.0); Lymphocytes % 14.2 % (15.3-44.8); MCV 90.3 fL (80-100); MPV 9.4 fL (7.6-11.3); RBC Red Blood Cell Count 4.63 M/uL (3.86-4.86)
[2022-05-07 14:23] LABS: Protime INR 7.36
[2022-05-07 14:37] LABS: Potassium 3.6 mmol/L (3.5-5.1)
[2022-05-07 14:38] LABS: Albumin 3.8 g/dL (3.4-5.0); Bilirubin Direct 0.6 mg/dL (0-0.2); Bilirubin Total 1.8 mg/dL (0.2-1.0); Magnesium 2.4 mg/dL (1.8-2.4); Protein, Total 6.9 g/dL (6.4-8.2); Troponin High Sensitivity 44.9 pg/mL (<58.9)
[2022-05-07 14:53] LABS: SARS-CoV-2 Antigen Rapid Res Negative (Negative)
--- NOTE | 2022-05-07 14:56 | RAD REPORT ---
EXAM DESCRIPTION: RAD - Chest Single View - 05/07/2022 2:35 pm CLINICAL HISTORY: ams COMPARISON: Chest Single View dated 04/15/2022; Chest Single View dated 03/01/2022; Chest Single View dated 10/31/2021; Chest Single View dated 05/01/2018 FINDINGS: Lines: None. Lungs: No evidence of edema or pneumonia. Some limitation due to patient's degree rotation. Pleural: No significant pleural effusions or pneumothorax. Cardiac: Cardiomegaly. Pacemaker/ICD. Mediastinum: Within normal limits. Bones: No acute fractures. Sternotomy. Other: None IMPRESSION: No acute cardiopulmonary disease.
[2022-05-07] MEDS ORDERED: VITAMIN K (ADULT) 10 MG/ML ONE (14:57)
[2022-05-07] MEDS ORDERED: NA CHLORIDE 0.9% 250 ML ONE (14:59)
[2022-05-07 15:45] VITALS: TEMP 97.9
[2022-05-07 15:50] VITALS: BP 99/77; O2SAT 97
--- NOTE | 2022-05-09 16:31 | EKG ---
Test Date: 2022-05-07 Test Time: 13:35:16 Casting Operator Helper: MEASUREMENT RESULTS: Intervals: Rate: 92 IA: QRSD: 100 QT: 400 QTc: 494 [place]: P: IA: QRS: 95 T: 250 INTERPRETIVE STATEMENTS: Demand pacemaker, interpretation is based on intrinsic rhythm Atrial fibrillation with premature ventricular or aberrantly conducted complexes Rightward axis Septal infarct, age undetermined ST & T wave abnormality, consider inferolateral ischemia or digitalis effect Abnormal ECG Compared to ECG 04/15/2022 15:34:25 Ventricular premature complex(es) now present Right-axis deviation now present Myocardial infarct finding now present ST (T wave) deviation now present T-wave abnormality no longer present Possible ischemia still present Electronically Signed On 05-09-22 16:23:48 SUPERVISOR BLASTING by Gilmer Rodas
== END 2022-05-07 15:38 | disposition short-term general hospital (02) ==
LOC: ER 12:59
PROC: 30233L1 Transfusion of Nonautologous Fresh Plasma into Peripheral Vein, Percutaneous Approach (ICD-10-PCS; principal; 2022-05-07)
DX: I61.0 Nontraumatic intracerebral hemorrhage in hemisphere, subcortical (principal); I10 Essential (primary) hypertension; R29.716 NIHSS score 16; I50.9 Heart failure, unspecified; Z20.822 Contact with and (suspected) exposure to COVID-19; Z95.0 Presence of cardiac pacemaker; Z88.1 Allergy status to other antibiotic agents
CPT/HCPCS: 93005; 85025; 80048; 36415; 86900; 83735; 85610; 86901; 80076; 85730; 84484; 70450; 71045; 31500; 51702; 96372; 96374; 99285; 87811; 36430; J3430; Q2009; P9059; J7050